=== PATIENT | female | born 1970 | race Caucasian/White ===

== ENCOUNTER 2018-09-11 18:01 | Outpatient (REF) | payer OTHER, SELFPAY ==
[2018-09-11 22:32] LABS: COMMENT (LAB VIEW ONLY) 45.35 mg/dL
[2018-09-11 22:35] LABS: Anion Gap 8.1 mmol/L (3-11); BUN 13 mg/dL (7-18); CO2 32.9 mmol/L (21.0-32.0); CREATININE 0.99 mg/dL (0.55-1.02); Chloride 100 mmol/L (98-107); Cholesterol 181 mg/dL (50-200); Estimated GFR 59.62 (mL/min/1.73m2); Glucose 190 mg/dL (70-100); HDL Cholesterol 45 mg/dL (40-60); LDL CHOLESTEROL 114 mg/dL (<100); Potassium 3.6 mmol/L (3.5-5.1); Sodium 141 mmol/L (136-145); Triglyceride 166 mg/dL (30-150)
== END 2018-09-11 18:21 ==
LOC: NCHCN 18:01
PROVIDERS: PCP Family Medicine; Visit Provider Family Medicine
DX: E11.65 Type 2 diabetes mellitus with hyperglycemia (principal); Z79.4 Long term (current) use of insulin
CPT/HCPCS: 80048; 80061; 83721; 82043; 82570

== ENCOUNTER 2019-11-04 18:12 | Outpatient (REF) | payer OTHER, SELFPAY ==
[2019-11-04 22:58] LABS: BUN 16 mg/dL (7-18); CREATININE 1.06 mg/dL (0.55-1.02); Calcium 8.6 mg/dL (8.5-10.1); Calculated LDL 60 mg/dL; Chloride 104 mmol/L (98-107); Cholesterol 166 mg/dL (<200); Estimated GFR 54.87 (mL/min/1.73m2); Glucose 218 mg/dL (74-106); HDL Cholesterol 42 mg/dL (40-60); Potassium 3.8 mmol/L (3.5-5.1); Sodium 143 mmol/L (136-145); Triglyceride 321 mg/dL (<150)
== END 2019-11-04 18:32 ==
LOC: NCHCN 18:12
PROVIDERS: PCP Family Medicine; Visit Provider Family Medicine
DX: I10 Essential (primary) hypertension (principal); E66.01 Morbid (severe) obesity due to excess calories
CPT/HCPCS: 80048; 80061

== ENCOUNTER 2020-07-08 21:58 | Outpatient (REF) | payer OTHER, SELFPAY ==
[2020-07-08 21:12] LABS: Hemoglobin A1C 8.5 % (<5.7)
== END 2020-07-08 22:18 ==
LOC: NCHCN 21:58
PROVIDERS: PCP Family Medicine; Visit Provider Nurse Practitioner Family
DX: E11.65 Type 2 diabetes mellitus with hyperglycemia (principal)
CPT/HCPCS: 83036

== ENCOUNTER 2021-09-26 09:54 | Outpatient (REF) | payer OTHER, SELFPAY ==
--- NOTE | 2021-09-26 08:30 | PAPFT_PTH ---
PATIENT: Elizabeth Corrigan LOC: [facility]#:[id number] AGE/SX: 51/F ROOM: RE09/26/[address]: Rosalia Starr : 1970 BED: DIS: 09/26/2021 SPEC #: [id number] RECD: 09/26/21 17:51 STATUS: BRITTNI REDanny #: [id number] DUC: 09/26/21 08:[address]: Rosalia Starr DEPT: [facility] Cytology RECD BY: June Foy Tissues: 1 - CX/ENDOCX FOR PAP SMEARS Procedures: PAP THIN PREP/UVM Screening HPV DNA PROBE Comments: [id number]
== END 2021-09-26 09:55 | disposition home or self-care (01) ==
LOC: NCHCN 09:54
PROVIDERS: PCP Family Medicine; Visit Provider Family Medicine
DX: Z12.4 Encounter for screening for malignant neoplasm of cervix (principal); Z11.51 Encounter for screening for human papillomavirus (HPV)
CPT/HCPCS: 88142; 87624

== ENCOUNTER 2022-06-28 18:41 | Outpatient (REF) | payer OTHER, SELFPAY ==
[2022-06-29 18:02] LABS: Albumin, Ur < 0.6 mg/dL (See Note)
== END 2022-06-28 18:42 | disposition home or self-care (01) ==
LOC: NCHCN 18:41
PROVIDERS: PCP Family Medicine; Visit Provider Family Medicine
DX: I10 Essential (primary) hypertension (principal); E11.65 Type 2 diabetes mellitus with hyperglycemia; Z79.4 Long term (current) use of insulin
CPT/HCPCS: 82043; 82570

== ENCOUNTER 2022-09-25 15:59 | Outpatient (REF) | payer OTHER, SELFPAY ==
--- OUTSIDE RECORDS SUMMARY | 2022-09-25 16:10 | XMS_ITS | CCD ---
:1970 Author Care Team Providers Name Role Phone ANTHONY PEGUERO Attending Physician Unavailable ANTHONY PEGUERO Rounding (Secondary) Physician Unavailab le Vital Signs Unknown or Not Available. Allergies Allergy Code Allergy Type Reaction Status PENICILLINS (CLASS) 90230 Drug allergy Hives Active AMPICILLIN 843098 Drug allergy Hives Active SEASONAL {Clinical monitoring 0 Allergy to substance SIN US Active unavailable} Procedures Unknown or Not Available. History of Immunizations Unknown or Not Available. Problems Problem Code Start Date Resolved Date Status Acid reflux 384573034 Active Diabetes 2 85104182 Active HTN 75698900 Active Results Unknown or Not Available. Active Medications Unknown or Not Available. Medications Administered During Visit Unknown or Not Available. Encounters Encounter Diagnosis Diagnosis Code Start Date Other chest pain R0789 04/07/2022 Social History Smoking Status Code Start Date End Date Never smoker 688851957 Patient Decision Aids Unknown or Not Available. Discharge Instructions You were admitted to [facility] on 04/07/2022 08:32 with a principal diagnosis of Other chest pain You were discharged from [facility] on 04/07/2022 00:00 Should you have any questions prior to d ischarge, please contact a member of your healthcare team. If you have left the ho spital and have any questions, please contact your primary care physician. Chief Complaint and Reason For Visit Unknown or Not Available. Function Status Unknown or Not Available. Plan of Care Unknown or Not Available. Referral/Transition of Care Unknown or Not Available.
--- OUTSIDE RECORDS SUMMARY | 2022-09-25 16:10 | XMS_ITS | CCD ---
:1970 Author Care Team Providers Name Role Phone JORDANA BATRES Attending Physician Unavailable Vital Signs Unknown or Not Available. Allergies Allergy Code Allergy Type Reaction Status PENICILLINS (CLASS) 68147 Drug allergy Hives Active AMPICILLIN 665349 Drug allergy Hives Active SEASONAL {Clinical monitoring 0 Allergy to substance SIN US Active unavailable} Procedures Unknown or Not Available. History of Immunizations Unknown or Not Available. Problems Problem Code Start Date Resolved Date Status Acid reflux 232152535 Active Diabetes 2 18519699 Active HTN 45865378 Active Results COMPREHENSIVE METABOLIC PANEL (CMP) - Co llect Date/Time: 10/05/2021 08:22 Test Name Code Test Result Test Units Test Ref Range GLUCOSE 2345-7 213 mg/dL L=70 H=116 BUN 3094-0 19 mg/dL L=6 H=25 CREATININE 2160-0 1.10 mg/dL L=0.51 H=0.95 SODIUM SERUM 2951-2 140 mmol/L L=136 H=145 POTASSIUM SERUM 2823-3 4.2 mmol/L L=3.4 H=5.2 CHLORIDE SERUM 2075-0 100 mmol/L L=96 H=110 CARBON DIOXIDE (CO2) 2028-9 35 mmol/L L=22 H= 34 ANION GAP 57714-3 5.3 mmol/L CALCIUM SERUM 92120-4 8.9 mg/dL L=8.2 H=10.2 BILIRUBIN TOTAL 1975-2 0.4 mg/dL L=0.0 H=1.3 ALK. PHOS. 6768-6 118 U/L L=46 H=116 SGOT (AST) 1920-8 12 U/L L=15 H=37 SGPT (ALT) 1742-6 19 U/L L=12 H=78 TOTAL PROTEIN 2885-2 7.6 gm/dL L=6.0 H=8.0 ALBUMIN 1751-7 3.7 gm/dL L=3.4 H=5.0 AGE 51 years eGFR (non-Afr.Amer.) 49768-7 52 mL/min eGFR (Afr-Dominican) 60762-9 63 mL/min LIPID PANEL* - Collect Date/Time: 2020 08:22 Test Name Code Test Result Test Units Test Ref Range CHOLESTEROL 2093-3 136 mg/dL L=0 H=200 TRIGLYCERIDES 2571-8 87 mg/dL L=53 H=223 HDL 2085-9 56 mg/dL L=37 H=91 non-HDL-C 00358-5 80 mg/dL L=0 H=160 LDL (CALC) 53066-7 63 mg/dL L=0 H=130 % HDL 41.2 % Chol/HDL Ratio 9830-1 2.4 L=0.0 H=4.4 CHD Relative Risk 0.5 x Avg L=0.0 H=1. 0 LDL/HDL Ratio 21642-8 1.1 L=0.0 H=3.2 CHD Relative Risk. 0.3 x Avg L=0.0 H=1 .0 FASTING STATUS: FASTING N/A MICROALBUMIN URINE - Collect Date/Time: 10/05/2021 08:22 Test Name Code Test Result Test Units Test Ref Range Creatinine Urine 2161-8 110.6 mg/dl Microalb mg/dl 63884-2 0.4 mg/dl Microalbumin ug/mg C 9318-7 3.6 ug/mg Cr CHLAMYDIA/GC AMPLIFIED PROBE* - Collect Date/Time: 10/07/2021 13:41 Test Name Code Test Result Test Units Test Ref Range Chlamydia Result Negative N/A Negative GC Result Negative N/A Negative Active Medications Unknown or Not Available. Medications Administered During Visit Unknown or Not Available. Encounters Encounter Diagnosis Diagnosis Code Start Date Type 2 diabetes mellitus without complication 234119522 10/05/2021 Social History Smoking Status Code Start Date End Date Never smoker 602703671 Patient Decision Aids Unknown or Not Available. Discharge Instructions You were admitted to [facility] on 10/05/2021 08:06 with a principal diagnosis of Type 2 diabetes mellitus without comp lications You had the following tests done: CHLAM YDIA/GC AMPLIFIED PROBE* COMPREHENSIVE METABOLIC PANEL (CMP) LIPID PANEL* MICRO ALBUMIN URINE You were discharged from [facility] on 10/05/2021 08:06 Should you have any questions prior to [...]
--- OUTSIDE RECORDS SUMMARY | 2022-09-25 16:10 | XMS_ITS | CCD ---
:1970 Author Care Team Providers Name Role Phone DEVIN MEDRANO Attending Physician Unavailable DEVIN MEDRANO Er Physician 1 Unavailable THALIA Ball Registered Nurse Unavailable Vital Signs Vital Sign Value Unit Date/Time Recent/Initial? BMI (Body Mass Index) 33.47 kg/m^2 03/07/2022 23:04 In itial VS Weight Measured 183 lbs 03/07/2022 23:04 Initial VS Height 62 in 03/07/2022 23:04 Initial VS BSA (Body Surface Area) 1.91 m^2 03/07/2022 23:04 Initial VS BP Systolic 145 mmHg 03/07/2022 23:04 Initial VS BP Diastolic 65 mmHg 03/07/2022 23:04 Initial VS Respiratory Rate 18 bpm 03/07/2022 23:04 Initial VS Heart Rate 80 bpm 03/07/2022 23:04 Initial VS O2 % BldC Oximetry 99 % 03/07/2022 23:04 Initi al VS Body Temperature 37.2 degrees 03/07/2022 23:04 Initial VS BP Systolic 114 mmHg 03/08/2022 01:25 Most Recent VS BP Diastolic 66 mmHg 03/08/2022 01:25 Most Recent VS Respiratory Rate 16 bpm 03/08/2022 01:25 Most Re cent VS Heart Rate 84 bpm 03/08/2022 01:25 Most Recent VS O2 % BldC Oximetry 96 % 03/08/2022 01:25 Most Recent VS Allergies Allergy Code Allergy Type Reaction Status PENICILLINS (CLASS) 70334 Drug allergy Hives Active AMPICILLIN 514263 Drug allergy Hives Active SEASONAL {Clinical monitoring 0 Allergy to substance SIN US Active unavailable} Procedures Unknown or Not Available. History of Immunizations Unknown or Not Available. Problems Problem Code Start Date Resolved Date Status Acid reflux 448045389 Active Diabetes 2 06813472 Active HTN 84460841 Active Results COMPREHENSIVE METABOLIC PANEL (CMP) - Co llect Date/Time: 03/07/2022 22:55 Test Name Code Test Result Test Units Test Ref Range GLUCOSE 2345-7 138 mg/dL L=70 H=116 BUN 3094-0 19 mg/dL L=6 H=25 CREATININE 2160-0 1.15 mg/dL L=0.51 H=0.95 SODIUM SERUM 2951-2 139 mmol/L L=136 H=145 POTASSIUM SERUM 2823-3 3.7 mmol/L L=3.4 H=5.2 CHLORIDE SERUM 2075-0 101 mmol/L L=96 H=110 CARBON DIOXIDE (CO2) 2028-9 33 mmol/L L=22 H= 34 ANION GAP 30948-9 5.1 mmol/L CALCIUM SERUM 32272-2 8.5 mg/dL L=8.2 H=10.2 BILIRUBIN TOTAL 1975-2 0.4 mg/dL L=0.0 H=1.3 ALK. PHOS. 6768-6 131 U/L L=46 H=116 SGOT (AST) 1920-8 14 U/L L=15 H=37 SGPT (ALT) 1742-6 18 U/L L=12 H=78 TOTAL PROTEIN 2885-2 7.2 gm/dL L=6.0 H=8.0 ALBUMIN 1751-7 3.6 gm/dL L=3.4 H=5.0 AGE 51 years eGFR (non-Afr.Amer.) 79767-1 50 mL/min eGFR (Afr-Uruguayan) 54397-0 60 mL/min MAGNESIUM SERUM* - Collect Date/Time: 22:55 Test Name Code Test Result Test Units Test Ref Range MAGNESIUM 94232-7 2.1 mg/dL L=1.8 H=2.4 TROPONIN HIGH SENSITIVITY* - Collect Meek e/Time: 03/08/2022 01:02 Test Name Code Test Result Test Units Test Ref Range TROPONIN HS 5.7 pg/mL L=0.0 H=60.4 Specimen seq. 2 hour N/A TROPONIN HIGH SENSITIVITY* - Collect Meek e/Time: 03/07/2022 22:55 Test Name Code Test Result Test Units Test Ref Range TROPONIN HS 5.2 pg/mL L=0.0 H=60.4 Specimen seq. Random N/A CBC W/ DIFFERENTIAL* - Collect Date/Time : 03/07/2022 22:55 Test Name Code Test Result Test Units Test Ref Range WBC 6690-2 7.87 th/cmm L=5.00 H=10.00 NEUT % 52.9 % L=40.0 H=80.0 LYMPH % 34.4 % L=10.0 H=50.0 MONO % 67599-2 8.0 % L=2.0 H=12.0 EOS % 3.6 % L=0.0 H=8.0 BASO % 0.6 % L=0.0 H=3.0 IG % 2514-8 0.5 % L=0.0 H=1.1 NRBC % 70942-5 0.0 % L=0.0 H=0.0 NEUT abs count 751-8 4.2 th/cmm L=1.6 H=8.4 LYMPH abs count 731-0 2.7 th/cmm L=1.5 H=4.0 MONO abs count 742-7 0.6 th/cmm L=0.2 H=1.0 EOS abs count 711-2 0.3 th/cmm L=0.0 H=0.5 BASO abs count 704-7 0.1 th/cmm L=0.0 H=0.2 IG abs count 80579-3 0.0 th/cmm L=0.0 H=0.1 NRBC abs count 00986-0 0.0 mil/cmm L=0.0 H=0.0 RBC 789-8 5.41 mil/cmm L=3.90 H=5.40 HEMOGLOBIN 718-7 12.8 gm/dL L=12.0 H=16.0 HEMATOCRIT 4544-3 42 % L=37 H=47 MCV 787-2 78 fL L=82 H=92 MCH 785-6 23.7 pg L=27.0 H=31.0 MCHC 786-4 30.2 % L=32.0 H=36.0 RDW-SD 788-0 44.0 fL L=39.0 H=49.0 PLATELET COUNT 777-3 268 th/cmm L=150 H=450 Active Medications Medication Code Dose Units Frequency Route Modification Start Date/Time NITROGLYCERIN 402541 0.4 MG X1 SL 03/07/2022 TABLET SL (25CT): 22:59 0.4MG Medications Administered During Visit Medication Dose Units Frequency Route Date/Time of L ast Dose ASPIRIN TABLET CHEWABLE: 81MG 324 MG X1 CHEW 03/07/2022 23:00 NITROGLYCERIN TABLET SL 0.4 MG X1 SL 0 03/07/2022 23:00 (25CT): 0.4MG Encounters Encounter Diagnosis Diagnosis Code Start Date Other chest pain R0789 03/07/2022 Social History Smoking Status Code Start Date End Date Never smoker 431708938 Patient Decision Aids Unknown or Not Available. Discharge Instructions You were admitted to [facility] on 03/07/2022 22:43 with a principal diagnosis of Other chest pain You had the following tests done: TROPO RANJITH HIGH SENSITIVITY* CBC W/ DIFFERENTIAL* COMPREHENSIVE METABOLIC PANEL (CMP) MAGN ESIUM SERUM* TROPONIN HIGH SENSITIVITY* You were discharged from [facility] on 03/08/2022 02:09 Should you have any questions prior to d ischarge, please contact a member of your healthcare team. If you have left the spital and have any questions, please contact your primary care physician. Chief Complaint and Reason For Visit Chief Complaint Date of Onset CHEST DISCOMFORT Function Status Unknown or Not Available. Plan of Care Unknown or Not Available. Referral/Transition of Care Unknown or Not Available.
--- OUTSIDE RECORDS SUMMARY | 2022-09-25 16:10 | XMS_ITS | CCD ---
:1970 Author Care Team Providers Name Role Phone ALDA SOLIS Attending Physician Unavailable Vital Signs Unknown or Not Available. Allergies Allergy Code Allergy Type Reaction Status PENICILLINS (CLASS) 94497 Drug allergy Hives Active AMPICILLIN 836146 Drug allergy Hives Active SEASONAL {Clinical monitoring 0 Allergy to substance SIN US Active unavailable} Procedures Unknown or Not Available. History of Immunizations Unknown or Not Available. Problems Problem Code Start Date Resolved Date Status Acid reflux 697273471 Active Diabetes 2 87925333 Active HTN 47641658 Active Results Unknown or Not Available. Active Medications Unknown or Not Available. Medications Administered During Visit Unknown or Not Available. Encounters Encounter Diagnosis Diagnosis Code Start Date Screening mammography 40245865 11/11/2021 Social History Smoking Status Code Start Date End Date Never smoker 298679318 Patient Decision Aids Unknown or Not Available. Discharge Instructions You were admitted to [facility] on 11/11/2021 15:13 with a principal diagnosis of Encounter for screening mammogram for malignant neoplasm of breast You were discharged from [facility] on 11/11/2021 15:13 Should you have any questions prior to d ischarge, please contact a member of your healthcare team. If you have left the ho spital and have any questions, please contact your primary care physician. Chief Complaint and Reason For Visit Chief Complaint Date of Onset SCR Function Status Unknown or Not Available. Plan of Care Unknown or Not Available. Referral/Transition of Care Unknown or Not Available.
--- OUTSIDE RECORDS SUMMARY | 2022-09-25 16:11 | XMS_ITS | Encounter Summary ---
:1970 Author Organization [facility] Address [address] [place] [address] Care Team Providers Name Role Phone Rosalia Starr MD Primary Care Provider Encounter Details Date Type Department Care Team Description 10/24/2017 Historical Results [facility] - Bobo Rios, Only [facility] - Main [facility] Silvia Sheldon MD [address] [facility] [address] [place] [address] [facility] [place] [address] Social History Tobacco Use Types Packs/Day Years Used Date Smoking Tobacco: Never Assessed Sex Assigned at Date Recorded Not on file documented as of this encounter Plan of Treatment Upcoming Encounters Date Type Specialty Care Team Description 11/10/2022 Office Visit Endocrinology Claudia Garcia, CLAMP JIG ASSEMBLER [address] [facility] [address] [place] [address] (Wo rk) documented as of this encounter Procedures Procedure Name Priority Date/Time Associated Diagnosis Comme nts MICROALBUMIN, URINE Routine 10/24/2017 15:51 Resu lts for this EST procedure are i n the results section. URINE Routine 10/24/2017 15:51 Results for this [id number] EST procedur e are in NE RATIO (ACR) the results section. documented in this encounter Results MICROALBUMIN, URINE (10/24/2017 15:51 EST) P athologist Signature Albumin, Urine 0.80 <1.7 mg/dL 10/24/2017 CENTRAL 19:45 EST [facility] Lab Urine 5.0 ug/mg 10/24/2017 CENTRAL Albumin to 19:45 EST [facility] Creatinine CENTER LAB Ratio Comment: Normal: <30 ug/mg Creat Microalbuminuria: 30-300 ug/mg Creat Clinical albuminuria: >300 ug/mg Creat Creatinine, Urine 157.50 mg/dL 10/24/2017 19:45 EST C [facility] Specimen Anatomical Collection Method Collection Time Receive d Time (Source) Location / / Volume Laterality 10/24/2017 15:51 10/24/2017 EST 16:54 EST Silvia Rios MD HEMATOLOGY & PF4 ORDERABLES Performing Organization Address City/[facility]/ZIP Code Phon e Number [facility] [address] [place] [address] [facility] ALBUMIN, URINE (10/24/2017 15:51 EST) P athologist Signature Albumin, Urine 0.80 <1.7 mg/dL 10/24/2017 CENTRAL 19:45 EST [facility] Lab Urine 5.0 ug/mg 10/24/2017 CENTRAL Albumin to 19:45 EST [facility] Creatinine CENTER LAB Ratio Comment: Normal: <30 ug/mg Creat Microalbuminuria: 30-300 ug/mg Creat Clinical albuminuria: >300 ug/mg Creat Creatinine, Urine 157.50 mg/dL 10/24/2017 19:45 EST C [facility] Specimen Anatomical Collection Method Collection Time Receive d Time (Source) Location / / Volume Laterality 10/24/2017 15:51 10/24/2017 EST 16:54 EST Silvia Rios MD CHEMISTRY & BLOOD GAS ORDERA BLES Performing Organization Address City/[facility]/ZIP Code Phon e Number [facility] [address] [place] [address] [facility] documented in this encounter Visit Diagnoses Not on filedocumented in this encounter Care Teams Senior Licensing Manager Relationship Specialty Start Date End Date Rosalia Starr MD PCP - General 11/06/[address] [place] [address] documented as of this encounter
--- OUTSIDE RECORDS SUMMARY | 2022-09-25 16:11 | XMS_ITS | Encounter Summary ---
:1970 Author Organization [facility] Address [address] [place] [address] Care Team Providers Name Role Phone Rosalia Starr MD Primary Care Provider Silvia Ghosh MD Unavailable [phone] Encounter Details Date Type Department Care Team Description 09/27/2021 Lab Requisition [facility] Rosalia Starr Enco unter for general adult medical examination without abnormal findings; Pathology & MD Encounter for screening for malignant ne oplasm of cervix Laboratory Medicine - [address] [place] [place] [address] [facility] [id number] [place] [id number] Social History Tobacco Use Types Packs/Day Years Used Date Smoking Tobacco: Never Smokeless Tobacco: Never Sex Assigned at Date Recorded Not on file documented as of this encounter Plan of Treatment Upcoming Encounters Date Type Specialty Care Team Description 11/10/2022 Office Visit Endocrinology Claudia Garcia, DRAG DOWN [address] [address] (Wo rk) Scheduled Orders Name Type Priority Associated Diagnoses Order S chedule PAP TEST Pathology Today Encounter for general adult medical Ordered: 09/27/2021 examination with out abnormal findings Encounter for screening for malignant neoplasm of cervix documented as of this encounter Visit Diagnoses Diagnosis Encounter for general adult medical exam ination without abnormal findings Unspecified general medical examination Encounter for screening for malignant ne oplasm of cervix Screening for malignant neoplasm of the cervix documented in this encounter Care Teams Legal Coordinator Relationship Specialty Start Date End Date Rosalia Starr MD PCP - General 11/06/[address] [place] [address] Silvia Ghosh, Endocrinology, Diabetes and MD Metabolism [address] [place] [phone] documented as of this encounter
--- OUTSIDE RECORDS SUMMARY | 2022-09-25 16:11 | XMS_ITS | Encounter Summary ---
:1970 Author Organization [facility] Address [address] [place] [address] Care Team Providers Name Role Phone Unknown, Provider Primary Care Provider Encounter Details Date Type Department Care Team Description 10/05/2006 Results Only [facility] - neptali Gilman NP [address] [place] [address] Social History Tobacco Use Types Packs/Day Years Used Date Smoking Tobacco: Never Assessed Sex Assigned at Date Recorded Not on file documented as of this encounter Plan of Treatment Upcoming Encounters Date Type Specialty Care Team Description 11/10/2022 Office Visit Endocrinology Claudia Garcia, MOTOR TEACHER [address] [facility] [address] [place] [address] (Wo rk) documented as of this encounter Procedures Procedure Name Priority Date/Time Associated Diagnosis Comme nts CYTOPATHOLOGY Routine 10/05/2006 0:00 EST Results for this procedure are i n the results section . documented in this encounter Results CYTOPATHOLOGY (10/05/2006 0:00 EST) Component Value Ref Test Analysis Performed At [facility] Method Time Signature Pathology CYTOPATHOLOGY REPORT [facility] Report: [facility] Reports generated via electronic interface contain original data; however they are lacking the format of the original report. Caution should be taken when reading/interpreting unformatte d reports. Name: ? ORETGA FRANKLIN ? Accession #: ? [id number] : ? 1970 (Age: 36) ??F ?Collect Date: ? 10/05/2006 Location: ? [facility] ? Receive Date: ? 10/08/2006 Provider: ?LAURENCE ANGELIA MOTOR TEACHER Copy to: ? Specimen/Source: ?ThinPrep Pap Test, E ndocervix, processed on [employer] Transit ThinPrep Imaging System, with manual evaluation Last Menstrual Period: ? 09/13/06 Other: ? HPVA - HPV testing requested if ASC-US on the current ThinPr ep Pap test. ? SPECIMEN ADEQUACY ? Satisfactory for Evaluation - transformation zone component present GENERAL CATEGORIZATION ? Epithelial Cell Abnormality INTERPRETATION ? Squamous Cell Abnormality - Atypical squamous cells, undetermined significance (ASC-US). Shift in yumiko present suggestive of bacterial vaginosis. EDUCATIONAL NOTES/RECOMMENDATIONS ? [facility] recommends mine wing the 2001 Consensus Guidelines for the Management of Women with Cervical Cytological Abnormalities (RAI,2002 ;287:2120-9). Management algorithms have b een distributed by [facility] and are available online at www.ASCCP.org. ? Document reviewed and electronically signed by: ? LUCILA HILLIARD MD [facility] ? Report Date: ??10/16/2006 10:23 End of Report Specimen (Source) Anatomical Location Collection Method / Collectio n Time Received Time / Laterality Volume 10/05/2006 10/08/2006 Laurence UreñaJose MOTOR TEACHER PATHOLOGY ORDERABLES Performing Organization Address City/State/ZIP Code Phon e Number [facility] [address] [place] [address] [facility] [address] [place] [address] documented in this encounter Visit Diagnoses Not on filedocumented in this encounter Care Teams Process Development Engineer Relationship Specialty Start Date End Date Unknown, Provider, PCP - General 03/08/09 11/05/16 documented as of this encounter
--- OUTSIDE RECORDS SUMMARY | 2022-09-25 16:11 | XMS_ITS | CCD ---
:1970 Author Care Team Providers Name Role Phone MARCIAL VERDIN Attending Physician Unavailable MARCIAL VERDIN Rounding (Secondary) Physician Unavailab le Vital Signs Unknown or Not Available. Allergies Allergy Code Allergy Type Reaction Status PENICILLINS (CLASS) 63005 Drug allergy Hives Active AMPICILLIN 533316 Drug allergy Hives Active SEASONAL {Clinical monitoring 0 Allergy to substance SIN US Active unavailable} Procedures Unknown or Not Available. History of Immunizations Unknown or Not Available. Problems Problem Code Start Date Resolved Date Status Acid reflux 844469370 Active Diabetes 2 76597102 Active HTN 19339359 Active Results Unknown or Not Available. Active Medications Unknown or Not Available. Medications Administered During Visit Unknown or Not Available. Encounters Encounter Diagnosis Diagnosis Code Start Date Other chest pain R0789 06/08/2022 Social History Smoking Status Code Start Date End Date Never smoker 068449760 Patient Decision Aids Unknown or Not Available. Discharge Instructions You were admitted to [facility] on 06/08/2022 11:37 with a principal diagnosis of Other chest pain You were discharged from [facility] on 06/08/2022 00:00 Should you have any questions prior [...]
--- OUTSIDE RECORDS SUMMARY | 2022-09-25 16:11 | XMS_ITS | Encounter Summary ---
:1970 Author Organization [facility] Address [address] [place] [address] Care Team Providers Name Role Phone Rosalia Starr MD Primary Care Provider Encounter Details Date Type Department Care Team Description 11/07/2016 Results Only Imaging [facility]- Unknown, SHADE Joyce MD [phone] Social History Tobacco Use Types Packs/Day Years Used Date Smoking Tobacco: Never Assessed Sex Assigned at Date Recorded Not on file documented as of this encounter Plan of Treatment Upcoming Encounters Date Type Specialty Care Team Description 11/10/2022 Office Visit Endocrinology Claudia Garcia M, FOREST PATHOLOGIST [address] [facility] [address] [place] [address] (Wo rk) Pending Results Name Type Priority Associated Diagnoses Date/Ti me OUTSIDE IMAGES - CT BODY Imaging 07/2017 7:46 EST documented as of this encounter Visit Diagnoses Not on filedocumented in this encounter Care Teams Head Transfer Clerk Relationship Specialty Start Date End Date Rosalia Starr MD PCP - General 11/06/16 [address] [place] [address] documented as of this encounter
--- OUTSIDE RECORDS SUMMARY | 2022-09-25 16:11 | XMS_ITS | Continuity of Care Document ---
:1970 Author Organization [facility] Address [address] [place] [address] Phone Care Team Providers Name Role Phone Out of Town, Provider Primary Care Provider Unavailable Donaldo Pratt Attending Provider Allergies, Adverse Reactions, Alerts Allergen Type Severity Reaction Last Updated Verified Status ampicillin Allergy HIVES August 30, 2020 Yes Active 10:11am Penicillins Allergy hives August 30, 2020 Yes Active 10:11am Medications Medication Status Dose Units Route Directions Qty Days Start End Ins tructions Date Date Atorvastatin Active 20 MG PO DAILY August 30, 2020 10:15am Dapagliflozin Active 5 MG PO DAILY August (Farxiga) 5 mg 2019 tablet 10:16am Liraglutide Active 0.6 MG SC DAILY August (Victoza 2019 2-Luca) 0.6 10:16am mg/0.1 mL (18 mg/3 mL) pen injector Venlafaxine Active 75 MG PO DAILY August (Effexor Xr) 2019 75 mg 10:16am capsule,extend ed release 24hr Insulin Lispro Active 300 UNITS SC DAILY August 30, 2020 10:17am Albuterol Active 1 INH INH ONCE November Sulfate 2019 (Proair Hfa) 10:18am 90 mcg/actuation HFA aerosol inhaler Lisinopril Active 40 MG PO DAILY August 30, 2020 10:18am Gabapentin Active 300 MG PO THREE TIMES November A DAY 2019 10:19am Aspirin (Adult Active 81 MG PO DAILY August Aspirin 2019 Regimen) 81 mg 10:19am tablet,delayed release (DR/EC) Diclofenac Active 50 MG PO TWICE A DAY August Start taking Potassium 2019 afterD osepak 10:57am is finished Methylpredniso Active 4 MG PO per package 18 September lone (Medrol directions 2019 (Luca)) 4 mg 10:58am tablets,dose pack Cyclobenzaprin Active 10 MG PO THREE TIMES August e A DAY 2019 10:59am Problems Active Problems Medical Problem Onset Date Status Lumbar radiculopathy Active Procedures Procedure Date Performed Status Lumbar Spine 4 vw Min August 30, 2020 10:12am completed Advance Directives Advance Directive Response Recorded Date/Time Does patient have an Advanced Directive? No August 30, 2020 10:00am Do we have a copy on file here at [facility]? No N ovember 2019 10:00am Pt has a Living Will? No August 30, 2020 10:00am Do we have a copy on file here at [facility]? No N ovember 2019 10:00am Pt has a Power of Regulatory Affairs Analyst? No August 10:00am Do we have a copy on file here at [facility]? No N ovember 2019 10:00am Chief Complaint and Reason for Visit Chief Complaint SCIATICA X-RAY Reason for Visit Lumbar radiculopathy Encounters Encounter Location(s) Arrival/Admit Date Discharge/Depart Date Provider(s) Departed [facility] August 30, 2020 August 30, 2020 Mark Mckeon Physician/[facility] Medical 10:00am 11:22am MD [facility] Visit inspector government property&Rehab Departed [facility] August 30, 2020 August 30, 2020 Mark Mc[facility] 10:04am 10:05am Marj Pratt [facility] Orthopedics Recent Diagnosis Onset Date Lumbar radiculopathy Assessments Diagnosis Onset Date Resolution Status Lumbar radiculopathy acute Functional Status No Functional Status information available Goals Goals may be documented in an alternate section. Mental Status No Mental Status Information Available Medical Equipment No Medical Equipment Information available Insurance Providers Guarantor ORTEGA FRANKLIN Address [address] [place], [place] [id number] Contact Info. Home Phone: Payer Policy Id Coverage Id Subscriber's Subscriber Effective Expi ration Name Id Date Date COMM [id number] CAR FRANKLIN [id number] UNLISTED INSURANCE SELF PAY Self N/A Social History Assigned Sex Female Vital Signs Vital Reading Result Reference Range Collection Date/ Time Height 62 [in_i] August 30 10:09am Weight 88.90 kg August 30 10:09am Heart Rate 75 /min 60-100 August 30 10:09am Oxygen saturation by Pulse 97 % 95-100 Novem 2019 10:09am oximetry BP Systolic 118 mm[Hg] 100-140 August 30 10:09am BP Diastolic 68 mm[Hg] 50-85 August 30 10:09am BMI (Body Mass Index) 35.8 kg/m2 August 302019 10:09am
--- OUTSIDE RECORDS SUMMARY | 2022-09-25 16:11 | XMS_ITS | Encounter Summary ---
:1970 Author Organization [facility] Address [address] [place] [address] Care Team Providers Name Role Phone Unknown, Provider Primary Care Provider Encounter Details Date Type Department Care Team Description 03/21/2008 Results Only [facility] - Karishma Galan, neptali Dang NP [address] [place] [address] Social History Tobacco Use Types Packs/Day Years Used Date Smoking Tobacco: Never Assessed Sex Assigned at Date Recorded Not on file documented as of this encounter Plan of Treatment Upcoming Encounters Date Type Specialty Care Team Description 11/10/2022 Office Visit Endocrinology Claudia Garcia, BILLER [address] [facility] [address] [place] [address] (Wo rk) documented as of this encounter Procedures Procedure Name Priority Date/Time Associated Comments Diagnosis HPV DETECTION, HIGH Routine 03/21/2008 17:13 Resu lts for this RISK TYPES EDT procedure are i n the results section. CYTOPATHOLOGY Routine 03/21/2008 0:00 Results for this EDT procedure are i n the results section. documented in this encounter Results HUMAN PAPILLOMA VIRUS DNA TEST (03/21/2008 17:13 EDT) [facility] Method Time Signature Specimen Cervix, VERDIN Description ThinPrep vial [facility] Result Positive for one or more of HPV types 16,18,31,33,35,39,45,51,52,56,58,59, or 68. These VERDIN high/intermediate risk HPV t ypes are associated with dysplasia and some cervical cancers. [facility] Report Status Final [facility] [id number] [facility] Specimen Anatomical Collection Method Collection Time Receive d Time (Source) Location / / Volume Laterality 03/21/2008 17:13 03/27/2008 EDT 15:28 EDT Valentine Galan NP MICROBIOLOGY - GENERAL ORDER FRED Performing Organization Address City/State/ZIP Code Phon e Number [facility] [address] [place] [address] SERVICES [facility] [address] [place] [address] CYTOPATHOLOGY (03/21/2008 0:00 EDT) Component Value Ref Test Analysis Performed At [facility] Range Method Time Signature Pathology CYTOPATHOLOGY REPORT [facility] Report: [facility] Reports generated via electronic interface contain original data; however they are lacking the format of the original report. Caution should be taken when reading/interpreting unformatte d reports. Name: ? ORTEGA CORRIGAN ? Accession #: ? [id number] : ? 1970 (Age: 38) ??F ?Collect Date: ? 03/21/2008 Location: ? [facility] ? Receive Date: ? 03/24/2008 Provider: ?VALENTINE GALAN BILLER Copy to: ? Specimen/Source: ?ThinPrep Pap Test, E ndocervix, processed on Owned it ThinPrep Imaging System, with manual evaluation Last Menstrual Period: ? 03/16/08 Previous Gynecologic Pathology: ? HPV: (+) LSIL: x2 Treatment History: ? Colposcopy: x2 Other: ? HPVA - HPV testing requested if ASC-US on the current ThinPr ep Pap test. ? SPECIMEN ADEQUACY ? Satisfactory for Evaluation - transformation zone component present GENERAL CATEGORIZATION ? Epithelial Cell Abnormality INTERPRETATION ? Squamous Cell Abnormality - Atypical squamous cells, undetermined significance (ASC-US). Shift in yumiko present suggestive of bacterial vaginosis. EDUCATIONAL NOTES/RECOMMENDATIONS ? FA recommends mine gagnon the 2006 Consensus Guidelines for the Management of Women with Abnormal Cervical Cancer Screening Tests (NATY TD, 2007;11(4):201-222). ??Consensus guidelines are available on line at www.ASCCP.org. ? Document reviewed and electronically signed by: ? SAHARA HOPE MD ? Report Date: ??03/27/2008 08:58 End of Report Specimen (Source) Anatomical Location Collection Method / Collectio n Time Received Time / Laterality Volume 03/21/2008 03/24/2008 Valentine Ureña-Tyler BILLER PATHOLOGY ORDERABLES Performing Organization Address City/State/ZIP Code Phon e Number [facility] [address] [place] [address] SERVICES [facility] [address] [place] [address] documented in this encounter Visit Diagnoses Not on filedocumented in this encounter Care Teams Manager Enrollment Relationship Specialty Start Date End Date Unknown, Provider, PCP - General 03/08/09 11/05/16 documented as of this encounter
--- OUTSIDE RECORDS SUMMARY | 2022-09-25 16:11 | XMS_ITS | Continuity of Care Document ---
:1970 Author Organization [facility] Address [address] [place] [address] Allergies, Adverse Reactions, Alerts Allergy history unobtainable. Medications No medication information available. Problem List No problem information available. Procedures No known history of procedures. Relevant Diagnostic Tests and/or Laboratory Data No known relevant diagnostic tests, laboratory data, and/or discharge summary. Hospital Discharge Instructions No known hospital discharge instructions. Functional Status No known functional status. Immunizations No known immunizations. Plan of Care No Known Plan of Care Information Social History No known social history. Vital Signs No known vital signs results.
--- OUTSIDE RECORDS SUMMARY | 2022-09-25 16:11 | XMS_ITS | Encounter Summary ---
:1970 Author Organization [facility] Address [address] [place] [address] Care Team Providers Name Role Phone Unknown, Provider Primary Care Provider Encounter Details Date Type Department Care Team Description 07/27/2007 Results Only [facility] - neptali Gilman NP [address] [place] [address] Social History Tobacco Use Types Packs/Day Years Used Date Smoking Tobacco: Never Assessed Sex Assigned at Date Recorded Not on file documented as of this encounter Plan of Treatment Upcoming Encounters Date Type Specialty Care Team Description 11/10/2022 Office Visit Endocrinology Claudia Garcia, GRAIN TRADER [address] [facility] [address] [place] [address] (Wo rk) documented as of this encounter Procedures Procedure Name Priority Date/Time Associated Diagnosis Comme nts CYTOPATHOLOGY Routine 07/27/2007 0:00 EDT Results for this procedure are i n the results section . documented in this encounter Results CYTOPATHOLOGY (07/27/2007 0:00 EDT) Component Value Ref Test Analysis Performed At [facility] Method Time Signature Pathology CYTOPATHOLOGY REPORT [facility] Report: [facility] Reports generated via electronic interface contain original data; however they are lacking the format of the original report. Caution should be taken when reading/interpreting unformatte d reports. Name: ? ORTEGA FRANKLIN ? Accession #: ? [id number] : ? 1970 (Age: 37) ??F ?Collect Date: ? 07/27/2007 Location: ? [facility] ? Receive Date: ? 07/31/2007 Provider: ?LAURENCE GALAN GRAIN TRADER Copy to: ? Specimen/Source: ?ThinPrep Pap Test, E ndocervix, processed on SingleHop ThinPrep Imaging System, with manual evaluation Last Menstrual Period: ? 07/02/07 Previous Gynecologic Pathology: ? ASC-US: 10/03 LSIL: 04/04 HPV: + Treatment History: ? Colposcopy: 04/04 LGSIL Other: ? HPVA - HPV testing requested if ASC-US on the current ThinPr ep Pap test. ? SPECIMEN ADEQUACY ? Satisfactory for Evaluation - transformation zone component present GENERAL CATEGORIZATION ? Epithelial Cell Abnormality INTERPRETATION ? Squamous Cell Abnormality - Low grade squamous intraepithelial lesion (LSIL). EDUCATIONAL NOTES/RECOMMENDATIONS ? [facility] recommends mine wing the 2001 Consensus Guidelines for the Management of Women with Cervical Cytological Abnormalities (RAI,2002 ;287:2120-9). Management algorithms have b een distributed by [facility] and are available online at www.ASCCP.org. ? Document reviewed and electronically signed by: ? JOHANA JOSEPH MD ? Report Date: ??08/08/2007 10:36 End of Report Specimen (Source) Anatomical Location Collection Method / Collectio n Time Received Time / Laterality Volume 07/27/2007 07/31/2007 Laurence Galan GRAIN TRADER PATHOLOGY ORDERABLES Performing Organization Address City/State/ZIP Code Phon e Number [facility] [address] [place] [phone] SERVICES [facility] [address] [place] [address] documented in this encounter Visit Diagnoses Not on filedocumented in this encounter Care Teams Pneumatic Riveter Relationship Specialty Start Date End Date Unknown, Provider, PCP - General 03/08/09 11/05/16 documented as of this encounter
--- OUTSIDE RECORDS SUMMARY | 2022-09-25 16:11 | XMS_ITS | Encounter Summary ---
:1970 Author Organization [facility] Address [address] [place] [address] Care Team Providers Name Role Phone Rosalia Starr MD Primary Care Provider Silvia Ghosh MD Unavailable [phone] Reason for Visit Reason Onset Date Comments Medications Refill 04/10/2022 Encounter Details Date Type Department Care Team Description 04/10/2022 Refill [facility] Latisha Romano RN Medications Refill Endocrinology [address] [place] [address] Social History Tobacco Use Types Packs/Day Years Used Date Smoking Tobacco: Never Smokeless Tobacco: Never Alcohol Use Standard Drinks/Week Comments Never 0 (1 standard drink = 0.6 oz pure alcoho l) Sex Assigned at Date Recorded Not on file documented as of this encounter Ordered Prescriptions Prescription Sig Dispensed Refills Start Date End Date liraglutide (VICTOZA 3-PJ) Inject 1.8 mg into 27 mL 3 04/11/2022 0.6 mg/0.1 mL (18 mg/3 mL) the skin daily. injectable pen documented in this encounter Plan of Treatment Upcoming Encounters Date Type Specialty Care Team Description 11/10/2022 Office Visit Endocrinology Claudia Garcia M, VULNERABILITY RESEARCHER [address] [facility] [address] [place] [address] (Wo rk) documented as of this encounter Visit Diagnoses Not on filedocumented in this encounter Discontinued Medications Medication Sig Discontinue Reason Start Date End Date VICTOZA 3-PJ 0.6 mg/0.1 Inject 1.8 mg into Reorder 03/21/2021 04/10/2022 mL (18 mg/3 mL) the skin daily. injectable pen documented as of this encounter Care Teams Track Leader Relationship Specialty Start Date End Date Rosalia Starr MD PCP - General 11/06/16 [address] [place], [place] [address] Silvia Ghosh, Endocrinology, Diabetes and Metabolism [address] [place] [address] documented as of this encounter
--- OUTSIDE RECORDS SUMMARY | 2022-09-25 16:11 | XMS_ITS | Continuity of Care Document ---
:1970 Author Organization [facility] Address [address] [place] [address] Phone Care Team Providers Name Role Phone Out of Town, Provider Primary Care Provider Unavailable Donaldo Pratt Attending Provider Unavailable Allergies, Adverse Reactions, Alerts Allergen Type Severity Reaction Last Updated Verified Status ampicillin Allergy HIVES January 26, 2021 8:39am Yes Active Penicillins Allergy hives January 26, 2021 8:39am Yes Active Medications Medication Status Dose Units Route Directions Qty Days Start End Ins tructions Date Date Atorvastatin Active 20 MG PO DAILY Novembe r 2019 11:15am Dapagliflozin Active 5 MG PO DAILY Novembe (Farxiga) 5 r 2nd, mg tablet 2019 11:16am Liraglutide Active 0.6 MG SC DAILY Novembe (Victoza r , 2-Luca) 0.6 2020 mg/0.1 mL (18 11:16am mg/3 mL) pen injector Venlafaxine Active 75 MG PO DAILY Novembe (Effexor Xr) r 2nd, 75 mg 2019 capsule,exten 11:16am ded release 24hr Insulin Active 300 UNITS SC DAILY Novembe Lispro r 2019 11:17am Albuterol Active 1 INH INH ONCE Novembe Sulfate r 2nd, (Proair Hfa) 2019 11:18am mcg/actuation HFA aerosol inhaler Lisinopril Active 40 MG PO DAILY Novem2019 11:18am Gabapentin Active 300 MG PO THREE TIMES Novembe A DAY 2019 11:19am Aspirin Active 81 MG PO DAILY Novem (Adult r Aspirin 2019 Regimen) 81 11:19am mg tablet,delaye d release (DR/EC) Diclofenac Active 50 MG PO TWICE A DAY 60 Novembe Start taking Potassium r , afterDose luca 2019 is finished 11:57am Methylprednis Discontin 4 MG PO per package December olone (Medrol ued directions r , (Luca)) 4 mg 2019 2020 tablets,dose 11:58am 8:40am pack Cyclobenzapri Active 10 MG PO THREE TIMES 84 Novembe ne A DAY 2019 11:59am Problems Active Problems Medical Problem Onset Date Status Lumbar radiculopathy Active Procedures Procedure Date Performed Status Lumbar Spine 4 vw Min August 30, 2020 11:12am completed Advance Directives Advance Directive Response Recorded Date/Time Does patient have an Advanced Directive? No August 30, 2020 11:00am Do we have a copy on file here at [facility]? No N ovember 2019 11:00am Pt has a Living Will? No August 30, 2020 11:00am Do we have a copy on file here at [facility]? No N ovember 2019 11:00am Pt has a Power of Inventory Transcriber? No August 11:00am Do we have a copy on file here at [facility]? No N ovember 2019 11:00am Chief Complaint and Reason for Visit Chief Complaint SCIATICA X-RAY fu sciatica Reason for Visit Lumbar radiculopathy Lumbar radiculopathy Encounters Encounter Location(s) Arrival/Admit Date Discharge/Depart Date Provider(s) Departed [facility] August 30, 2020 August 30, 2020 Mark Mckeon Physician/Prov Medical 11:00am 12:22pm MD jenae [facility] Visit n Orthopedic&Rehab Departed [facility] August 30, 2020 August 30, 2020 Mark Mckeon [facility] 11:04am 11:05am MD [place] [facility]oped[facility] Departed [facility] January 26, 2021 January 26, 2021 Patricia healy Physician/Prov Medical 8:34am 9:36am [facility] Visit n Orthopedic&Rehab Recent Diagnosis Onset Date Lumbar radiculopathy Lumbar radiculopathy Assessments Diagnosis Onset Date Resolution Status Lumbar radiculopathy acute Lumbar radiculopathy acute Functional Status No Functional Status information available Goals Goals may be documented in an alternate section. Mental Status No Mental Status Information Available Medical Equipment No Medical Equipment Information available Insurance Providers Guarantor ORTEGA FRANKLIN Address [address] [facility] [address] [address] Contact Info. Home Phone: Payer Policy Id Coverage Id Subscriber's Subscriber Effective Expi ration Name Id Date Date COMM [id number] CAR FRANKLIN [id number] UNLISTED INSURANCE SELF PAY Self N/A Plan of Treatment Patient presents today with a approximately 6-month history of low back pain and right lower extremity radiculopathy. She has tried medication management without improvement of her symptoms. I have provided her today with a referral for an MRI of the lumbar spine without contrast as well as a referral to begin physical therapy. Once we have obtained these updated imaging studies we will move forward with formulating appropriate treatment plan Future Tests Future scheduled test information is unavailable Pending Tests Pending diagnostic test information is unavailable Future Visits Future appointment information is unavailable Referrals to Other Providers Reason for Referral Start Provider Provider Contact Provider Address Referral Date Information M54.16 - January 26, Rehabilitation [address] [place] [address] Radiculopathy, 2020 [facility] [address] lumbar region Future Procedures Future procedure information is unavailable Future Medications Future medication information is unavailable Patient Instructions Patient instructions are unavailable Social History Smoking Status Status Date of Observation Never smoked tobacco (finding) January 26, 2021 8:42am Observation Status Observation Response Date of Response alcohol intake frequency holidays/special occasions only Mar 2020 8:42am substance use type does not use January 26, 2021 8:4 2am Smoking Status Never smoker January 26, 2021 8:4 2am Assigned Sex Female Vital Signs Vital Reading [...] Mass Index) 35.8 kg/m2 August 302019 10:09am Height 62 [in_i] January 26, 2021 8:42am Weight 87.14 kg January 26, 2021 8:42am Heart Rate 76 /min 60-100 January 26, 2021 8:42am Respiratory rate 16 /min 12-24 January 26 8:42am Oxygen saturation by Pulse 96 % 95-100 January 26, 2021 8:42am oximetry BP Systolic 121 mm[Hg] 100-140 January 26, 2021 8:42am BP Diastolic 74 mm[Hg] 50-85 January 26, 2021 8:42am BMI (Body Mass Index) 35.1 kg/m2 December 8:42am
--- OUTSIDE RECORDS SUMMARY | 2022-09-25 16:11 | XMS_ITS | Encounter Summary ---
:1970 Author Organization [facility] Address [address] [place] [address] Care Team Providers Name Role Phone Rosalia Starr MD Primary Care Provider Reason for Visit Reason Comments Diabetes Uncontrolled blood sugars Encounter Details Date Type Department Care Team Description 07/01/2020 Nurse Only [facility] Type 1 diabetes [facility] Endocrinology FAIZA Chandler mellitus with [address] [place] [address] [place] [address] without coma ([facility]) [phone] (Primary Dx) (Work) Social History Tobacco Use Types Packs/Day Years Used Date Smoking Tobacco: Never Assessed Sex Assigned at Date Recorded Not on file documented as of this encounter Last Filed Vital Signs Vital Sign Reading Time Taken Comments Blood Pressure - - Pulse - - Temperature - - Respiratory Rate - - Oxygen Saturation - - Inhaled Oxygen Concentration - - Weight 90 kg (198 lb 6.4 oz) 07/15/2020 1055 EDT Height - - Body Mass Index - - documented in this encounter Progress Notes Geraldine Strange, FAIZA - 07/01/2020 1300 EDT Diabetes Education Note Visit type: Office DM type I Diagnosed with DM : 1994 Latest A1c: unknown Insulin pump type: 630 G with sensor ROS: Checks Blood sugars: 2-5 times daily SBGM results: See insulin pump download in patient docs Hypoglycemia: Aware once is in the 60s. Patient reports blood sugars dropped very quickly Diet Hx: Brunch: 1130: 2 toast with peanut butter and jam, banana and sometimes juice Supper: 6-8 PM: Education today: Physiology Meds and how they work. Carb Counting, Label reading, meal planning Review of food and insulin pump and sensor download Insulin adjustment Education Needed: Review of food and insulin pump data Insulin adjustment Assessment: e11.65 Hx of current problem: By assessment patient over treats her lows, does manual bolusing without a blood sugar, suspends when blood sugar hits 99 and dropping. Active insulin on board is set at 2.0 (Discussed). Stage of change: action/preparation. Motivation 10. Comprehension 10. Plan: Active insulin on board increased to 3.0 Basal rate changes : midnight and 3 AM decreased and 4- 9 PM increased and 9 PM to midnight decreased. See patient docs for pump settings Next Visit: With endocrinology documented in this encounter Plan of Treatment Upcoming Encounters Date Type Specialty Care Team Description 11/10/2022 Office Visit Endocrinology Claudia Garcia, DAIRY NUTRITION CONSULTANT [address] [address] (Wo rk) documented as of this encounter Visit Diagnoses Diagnosis Type 1 diabetes mellitus with hypoglycem ia and without coma (HCC-CMS) (HCC) - Primary Type I (juvenile type) diabetes mellitus with other specified manifestations, not stated as uncontrolled documented in this encounter Care Teams Tester Electronic Scale Relationship Specialty Start Date End Date Rosalia Starr MD PCP - General 11/06/16 [address] [place] [address] documented as of this encounter
--- OUTSIDE RECORDS SUMMARY | 2022-09-25 16:11 | XMS_ITS | Encounter Summary ---
:1970 Author Organization [facility] Address [address] [place] [address] Care Team Providers Name Role Phone Rosalia Starr MD Primary Care Provider Reason for Visit Reason Comments Follow-up Encounter Details Date Type Department Care Team Description 02/16/2021 Office Visit [facility] - Aleshia Ghosh type 2 diabetes mellitus with hyperglycemia (HCC-CMS) (Primary Dx); [facility] Silvia Sheldon MD care home current use of insulin ([facility]); [address] [facility] [place] [address] [facility] [place] [phone] Social History Tobacco Use Types Packs/Day Years Used Date Smoking Tobacco: Never Smokeless Tobacco: Never Sex Assigned at Date Recorded Not on file documented as of this encounter Last Filed Vital Signs Vital Sign Reading Time Taken Comments Blood Pressure 122/60 02/16/2021 1609 EDT Pulse 78 02/16/2021 1609 EDT Temperature - - Respiratory Rate - - Oxygen Saturation - - Inhaled Oxygen Concentration - - Weight 83.9 kg (185 lb) 02/16/2021 1609 EDT Height - - Body Mass Index - - documented in this encounter Ordered Prescriptions Prescription Sig Dispensed Refills Start Date End Date ondansetron (ZOFRAN-ODT) 4 Take 1 Tab by mouth 20 Tab 1 02/16/2021 mg disintegrating tablet every 8 hours as needed for Nausea. documented in this encounter Progress Notes Geraldine Strange RN - 02/16/2021 1600 EDT Needs: foot exam, eyes, lipid, cmp; letter sent Silvia Ghosh MD - 02/16/2021 1600 EDT 02/16/2021 FOLLOW-UP PATIENT: Elizabeth Corrigan CHIEF COMPLAINT Follow-up HISTORY OF PRESENT ILLNESS Elizabeth Corrigan is a very pleasant 50 y.o. female who presents for follow up for type 2 DM. Last seen in Jul. Reports has been doing diet and Has lost like 20 lbs. She reports she is getting lows. She uses VenueSpotan connect Sensor. Got first shot of covid vaccine and got sick with nausea and vomiting. ? Meds: She continues on Victoza at 1.8 mg SC every day, in addition to Insulin pump (2014), she was started also on farxiga since April of 2018. ? Pump download: average 180 SD 86, 46% above target 46%, 0% below target, 8% very high. Sensor average 188 mg/dl SD 61. Average carbs 46, TDD 107.6, basal 77.6 72%, bolus 30 or 28%. Complicatios: Retinopathy. Denies chest pain, nausea, vomiting. Walking twice a day. Elizabeth was diagnosed with T2Dm roughly in 1993, has been on Lantus since 1999, on Novolog since 2005,insulin pump since 2014. She has been on oral medication initially. She has stopped metformin b/c the pill is to big. ? PAST HISTORY No past medical history on file. No past surgical history on file. No family history on file. Social History Tobacco Use ??? Smoking status: Never Smoker ??? Smokeless tobacco: Never Used Substance Use Topics ??? Alcohol use: Not on file ??? Drug use: Not on file MEDICATIONS Current Outpatient Medications Medication Sig Dispense Refill ??? albuterol (PROVENTIL HFA) 90 mcg/actuation inhaler 2 puffs inhaled every 4 hours prn ??? aspirin 81 mg EC tablet 1 tab(s) orally once a day ??? atorvastatin (LIPITOR) 20 mg tablet 1 tab(s) orally once a day ??? blood glucose (CONTOUR NEXT TEST STRIPS) test strips as directed peripheral monitoring 4 times aday ??? citalopram (CELEXA) 20 mg tablet 1 tab(s) orally once a day ??? dapagliflozin (FARXIGA) 10 mg tablet Take 1 Tab by mouth daily. 90 Tab 2 ??? docusate sodium (COLACE) 100 mg capsule 1 cap(s) orally 2 times a day ??? gabapentin (NEURONTIN) 300 mg capsule 3 tabs orally 3 times a day ??? glucagon,human recombinant (GLUCAGON EMERGENCY KIT, HUMAN, INJECTION) as directed ??? hydroCHLOROthiazide (HYDRODIURIL) 25 mg tablet 1 tab(s) orally once a day ??? Infusion Set for Insulin Pump (MONICA INFUSION SET) infusion set . Subcutanous insertion every 3 days ??? insulin aspart U-100 (NOVOLOG FLEXPEN U-100 INSULIN) 100 unit/mL (3 mL) injectable pen 20-30 units subcutaneously 3 times a day with meals ??? insulin aspart U-100 (NOVOLOG U-100 INSULIN ASPART) 100 unit/mL injection up to 300 units a day subcutaneously continuously via pump ??? insulin glargine (LANTUS SOLOSTAR U-100 INSULIN) 100 unit/mL (3 mL) injection pen ??? insulin pen needles 32G x 5/32 (PEN NEEDLE) ??? insulin pump controller [facility] [employer] ??? lisinopril (PRINIVIL) 40 mg tablet ??? magnesium oxide (MAG-OX) 400 mg (241.3 mg magnesium) tablet Take 400 mg by mouth daily. ??? pantoprazole (PROTONIX) 40 mg tablet Take 40 mg by mouth daily. ??? venlafaxine (EFFEXOR-XR) 37.5 mg XR capsule Take by mouth daily. ??? venlafaxine (EFFEXOR-XR) 75 mg XR capsule Take with 37.5 mg tab ??? VICTOZA 3-PJ 0.6 mg/0.1 mL (18 mg/3 mL) injectable pen 1.8 mg daily. No current facility-administered medications for this visit. ALLERGIES Allergies Allergen Reactions ??? Penicillin Other reaction(s): Unknown REVIEW OF SYSTEMS Cardiovascular: Negative for chest pain and palpitations. Gastrointestinal: Negative for nausea. VITALS Vitals: 02/16/21 1609 BP: 122/60 Pulse: 78 Weight: 83.9 kg (185 lb) PHYSICAL EXAM Vitals reviewed.Vitals signs reviewed. Constitutional: Appearance: Normal appearance. Cardiovascular: Rate and Rhythm: Normal rate and regular rhythm. Pulmonary: Effort: Pulmonary effort is normal. Breath sounds: Normal breath sounds. Neurological: General: No focal deficit present. Mental Status: She is alert and oriented to person, place, and time. ASSESSMENT ICD-10-CM ICD-9-CM 1. Uncontrolled type 2 diabetes mellitus with hyperglycemia (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) Z79.4 V58.67 3. Essential hypertension I10 401.9 Dm stable, but still not controlled, still has hyperglycemia after dinner. I believe she is going down sometimes around 2-3 pm because of her walking. Advise to do temporary basal rate when she goes for a walk. Change basal rate at midnight to be 3.o units, 3 am to be 4.25 units and 9 pm 2.65 u. Use bolus 15 min before dinner. Will see her back in 6 weeks by zoom to see how she did with these changes. I spent a total of 60 minutes on the date of this encounter meeting with the patient and reviewing documentation/coordinating care as described in the above note. This was separate from any procedures performed at the time of the visit. Silvia Rios MD 02/16/2021 17:10 Geraldine Strange RN - 02/16/2021 1600 EDT Spoke with pt to make the pump changes per order Dr Broussard. Discussed setup/linking to [employer] for sharing. Email with link sent Results for orders placed or performed in visit on 02/16/21 POCT GLUCOSE, MANUAL ENTRY Result Value Ref Range Glucose, POC 260 (A) 70 - 100 mg/dL [facility] LAB POC COMMENT MANUAL (GLUCOSE) Tech ID POCT HEMOGLOBIN A1C Result Value Ref Range Hemoglobin A1c, POC 7.9 (A) 5.7 % documented in this encounter Miscellaneous Notes Addendum Note - Geraldine Strange RN - 02/16/2021 1600 EDT Addended by: GERALDINE STRANGE on: 02/17/2021 08:50 Modules accepted: Orders documented in this encounter Plan of Treatment Upcoming Encounters Date Type Specialty Care Team Description 11/10/2022 Office Visit Endocrinology Claudia Garcia, BREAKDOWN PERSON [address] [phone] (Wo rk) documented as of this encounter Procedures Procedure Name Priority Date/Time Associated Diagnosis Comme nts POCT GLUCOSE, MANUAL Routine 02/16/2021 Uncontrolled type 2 Results for this ENTRY diabetes mellitus with proce dure are in the hyperglycemia ([facility]) resu lts section. POCT HEMOGLOBIN A1C Routine 02/16/2021 Uncontrolled type 2 R esults for this diabetes mellitus with proce dure are in the hyperglycemia ([facility]) resu lts section. documented in this encounter Results (ABNORMAL) POCT HEMOGLOBIN A1C (02/16/2021) athologist Signature Hemoglobin A1c, 7.9 (A) 5.7 % [facility] POINT POC OF CARE Specimen (Source) Anatomical Location Collection Method / Collectio n Time Received Time / Laterality Volume Blood CAPILLARY BLOOD / 02/16/2021 Unknown Silvia Rios MD POINT OF CARE TEST ORDERABLE S Performing Organization Address City/State/ZIP Code Phon e Number [facility] POINT OF CARE (ABNORMAL) POCT GLUCOSE, MANUAL ENTRY (02/16/2021) athologist Signature Glucose, POC 260 (A) 70 - 100 [facility] POINT OF mg/dL CARE HN LAB POC [facility] POINT OF COMMENT MANUAL CARE (GLUCOSE) Tech ID [facility] POINT OF CARE Specimen (Source) Anatomical Location Collection Method / Collectio n Time Received Time / Laterality Volume Blood CAPILLARY BLOOD / 02/16/2021 Unknown Silvia Rios MD POINT OF CARE TEST ORDERABLE S Performing Organization Address City/State/ZIP Code Phon e Number [facility] POINT OF CARE documented in this encounter Visit Diagnoses Diagnosis Uncontrolled type 2 diabetes mellitus wi th hyperglycemia (HCC) - Primary care home current use of insulin (HCC-CM S) (HCC) Encounter for long-term (current) use of insulin Essential hypertension Unspecified essential hypertension documented in this encounter Discontinued Medications Medication Sig Discontinue Reason Start Date End Date docusate sodium (COLACE) 1 cap(s) orally 2 Therapy completed 02/16/2021 100 mg capsule times a day documented as of this encounter Care Teams Accounting/Finance Tutor Relationship Specialty Start Date End Date Rosalia Starr MD PCP - General 11/06/[address] [place] [address] documented as of this encounter
--- OUTSIDE RECORDS SUMMARY | 2022-09-25 16:11 | XMS_ITS | CCD ---
:1970 Author Care Team Providers Name Role Phone JORDANA BATRES Attending Physician Unavailable Vital Signs Unknown or Not Available. Allergies Allergy Code Allergy Type Reaction Status PENICILLINS (CLASS) 81322 Drug allergy Hives Active AMPICILLIN 205525 Drug allergy Hives Active SEASONAL {Clinical monitoring 0 Allergy to substance SIN US Active unavailable} Procedures Unknown or Not Available. History of Immunizations Unknown or Not Available. Problems Problem Code Start Date Resolved Date Status Acid reflux 525774689 Active Diabetes 2 04009241 Active HTN 06100120 Active Results COMPREHENSIVE METABOLIC PANEL (CMP) - Co llect Date/Time: 08/14/2022 08:51 Test Name Code Test Result Test Units Test Ref Range GLUCOSE 2345-7 205 mg/dL L=70 H=116 BUN 3094-0 18 mg/dL L=6 H=25 CREATININE 2160-0 1.12 mg/dL L=0.51 H=0.95 SODIUM SERUM 2951-2 139 mmol/L L=136 H=145 POTASSIUM SERUM 2823-3 3.8 mmol/L L=3.4 H=5.2 CHLORIDE SERUM 2075-0 101 mmol/L L=96 H=110 CARBON DIOXIDE (CO2) 2028-9 33 mmol/L L=22 H= 34 ANION GAP 00613-9 4.7 mmol/L CALCIUM SERUM 68910-2 8.8 mg/dL L=8.2 H=10.2 BILIRUBIN TOTAL 1975-2 0.4 mg/dL L=0.0 H=1.3 ALK. PHOS. 6768-6 128 U/L L=46 H=116 SGOT (AST) 1920-8 15 U/L L=15 H=37 SGPT (ALT) 1742-6 24 U/L L=12 H=78 TOTAL PROTEIN 2885-2 7.3 gm/dL L=6.0 H=8.0 ALBUMIN 1751-7 3.5 gm/dL L=3.4 H=5.0 AGE 52 years eGFR (non-Afr.Amer.) 75141-4 51 mL/min eGFR (Afr-Malagasy) 80975-4 62 mL/min HEMOGLOBIN A1C* - Collect Date/Time: 08:51 Test Name Code Test Result Test Units Test Ref Range Hgb A1c 4548-4 9.0 % L=3.8 H=5.7 MEAN BLOOD GLUCOSE 17845-1 214 mg/dL LIPID PANEL* - Collect Date/Time: 2021 08:51 Test Name Code Test Result Test Units Test Ref Range CHOLESTEROL 2093-3 126 mg/dL L=0 H=200 TRIGLYCERIDES 2571-8 70 mg/dL L=53 H=223 HDL 2085-9 51 mg/dL L=37 H=91 non-HDL-C 34324-8 75 mg/dL L=0 H=160 LDL (CALC) 69623-4 61 mg/dL L=0 H=130 % HDL 40.5 % Chol/HDL Ratio 9830-1 2.5 L=0.0 H=4.4 CHD Relative Risk 0.6 x Avg L=0.0 H=1. 0 LDL/HDL Ratio 22739-2 1.2 L=0.0 H=3.2 CHD Relative Risk. 0.4 x Avg L=0.0 H=1 .0 FASTING STATUS: FASTING N/A MICROALBUMIN URINE - Collect Date/Time: 08/14/2022 08:51 Test Name Code Test Result Test Units Test Ref Range Creatinine Urine 2161-8 140.1 mg/dl Microalb mg/dl 80198-4 0.6 mg/dl Microalbumin ug/mg C 9318-7 4.3 ug/mg Cr Active Medications Unknown or Not Available. Medications Administered During Visit Unknown or Not Available. Encounters Unknown or Not Available. Social History Smoking Status Code Start Date End Date Never smoker [id number] Patient Decision Aids Unknown or Not Available. Discharge Instructions You were admitted to [facility] on 08/14/2022 08:44 You had the following tests done: COMPR EHENSIVE METABOLIC PANEL (CMP) HEMOGLOBIN A1C* LIPID PANEL* MICROALBUMIN URINE You were discharged from [facility] on 08/14/2022 08:44 Should you have any questions prior to [...]
--- OUTSIDE RECORDS SUMMARY | 2022-09-25 16:11 | XMS_ITS | Encounter Summary ---
:1970 Author Organization [facility] Address [address] [place] [address] Care Team Providers Name Role Phone Rosalia Starr MD Primary Care Provider Silvia Ghosh MD Unavailable [phone] Encounter Details Date Type Department Care Team Description 09/28/2021 Lab Requisition [facility] Rosalia Starr Enco unter for screening for malignant neoplasm of cervix; Pathology & MD Encounter for general adult medical exam ination without abnormal findings Laboratory Medicine - [address] [place], [place] [address] [facility] [address] [place], [place] [address] Social History Tobacco Use Types Packs/Day Years Used Date Smoking Tobacco: Never Smokeless Tobacco: Never Sex Assigned at Date Recorded Not on file documented as of this encounter Plan of Treatment Upcoming Encounters Date Type Specialty Care Team Description 11/10/2022 Office Visit Endocrinology Claudia Garcia, CLIENT EXPERIENCE CONSULTANT [address] [facility] [address] [place] [phone] (Wo rk) documented as of this encounter Procedures Procedure Name Priority Date/Time Associated Comments Diagnosis PAP TEST Today 09/26/2021 8:30 Encounter for Results for this EST screening for procedure are in malignant neoplasm the resul ts of cervix section. Encounter for general adult medical examination without abnormal findings CHLAMYDIA/N. Today 09/26/2021 8:30 Encounter for Results for this GONORRHOEAE AMPLIFIED EST screening for proce dure are in RNA, THINPREP malignant neoplasm the resu lts of cervix section. Encounter for general adult medical examination without abnormal findings HUMAN PAPILLOMAVIRUS Today 09/26/2021 8:30 Encounter for Res ults for this (HPV) DETECTION-HIGH EST screening for proced ure are in RISK TYPES malignant neoplasm the resul ts of cervix section. Encounter for general adult medical examination without abnormal findings documented in this encounter Results HUMAN PAPILLOMAVIRUS (HPV) DETECTION-HIGH RISK TYPES (09/26/2021 8:30 EST) [employer] Method Time Signature Human Negative Negative 10/05/2021 [facility] Papillomavirus 14:29 [facility] (HPV) LABORATORY Detection-High SERVICES Types Comment: No E6 or E7 mRNA is detected fr om HPV types 16,18,31,33,35,39,45,51,52,56,58,59,66, and 68 by supervisor doping mediated amplification. Specimen Anatomical Collection Method Collection Time Receive d Time (Source) Location / / Volume Laterality Pap Test (Cervix 09/26/2021 8:30 10/04/20 21 8:58 and/or EST EST Endocervix) Rosalia Starr MD MICROBIOLOGY - GENERAL ORDER FRED Performing Organization Address City/State/ZIP Code Phon e Number [facility] [address] [place] [address] SERVICES PAP TEST (09/26/2021 8:30 EST) Component Value Ref Test Analysis Performed At [employer] Range Method Time Signature Specimens A. Cervix and/or 10/05/2021 [facility] Endocervix , 14:29 [facility] ThinPrep Imaging LABORATORY System with SERVICES Manual Evaluation Specimen Satisfactory for 10/05/2021 [facility] Adequacy Evaluation - 14:29 [facility] transformation LABORATORY zone component SERVICES present General Negative for 10/05/2021 [facility] Categorization intraepithelial 14:29 [facility] lesion or LABORATORY malignancy SERVICES Descriptive Shift in yumiko 10/05/2021 [facility] Diagnosis present 14:29 [facility] suggestive of LABORATORY bacterial SERVICES vaginosis. Attestation . 10/05/2021 [facility] Elect ronically 14:29 [facility] signed by LABORATORY RAMA Farrell CT(ASCP) o n 10/05/2021 at 1429 Clinical History See below 10/05/2021 [facility] 14:29 [facility] LABORATORY SERVICES HPV The result for the Human Pap illomavirus (HPV) Detection-High Risk Types is Negative. No E6 or E7 mRNA is detected from HPV types 16,18,31,33,35,39,45,51,52,56,58,59,66, and 68 by supervisor doping mediated 10/05/2021 [facility] amplification.Testing was pe rformed on specimen [id number] and was resulted on 10/05/2021 1428 EST by CARISSA, LAB INSTRUMENT RESULTS IN 14:29 [facility] SERVICES Performing Lab [facility] 10/05/2021 [facility] 14:29 [facility] SERVICES Scanned Images 10/05/2021 [facility] 14:29 [facility] SERVICES Specimen Anatomical Collection Method Collection Time Receive d Time (Source) Location / / Volume Laterality Pap Test (Cervix 09/26/2021 8:30 09/28/20 21 and/or EST 15:24 EST Endocervix) Rosalia Starr MD PATHOLOGY ORDERABLES Performing Organization Address City/[facility]/ZIP [facility] Phon e Number [facility] [address] [place] [address] SERVICES CHLAMYDIA/N. GONORRHOEAE AMPLIFIED RNA, THINPREP (09/26/2021 8:30 EST) [facility] gist Method Time Signature Gonococcus Negative Negative 09/29/2021 [facility] Result 10:30 [facility] SERVICES Chlamydia Negative Negative 09/29/2021 [facility] Result 10:30 [facility] SERVICES Specimen Anatomical Collection Method Collection Time Receive d Time (Source) Location / / Volume Laterality Pap Test (Cervix 09/26/2021 8:30 09/28/20 21 and/or EST 12:24 EST Endocervix) Rosalia Starr MD MICROBIOLOGY - GENERAL ORDER FRED Performing Organization Address City/State/ZIP [facility] Phon e Number [facility] [address] [place] [address] SERVICES documented in this encounter Visit Diagnoses Diagnosis Encounter for screening for malignant ne oplasm of cervix Screening for malignant neoplasm of the cervix Encounter for general adult medical exam ination without abnormal findings Unspecified general medical examination documented in this encounter Care Teams Pallet Assembler Relationship Specialty Start Date End Date Rosalia Starr MD PCP - General 11/06/16 [address] [place] [address] Silvia Ghosh, Endocrinology, Diabetes and MD Metabolism [address] [phone] documented as of this encounter
--- OUTSIDE RECORDS SUMMARY | 2022-09-25 16:11 | XMS_ITS | Encounter Summary ---
:1970 Author Organization [facility] Address [address] [place] [id number] Care Team Providers Name Role Phone Unknown, Provider Primary Care Provider Encounter Details Date Type Department Care Team Description 08/20/2010 Results Only [facility] UreñaTyler, Laboratory Services - Trinidad Dang NP [address] [address] Social History Tobacco Use Types Packs/Day Years Used Date Smoking Tobacco: Never Assessed Sex Assigned at Date Recorded Not on file documented as of this encounter Plan of Treatment Upcoming Encounters Date Type Specialty Care Team Description 11/10/2022 Office Visit Endocrinology Claudia Garcia, DOCTOR OF NATUROPATHIC MEDICINE 130 [facility] [address] [place] [phone] (Wo rk) documented as of this encounter Procedures Procedure Name Priority Date/Time Associated Diagnosis Comme nts CYTOPATHOLOGY Routine 08/20/2010 0:00 EDT Results for this procedure are i n the results section . documented in this encounter Results CYTOPATHOLOGY (08/20/2010 0:00 EDT) Component Value Ref Test Analysis Performed At [facility] Pathology CYTOPATHOLOGY REPORT ? VERDIN Report: ? [facility] Reports generated via electr onic interface contain original data; ? however they are lacking the format of the original report. ? Caution should be taken when reading/interpreting unformatted reports. ? Name: ? ORTEGA CORRIGAN ? Accession #: ? [id number] ? : ? 1970 (Age: 40) ??F ?Collect Date: ? 08/20/2010 ? Location: ? [facility] ? Receive Date: ? 08/22/2010 ? Provider: ?LAURENCE POLLOCK [facility]ONE-[facility] DOCTOR OF NATUROPATHIC MEDICINE ? Copy to: ? Specimen/Source: ? Pap Test, Endocervix, ThinPrep Imaging System with ? manual evaluation ? Last Menstrual Period: ? 10/02/10 ? Previous Gynecologic Patholo gy: ? HPV: + ? LSIL: 05/09 ? Treatment History: ? LEEP: LSIL 0509 ? SPECIMEN ADEQUACY ? Satisfactory for Eval uation ? - transformation zone compon ent present ? GENERAL CATEGORIZATION ? Negative for Intraepi thelial Lesion or Malignancy ? INTERPRETATION ? Reactive cellular marco nges associated with inflammation present (includes ?? repair). ? Shift in yumiko present sugge stive of bacterial vaginosis. ? Document reviewed and electr onically signed by: ? JESSICA ALOK AIDAN MD ? Report Date: ??10/28/ 2010 15:26 ? End of Report ? Specimen (Source) Anatomical Location Collection Method / Collectio n Time Received Time / Laterality Volume 08/20/2010 08/22/2010 Laurence Ureña-Rising DOCTOR OF NATUROPATHIC MEDICINE PATHOLOGY ORDERABLES Performing Organization Address City/State/ZIP Code Phon e Number [facility] [address] [place] [address] SERVICES [facility] [address] [place] [address] documented in this encounter Visit Diagnoses Not on filedocumented in this encounter Care Teams Label Pinker Relationship Specialty Start Date End Date Unknown, Provider, PCP - General 03/08/09 documented as of this encounter
--- OUTSIDE RECORDS SUMMARY | 2022-09-25 16:11 | XMS_ITS | Continuity of Care Document ---
:1970 Author Organization [facility] Address [address] [place] [address] Allergies, Adverse Reactions, Alerts Allergy history unobtainable. [...]
--- OUTSIDE RECORDS SUMMARY | 2022-09-25 16:11 | XMS_ITS | Continuity of Care Document ---
:1970 Author Organization [facility] Address [address] [place] [address] Phone Care Team Providers Name Role Phone [...] have a copy on file here at [facility]? No N ovember 2019 10:00am Pt has a Living Will? No August 30, 2020 10:00am Do we have a copy on file here at [facility]? No N ovember 2019 10:00am Pt has a Power of Commutator Operator? No August 10:00am Do we have a copy on file here at [facility]? No N ovember 2019 10:00am Chief Complaint and Reason for Visit Chief Complaint SCIATICA X-RAY Reason for Visit Lumbar radiculopathy Encounters Encounter Location(s) Arrival/Admit Date Discharge/Depart Provi elsy(s) Date Departed [facility] August 30, 2020 August 30, 2020 Mark Mckeon Physician/[facility] 10:00am 11:22am MD [facility] Visit promotions intern&Rehab Registered [facility] August 30, 2020 [facility] 10:04am Marj Pratt [facility] Orthopedics Recent Diagnosis Onset Date Lumbar radiculopathy Assessments Diagnosis Onset Date Resolution Status Lumbar radiculopathy acute Functional Status No Functional Status information available Goals Goals may be documented in an alternate section. Mental Status No Mental Status Information Available Medical Equipment No Medical Equipment Information available Insurance Providers Guarantor ORTEGA FRANKLIN Address [address] [place] [id number] Contact Info. Home Phone: Payer Policy Id Coverage Id Subscriber's Subscriber Effective Expi ration Name Id Date Date COMM [id number] CAR FRANKLIN [id number] UNLISTED INSURANCE SELF PAY Self N/A Social [...]
--- OUTSIDE RECORDS SUMMARY | 2022-09-25 16:11 | XMS_ITS | Encounter Summary ---
:1970 Author Organization [facility] Address [address] [place] [address] Care Team Providers Name Role Phone Rosalia Starr MD Primary Care Provider Silvia Ghosh MD Unavailable [phone] Reason for Visit Reason Onset Date Comments Provider Referred 07/06/2022 Encounter Details Date Type Department Care Team Description 07/06/2022 Telephone [facility] Silvia Ghosh Provider Referred Endocrinology MD Monalisa [address] [facility] [address] [place] [address] [place] [phone] (Wo rk) Social History Tobacco Use Types Packs/Day Years Used Date Smoking Tobacco: Never Smokeless Tobacco: Never Alcohol Use Standard Drinks/Week Comments Never 0 (1 standard drink = 0.6 oz pure alcoho l) Sex Assigned at Date Recorded Not on file documented as of this encounter Miscellaneous Notes Telephone Encounter - Silvia Ghosh MD - 07/06/2022 1508 EDT Can u fax this note to her PCP please . Telephone Encounter - Silvia Ghosh MD - 07/06/2022 1504 EDT PCP sent me a note about her diabetes not being controlled. Letter sent to PCP that Elizabeth has cancelled multiple apts with us. documented in this encounter Plan of Treatment Upcoming Encounters Date Type Specialty Care Team Description 11/10/2022 Office Visit Endocrinology Claudia Garcia, DISTRICT LEADER [address] [phone] (Wo rk) documented as of this encounter Visit Diagnoses Not on filedocumented in this encounter Care Teams Harness Worker Relationship Specialty Start Date End Date Rosalia Starr MD PCP - General 11/06/16 [address] [place], [place] [id number] Silvia Ghosh, Endocrinology, Diabetes and MD [place] [address] [phone] documented as of this encounter
--- OUTSIDE RECORDS SUMMARY | 2022-09-25 16:11 | XMS_ITS | Encounter Summary ---
:1970 Author Organization [facility] Address [address] [place] [address] Care Team Providers Name Role Phone Unknown, Provider Primary Care Provider Encounter Details Date Type Department Care Team Description 11/13/2011 Results Only [place] Rosalia Solis MD Laboratory Services - [address] [address] [address] [place] [address] [phone] Social History Tobacco Use Types Packs/Day Years Used Date Smoking Tobacco: Never Assessed Sex Assigned at Date Recorded Not on file documented as of this encounter Plan of Treatment Upcoming Encounters Date Type Specialty Care Team Description 11/10/2022 Office Visit Endocrinology Claudia Garcia, TECHNICAL SUPPORT COORDINATOR 130 [facility] [address] [place], [place] [phone] (Wo rk) documented as of this encounter Procedures Procedure Name Priority Date/Time Associated Diagnosis Comme nts PAP TEST- RESULT Routine 11/13/2011 0:00 EST Resu lts for this ONLY procedure are i n the results section. documented in this encounter Results PAP TEST- RESULT ONLY (11/13/2011 0:00 EST) Component Value Ref Test Analysis Performed At [facility] Method Time Signature Pathology CYTOPATHOLOGY REPORT [facility] Report: [facility] Reports generated via electronic interface contain original data; however they are lacking the format of the original report. Caution should be taken when reading/interpreting unformatte d reports. Name: ? ORTEGA FRANKLIN ? Accession #: ? [id number] ? : ? 1970 (Age: 41) ??F ?Collect Da te: ? 11/13/2011 ? Location: ? [facility] ? Receive Date: ? 11/15/2011 ? Provider: ROSALIA SOLIS MD Copy to: ? Final Report SPECIMEN ADEQUACY ? Satisfactory for Evaluation - transformation zone component present GENERAL CATEGORIZATION ? Negative for Intraepithelial Lesion or Malignancy INTERPRETATION ? Reactive cellular marco nges associated with inflammation present (includes repair). Shift in yumiko present suggestive of bacterial vaginosis. 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 SAHARA HOPE MD ? Report ??Date: 11/20/2011 14:18 HPV with Pap Test ? Date Ordered: ? 11/20/2011 ? Status: ?? Reba d Out ?Date Complete: ? 11/22/2011 ? By: ??System Interface ? Date Reported: ? 11/22/2011 ? Interpretation RESULT: Negative for HPV types 16, 18, 31, 33, 35, 39, 45, 5 1, 52, 56, 58, 59, and 68. Comments Document reviewed and electronically signed by: ? System Interface ? Report date: 11/22/2011 By the signature above, the attending physician certifies th at he/she has personally conducted a gross and/or microscopic examin ation of the described specimens and rendered or confirmed the above diagnosis. End of Report Specimen (Source) Anatomical Location Collection Method / Collectio n Time Received Time / Laterality Volume 11/13/2011 11/15/2011 Rosalia Solis MD PATHOLOGY ORDERABLES Performing Organization Address City/State/ZIP Code Phon e Number [facility] [address] [place] [address] SERVICES [facility] [address] [place] [address] documented in this encounter Visit Diagnoses Not on filedocumented in this encounter Care Teams Medical Voucher Clerk Relationship Specialty Start Date End Date Unknown, Provider, PCP - General 03/08/09 11/05/16 documented as of this encounter
--- OUTSIDE RECORDS SUMMARY | 2022-09-25 16:11 | XMS_ITS | Encounter Summary ---
:1970 Author Organization [facility] Address [address] [place] [address] Care Team Providers Name Role Phone Unknown, Provider Primary Care Provider Encounter Details Date Type Department Care Team Description 05/26/2016 Results Only [facility] Rosalia Izquierdo MD [phone] [address] [place], [place] [address] (Wo rk) Social History Tobacco Use Types Packs/Day Years Used Date Smoking Tobacco: Never Assessed Sex Assigned at Date Recorded Not on file documented as of this encounter Plan of Treatment Upcoming Encounters Date Type Specialty Care Team Description 11/10/2022 Office Visit Endocrinology Claudia Garcia, FOOD CHECKERS AND CASHIERS SUPERVISOR 130 [facility] [address] [place] [address] (Wo rk) documented as of this encounter Procedures Procedure Name Priority Date/Time Associated Diagnosis Comme nts PAP TEST- RESULT Routine 05/26/2016 0:00 EDT Resu lts for this ONLY procedure are i n the results section. documented in this encounter Results PAP TEST- RESULT ONLY (05/26/2016 0:00 EDT) Component Value Ref Test Analysis Performed At [facility] Method Time Signature Pathology CYTOPATHOLOGY REPORT [facility] Report: CENTER Reports generated via electronic interface contain origina l data; LABORATORY however they are lacking the format of the original report. SERVICES Caution should be taken when reading/interpreting unformatte d reports. Name: ? ORTEGA FRANKLIN ? Accession #: ? [id number] ? : ? 1970 (Age: [age]) ??F ?Collect Date: ? 05/26/2016 ? Location: ? [facility] ? Receive Date: ? 05/30/2016 ? Provider: ROSALIA SOLIS MD Copy to: ? Final Report SPECIMEN ADEQUACY ? Satisfactory for Evaluation - transformation zone component present GENERAL CATEGORIZATION ? Negative for Intraepithelial Lesion or Malignancy INTERPRETATION ? Shift in yumiko present suggestive of bacterial vagino sis. Hormonal/Contraceptive status: None Specimen/Source: ??Pap Test, Cervix/Endocervix, ThinPr ep Imaging System with manual evaluation Document reviewed and electronically signed by: ? Evelyne Bergeron, [place](ASCP) ? Report ??Date: 06/06/2016 15:08 HPV with Pap Test ? Date Ordered: ? 06/06/2016 ? Status: ?? Signed Out ?Date Complete: ? 06/08/2016 ? By: ??System I nterface ? Date Reported: ? 06/08/2016 ? Interpretation RESULT: Negative for HPV. No E6 or E7 mRNA is detected from HPV types 16,18,31,33,35, 39,45,51,52,56,58,59,66, and 68 by footwear stitcher mediated amplification. Comments Document reviewed and electronically signed by: ? System Interface ? Report date: 06/08/2016 By the signature above, the attending physician certifies th at he/she has personally conducted a gross and/or microscopic examin ation of the described specimens and rendered or confirmed the above diagnosis. End of Report Specimen (Source) Anatomical Location Collection Method / Collectio n Time Received Time / Laterality Volume 05/26/2016 05/30/2016 Rosalia Solis MD PATHOLOGY ORDERABLES Performing Organization Address City/State/ZIP Code Phon e Number [facility] [address] [place] [phone] SERVICES documented in this encounter Visit Diagnoses Not on filedocumented in this encounter Care Teams Green Chain Offbearer Relationship Specialty Start Date End Date Unknown, Provider, PCP - General 03/08/09 11/05/16 documented as of this encounter
--- OUTSIDE RECORDS SUMMARY | 2022-09-25 16:11 | XMS_ITS | Encounter Summary ---
:1970 Author Organization [facility] Address [address] [place] [address] Care Team Providers Name Role Phone Rosalia Starr MD Primary Care Provider Silvia Ghosh MD Unavailable [phone] Encounter Details Date Type Department Care Team Description 10/07/2021 Lab Requisition [facility] Outr Resulting Lab, Pathology & Laboratory Provider [facility] [address] [place], [place] [address] Social History Tobacco Use Types Packs/Day Years Used Date Smoking Tobacco: Never Smokeless Tobacco: Never Sex Assigned at Date Recorded Not on file documented as of this encounter Plan of Treatment Upcoming Encounters Date Type Specialty Care Team Description 11/10/2022 Office Visit Endocrinology Claudia Garcia, CIVIL LITIGATION ATTORNEY [address] [phone] (Wo rk) documented as of this encounter Procedures Procedure Name Priority Date/Time Associated Comments Diagnosis CHLAMYDIA/N. Routine 10/07/2021 13:41 Results for this GONORRHOEAE AMPLIFIED EST proced ure are in RNA the results section. documented in this encounter Results CHLAMYDIA/N. GONORRHOEAE AMPLIFIED RNA (10/07/2021 13:41 EST) [facility] Method Time Signature Gonococcus Negative Negative 10/10/2021 [facility] Result 15:22 [facility] Chlamydia Negative Negative 10/10/2021 [facility] Result 15:22 [facility] Specimen Anatomical Collection Method Collection Time Receive d Time (Source) Location / / Volume Laterality Urine (Urine, 10/07/2021 13:41 10/07/2021 Initial Void) EST 21:14 EST Narrative [facility] - 10/10/2021 15:22 EST A first catch urine specimen is acceptab le for detection of Gonorrhea and Chlamydia, but might detect up to 10% fewer infecti ons when compared with vaginal and endocervical swab samples. Provider Outr Resulting Lab MICROBIOLOGY - GENERAL ORD ERABLES Performing Organization Address City/State/ZIP Code Phon e Number [facility] [address] [place] [address] SERVICES documented in this encounter Visit Diagnoses Not on filedocumented in this encounter Care Teams Chlorine Operator Relationship Specialty Start Date End Date Rosalia Starr MD PCP - General 11/06/16 [address] [place], [place] [phone] Silvia Ghosh, Endocrinology, Diabetes and [address] [place] [phone] documented as of this encounter
--- OUTSIDE RECORDS SUMMARY | 2022-09-25 16:11 | XMS_ITS | Encounter Summary ---
:1970 Author Organization [facility] Address [address] [place] [address] Care Team Providers Name Role Phone Rosalia Starr MD Primary Care Provider Reason for Visit Reason Comments Diabetes review labs Hyperlipidemia Encounter Details Date Type Department Care Team Description 10/10/2021 Office Visit [facility] - Bobo Rios, Type 2 diabetes mellitus with hyperglycemia, with long-term current use of insulin ([facility]) ([facility]) (Primary Dx); [facility] Endocrinology Silvia Sheldon MD Encounter for laboratory test; [address] Mixed hyperlipidemia; [place] [address] [address] Hypoglycemia [phone] [place] [phone] Social History Tobacco Use Types Packs/Day Years Used Date Smoking Tobacco: Never Smokeless Tobacco: Never Alcohol Use Standard Drinks/Week Comments Never 0 (1 standard drink = 0.6 oz pure alcoho l) Sex Assigned at Date Recorded Not on file documented as of this encounter Last Filed Vital Signs Vital Sign Reading Time Taken Comments Blood Pressure 118/68 10/10/2021 1033 EST Pulse 70 10/10/2021 1033 EST Temperature - - Respiratory Rate - - Oxygen Saturation - - Inhaled Oxygen Concentration - - Weight 83.9 kg (185 lb) 10/10/2021 1033 EST Height 154.9 cm (5' 1) 10/10/2021 1033 EST Body Mass Index 34.96 10/10/2021 1033 EST documented in this encounter Progress Notes Shira Saldaña RN - 10/10/2021 1030 EST DMII Ordered CMP, micro, lipid, A1c Needs foot and eye exam. Letter mailed Silvia Ghosh MD - 10/10/2021 1030 EST 10/10/2021 FOLLOW-UP PATIENT: Elizabeth Corrigan CHIEF COMPLAINT Diabetes (review labs) and Hyperlipidemia HISTORY OF PRESENT ILLNESS Elizabeth Corrigan is a very pleasant 51 y.o. female who presents for follow up for type 2 DM. Last seen in January of 2021. Called in February due to lows, was advised to changed ICR and ICS by Cornelia. Repeated labs on 10/05/21: GFR 53, LDL 60, TG 83, negative microalbuminuria. Got Covid about 7 weeks ago and feels her numbers have become challenging. Medtronic 630 G, average 184 mg/dl, DD 103.1 units, 5.5 units bolus, 78 units basal. Set change every 7 days. A1c done at her PCP's office 2 weeks ago was 8.6%. GMI from the last 2 weeks is about 7.7%. Reports has been doing diet and Has lost like 20 lbs. She reports she is getting lows. She uses [employer] connect Sensor. Got first shot of covid [...] metformin b/c the pill is to big. MEDICAL HISTORY Patient has no past medical history on file. SURGICAL HISTORY Patient has no past surgical history on file. MEDICATIONS Patient has a current medication list which includes the following prescription(s): albuterol, aspirin, atorvastatin, blood glucose, citalopram, dapagliflozin, gabapentin, glucagon, hydrochlorothiazide, infusion set for insulin pump, insulin aspart u-100, insulin aspart u-100, insulin glargine, insulin pen needles 32g x 5/32, insulin pump controller, lisinopril, magnesium oxide, ondansetron, pantoprazole, venlafaxine, venlafaxine, and victoza 3-rosina. ALLERGIES Patient is allergic to penicillin. FAMILY HISTORY Patient's family history is not on file. SOCIAL HISTORY Patient reports that she has never smoked. She has never used smokeless tobacco. She reports that she does not drink alcohol and does not use drugs. REVIEW OF SYSTEMS Review of Systems DIAGNOSTIC DATA Labs Prior note Pump download as well as CGM. CGM INTERPRETATION Elizabeth Corrigan Type of CGM: guardian connect Patient owns sensor Type of DM: 2 Insulin: novolog Indication for monitoring: -Hypoglycemia -Hyperglycemia -Unexplained glucose excursions Date: 09/27 to 10/10/2021 Download on 10/10/21 Report Interpretation: Based on these 14 days, GMIR 7.7%, average glucose 184 mg/dL, standard deviation 54, TIR 54%, TAR 46%, TBR <1%. She is suspending pump as well as suspend before low. Nocturnal glucose control: varies Post-prandial glucose excursions: varies Hypoglycemia incidence: <1% Other (exercise/activity): n/a VITALS height is 154.9 cm (61) and weight is 83.9 kg (185 lb). Her blood pressure is 118/68 and her pulseis 70. PHYSICAL EXAM Physical Exam AAO x 3 Skin intact S1-S2 normal. ASSESSMENT ICD-10-CM ICD-9-CM 1. Type 2 diabetes mellitus with hyperglycemia, with long-term current use of insulin ([facility]) ([facility]) E11.65 250.00 Z79.4 790.29 V58.67 2. Encounter for laboratory test Z01.89 V72.60 3. Mixed hyperlipidemia E78.2 272.2 4. Hypoglycemia E16.2 251.2 Dm not well controlled. A1c not at goal. Has hypoglycemic episodes around 6 am. Change basal rate at 3 am to be 3.3 units/h, then add 7 am to 10 am: 4.2 ISF: 18 at midnight. Labs are good. Continue statin. BP at goal. Continue wearing CGM. Labs in a year. I spent a total of 40 minutes on the date of this encounter meeting with the patient and reviewing documentation/coordinating care as described in the above note. This was separate from any CGM interpretation performed at the time of the visit. Electronicaly signed by: Silvia Rios MD documented in this encounter Plan of Treatment Upcoming Encounters Date Type Specialty Care Team Description 11/10/2022 Office Visit Endocrinology Claudia Garcia, POTATO CHIP SORTER [address] [phone] (Wo rk) documented as of this encounter Visit Diagnoses Diagnosis Type 2 diabetes mellitus with hyperglyce corrie, with long-term current use of insulin ([facility]) ([facility]) - Primary Encounter for laboratory test Laboratory examination, unspecified Mixed hyperlipidemia Hypoglycemia Hypoglycemia, unspecified documented in this encounter Care Teams Master Motorcycle Technician Relationship Specialty Start Date End Date Rosalia Starr MD PCP - General 11/06/[address] [place] [address] documented as of this encounter
--- OUTSIDE RECORDS SUMMARY | 2022-09-25 16:11 | XMS_ITS | Encounter Summary ---
:1970 Author Organization [facility] Address [address] [place] [address] Care Team Providers Name Role Phone Rosalia Starr MD Primary Care Provider Reason for Referral Prior Authorization (See Order Priority) - Authorization Not Required Specialty Diagnoses / Procedures Referred By Contact Refer red To Contact Infusion Therapy Diagnoses Aliza Ortega, [facility] Adult Infusion MD Center [facility] 4 111 [facility] e [address] [place] [address] Pavilion, Level 5 [place], [place] Fax: [phone] Referral ID Status Reason Start Expiration Visits Visits Date Date Requested Authorized [id number] Authorization Specialty 08/18/20 1 1 Not Required Services 21 Required Question Answer Is this appt for transfusion, medication, test or Infu samanta injection? How many infusions need to be ordered for appt? 1 Infusion Name Other Please specify: Casirivimab/imdevimab Infusion Dose 1200mg What is the infusion frequency? Once Is this the first dose of infusion(s)? Yes Are labs to be obtained during the appt? No Does this have a lab dependency? This patient is not l ab dependent Are preliminary tests complete (like MRI)? N/A Have orders been place for this appt? (i.e.: Blood Yes Transfusion Order Set, Therapy Plan, Lab Orders, Supportive Plan, Etc) Reason for Visit Prior Authorization (See Order Priority) - Authorization Not Required Specialty Diagnoses / Procedures Referred By Contact Refer mariano To Contact Infusion Therapy Diagnoses Aliza Ortega, [facility] Adult Infusion [place] Center [facility] 4 [address] [facility] e [address] [place] [address] [facility], [address] [place], [place] Fax: [phone] Referral ID Status Reason Start Expiration Visits Visits Date Date Requested Authorized [id number] Authorization Specialty 08/18/20 1 1 Not Required Services 21 Required Encounter Details Date Type Department Care Team Description 08/19/2021 Hospital Encounter [facility] Infusion, [facility] onal [facility] Urgent Care Infusion Antibody Center - [address] [address] Social History Tobacco Use Types Packs/Day Years Used Date Smoking Tobacco: Never Smokeless Tobacco: Never Sex Assigned at Date Recorded Not on file documented as of this encounter Last Filed Vital Signs Vital Sign Reading Time Taken Comments Blood Pressure 120/66 08/19/2021 1700 EDT Pulse 72 08/19/2021 1700 EDT Temperature 36.5 ??C (97.7 ??F) 08/19/2021 1700 EDT Respiratory Rate 18 08/19/2021 1700 EDT Oxygen Saturation 97% 08/19/2021 1700 EDT Inhaled Oxygen Concentration - - Weight - - Height - - Body Mass Index - - documented in this encounter Discharge Instructions Discharge InstructionsTomeka Garvin RN - 08/19/2021 7:25 EDT Images from the original note were not included. Today you received an infusion of a monoclonal antibody called REGEN-COV (casirivimab and imdevimab)for treatment of COVID-19 symptoms. After you are sent home you must continue with isolation precautions. Self isolate until all three criteria are met: - at least 24 hours have passed since last fever-reducing medications AND - symptoms have improved AND - at least 10 days after symptoms first appeared If you experience symptoms of delayed infusion reaction including Itching Nausea Dizziness Headache Rash Consult your medical doctor If you experience: Difficulty breathing or chest pain call 911 documented in this encounter Medications at Time of Discharge Medication Sig Dispensed Refills Start Date End Date albuterol (PROVENTIL HFA) 2 puffs inhaled 0 90 mcg/actuation inhaler every 4 hours prn aspirin 81 mg EC tablet 1 tab(s) orally once 0 a day atorvastatin (LIPITOR) 20 1 tab(s) orally once 0 mg tablet a day blood glucose (CONTOUR as directed 0 NEXT TEST STRIPS) test peripheral strips monitoring 4 times a day citalopram (CELEXA) 20 mg 1 tab(s) orally once 0 tablet a day dapagliflozin (FARXIGA) 10 Take 1 Tablet by 30 Tablet 11 10/2020 mg tablet mouth daily. gabapentin (NEURONTIN) 300 3 tabs orally 3 0 mg capsule times a day glucagon,human recombinant as directed 0 (GLUCAGON EMERGENCY KIT, HUMAN, INJECTION) hydroCHLOROthiazide 1 tab(s) orally once 0 (HYDRODIURIL) 25 mg tablet a day Infusion Set for Insulin . Subcutanous 0 Pump (MONICA INFUSION SET) insertion every 3 infusion set days insulin aspart U-100 20-30 units 0 (NOVOLOG FLEXPEN U-100 subcutaneously 3 INSULIN) 100 unit/mL (3 times a day with mL) injectable pen meals insulin aspart U-100 daily subcutaneously 10 Vial 3 03/21 (NOVOLOG U-100 INSULIN continuously via ASPART) 100 unit/mL pump injection insulin glargine (LANTUS 0 SOLOSTAR U-100 INSULIN) 100 unit/mL (3 mL) injection penIndications: pump failure insulin pen needles 32G x 0 (PEN NEEDLE) insulin pump controller [employer] 0 misc lisinopril (PRINIVIL) 40 0 08/13/2019 mg tablet magnesium oxide (MAG-OX) Take 400 mg by mouth 0 400 mg (241.3 mg daily. magnesium) tablet ondansetron (ZOFRAN-ODT) 4 Take 1 Tab by mouth 20 Tab 1 02/16/2021 mg disintegrating tablet every 8 hours as needed for Nausea. pantoprazole (PROTONIX) 40 Take 40 mg by mouth 0 07/30/2020 mg tablet daily. venlafaxine (EFFEXOR-XR) Take by mouth daily. 0 0 06/15/2020 37.5 mg XR capsule venlafaxine (EFFEXOR-XR) Take with 37.5 mg 0 11/0 12/2018 75 mg XR capsule tab VICTOZA 3-PJ 0.6 mg/0.1 Inject 1.8 mg into 9 Pen 3 04/10/2022 mL (18 mg/3 mL) injectable the skin daily. pen documented as of this encounter Discharge Disposition Disposition Code Departure Means Destination Home or Self [facility] documented in this encounter Progress Notes Jesika Licea RN - 08/19/2021 1600 EDT Elizabeth Corrigan arrives to [facility] infusion room for [facility] treatment of COVID 19 related to ICD U07.1 VSS, Peripheral IV inserted. Consent and education for infusion performed by provider prior to arrival. Casirivimab-imdevimab initiated at 1608 Infusion completed at 1639 Pt remains for 1 hour post observation. Pt tolerated infusion without signs or symptoms of infusion reaction. Educated about importance of maintaining isolation protocol and signs and symptoms of delayed infusion reaction and when to call doctor. documented in this encounter Plan of Treatment Upcoming Encounters Date Type Specialty Care Team Description 11/10/2022 Office Visit Endocrinology Claudia Garcia, PUPPET DEVELOPER [address] [place] [phone] (Wo rk) Scheduled Referrals Name Type Priority Associated Order Schedule Diagnoses AMB CONS/FOLLOW Outpatient Routine/Next COVID 1 Occurrence s UP SHEP 4 Referral Available starting INFUSIONS 08/19/2021 unti l 08/19/2021 documented as of this encounter Visit Diagnoses Diagnosis COVID documented in this encounter Administered Medications Inactive Administered Medications - up to 3 most recent administrations Medication Order MAR Action Action Date Dose Rate Site casirivimab-imdevimab 1,200 Given 08/19/2021 16:08 EDT 1,200 mg 310 mL/hr mg in sodium chloride (NS) 0.9 % 150 mL IVPB 1,200 mg, intravenous, Administer over 31 Minutes, NOW X1, 1 dose, On Sun08/19/21 at 1600, Indication: Therapeutic Use/Patient is COVID positive, Select appropriate high risk criteria as outlined by the EUA: Obesity or overweight (ie. BMI > 25 kg/m2; or if age 12-17, have BMI > 85% for age/gender), Provider has discussed the information consistent with the Fact Sheet for Patients, Parents, and Caregivers. Yes, Patient has been informed that casirivimab-imdevimab is an unapproved drug that is authorized under a EUA; and understands the risks and benefits? Yes, Routine sodium chloride 0.9 % (NS) New Bag 08/19/2021 16:09 EDT 100 mL/hr 100 mL/hr infusion 100 mL/hr, intravenous, CONTINUOUS, Starting on Sun08/19/21 at 1045, Until 08/20/21 at 1608, Routine, Outpatient Infusion documented in this encounter Orders Medications Ordered That Might Not Have Count Last Ord ered Date First Ordered Date Been Administered acetaminophen (TYLENOL) tablet 650 mg 1 08/19/2021 diphenhydrAMINE (BENADRYL) injection 50 mg 1 08/19 EPINEPHrine (ADRENALIN) injection 0.3 mg 1 021 lidocaine (PF) 10 mg/mL (1 %) injection 2 1 2020 mg methylPREDNISolone sod suc(PF) 1 08/19/2021 (SOLU-MEDROL) injection 100 mg ondansetron (PF) (ZOFRAN) injection 4 mg 1 021 sodium chloride 0.9 % (flush) flush 10 mL 1 2020 sodium chloride 0.9 % (flush) flush 20 mL 1 2020 documented in this encounter Care Teams Paperboard Boxes Estimator Relationship Specialty Start Date End Date Rosalia Starr MD PCP - General 11/06/[address] [place] [place] [address] documented as of this encounter
--- OUTSIDE RECORDS SUMMARY | 2022-09-25 16:11 | XMS_ITS | Encounter Summary ---
:1970 Author Organization [facility] Address [address] [place] [address] Care Team Providers Name Role Phone Rosalia Starr MD Primary Care Provider Reason for Referral Prior Authorization (See Order Priority) - Authorization Not Required Specialty Diagnoses / Procedures Referred By Contact Refer red To Contact Infusion Therapy Diagnoses Aliza Ortega, [facility] Adult Infusion MD Center [facility] 4 111 [facility] e [address] [place] [address] Pavilion, Level [address] [place], [place] Fax: [phone] Referral ID Status Reason Start Expiration Visits Visits Date Date Requested Authorized [id number] Authorization Specialty 08/18/20 1 1 Not Required [...] Therapy Plan, Lab Orders, Supportive Plan, Etc) Encounter Details Date Type Department Care Team Description 08/18/2021 Orders Only [facility] [place], Betha ny, RN COVID (Primary Dx) Ambulatory Infusion [address] [place] [address] [address] [place] [address] Social History Tobacco Use Types Packs/Day Years Used Date Smoking Tobacco: Never Smokeless Tobacco: Never Sex Assigned at Date Recorded Not on file documented as of this encounter Plan of Treatment Upcoming Encounters Date Type Specialty Care Team Description 11/10/2022 Office Visit Endocrinology Claudia Garcia, RESIDENTIAL CONCIERGE [address] [facility] [address] [place] [phone] (Wo rk) Scheduled Referrals Name Type Priority Associated Order Schedule Diagnoses AMB CONS/FOLLOW Outpatient Routine/Next Covid Expected: UP SHEP 4 Referral Available 08/19/2021 INFUSIONS (Approximate), Expires: 08/18/2022 documented as of this encounter Visit Diagnoses Diagnosis COVID - Primary documented in this encounter Care Teams Welding Engineer Relationship Specialty Start Date End Date Rosalia Starr MD PCP - General 11/06/16 [address] [place] [address] documented as of this encounter
--- OUTSIDE RECORDS SUMMARY | 2022-09-25 16:11 | XMS_ITS | Encounter Summary ---
:1970 Author Organization [facility] Address [address] [place] [address] Care Team Providers Name Role Phone Rosalia Starr MD Primary Care Provider Silvia Ghosh MD Unavailable [phone] Encounter Details Date Type Department Care Team Description 09/28/[address] [facility] Rosalia Starr Enco unter for general adult medical examination without abnormal findings; Pathology & MD Encounter for screening for malignant ne oplasm of cervix Laboratory Medicine - 4 [place], [place] 111 [facility] [id number] [place] [phone] Social History Tobacco Use Types Packs/Day Years Used Date Smoking Tobacco: Never Smokeless Tobacco: Never Sex Assigned at Date Recorded Not on file documented as of this encounter Plan of Treatment Upcoming Encounters Date Type Specialty Care Team Description 11/10/2022 Office Visit Endocrinology Claudia Garcia, MUSEUM INFORMATICS SPECIALIST 130 [facility] [address] [place] [phone] (Wo rk) Scheduled Orders Name Type Priority Associated Diagnoses Order S chedule HPV DNA DETECTION WITH Microbiology Today Encounter for gene ral Ordered: 09/28/2021 GENOTYPING, PCR, adult medical THINPREP examination without abnormal finding s Encounter for screening for malignant neoplasm of cervix CHLAMYDIA/N. Microbiology Encounter for general Ordere d: 09/28/2021 GONORRHOEAE AMPLIFIED adult medical RNA examination without abnormal finding s Encounter for screening for malignant neoplasm of cervix documented as of this encounter Visit Diagnoses Diagnosis Encounter for general adult medical exam ination without abnormal findings Unspecified general medical examination Encounter for screening for malignant ne oplasm of cervix Screening for malignant neoplasm of the cervix documented in this encounter Care Teams Power Plant Manager Relationship Specialty Start Date End Date Rosalia Starr MD PCP - General 11/06/16 [address] [place] [address] Silvia Ghosh, Endocrinology, Diabetes and [address] [phone] documented as of this encounter
--- OUTSIDE RECORDS SUMMARY | 2022-09-25 16:11 | XMS_ITS | Encounter Summary ---
:1970 Author Organization [facility] Address [address] [place] [address] Care Team Providers Name Role Phone Unknown, Provider Primary Care Provider Encounter Details Date Type Department Care Team Description 01/25/2008 Results Only [facility] - Karishma banerjee, Provider, conversion 111 [facility] [place] [address] Social History Tobacco Use Types Packs/Day Years Used Date Smoking Tobacco: Never Assessed Sex Assigned at Date Recorded Not on file documented as of this encounter Plan of Treatment Upcoming Encounters Date Type Specialty Care Team Description 11/10/2022 Office Visit Endocrinology Claudia Garcia M, MILL LABOR SUPERVISOR [address] [facility] [address] [place] [phone] (Wo rk) documented as of this encounter Procedures Procedure Name Priority Date/Time Associated Comments Diagnosis HELICOBACTER PYLORI Routine 01/25/2008 10:20 Resu lts for this IGG ANTIBODY EDT procedure are i n the results section. documented in this encounter Results HELICOBACTER PYLORI IGG ANTIBODY (01/25/2008 10:20 EDT) P athologist Signature H Pylori IgG <0.4 U/mL [facility] Comment: Interpretation: ??Negative Negative is <0.9 U/mL Assayed utilizing the DPC Immulite 2500. Values may vary with other methods. Specimen Anatomical Collection Method Collection Time Receive d Time (Source) Location / / Volume Laterality 01/25/2008 10:20 01/26/2008 EDT 15:22 EDT Provider Unknown CHEMISTRY & BLOOD GAS ORDERA BLES Performing Organization Address City/State/ZIP Code Phon e Number [facility] [address] [place] [address] SERVICES [facility] [address] [place] [address] documented in this encounter Visit Diagnoses Not on filedocumented in this encounter Care Teams Beam Racker Relationship Specialty Start Date End Date Unknown, Provider, PCP - General 03/08/09 11/05/16 documented as of this encounter
--- OUTSIDE RECORDS SUMMARY | 2022-09-25 16:11 | XMS_ITS | Encounter Summary ---
:1970 Author Organization [facility] Address [address] [place] [address] Care Team Providers Name Role Phone Rosalia Starr MD Primary Care Provider Encounter Details Date Type Department Care Team Description 08/18/2021 Prep for Procedure [facility] Aliza Robles Infectious Disease - [place] [address] [address] [facility] [place] [phone] (Wo rk) Social History Tobacco Use Types Packs/Day Years Used Date Smoking Tobacco: Never Smokeless Tobacco: Never Sex Assigned at Date Recorded Not on file documented as of this encounter H&P Notes Aliza Robles MD - 08/18/2021 1810 EDT I have been asked to order sars-cov-2 monoclonal antibodies on behalf of the patient's PCP as the PCP does not have infusion privileges at [facility]. I am trusting that the patient has a positive test or high risk exposure as defined in the EUA. I am trusting that the PCP has reviewed the EUA factsheet with the patient. Aliza Robles MD 08/18/2021 18:11 documented in this encounter Plan of Treatment Upcoming Encounters Date Type Specialty Care Team Description 11/10/2022 Office Visit Endocrinology Claudia Garcia, CONTINUOUS IMPROVEMENT DIRECTOR 130 [facility] [address] [place] [phone] (Wo rk) documented as of this encounter Visit Diagnoses Not on filedocumented in this encounter Care Teams Environmental Technology Professor Relationship Specialty Start Date End Date Rosalia Starr MD PCP - General 11/06/[address] [place] [address] documented as of this encounter
--- OUTSIDE RECORDS SUMMARY | 2022-09-25 16:11 | XMS_ITS | Encounter Summary ---
:1970 Author Organization [facility] Address [address] [place] [address] Care Team Providers Name Role Phone Rosalia Starr MD Primary Care Provider Reason for Visit Reason Onset Date Comments Appointment Related 08/18/2021 Encounter Details Date Type Department Care Team Description 08/18/2021 Telephone [facility] Aliza Robles, Appointment Related Ambulatory [place]fusion [place] [facility] [address] [address] [facility] [place] [phone] (Wo rk) Social History Tobacco Use Types Packs/Day Years Used Date Smoking Tobacco: Never Smokeless Tobacco: Never Sex Assigned at Date Recorded Not on file documented as of this encounter Miscellaneous Notes Telephone Encounter - Rosalia Winston - 08/18/2021 1714 EDT Left VM documented in this encounter Plan of Treatment Upcoming Encounters Date Type Specialty Care Team Description 11/10/2022 Office Visit Endocrinology Claudia Garcia, ROLL OVER LOADER 130 [facility] [address] [place] [phone] (Wo rk) documented as of this encounter Visit Diagnoses Not on filedocumented in this encounter Care Teams Food Expeditor Relationship Specialty Start Date End Date Rosalia Starr MD PCP - General 11/06/16 [address] [place], [place] [phone] documented as of this encounter
--- OUTSIDE RECORDS SUMMARY | 2022-09-25 16:11 | XMS_ITS | Encounter Summary ---
:1970 Author Organization [facility] Address [address] [place] [address] Care Team Providers Name Role Phone Rosalia Starr MD Primary Care Provider Encounter Details Date Type Department Care Team Description 08/09/2020 Travel Social History Tobacco Use Types Packs/Day Years Used Date Smoking Tobacco: Never Smokeless Tobacco: Never Sex Assigned at Date Recorded Not on file COVID-19 Exposure Response Date Recorded In the last month, have you been in contact with No / Unsure 08/09/2020 15:06 EDT someone who was confirmed or suspected to have Coronavirus / COVID-19? documented as of this encounter Plan of Treatment Upcoming Encounters Date Type Specialty Care Team Description 11/10/2022 Office Visit Endocrinology Claudia Garcia, CUSTOM HOME INSTALLER 130 [facility] [address] [place] [phone] (Wo rk) documented as of this encounter Visit Diagnoses Not on filedocumented in this encounter Care Teams Gas Derrick Operator Relationship Specialty Start Date End Date Rosalia Starr MD PCP - General 11/06/[address] [place] [address] documented as of this encounter
--- OUTSIDE RECORDS SUMMARY | 2022-09-25 16:11 | XMS_ITS | Encounter Summary ---
:1970 Author Organization [facility] Address [address] [place] [address] Care Team Providers Name Role Phone Unknown, Provider Primary Care Provider Encounter Details Date Type Department Care Team Description 04/20/2007 Results Only [facility] - neptali Gilman NP [address] [place] [address] Social History Tobacco Use Types Packs/Day Years Used Date Smoking Tobacco: Never Assessed Sex Assigned at Date Recorded Not on file documented as of this encounter Plan of Treatment Upcoming Encounters Date Type Specialty Care Team Description 11/10/2022 Office Visit Endocrinology Claudia Garcia, SALESPERSON PARTS 130 [facility] [address] [place] [phone] (Wo rk) documented as of this encounter Procedures Procedure Name Priority Date/Time Associated Diagnosis Comme nts CYTOPATHOLOGY Routine 04/20/2007 0:00 EDT Results for this procedure are i n the results section . documented in this encounter Results CYTOPATHOLOGY (04/20/2007 0:00 EDT) Component Value Ref Test Analysis Performed At [facility] Method Time Signature Pathology CYTOPATHOLOGY REPORT [facility] Report: [facility] Reports generated via electronic interface contain original data; however they are lacking the format of the original report. Caution should be taken when reading/interpreting unformatte d reports. Name: ? ORTEGA FRANKLIN ? Accession #: ? [id number] : ? 1970 (Age: 37) ??F ?Collect Date: ? 04/20/2007 Location: ? [facility] ? Receive Date: ? 04/22/2007 Provider: ?LAURENCE WATTS-DOROTHY SALESPERSON PARTS Copy to: ? Specimen/Source: ?ThinPrep Pap Test, E ndocervix, processed on uStudio ThinPrep Imaging System, with manual evaluation Last Menstrual Period: ? 04/11/07 Previous Gynecologic Pathology: ? Yes: Abnormal 10/03 ASC-US: ??w/HPV 10/03 ? SPECIMEN ADEQUACY ? Satisfactory for Evaluation - transformation zone component present GENERAL CATEGORIZATION ? Epithelial Cell Abnormality INTERPRETATION ? Squamous Cell Abnormality - Low grade squamous intraepithelial lesion (LSIL). Shift in yumiko present suggestive of bacterial vaginosis. EDUCATIONAL NOTES/RECOMMENDATIONS ? [facility] recommends mine wing the 2001 Consensus Guidelines for the Management of Women with Cervical Cytological Abnormalities (RAI,2002 ;287:2120-9). Management algorithms have b een distributed by [facility] and are available online at www.ASCCP.org. ? Document reviewed and electronically signed by: ? Thomas Ching MD ? Report Date: ??04/29/2007 11:22 End of Report Specimen (Source) Anatomical Location Collection Method / Collectio n Time Received Time / Laterality Volume 04/20/2007 04/22/2007 Laurence Fallon SALESPERSON PARTS PATHOLOGY ORDERABLES Performing Organization Address City/State/ZIP Code Phon e Number [facility] [address] [place] [address] SERVICES [facility] [address] [place] [address] documented in this encounter Visit Diagnoses Not on filedocumented in this encounter Care Teams Rn Wound Relationship Specialty Start Date End Date Unknown, Provider, PCP - General 03/08/09 11/05/16 documented as of this encounter
--- OUTSIDE RECORDS SUMMARY | 2022-09-25 16:11 | XMS_ITS | Encounter Summary ---
:1970 Author Organization [facility] Address [address] [place] [address] Care Team Providers Name Role Phone Rosalia Starr MD Primary Care Provider Reason for Visit Reason Onset Date Comments Diabetes 06/03/2020 Encounter Details Date Type Department Care Team Description 06/03/2020 Telephone [facility] - [facility] Geraldine Wills, manager provider relations Endocrinology [address] [facility] [address] [place] [address] [place] [address] [phone] Social History Tobacco Use Types Packs/Day Years Used Date Smoking Tobacco: Never Assessed Sex Assigned at Date Recorded Not on file documented as of this encounter Miscellaneous Notes Telephone Encounter - Geraldine Strange RN - 06/03/2020 1500 EDT Reports low bs starting at 0100 is 99 and still has aiob. FBS 200's. Drops after meals and corrections . Starts extra correcting at 1 hr post prandial and then keeps dropping. Setting changes made for smaller boli. Basal changes made to decrease 9pm-0300 rates and increased from 3am-10am to lower fbs. She will need endocrine appointment. She is scheduled to see me early Jun. documented in this encounter Plan of Treatment Upcoming Encounters Date Type Specialty Care Team Description 11/10/2022 Office Visit Endocrinology Claudia Garcia, ORTHOTIC/PROSTHETIC CLINICIAN [address] [facility] [address] [place] [address] (Wo rk) documented as of this encounter Visit Diagnoses Not on filedocumented in this encounter Care Teams Director Of Therapy Services Relationship Specialty Start Date End Date Rosalia Starr MD PCP - General 11/06/16 [address] [place] [address] documented as of this encounter
--- OUTSIDE RECORDS SUMMARY | 2022-09-25 16:11 | XMS_ITS | Encounter Summary ---
:1970 Author Organization [facility] Address [address] [place] [address] Care Team Providers Name Role Phone Rosalia Starr MD Primary Care Provider Reason for Visit Reason Onset Date Comments Medications Refill 03/21/2021 Encounter Details Date Type Department Care Team Description 03/21/2021 Refill [facility] - [facility] Neetu Strange, Medications Refill Endocrinology RN 130 [facility] [address] [place] [address] [place] [address] [phone] (Wo rk) Social History Tobacco Use Types Packs/Day Years Used Date Smoking Tobacco: Never Smokeless Tobacco: Never Sex Assigned at Date Recorded Not on file documented as of this encounter Ordered Prescriptions Prescription Sig Dispensed Refills Start Date End Date insulin aspart U-100 daily subcutaneously 10 Vial 3 03/21 (NOVOLOG U-100 INSULIN continuously via pump ASPART) 100 unit/mL injection VICTOZA 3-PJ 0.6 Inject 1.8 mg into the 9 Pen 3 202004/10/2022 mg/0.1 mL (18 mg/3 mL) skin daily. injectable pen documented in this encounter Miscellaneous Notes Telephone Encounter - Geraldine Strange RN - 03/21/2021 1412 EDT Prescriptions faxed to pharmacy per order Dr Broussard documented in this encounter Plan of Treatment Upcoming Encounters Date Type Specialty Care Team Description 11/10/2022 Office Visit Endocrinology Claudia Garcia, ARIANNA 130 [facility] [address] [place] [address] (Wo rk) documented as of this encounter Visit Diagnoses Not on filedocumented in this encounter Discontinued Medications Medication Sig Discontinue Reason Start Date End Date VICTOZA 3-PJ 0.6 1.8 mg daily. Reorder 09/01/2019 1 mg/0.1 mL (18 mg/3 mL) injectable pen insulin aspart U-100 up to 300 units a day Reorder 03/21/2021 (NOVOLOG U-100 subcutaneously INSULIN ASPART) 100 continuously via pump unit/mL injection documented as of this encounter Care Teams Milk Route Deliverer Relationship Specialty Start Date End Date Rosalia Starr MD PCP - General 11/06/16 [address] [place] [address] documented as of this encounter
--- OUTSIDE RECORDS SUMMARY | 2022-09-25 16:11 | XMS_ITS | Encounter Summary ---
:1970 Author Organization [facility] Address [address] [place] [address] Care Team Providers Name Role Phone Rosalia Starr MD Primary Care Provider Reason for Visit Reason Comments Diabetes Encounter Details Date Type Department Care Team Description 08/09/2020 Office Visit [facility] - Bobo Rios, Type 2 diabetes [facility] Endocrinology Silvia Sheldon MD mellitus with [address] [facility] hyperglycemia, [place] [address] [address] long-term current use [phone] [place], [place] of insulin ([facility]) [phone] (Primary Dx) Social History Tobacco Use Types Packs/Day Years Used Date Smoking Tobacco: Never Smokeless Tobacco: Never Sex Assigned at Date Recorded Not on file COVID-19 Exposure Response Date Recorded In the last month, have you been in contact with No / Unsure 08/09/2020 15:06 EDT someone who was confirmed or suspected to have Coronavirus / COVID-19? documented as of this encounter Last Filed Vital Signs Vital Sign Reading Time Taken Comments Blood Pressure 136/64 08/09/2020 1513 EDT Pulse 80 08/09/2020 1513 EDT Temperature - - Respiratory Rate 16 08/09/2020 1513 EDT Oxygen Saturation - - Inhaled Oxygen Concentration - - Weight 89.4 kg (197 lb) 08/09/2020 1513 EDT Height - - Body Mass Index - - documented in this encounter Ordered Prescriptions Prescription Sig Dispensed Refills Start Date End Date dapagliflozin (FARXIGA) 10 Take 1 Tab by 90 Tab 2 201907/29/2021 mg tablet mouth daily. documented in this encounter Progress Notes Latisha Romano RN - 08/09/2020 1500 EDT Last A1c 07/30/2020-8.5 Needs foot, eye (has appt scheduled), micro and back up plan Lab Results Component Value Date UABCR 5.0 10/24/2017 UABCR 5.0 10/24/2017 Silvia Ghosh MD - 08/09/2020 1500 EDT 08/09/2020 FOLLOW-UP PATIENT: Elizabeth Corrigan CHIEF COMPLAINT Diabetes HISTORY OF PRESENT ILLNESS Elizabeth Corrigan is a very pleasant 50 y.o. female who presents for follow up for type 2 DM. Last seen in Jul. Got a steroid shot in the finger on 07/29/20, sugars have been climbing. Has not used the CGM because ran out of supplies. Has started walking with a friend. HPI Elizabeth was diagnosed with T2Dm roughly in 1993, has been on Lantus since 1999, on Novolog since 2005,insulin pump since 2014. She has been on oral medication initially. She has stopped metformin b/c the pill is to big. ? Meds: She continues on Victoza at 1.8 mg SC every day, in addition to Insulin pump (2014), she was started also on farxiga since April of 2018. ? Pump download: average 219 SD 86, 60% above target, 0% below target. Sensor average 211 mg/dl SD 61. Average carbs 69, TDD 128, basal 78.5 61%, bolus 50 or 39%. Complicatios: Retinopathy. Denies chest pain, nausea, vomiting. PAST HISTORY No past medical history on file. No past surgical history on file. No family history on file. Social History Tobacco Use ??? Smoking status: Not on file Substance Use Topics ??? Alcohol use: Not [...] 1 tab(s) orally once a day ??? docusate sodium (COLACE) 100 mg capsule 1 cap(s) orally 2 times a day ??? FARXIGA 5 mg tablet ??? gabapentin (NEURONTIN) 300 mg capsule 3 [...] INSULIN) 100 unit/mL (3 mL) injection pen 60 units subcutaneously 2 times a day ??? insulin pen needles 32G x 5/32 (PEN NEEDLE) ??? insulin pump controller [facility] [email or web address] ??? lisinopril (PRINIVIL) 40 mg tablet ??? metFORMIN (GLUCOPHAGE) 500 mg tablet 1 tab(s) orally 2 times a day ??? omeprazole (PRILOSEC) 40 mg capsule ??? venlafaxine (EFFEXOR-XR) 37.5 mg XR capsule Take by mouth daily. ??? venlafaxine (EFFEXOR-XR) 75 mg XR capsule ??? VICTOZA 3-PJ 0.6 mg/0.1 mL (18 mg/3 mL) injectable pen No current facility-administered medications for this visit. ALLERGIES Not on File REVIEW OF SYSTEMS Cardiovascular: Negative for chest pain and palpitations. Gastrointestinal: Negative for nausea. VITALS There were no vitals filed for this visit. PHYSICAL EXAM Vitals reviewed.Vitals signs reviewed. Constitutional: Appearance: Normal appearance. Cardiovascular: Rate and Rhythm: Normal rate and regular rhythm. Pulmonary: Effort: Pulmonary effort is normal. Breath sounds: Normal breath sounds. Neurological: General: No focal deficit present. Mental Status: She is alert and oriented to person, place, and time. ASSESSMENT ICD-10-CM ICD-9-CM 1. Type 2 diabetes mellitus with hyperglycemia, with long-term current use of insulin ([facility]) E11.65 250.00 Z79.4 790.29 V58.67 Dm stable, fairly controlled, has glucose variability.. Main problem with patient is that she does not test all the time and she gives her self blind boluses. She is advise to use the CGM as soon she gets the new sensors.. She is advise to increase farxiga to 10 mg a day. I change ICR and ISF with breakfast so she gets a little more insulin. I offer to use pramlintide ifwe do not want to increase more the insulin to help reduce weight. I asked her to come back in a few weeks with Cornelia to see how these changes are working. Will see her back in 3 months. Face to face time: 40 min, >50% counseling and coordinating care for DM. Silvia Rios MD 08/09/2020 16:40 Geraldine Strange RN - 08/09/2020 1500 EDT Prescription for Lantus faxed to pharmacy per order Dr Broussard Geraldine Strange RN - 08/09/2020 1500 EDT Unable to lmtrc as voicemail is not set up. Geraldine Strange RN - 08/09/2020 1500 EDT Unable to reach, voicemail not set up yet. Geraldine Strange RN - 08/09/2020 1500 EDT Letter sent for normal microalbumin documented in this encounter Plan of Treatment Upcoming Encounters Date Type Specialty Care Team Description 11/10/2022 Office Visit Endocrinology Claudia Garcia, SAMPLE MAKER ORIGINAL [address] [address] (Wo rk) Scheduled Orders Name Type Priority Associated Diagnoses Order S chedule POCT HEMOGLOBIN A1C Point of Care Routine Type 2 diabetes Orde red: Testing mellitus with 08/05/2020 hyperglycemia, with long-term current use of insulin ([facility]) documented as of this encounter Procedures Procedure Name Priority Date/Time Associated Diagnosis Comme nts MICROALBUMIN, URINE Routine 08/09/2020 16:10 Type 2 diabetes R esults for this EDT mellitus with procedure are in hyperglycemia, with the resu lts long-term current section. use of insulin ([facility]) documented in this encounter Results MICROALBUMIN, URINE (08/09/2020 16:10 EDT) P athologist Signature Albumin, Urine <0.06 <1.7 mg/dL 08/09/2020 [place] 18:55 EDT [facility] Comment: Unable to calculate ug/mg Crea result. Lab Urine Albumin to TNP ug/mg 08/09/2020 18:51 ED T [facility] Creatinine Ratio CENTER LAB Creatinine, Urine 60.70 mg/dL 08/09/2020 18:55 EDT [facility] Specimen Anatomical Collection Method Collection Time Receive d Time (Source) Location / / Volume Laterality 08/09/2020 16:10 08/09/2020 EDT 17:50 EDT Silvia Rios MD HEMATOLOGY & PF4 ORDERABLES Performing Organization Address City/State/ZIP Code Phon e Number [facility] [address] [place] [address] documented in this encounter Visit Diagnoses Diagnosis Type 2 diabetes mellitus with hyperglyce corrie, with long-term current use of insulin ([facility]) ([facility]) - Primary documented in this encounter Discontinued Medications Medication Sig Discontinue Reason Start Date End Date omeprazole (PRILOSEC) 40 Abstraction 08/26/201909/2020 mg capsule metFORMIN (GLUCOPHAGE) 1 tab(s) orally 2 Therapy completed 08/09/2020 500 mg tablet times a day FARXIGA 5 mg tablet Order modification 08/31/2019 documented as of this encounter Historical Medications This list may reflect changes made after this encounter. Medication Sig Dispensed Refills Start Date End Date magnesium oxide (MAG-OX) Take 400 mg by mouth 0 400 mg (241.3 mg magnesium) daily. tablet pantoprazole (PROTONIX) 40 Take 40 mg by mouth 0 07/30/2020 mg tablet daily. venlafaxine (EFFEXOR-XR) Take by mouth daily. 0 0 06/15/2020 37.5 mg XR capsule added in this encounter Care Teams Electrical Tester Battery Relationship Specialty Start Date End Date Rosalia Starr MD PCP - General 11/06/16 [address] [place] [address] documented as of this encounter
--- OUTSIDE RECORDS SUMMARY | 2022-09-25 16:11 | XMS_ITS | Encounter Summary ---
:1970 Author Organization [facility] Address [address] [place] [address] Care Team Providers Name Role Phone Rosalia Starr MD Primary Care Provider Reason for Visit Reason Onset Date Comments Diabetes 02/28/2021 low bs after correct ions Encounter Details Date Type Department Care Team Description 02/28/[address] [facility] - Marsha Strange (low bs after [facility] Endocrinology FAIZA Chandlertopline beading machine tender) 130 [facility] [address] [place] [address] [place] [address] [phone] Social History Tobacco Use Types Packs/Day Years Used Date Smoking Tobacco: Never Smokeless Tobacco: Never Sex Assigned at Date Recorded Not on file documented as of this encounter Miscellaneous Notes Telephone Encounter - Geraldine Strange RN - 02/28/2021 1041 EDT Example: this am @ 0640 fbs 295. Pump had her take 15.4 units. At 0936 am bs rapidly dropped to 40, recheck was 39. Based on tdd 117. Manually calc sf 14.5, ratio 4.3 Sensitivity is 12. I increased all three sensitivities to 15. We discussed any bs over 250, use her dual 70/30 split over 1 hr. She will call back if low bs are not resolved. documented in this encounter Plan of Treatment Upcoming Encounters Date Type Specialty Care Team Description 11/10/2022 Office Visit Endocrinology Claudia Garcia, RISK MANAGEMENT INTERN [address] [facility] [address] [place] [address] (Wo rk) documented as of this encounter Visit Diagnoses Not on filedocumented in this encounter Care Teams Community Service Patrol Officer Relationship Specialty Start Date End Date Rosalia Starr MD PCP - General 11/06/[address] [place] [address] documented as of this encounter
--- OUTSIDE RECORDS SUMMARY | 2022-09-25 16:11 | XMS_ITS | Encounter Summary ---
:[address] [facility] Address [address] [place] [address] Care Team Providers Name Role Phone Rosalia Starr MD Primary Care Provider Silvia Ghosh MD Unavailable [phone] Encounter Details Date Type Department Care Team Description 06/29/2022 Lab Requisition [facility] Center Outr Resulting Lab, Pathology & Laboratory Provider [facility] [address] [place] [address] Social History Tobacco Use Types Packs/Day Years Used Date Smoking Tobacco: Never Smokeless Tobacco: Never Alcohol Use Standard Drinks/Week Comments Never 0 (1 standard drink = 0.6 oz pure alcoho l) Sex Assigned at Date Recorded Not on file documented as of this encounter Plan of Treatment Upcoming Encounters Date Type Specialty Care Team Description 11/10/2022 Office Visit Endocrinology Claudia Garcia M, HEALTH INSURANCE AGENT [address] [address] (Wo rk) documented as of this encounter Procedures Procedure Name Priority Date/Time Associated Diagnosis Comme nts URINE Routine 06/28/2022 16:30 Results for this [id number] EDT procedur e are in NE RATIO (ACR) the results section. documented in this encounter Results URINE [id number] RATIO (ACR) (06/28/2022 16:30 EDT) P athologist Signature Albumin, Urine <0.6 See Note 06/29/2022 [facility] mg/dL 17:58 EDT [facility] Comment: NOTE: Reference range not established Creatinine, Urine 96.0 See Note mg/dL 06/29/2022 17:58 EDT [facility] Comment: NOTE: Reference range not established Lab Urine Albumin to 06/29/2022 17:58 ED T [facility] Creatinine Ratio LABORATORY SE [facility] Comment: Unable to calculate due to albumin resul t <0.6. Urine Albumin/Creatinine Ratio: Normal: <30 ug/mg Creatinine Moderately increased albuminuria: 30-300 ug/mg Creatinine [place]ley increased albuminuria: >300 ug/ mg Creatinine Specimen Anatomical Collection Method Collection Time Receive d Time (Source) Location / / Volume Laterality Urine URINE SPECIMEN 06/28/2022 16:30 2 COLLECTION, CLEAN EDT 17:22 EDT CATCH / Unknown Provider Outr Resulting Lab CHEMISTRY & BLOOD GAS KAELA [facility] Organization Address City/State/ZIP Code Phon e Number [facility] [address] [place] [address] SERVICES documented in this encounter Visit Diagnoses Not on filedocumented in this encounter Care Teams Sap Bw Bi Developer Relationship Specialty Start Date End Date Rosalia Starr MD PCP - General 11/06/16 [address] [place] [address] Silvia Ghosh, Endocrinology, Diabetes and Metabolism [address] [place] [phone] documented as of this encounter
--- OUTSIDE RECORDS SUMMARY | 2022-09-25 16:11 | XMS_ITS | Continuity of Care Document ---
:1970 Author Organization [facility] Address [address] [place] [address] Allergies, Adverse Reactions, Alerts Allergy history unobtainable. [...]
--- OUTSIDE RECORDS SUMMARY | 2022-09-25 16:11 | XMS_ITS | Encounter Summary ---
:1970 Author Organization [facility] Address [address] [place] [address] Care Team Providers Name Role Phone Unavailable Primary Care Provider Unavailable Encounter Details Date Type Department Care Team Description 02/26/2009 Orders Only [facility] NiranjanTyler, Laboratory Services - Trinidad Dang NP [address] [address] Social History Tobacco Use Types Packs/Day Years Used Date Smoking Tobacco: Never Assessed Sex Assigned at Date Recorded Not on file documented as of this encounter Plan of Treatment Upcoming Encounters Date Type Specialty Care Team Description 11/10/2022 Office Visit Endocrinology Claudia Garcia, SHELTER MONITOR [facility] [address] [place] [address] (Wo rk) documented as of this encounter Procedures Procedure Name Priority Date/Time Associated Diagnosis Comme nts CYTOPATHOLOGY Routine 02/26/2009 0:00 EDT Result s for this procedure are i n the results section . documented in this encounter Results CYTOPATHOLOGY (02/26/2009 0:00 EDT) Component Value Ref Test Analysis Performed At [facility] Method Time Signature Pathology CYTOPATHOLOGY REPORT ? [facility] Report: ? [facility] Reports generated via electr onic interface contain original data; ? however they are lacking the format of the original report. ? Caution should be taken when reading/interpreting unformatted reports. ? Name: ? ORTEGA FRANKLIN ? Accession #: ? [id number] ? : ? 1970 (Age: 38) ??F ?Collect Date: ? 02/26/2009 ? Location: ? [facility] ? Receive Date: ? 03/01/2009 ? Provider: ?LAURENCE MA LONE-RISING SHELTER MONITOR ? Copy to: ? Specimen/Source: ? Pap Test, Endocervix, ThinPrep Imaging System with ? manual evaluation ? Last Menstrual Period: ? Other: ? HPVA - HPV testing requested if ASC-US on the current ThinPrep Pap test. ? SPECIMEN ADEQUACY ? Satisfactory for Eval uation ? - transformation zone compon ent present ? GENERAL CATEGORIZATION ? Epithelial Cell Abnor mality ? INTERPRETATION ? Squamous Cell Abnorma lity - Low grade squamous intraepithelial lesion ? (LSIL). ? EDUCATIONAL NOTES/RECOMMENDA TIONS ? [facility] recommends mine wing the 2006 Consensus Guidelines for the Management of Women with Abnormal Cervi kermit Cancer Screening Tests (JLGTD, ? 2007;11(4):201-222). ??Conse nsus guidelines are available online at ? www.ASCCP.org. ? Document reviewed and electr onically signed by: ? LUCILA HILLIARD MD [facility] ? Report Date: ??05/06/ 2009 18:01 ? End of Report ? Specimen (Source) Anatomical Location Collection Method / Collectio n Time Received Time / Laterality Volume 02/26/2009 03/01/2009 Laurence Ureña-Tyler SHELTER MONITOR PATHOLOGY ORDERABLES Performing Organization Address City/State/ZIP Code Phon e Number [facility] [address] [place] [address] SERVICES [facility] [address] [place] [address] documented in this encounter Visit Diagnoses Not on filedocumented in this encounter
--- OUTSIDE RECORDS SUMMARY | 2022-09-25 16:11 | XMS_ITS | Encounter Summary ---
:1970 Author Organization [facility] Address [address] [place] [address] Care Team Providers Name Role Phone Rosalia Starr MD Primary Care Provider Reason for Visit Reason Onset Date Comments Prior Auth, Other (i.e. radiology, etc.) 05/12/2021 insulin pump Encounter Details Date Type Department Care Team Description 05/12/2021 Telephone [facility] - Shira Saldaña RN Pr ior Auth, Other (i.e. [facility] Endocrinology radiology, etc.) 130 [facility] (insulin pump) [place] [address] Social History Tobacco Use Types Packs/Day Years Used Date Smoking Tobacco: Never Smokeless Tobacco: Never Sex Assigned at Date Recorded Not on file documented as of this encounter Miscellaneous Notes Telephone Encounter - Shira Saldaña RN - 05/12/2021 0808 EDT Received notification from [facility] that prior auth is not required for a replacement insulin pump. Notification scanned into chart. documented in this encounter Plan of Treatment Upcoming Encounters Date Type Specialty Care Team Description 11/10/2022 Office Visit Endocrinology Claudia Garcia, BLOOD OR BLOOD BANK TECHNICIAN 130 [facility] [address] [place] [address] (Wo rk) documented as of this encounter Visit Diagnoses Not on filedocumented in this encounter Care Teams Document Reviewer Relationship Specialty Start Date End Date Rosalia Starr MD PCP - General 11/06/[address] [place] [address] documented as of this encounter
--- OUTSIDE RECORDS SUMMARY | 2022-09-25 16:11 | XMS_ITS | Clinical Summary ---
:1970 Author Organization [facility] Address [address] [place] [address] Care Team Providers Name Role Phone Rosalia Starr MD Primary Care Provider Silvia Ghosh MD Unavailable [phone] Allergies Active Allergy Reactions Severity Noted Date Comments Penicillin 06/18/2019 Other reaction( s): Unknown Medications Medication Sig Dispensed Refills Start End Date Status Date venlafaxine (EFFEXOR-XR) Take with 37.5 mg 0 01 Active 75 mg XR capsule tab 9 lisinopril (PRINIVIL) 40 0 Active mg tablet 9 insulin glargine (LANTUS 0 Active SOLOSTAR U-100 INSULIN) 100 unit/mL (3 mL) injection penIndications: pump failure insulin aspart U-100 20-30 units 0 Active (NOVOLOG FLEXPEN U-100 subcutaneously 3 INSULIN) 100 unit/mL (3 times a day with mL) injectable pen meals hydroCHLOROthiazide 1 tab(s) orally 0 Active (HYDRODIURIL) 25 mg once a day tablet gabapentin (NEURONTIN) 3 tabs orally 3 0 Active 300 mg capsule times a day citalopram (CELEXA) 20 1 tab(s) orally 0 Active mg tablet once a day atorvastatin (LIPITOR) 1 tab(s) orally 0 Active 20 mg tablet once a day aspirin 81 mg EC tablet 1 tab(s) orally 0 Active once a day insulin pen needles 32G 0 Active x (PEN NEEDLE) Infusion Set for Insulin . Subcutanous 0 Active Pump (MONICA INFUSION SET) insertion every 3 infusion set days insulin pump controller [employer]tron[employer] 0 Active misc glucagon,human as directed 0 Act patricia recombinant (GLUCAGON EMERGENCY KIT, HUMAN, INJECTION) blood glucose (CONTOUR as directed 0 Active NEXT TEST STRIPS) test peripheral strips monitoring 4 times a day albuterol (PROVENTIL 2 puffs inhaled 0 Active HFA) 90 mcg/actuation every 4 hours prn inhaler venlafaxine (EFFEXOR-XR) Take by mouth 0 Active 37.5 mg XR capsule daily. 0 pantoprazole (PROTONIX) Take 40 mg by mouth 0 Active 40 mg tablet daily. 0 magnesium oxide (MAG-OX) Take 400 mg by 0 Active 400 mg (241.3 mg mouth daily. magnesium) tablet ondansetron (ZOFRAN-ODT) Take 1 Tab by mouth 20 Tab 1 02/16 Active 4 mg disintegrating every 8 hours as 1 tablet needed for Nausea. Additional Information Patient not taking. Reported on 10/10/2021 insulin aspart U-100 daily subcutaneously 10 Vial 3 03/21/20 21 Active (NOVOLOG U-100 INSULIN continuously via pump ASPART) 100 unit/mL injection dapagliflozin (FARXIGA) 10 Take 1 Tablet by mouth 30 Tablet 11 07/29/2021 Active mg tablet daily. liraglutide (VICTOZA Inject 1.8 mg into the 27 mL 3 2021 Active 3-PJ) 0.6 mg/0.1 mL (18 skin daily. 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 ([facility]) 08/09/2020 Essential hypertension 08/09/2020 Diabetic polyneuropathy ([facility]) 08/09/2020 Encounters Date Type Specialty Care Team Description 07/06/2022 Telephone Endocrinology Silvia Ghosh MD 06/29/2022 Lab Requisition Clinical Laboratory Outr Resulting Lab , Provider from Last 3 Months Social History Tobacco Use Types Packs/Day Years Used Date Smoking Tobacco: Never Smokeless Tobacco: Never Alcohol Use Standard Drinks/Week Comments Never 0 (1 standard drink = 0.6 oz pure alcoho l) Sex Assigned at Date Recorded Not on file Obstetrics History Last Filed Vital Signs Vital Sign Reading Time Taken Comments Blood Pressure 118/68 10/10/2021 1033 EST Pulse 70 10/10/2021 1033 EST Temperature 36.5 ??C (97.7 ??F) 08/19/2021 1700 EDT Respiratory Rate 18 08/19/2021 1700 EDT Oxygen Saturation 97% 08/19/2021 1700 EDT Inhaled Oxygen Concentration - - Weight 83.9 kg (185 lb) 10/10/2021 1033 EST Height 154.9 cm (5' 1) 10/10/2021 1033 EST Body Mass Index 34.96 10/10/2021 1033 EST Plan of Treatment Upcoming Encounters Date Type Specialty Care Team Description 11/10/2022 Office Visit Endocrinology Claudia Garcia, TECHNICAL EDITOR [facility] [address] [place] [address] (Wo rk) Health Maintenance Due Date Last Done Comments Eye Exam 1970 Foot Exam 1970 Hepatitis B Vaccine (1 of 3 - 1970 3-dose series) Hepatitis C Screen 1970 COVID-19 Vaccine (#1) 1970 Lipid Profile Screening 1972 (Cholesterol) Hemoglobin A1C (Ha1C) 08/18/2021 02/16/2021 Microalbumin/Creatinine Ratio 06/28/2023 06/28/2022, 2019, 10/24/2017, Additional history exists Procedures Procedure Name Priority Date/Time Associated Diagnosis Comme nts URINE Routine 06/28/2022 16:30 Results for this QAGJWLE-YA-NDXFFHON EDT procedur e are in NE RATIO (ACR) the results section. from Last 3 Months Results URINE LXHIBIS-SL-DDKLNNGNEA RATIO (ACR) (06/28/2022 16:30 EDT) athologist Signature Albumin, Urine <0.6 See Note 06/29/2022 [facility] mg/dL 17:58 EDT [facility] Comment: NOTE: Reference range not established Creatinine, Urine 96.0 See Note mg/dL 06/29/2022 17:58 EDT [facility] Comment: NOTE: Reference range not established Lab Urine Albumin to 06/29/2022 17:58 ED T [facility] Creatinine Ratio LABORATORY SE RV[facility] Comment: Unable [...] Lab CHEMISTRY & BLOOD GAS KAELA VORA Performing Organization Address City/State/ZIP Code Phon e Number [facility] [address] [place] [address] SERVICES from Last 3 Months Insurance Payer Benefit Plan / Subscriber ID Effective Dates Phone Addre ss Type Group [facility] [id number] [facility] [phone] [id number] Cigna TPA t 4 [place] [address] ShekharElizabeth Personal/Family Self [id number] (Home) [place] [address] ShekharElizabeth Personal/Family Self [address] (Home) [place] [address] ShekharElizabeth Personal/Family Self [address] (Home) [place] [address] ShekharElizabeth Personal/Family Self [address] (Home) [place] [address] Elizabeth Corrigan Personal/Family Self [address] (Home) [place] [address] Elizabeth Corrigan Personal/Family Self [address] (Home) [place] [address] Elizabeth Corrigan Personal/Family Self 1970 [phone] (Home) [place] [address] Care Teams Metallic Yarn Slitting Machine Operator Relationship Specialty Start Date End Date Rosalia Starr MD PCP - General 11/06/[address] [place] [address] Silvia Ghosh, Endocrinology, Diabetes and [address] [address]
--- OUTSIDE RECORDS SUMMARY | 2022-09-25 16:12 | XMS_ITS | Encounter Summary ---
:1970 Author Organization [facility] Address [address] [place] [address] Care Team Providers Name Role Phone Unknown, Provider Primary Care Provider Encounter Details Date Type Department Care Team Description 07/02/2001 Results Only [facility] - Nathan Guevara MD conversion [address] [place] [address] Social History Tobacco Use Types Packs/Day Years Used Date Smoking Tobacco: Never Assessed Sex Assigned at Date Recorded Not on file documented as of this encounter Plan of Treatment Upcoming Encounters Date Type Specialty Care Team Description 11/10/2022 Office Visit Endocrinology Claudia Garcia, RAILROAD MECHANIC [address] [facility] [address] [place] [address] (Wo rk) documented as of this encounter Procedures Procedure Name Priority Date/Time Associated Diagnosis Comme [facility] CYTOPATHOLOGY Routine 07/02/2001 0:00 EDT Results for this procedure are i n the results section . documented in this encounter Results CYTOPATHOLOGY (07/02/2001 0:00 EDT) Component Value Ref Test Analysis Performed At [facility] Time Signature Pathology CYTOPATHOLOGY REPORT [facility] Report: [facility] Reports generated via electronic interface contain original data; however they are lacking the format of the original report. Caution should be taken when reading/interpreting unformatte d reports. Name: ? ORTEGA FRANKLIN ? Accession #: ? [id number] : ? 1970 (Age: 31) ??F ?Collect Date: ? 07/02/2001 Location: ? [facility] ? Receive Date: ? 07/04/2001 Provider: ?NATHAN KHAN MD Copy to: ? Specimen/Source: ?ThinPrep Pap Test, Cervix/Endoce rvix Last Menstrual Period: ? 06/14/01 ? SPECIMEN ADEQUACY ? Satisfactory for eval uation but limited by an absence of a transformation zone component. GENERAL CATEGORIZATION ? Benign Cellular Changes DESCRIPTIVE DIAGNOSIS ? 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 ? Document reviewed and electronically signed by: ? Lindsey Bach, ??SCT(ASCP) ? Report Date: ??07/05/2001 15:13 End of Report Specimen (Source) Anatomical Location Collection Method / Collectio n Time Received Time / Laterality Volume 07/02/2001 07/04/2001 Nathan Khan MD PATHOLOGY ORDERABLES Performing Organization Address City/State/ZIP Code Phon e Number [facility] [address] [place] [address] SERVICES [facility] [address] [place] [address] documented in this encounter Visit Diagnoses Not on filedocumented in this encounter Care Teams Customs Opener Verifier Packer Relationship Specialty Start Date End Date Unknown, Provider, PCP - General 03/08/09 11/05/16 documented as of this encounter
--- OUTSIDE RECORDS SUMMARY | 2022-09-25 16:12 | XMS_ITS | Encounter Summary ---
:1970 Author Organization [facility] Address [address] [place] [address] Care Team Providers Name Role Phone Unknown, Provider Primary Care Provider Encounter Details Date Type Department Care Team Description 08/01/2005 Results Only [facility] - Darci Abernathy, conversion CNM [address] [address] [place] [address] [phone] (Wo rk) Social History Tobacco Use Types Packs/Day Years Used Date Smoking Tobacco: Never Assessed Sex Assigned at Date Recorded Not on file documented as of this encounter Plan of Treatment Upcoming Encounters Date Type Specialty Care Team Description 11/10/2022 Office Visit Endocrinology Claudia Garcia, ADMINISTRATIVE SECRETARY [address] [address] (Wo rk) documented as of this encounter Procedures Procedure Name Priority Date/Time Associated Diagnosis Comme [facility] CYTOPATHOLOGY Routine 08/01/2005 0:00 EDT Results for this procedure are i n the results section . documented in this encounter Results CYTOPATHOLOGY (08/01/2005 0:00 EDT) Component Value Ref Test Analysis Performed At [facility] Signature Pathology CYTOPATHOLOGY REPORT [facility] Report: [facility] Reports generated via electronic interface contain original data; however they are lacking the format of the original report. Caution should be taken when reading/interpreting unformatte d reports. Name: ? ORTEGA FRANKLIN ? Accession #: ? [id number] : ? 1970 (Age: 35) ??F ?Collect Date: ? 08/01/2005 Location: ? [facility] ? Receive Date: ? 08/03/2005 Provider: ?DARCI NEFFM Copy to: ?ELENA AYALA MD ? Specimen/Source: ? ThinPrep Pap Test, Cervix/Endocervix, processed on [employer] ThinPrep Imaging System, with manual evaluation Last Menstrual Period: ? 07/02/05 Other: ? HPVA - HPV testing requested if ASC-US on the current ThinPr ep Pap test. ? SPECIMEN ADEQUACY ? Satisfactory for Evaluation - transformation zone component present GENERAL CATEGORIZATION ? Negative for Intraepithelial Lesion or Malignancy INTERPRETATION ? Shift in yumiko present suggestive of bacterial vagino sis. ? Document reviewed and electronically signed by: ? DANNI Hargrove(ASCP) ? Report Date: ??08/08/2005 07:04 End of Report Specimen (Source) Anatomical Location Collection Method / Collectio n Time Received Time / Laterality Volume 08/01/2005 08/03/2005 Darci Eckert [facility] PATHOLOGY ORDERABLES Performing Organization Address City/State/ZIP Code Phon e Number [facility] [address] [place] [address] SERVICES [facility] [address] [place] [address] documented in this encounter Visit Diagnoses Not on filedocumented in this encounter Care Teams Manufacturing Process Technician Relationship Specialty Start Date End Date Unknown, Provider, PCP - General 03/08/09 11/05/16 documented as of this encounter
--- OUTSIDE RECORDS SUMMARY | 2022-09-25 16:12 | XMS_ITS | Encounter Summary ---
:1970 Author Organization [facility] Address [address] [place] [address] Care Team Providers Name Role Phone Unknown, Provider Primary Care Provider Rosalia Starr MD Primary Care Provider Silvia Ghosh MD Unavailable [phone] Encounter Details Date Type Department Care Team Description 10/05/2006 Hospital Encounter [facility] - Abdulaziz Fallon NP [address] [place], [place] [address] Social History Tobacco Use Types Packs/Day Years [...] Description 11/10/2022 Office Visit Endocrinology Claudia Garcia, LIBRARY ASSISTANT [address] [facility] [address] [place] [address] (Wo rk) documented as of this encounter Procedures Procedure Name Priority Date/Time Associated Comments Diagnosis N. GONORRHOEAE Routine 10/05/2006 18:52 Results f or this AMPLIFIED PROBE EST procedure ar e in the results section. HPV DETECTION, HIGH Routine 10/05/2006 18:52 Resu lts for this RISK TYPES EST procedure are i n the results section. ZZCHLAMYDIA Routine 10/05/2006 18:52 Results for this TRACHOMATIS AMPLIFIED EST proced ure are in PROBE the results section. T4 FREE Routine 10/05/2006 18:52 Results for this EST procedure are i n the results section. documented in this encounter Results HUMAN PAPILLOMA VIRUS DNA TEST (10/05/2006 18:52 EST) [facility] Method Time Signature Specimen Cervix, [facility] Description ThinPrep vial [facility] Result Positive for one or more of HPV types 16,18,31,33,35,39,45,51,52,56,58,59, or 68. These [facility] high/intermediate risk HPV t ypes are associated with dysplasia and some cervical cancers. [facility] Report Status Final [facility] [id number] [facility] Specimen Anatomical Collection Method Collection Time Receive d Time (Source) Location / / Volume Laterality 10/05/2006 18:52 10/15/2006 EST 22:27 EST Laurence Fallon NP MICROBIOLOGY - GENERAL ORDER FRED Performing Organization Address City/State/ZIP Code Phon e Number [facility] [address] [place] [address] SERVICES [facility] [address] [place] [address] N. GONORRHOEAE AMPLIFIED PROBE (10/05/2006 18:52 EST) Component Value Ref Test Analysis Performed At [facility] Method Time Signature Result No Neisseria [facility] gonorrhoeae DNA [facility] detected by make up man mediated amplification. Report Status Final [facility] [id number] [facility] Specimen Cervix [facility] Description [facility] Specimen Anatomical Collection Method Collection Time Receive d Time (Source) Location / / Volume Laterality 10/05/2006 18:52 10/07/2006 EST 15:14 EST Provider Sherly OCONNOR MICROBIOLOGY - GENERAL ORDER FRED Performing Organization Address City/State/ZIP Code Phon e Number [facility] [address] [place] [address] SERVICES [place] [address] [place] [address] CHLAMYDIA TRACHOMATIS AMPLIFIED PROBE (10/05/2006 18:52 EST) Component Value Ref Test Analysis Performed At [facility] Range Method Time Signature Specimen Cervix [facility] Description [facility] Result No Chlamydia [facility] trachomatis DNA [facility] detected by make up man mediated amplification. Report Status Final [place] [id number] [facility] Specimen Anatomical Collection Method Collection Time Receive d Time (Source) Location / / Volume Laterality 10/05/2006 18:52 10/07/2006 EST 15:13 EST Provider Unknown MICROBIOLOGY - GENERAL ORDER FRED Performing Organization Address City/State/ZIP Code Phon e Number [facility] [address] [place] [address] SERVICES [facility] [address] [place] [address] T4 FREE (10/05/2006 18:52 EST) P athologist Signature Free T4 1.2 0.8 - 1.8 [facility] NICE ng/dL LAB Specimen Anatomical Collection Method Collection Time Receive d Time (Source) Location / / Volume Laterality 10/05/2006 18:52 10/07/2006 EST 15:05 EST Provider Unknown CHEMISTRY & BLOOD GAS ORDERA BLES Performing Organization Address City/[facility] Code Phon e Number [facility] [address] [place] [address] SERVICES [facility] [address] [place] [address] documented in this encounter Visit Diagnoses Not on filedocumented in this encounter Care Teams Radiology Interventional Physician Relationship Specialty Start Date End Date Unknown, Provider, PCP - General 03/08/09 11/05/16 Rosalia Starr MD PCP - General 11/06/[address] [place] [address] Silvia Ghosh, Endocrinology, Diabetes and [address] [phone] documented as of this encounter
== END 2022-09-25 16:00 | disposition home or self-care (01) ==
LOC: NCHCN 15:59
PROVIDERS: PCP Family Medicine; Visit Provider Nurse Practitioner Family
DX: R30.0 Dysuria (principal)
CPT/HCPCS: 87077; 87086; 87186

== ENCOUNTER 2022-11-08 17:40 | Outpatient (REF) | payer OTHER, SELFPAY | END 2022-11-08 17:41 | disposition home or self-care (01) | LOC: NCHCN 17:40 | PROVIDERS: PCP Family Medicine; Visit Provider Family Medicine | DX: R35.0 Frequency of micturition (principal) | CPT/HCPCS: 87077; 87086; 87186 ==

== ENCOUNTER 2023-01-25 15:55 | Outpatient (REF) | payer OTHER, SELFPAY ==
[2023-01-25 22:08] LABS: Iron 33 ug/dL (50-170); Total Iron Binding Capacity 422 ug/dL (250-450); Transferrin Sat 8 % (15-50)
[2023-01-25 22:20] LABS: Ferritin 10 ng/mL (8-252)
== END 2023-01-25 15:56 | disposition home or self-care (01) ==
LOC: NCHCN 15:55
PROVIDERS: PCP Family Medicine; Visit Provider Family Medicine
DX: D64.9 Anemia, unspecified (principal)
CPT/HCPCS: 82728; 83540; 83550

== ENCOUNTER 2023-06-27 18:05 | Outpatient (REF) | payer OTHER, SELFPAY ==
[2023-06-27 21:10] LABS: COMMENT (LAB VIEW ONLY) 81.52 mg/dL
== END 2023-06-27 18:06 | disposition home or self-care (01) ==
LOC: NCHCN 18:05
PROVIDERS: PCP Family Medicine; Visit Provider Family Medicine
DX: E11.65 Type 2 diabetes mellitus with hyperglycemia (principal)
CPT/HCPCS: 82043; 82570

== ENCOUNTER 2024-06-20 15:47 | Outpatient (REF) | payer BC, SELFPAY ==
--- OUTSIDE RECORDS SUMMARY | 2024-06-20 15:52 | XMS_ITS ---
Author Organization Unknown Address [address] [place] [phone] Phone Care Team Providers Care Supervisor Paper Testing Name Role Phone MARY Betancourt Primary Unavailable Results CHLAMYDIA/GC AMPLIFIED PROBE * - Collect Date/Time: 10/07/2021 13:41 ID: [id number] [address] [place] [address], [id number] LOINC: 33682-6 Test Value Unit Reference Range Code Code System Flag Chlamydia Result Negative Negative GC Result Negative Negative COMPREHENSIVE METABOLIC PANE L (CMP) - Collect Date/Time: 10/05/2021 08:22 ID: [id number] [address] [place] [address], [address] LOINC: 21256-8 Test Value Unit Reference Range Code Code System Flag GLUCOSE 213 mg/dL L=70 H=116 2345-7 LOINC H BUN 19 mg/dL L=6 H=25 3094-0 LOINC CREATININE 1.10 mg/dL L=0.51 H=0.95 2160-0 LOINC H SODIUM SERUM 140 mmol/L L=136 H=145 2951-2 LOINC POTASSIUM SERUM 4.2 mmol/L L=3.4 H=5.2 2823-3 LOINC CHLORIDE SERUM 100 mmol/L L=96 H=110 2075-0 LOINC CARBON DIOXIDE (CO2) 35 mmol/L L=22 H=34 2028-9 LOINC H ANION GAP 5.3 mmol/L 31640-7 LOINC CALCIUM SERUM 8.9 mg/dL L=8.2 H=10.2 14086-9 LOINC BILIRUBIN TOTAL 0.4 mg/dL L=0.0 H=1.3 1975-2 LOINC ALK. PHOS. 118 U/L L=46 H=116 6768-6 LOINC H SGOT (AST) 12 U/L L=15 H=37 1920-8 LOINC L SGPT (ALT) 19 U/L L=12 H=78 1742-6 LOINC TOTAL PROTEIN 7.6 gm/dL L=6.0 H=8.0 2885-2 LOINC ALBUMIN 3.7 gm/dL L=3.4 H=5.0 1751-7 LOINC AGE 51 years eGFR (non-Afr.Amer.) 52 mL/min 10852-9 LOINC eGFR (Afr-Central African) 63 mL/min 15123-4 [facility] LIPID PANEL* - Collect Date/ Time: 10/05/2021 08:22 ID: [id number] [address] [place], [place], [id number] LOINC: Test Value Unit Reference Range Code Code System Flag FASTING STATUS: FASTING CHOLESTEROL 136 mg/dL L=0 H=200 2093-3 LOINC TRIGLYCERIDES 87 mg/dL L=53 H=223 2571-8 LOINC HDL 56 mg/dL L=37 H=91 2085-9 LOINC non-HDL-C 80 mg/dL L=0 H=160 53492-0 LOINC LDL (CALC) 63 mg/dL L=0 H=130 80414-5 [facility] % HDL 41.2 % Chol/HDL Ratio 2.4 L=0.0 H=4.4 9830-1 LOINC CHD Relative Risk 0.5 x Avg L=0.0 H=1.0 LDL/HDL Ratio 1.1 L=0.0 H=3.2 57632-3 LOINC CHD Relative Risk. 0.3 x Avg L=0.0 H=1.0 MICROALBUMIN URINE - Collect Date/Time: 10/05/2021 08:22 ID: [id number] [address] [place], [place], [id number] LOINC: 85630-4 Test Value Unit Reference Range Code Code System Flag Creatinine Urine 110.6 mg/dl 2161-8 LOINC Microalb mg/dl 0.4 mg/dl 13957-3 LOINC Microalbumin ug/mg C 3.6 ug/mg Cr 9318-7 LOINC Social History Type Status Start Date End Date Code Code Syst em Smoking History Never smoker (Never Smoked) 248639435 SNOMED CT Sex Female Assessment You had the following problems:ACID REFLUXDIABETES 2HTN Hospital Discharge Instructions Should you have any questions prior to discharge, please contact a member of your healthcare team. If you have left the hospital and have any questions, please contact your primary care physician. Reason For Referral No Data Found Problems Problem Start Date Resolved Date Status Code Code System ACID REFLUX active 360288305 SNOMED-C T DIABETES 2 active 63705018 SNOMED-CT HTN active 48253257 SNOMED-CT Allergies and Adverse Reactions Allergy Substance Reaction Severity Start Date Concern Status Code Code System PENICILLINS (CLASS) Hives (SNOMED-CT: 078887488) Moderate Active 55497 RxNorm AMPICILLIN Hives (SNOMED-CT: 506590244) Moderate Active 612018 RxNorm SEASONAL Moderate Active Plan of Treatment Exposure 08/20/2020 LAB DRAW 15MIN 11/19/2023 LAB DRAW 15MIN 04/26/2023 NM MPI STR/RST 06/08/2022 MM SCREEN BILAT 11/11/2021 LAB DRAW 15MIN 10/05/2021 SYMPTOMS 08/13/2021 Encounters Encounter Diagnosis Start Date Code Code Sys tem Type 2 diabetes mellitus without complication 10/05/20 21 552546479 SNOMED-CT Personal Care Team Section Performer Name Performer Role Active Date Inactive Da te
--- OUTSIDE RECORDS SUMMARY | 2024-06-20 15:52 | XMS_ITS | Continuity of Care Document ---
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 90 DAYS active Not Available Not Available No t Available Paxlovid 300 mg (150 mg x 2)-100 mg tablets in a dose pack Take 3 tablet by mouth twice a day as directed in package instruct ions 12/21 completed Not Available Not Available Not Available Mounjaro 7.5 mg/0.5 mL subcutane ous pen injector INJECT 7.5MG UNDER THE SKIN ONCE A WEEK active Not Available Not Available No t Available Mounjaro 5 mg/0.5 mL subcutane ous pen injector Inject 5 mg every week by subcutan eous route. 06/20 completed now on 7.5 mg/0.5 ml Not Available Not Available Not Available Mounjaro 2.5 mg/0.5 mL subcutane ous pen injector INJECT 0.5ML (1 PEN) INTO THE SKIN ONCE A WEEK 03/13 completed dose increae by endo Not Available Not Available Not Available Slow Fe 137 mg (45 mg iron) tablet,ex tended release 1 tab each evening 2022 active Not Available Not Available Not Avai lable Vitals Date Recorded Body height Body mass index (BMI) Body weight Body temperature Oxygen saturation Oxygen saturation in Arterial blood by Pulse oximetry Heart rate Systolic blood pressure Diastolic blood pressure Provider Name and Address Organization Details Last Updated DateTime 4 156.21 cm 35.2 kg/m2 12512.6 8 g 97.2 [degF] 98 % 98 % 77 /min 106 mm[Hg] 58 mm[Hg] MARLENE JIMENEZ MA [facility] 4 15:15:13 Social History Question Answer Notes LastModified by Organizat ion Details LastModified Time Tobacco Smoking Status Never Smoker MARYLOU OSORIO, [facility] 06/20/2024 09:23:42 What Was The Date Of Your Most Recent Tobacco Screening? 06/20/2024 Information not available 06/20/2024 Has Tobacco Cessation Counseling Been Provided? No Information not available 06/20/2024 Do You Or Have You Ever Used Any Other Forms Of Tobacco Or Nicotine? No Information not available 06/20/2024 Sex: Female Functional Status None recorded. Mental Status None recorded. Family History Relationship Description Onset Age of this Age Resolved Age Notes Mother Family history of ac karen medical disorder Notes:*Problem: Significant for diabetes. Father with hypertension, mother with DJD. Two sisters in good health. Grandfather with heart disease in his 60s. Medical History No medical history recorded. Gynecological HistoryNo gynecological history recorded. Obstetrics History GPAL:G 0 P 0 0 0 0 Immunizations Vaccine Type Date Status Provider Name and Address Organization Details Recorded Time Influenza, split virus, quadrivalent, PF 12/21/2023 completed ALDA SOLIS MD [address], [place], [address], [facility] 12/21/2023 11:57:30 Tdap 09/19/2022 completed Not Available [facility] 05:02:32 Tdap 10/08/2012 completed Not Available [facility] 05:02:33 Td(adult) unspecified formulation 10/29/2005 completed Not Available [facility] 09/07/2023 05:02:33 Influenza, split virus, trivalent, preservative 08/30/2016 completed Not Available [facility] 09/07/2023 05:02:34 Influenza, split virus, trivalent, preservative 09/02/2015 completed Not Available [facility] 09/07/2023 05:02:34 Influenza, split virus, quadrivalent, PF 11/04/2019 completed Not Available [facility] 09/07/2023 05:02:34 Influenza, split virus, quadrivalent, PF 07/08/2020 completed Not Available [facility] 09/07/2023 05:02:34 Influenza, split virus, quadrivalent, PF 09/19/2022 completed Not Available [facility] 09/07/2023 05:02:34 Influenza, split virus, quadrivalent, PF 09/26/2021 completed Not Available [facility] 09/07/2023 05:02:35 Influenza, split virus, quadrivalent, preservative 11/16/2017 completed Not Available [facility] 09/07/2023 05:02:35 Influenza, split virus, quadrivalent, preservative 09/11/2018 completed Not Available [facility] 09/07/2023 05:02:35 zoster recombinant 07/08/2020 completed Not Available [facility] 09/07/2023 05:02:35 zoster recombinant 09/26/2021 completed Not Available [facility] 09/07/2023 05:02:35 SARS-COV-2 (COVID-19) vaccine, UNSPECIFIED 01/23/2021 completed Not Available [facility] 09/07/2023 05:02:35 SARS-COV-2 (COVID-19) vaccine, UNSPECIFIED 02/20/2021 completed Not Available [facility] 09/07/2023 05:02:36 pneumococcal polysaccharide PPV23 2012 completed Not Available [facility] 2022 05:02:36 Hep B, adult 06/09/2016 completed Not Available [facility] 09/07/2023 05:02:36 Hep B, adult 08/30/2016 completed Not Available [facility] 09/07/2023 05:02:36 influenza, unspecified formulation 07/07/2014 completed Not Available [facility] 09/07/2023 05:02:36 influenza, unspecified formulation 09/15/2013 completed Not Available [facility] 09/07/2023 05:02:37 influenza, unspecified formulation 10/08/2012 completed Not Available [facility] 09/07/2023 05:02:37 SARS-COV-2 (COVID-19) vaccine, UNSPECIFIED 03/29/2022 completed MARLENE JIMENEZ MA [facility], [place] - [facility]. 01/22/2024 07:31:29 Past Encounters Encounter ID Performer Location Encounter Start Date Encounter Closed Date Diagnosis/Indication Diagnosis SNOMED-CT Code [id number] ALDA SOLIS MD [address] [address] 04/18/2024 15:07:51 04/18/2024 15:37:50 Gastroesophageal reflux disease without esophagitis [id number] Health Concerns Section Related Observation LastModified by Organization Detai ls LastModified Time None Recorded Concern Status LastModified by Organization Details LastModified Time None Recorded Payers Encounter Date Sequence Insurance Name Policy Number Policy Braxton Covered Member ID Braxton Member ID Guarantor Name 04/18/2024 1 [employer]: [facility] [id number] Ortega Corrigan [id number] Ortega Corrigan Notes Date Note Type Note Provider Name and Address Organization Details Recorded Time 04/18/2024 text/html HPI Notes: Del brasher presents with heartburn and acid reflux symptoms for the past three and a half to four weeks. The patient is a 54-year-old female who has been experiencing heartburn and acid reflux symptoms for the past three and a half to four weeks. The symptoms occur on and off, sometimes waking her up in the middle of the night with acid up her throat. The symptoms also present as typical heartburn and a burning sensation in the chest area. The patient has not noticed any changes in her diet or medications, except for a recent weight loss. She has been taking Pantoprazole (Protonix) 40 mg daily on an empty stomach. SH - Patient is slowly losing weight on low dose Mounjaro. - Does not consume spicy foods or alcohol frequently - Diet includes occasional hot dogs and processed foods, but has reduced consumption of boxed and high-sodium items. No NSAIDs. PMH: neg for hx of PUD. ALDA SOLIS MD [address], [place], [address], [facility] - [facility]. 04/18/2024 16:16:26 OBGyn Episode No OBEpisode recorded.
--- OUTSIDE RECORDS SUMMARY | 2024-06-20 15:52 | XMS_ITS | Data Portability ---
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 Notes Mother Family history of ac la posta medical disorder Notes:*Problem: Significant for diabetes. Father [...] completed ALDA SOLIS MD [address], [place], [address], [facility] 12/21/2023 11:57:30 Tdap 09/19/2022 completed Not Available [facility] 05:02:32 Tdap 10/08/2012 completed Not Available [facility] 05:02:33 Td(adult) unspecified formulation 10/29/2005 completed Not Available [facility] 09/07/2023 05:02:33 Influenza, split virus, trivalent, preservative 08/30/2016 completed Not Available [facility] 09/07/2023 05:02:34 Influenza, split virus, trivalent, preservative 09/02/2015 completed Not Available [facility] 09/07/2023 05:02:34 Influenza, split virus, quadrivalent, PF 11/04/2019 completed Not Available [facility] 09/07/2023 05:02:34 Influenza, split virus, quadrivalent, PF 07/08/2020 completed Not Available [facility] 09/07/2023 05:02:34 Influenza, split virus, quadrivalent, PF 09/19/2022 completed Not Available [facility] 09/07/2023 05:02:34 Influenza, split virus, quadrivalent, PF 09/26/2021 completed Not Available [facility] 09/07/2023 05:02:35 Influenza, split virus, quadrivalent, preservative 11/16/2017 completed Not Available [facility] 09/07/2023 05:02:35 Influenza, split virus, quadrivalent, preservative 09/11/2018 completed Not Available [facility] 09/07/2023 05:02:35 zoster recombinant 07/08/2020 completed Not Available [facility] 09/07/2023 05:02:35 zoster recombinant 09/26/2021 completed Not Available [facility] 09/07/2023 05:02:35 SARS-COV-2 (COVID-19) vaccine, UNSPECIFIED 01/23/2021 completed Not Available [facility] 09/07/2023 05:02:35 SARS-COV-2 (COVID-19) vaccine, UNSPECIFIED 02/20/2021 completed Not Available [facility] 09/07/2023 05:02:36 pneumococcal polysaccharide PPV23 2012 completed Not Available [facility] 2022 05:02:36 Hep B, adult 06/09/2016 completed Not Available [facility] 09/07/2023 05:02:36 Hep B, adult 08/30/2016 completed Not Available [facility] 09/07/2023 05:02:36 influenza, unspecified formulation 07/07/2014 completed Not Available [facility] 09/07/2023 05:02:36 influenza, unspecified formulation 09/15/2013 completed Not Available [facility] 09/07/2023 05:02:37 influenza, unspecified formulation 10/08/2012 completed Not Available [facility] 09/07/2023 05:02:37 SARS-COV-2 (COVID-19) vaccine, UNSPECIFIED 03/29/2022 completed [facility] [place] [facility] 01/22/2024 07:31:29 Past Encounters Encounter ID Performer Location Encounter Start Date Encounter Closed Date Diagnosis/Indication Diagnosis SNOMED-CT Code [id number] LADA SOLIS MD [address] [address] 12/21/2023 10:39:01 12/21/2023 11:15:49 Screening for malignant neoplasm of breast 369123832 Essential hypertension 12348928 Anxiety 03027076 Lateral ep icondylitis of right humerus 259140231506165 Active or passive immunization 948803668 History of anemia 696781 275 [id number] ALDA SOLIS MD [address] [address] 01/25/2024 08:15:25 01/25/2024 08:49:06 Melanocytic nevus 138007388 Lateral ep icondylitis of right humerus 257283188622161 [id number] ALDA SOLIS MD [facility] [address] [place] [address] 04/18/2024 15:07:51 04/18/2024 15:37:50 Gastroesophageal reflux disease without esophagitis 998729562 [id number] Arminda Alexander [facility] [address] [place] [address] 06/20/2024 09:01:23 06/20/2024 10:05:01 Gastroesophageal reflux disease without esophagitis 752957074 Hyperglyce corrie due to type 2 diabetes mellitus 190103223989310 Surgical follow-up 81264 4000 Ineffectiv e therapeutic regimen management 359613083 Health Concerns Section Related Observation LastModified by Organization Detai ls LastModified Time None Recorded Concern Status LastModified by Organization Details LastModified Time None Recorded Advance Directives Directive None Recorded Payers Encounter Date Sequence Insurance Name Policy Number Policy Braxton Covered Member ID Braxton Member ID Guarantor Name 12/21/2023 1 [place] [facility] [id number] Ortega Corrigan [id number] Ortega Corrigan 01/25/2024 1 [place] [facility] [id number] Ortega Corrigan [id number] Ortega Corrigan 04/18/2024 1 [place] [facility] [id number] Ortega Corrigan [id number] Ortega Corrigan Notes Date Note Type Note Provider Name and Address Organization Details Recorded Time 12/21/2023 text/html HPI Notes: Here for follow-up of hypertension and DJD of right knee, also new concern regarding possible tennis elbow. She has had pain in right lateral elbow recently that interferes with sleep. Denies any change in usual activity. She is right-handed. She has tried a tennis elbow strap without improvement. She is taking a lot of ibuprofen. She recently switched from Ozempic to Mounjaro which she is tolerating well at lowest dose, better than she did Ozempic. She is put on a bit of weight. Her right knee continues to bother her, she is hoping to start lubricant injections but they are not currently available. A cortisone injection I did in May was not helpful. X-ray showed mild to moderate tri-compartment DJD. MD [address], [place], [address], [facility]. 12/21/2023 12:01:30 01/25/2024 text/html HPI Notes: Ortega presents for evaluation with concerns regarding her freckles and a family history of pre-cancerous skin lesions. She has noted that her sister recently underwent the removal of pre-cancerous skin lesions, and her [id number] was treated for skin cancer four years prior. Consequently, Ortega is seeking a referral to a special needs bus driver for a comprehensive skin assessment. In addition to her dermatological concerns, Ortega reports experiencing persistent tennis elbow pain in her right arm, which has been ongoing for approximately 7-8 weeks. The pain and lack of strength in her right arm have led her to rely predominantly on her left arm for daily tasks. Ortega has attempted various treatments to alleviate the pain, including the application of ice, the use of a supportive strap, and the topical application of anti-inflammatory medications such as Voltaren gel and BioFreeze. She has also been taking oral pain relievers like ibuprofen or Aleve. Despite these measures, the pain continues to disrupt her sleep and impede her daily activities. Ortega expresses an interest in considering physical therapy as a potential avenue for treatment. MD [address], [place], [address], [facility], [facility]. 01/25/2024 09:10:39 04/18/2024 text/html HPI Notes: Del brasher presents [...] PUD. ALDA SOLIS MD [address], [place], [address], [place] [facility]. 04/18/2024 16:16:26 OBGyn Episode No OBEpisode recorded.
--- OUTSIDE RECORDS SUMMARY | 2024-06-20 15:53 | XMS_ITS ---
Author Organization Unknown Address [address] [place] [phone] Phone Care Team Providers Care Help Desk Representative Name Role Phone IRMA Betancourt Attending Unavailable Results MM SCR MAMMO BI INCL CAD - C ompleted: 11/12/2021 06:18 LOINC: Digital mammograms were inte rpreted according to the usual protocol including computer analysis with CADx system including tomosynthesis. The breasts are of moderate density with fairly symmetrical distribution of fibroglandular tissue. No dominant mass or clumped microcalcification is identified in either breast. The current examination is compared with previous examination of February 2019 and there has been no gross interval change in appearance in comparison with the prior study. CONCLUSION:No specific evidence of malignancy at this time. Routine screening examinations are suggested at yearly intervals in this age group according to the ACS/ACR guidelines. BI-RADS Assessment: Category 1 - Negative BREAST DENSITY: b. There are scattered areas of fibroglandular density. Dictated by: REANNA OSUNA RADIOLOGIST Transcribed by: RAOUL 11/11/21/16:08 D Thursday, November 11, 2021 3:39:50 PM [id number] Electronically Reviewed and Signed By: EVELIA OSUNA RADIOLOGIST 11/15/21 07:46 TECHNOLOGIST: RT Elenita (Liang) (M) (CT) Copy for: 185 HEALTH INFORMATION MGMT Social History Type Status Start Date End Date Code Code Syst em Smoking History Never smoker (Never Smoked) 309981534 SNOMED CT Sex Female Assessment You had [...] Status Code Code System ACID REFLUX active 825019297 SNOMED-C T DIABETES 2 active 87781740 SNOMED-CT HTN active 72142931 SNOMED-CT Allergies and Adverse Reactions Allergy Substance Reaction Severity Start Date Concern Status Code Code System PENICILLINS (CLASS) Hives (SNOMED-CT: 515241337) Moderate Active 55525 RxNorm AMPICILLIN Hives (SNOMED-CT: 060785535) Moderate Active 677511 RxNorm SEASONAL Moderate Active Plan of Treatment Exposure 08/20/2020 LAB DRAW 15MIN 11/19/2023 LAB DRAW 15MIN 04/26/2023 NM MPI STR/RST 06/08/2022 MM SCREEN BILAT 11/11/2021 LAB DRAW 15MIN 10/05/2021 SYMPTOMS 08/13/2021 Encounters Encounter Diagnosis Start Date Code Code Sys tem Screening mammography 11/11/2021 27278421 SNOMED -CT Personal Care Team Section Performer Name Performer Role Active Date Inactive Da te
--- OUTSIDE RECORDS SUMMARY | 2024-06-20 15:53 | XMS_ITS ---
Author Organization Unknown Address [address] [place] [phone] Phone Care Team Providers Care Telephone Order Clerk Room Service Name Role Phone THALIA KOVACS Registered Nurse Unavailable MARCELA Tavera Attending Unavailable IRMA Betancourt Primary Unavailable UNLISTED PROVIDER - REQUESTED Xhandoff Un available Results TROPONIN HIGH SENSITIVITY* - Collect Date/Time: 03/08/2022 01:02 [facility] ID: [id number] [address] [place] [address], [address] LOINC: 05206-1 Test Value Unit Reference Range Code Code System Flag TROPONIN HS 5.7 pg/mL L=0.0 H=60.4 Specimen seq. 2 hour TROPONIN HIGH SENSITIVITY* - Collect Date/Time: 03/07/2022 22:55 [facility] ID: [id number] [address] [place] [address], [address] LOINC: 52008-8 Test Value Unit Reference Range Code Code System Flag TROPONIN HS 5.2 pg/mL L=0.0 H=60.4 Specimen seq. Random MAGNESIUM SERUM* - Collect D ate/Time: 03/07/2022 22:55 [facility] ID: [id number] [address] [place] [address], [address] LOINC: 39930-5 Test Value Unit Reference Range Code Code System Flag MAGNESIUM 2.1 mg/dL L=1.8 H=2.4 28780-8 LOINC COMPREHENSIVE METABOLIC PANE L (CMP) - Collect Date/Time: 03/07/2022 22:55 [facility] ID: [id number] [address] [place], [place], [address] LOINC: [address]16-2 Test Value Unit Reference Range Code Code System Flag GLUCOSE 138 mg/dL L=70 H=116 2345-7 LOINC H BUN 19 mg/dL L=6 H=25 3094-0 LOINC CREATININE 1.15 mg/dL L=0.51 H=0.95 2160-0 LOINC H SODIUM SERUM 139 mmol/L L=136 H=145 2951-2 LOINC POTASSIUM SERUM 3.7 mmol/L L=3.4 H=5.2 2823-3 LOINC CHLORIDE SERUM 101 mmol/L L=96 H=110 2075-0 LOINC CARBON DIOXIDE (CO2) 33 mmol/L L=22 H=34 2028-9 LOINC ANION GAP 5.1 mmol/L 75964-4 LOINC CALCIUM SERUM 8.5 mg/dL L=8.2 H=10.2 04301-4 LOINC BILIRUBIN TOTAL 0.4 mg/dL L=0.0 H=1.3 1975-2 LOINC ALK. PHOS. 131 U/L L=46 H=116 6768-6 LOINC H SGOT (AST) 14 U/L L=15 H=37 1920-8 LOINC L SGPT (ALT) 18 U/L L=12 H=78 1742-6 LOINC TOTAL PROTEIN 7.2 gm/dL L=6.0 H=8.0 2885-2 LOINC ALBUMIN 3.6 gm/dL L=3.4 H=5.0 1751-7 LOINC AGE 51 years eGFR (non-Afr.Amer.) 50 mL/min 54233-3 LOINC eGFR (Afr-Hungarian) 60 mL/min 77908-6 LOINC CBC W/ DIFFERENTIAL* - Colle ct Date/Time: 03/07/2022 22:55 [facility] ID: [id number] [address] [place], [place], [address] LOINC: 08952-6 Test Value Unit Reference Range Code Code System Flag WBC 7.87 th/cmm L=5.00 H=10.00 6690-2 LOINC NEUT % 52.9 % L=40.0 H=80.0 LYMPH % 34.4 % L=10.0 H=50.0 MONO % 8.0 % L=2.0 H=12.0 35993-5 LOINC EOS % 3.6 % L=0.0 H=8.0 BASO % 0.6 % L=0.0 H=3.0 IG % 0.5 % L=0.0 H=1.1 2514-8 LOINC NRBC % 0.0 % L=0.0 H=0.0 61445-6 LOINC NEUT abs count 4.2 th/cmm L=1.6 H=8.4 751-8 LOINC LYMPH abs count 2.7 th/cmm L=1.5 H=4.0 731-0 LOINC MONO abs count 0.6 th/cmm L=0.2 H=1.0 742-7 LOINC EOS abs count 0.3 th/cmm L=0.0 H=0.5 711-2 LOINC BASO abs count 0.1 th/cmm L=0.0 H=0.2 704-7 LOINC IG abs count 0.0 th/cmm L=0.0 H=0.1 94575-2 LOINC NRBC abs count 0.0 mil/cmm L=0.0 H=0.0 38494-5 LOINC RBC 5.41 mil/cmm L=3.90 H=5.40 789-8 LOINC H HEMOGLOBIN 12.8 gm/dL L=12.0 H=16.0 718-7 LOINC HEMATOCRIT 42 % L=37 H=47 4544-3 LOINC MCV 78 fL L=82 H=92 787-2 LOINC L MCH 23.7 pg L=27.0 H=31.0 785-6 LOINC L MCHC 30.2 % L=32.0 H=36.0 786-4 LOINC L RDW-SD 44.0 fL L=39.0 H=49.0 788-0 LOINC PLATELET COUNT 268 th/cmm L=150 H=450 777-3 LOINC XR CHEST 2V PA AND LATERAL - Completed: 03/08/2022 05:39 LOINC: CHEST - 2 VIEWS Compared to 01/06/10. Heart size is normal. The mediastinum is not widened. Lungs are clear with no infiltrates nor pleural effusions. No pneumothorax. No significant osseous findings. IMPRESSION: No acute pulmonary findings. Dictated by: SADI DELGADO MD Transcribed by: [facility] 03/08/22/09:58 D Tuesday, March 08, 2022 7:33:35 AM [id number] Electronically Reviewed and Signed By: MARYBEL DELGADO MD 03/08/22 18:19 Copy for: 185 HEALTH INFORMATION MGMT DISCHARGED Social History Type Status Start Date End Date Code Code Syst em Smoking History Never smoker (Never Smoked) 018463867 SNOMED CT Sex Female Vital Signs Vital Sign Value Unit [place] Value [place] Unit Date/Time Recent/Initial? Code Code System Body Mass Index 33.47 kg/m2 03/07/2022 23:04 Initial 50950 -5 LOINC Systolic Blood Pressure 114 mm[Hg] 03/08/2022 01:25 Most Recent 8480- 6 LOINC Diastolic Blood Pressure 66 mm[Hg] 03/08/2022 01:25 Most Recent 8462- 4 LOINC Systolic Blood Pressure 145 mm[Hg] 03/07/2022 23:04 Initial 8480- 6 LOINC Diastolic Blood Pressure 65 mm[Hg] 03/07/2022 23:04 Initial 8462- 4 LOINC Body Surface Area 1.91 m2 03/07/2022 23:04 Initial 3140- 1 LOINC Height 157.480 0 cm 62.00 in 03/07/2022 23:04 Initial 8302- 2 LOINC O2 Saturation 96 % 2021 01:25 Most Recent 59646 -5 LOINC O2 Saturation 99 % 2021 23:04 Initial 38421 -5 LOINC Pulse 84.0 /min 03/08/2022 01:25 Most Recent 8867- 4 LOINC Pulse 80.0 /min 03/07/2022 23:04 Initial 8867- 4 LOINC Respiration 16 /min 03/08/20 01:25 Most Recent 9279- 1 LOINC Respiration 18 /min 03/07/20 23:04 Initial 9279- 1 LOINC Temperature 37.2 Letty 99.0 F 03/07/20 23:04 Initial 8310- 5 LOINC Weight 83.01 kg 183.00 lbs 03/07/2022 23:04 Initial 38221 -7 LOINC Assessment You had the following problems:ACID REFLUXDIABETES 2HTN Hospital Discharge Instructions Should you have any questions prior to discharge, please contact a member of your healthcare team. If you have left the hospital and have any questions, please contact your primary care physician. Reason For Referral No Data Found Problems Problem Start Date Resolved Date Status Code Code System ACID REFLUX active 204874625 SNOMED-C T DIABETES 2 active 78671899 SNOMED-CT HTN active 33344342 SNOMED-CT Allergies and Adverse Reactions Allergy Substance Reaction Severity Start Date Concern Status Code Code System PENICILLINS (CLASS) Hives (SNOMED-CT: 700916866) Moderate Active 11833 RxNorm AMPICILLIN Hives (SNOMED-CT: 652366690) Moderate Active 527932 RxNorm SEASONAL Moderate Active Plan of Treatment Exposure 08/20/2020 LAB DRAW 15MIN 11/19/2023 LAB DRAW 15MIN 04/26/2023 NM MPI STR/RST 06/08/2022 MM SCREEN BILAT 11/11/2021 LAB DRAW 15MIN 10/05/2021 SYMPTOMS 08/13/2021 Encounters Encounter Diagnosis Start Date Code Code Sys tem Other chest pain 03/07/2022 SNOMED-CT Personal Care Team Section Performer Name Performer Role Active Date Inactive Da te
--- OUTSIDE RECORDS SUMMARY | 2024-06-20 15:54 | XMS_ITS ---
Author Organization Unknown Address [address] [place] [phone] Phone Care Team Providers Care Rubber Goods Tester Water Name Role Phone SUDHIR CRUZ Dania Attending Unavailable IRMA Betancourt Primary Unavailable Social History Type Status Start Date End Date Code Code Syst em Smoking History Never smoker (Never Smoked) 993088447 SNOMED CT Sex Female Assessment You had [...] Status Code Code System ACID REFLUX active 804483271 SNOMED-C T DIABETES 2 active 44520420 SNOMED-CT HTN active 25066036 SNOMED-CT Allergies and Adverse Reactions Allergy Substance Reaction Severity Start Date Concern Status Code Code System PENICILLINS (CLASS) Hives (SNOMED-CT: 675114658) Moderate Active 17858 RxNorm AMPICILLIN Hives (SNOMED-CT: 081330189) Moderate Active 661351 RxNorm SEASONAL Moderate Active Plan of Treatment Exposure 08/20/2020 LAB DRAW 15MIN 11/19/2023 LAB DRAW 15MIN 04/26/2023 NM MPI STR/RST 06/08/2022 MM SCREEN BILAT 11/11/2021 LAB DRAW 15MIN 10/05/2021 SYMPTOMS 08/13/2021 Encounters Encounter Diagnosis Start Date Code Code Sys tem Other chest pain 04/07/2022 SNOMED-CT Personal Care Team Section Performer Name Performer Role Active Date Inactive Da te
--- OUTSIDE RECORDS SUMMARY | 2024-06-20 15:54 | XMS_ITS ---
Author Organization Unknown Address [address] [place] [phone] Phone Care Team Providers Care Clinical Rehab Liaison Name Role Phone MARY Betancourt Primary Unavailable Results LIPID PANEL* - Collect Date/ Time: 08/14/2022 08:51 [facility] ID: [id number] [address] [place] [address], [phone] LOINC: Test Value Unit Reference Range Code Code System Flag FASTING STATUS: FASTING CHOLESTEROL 126 mg/dL L=0 H=200 2093-3 LOINC TRIGLYCERIDES 70 mg/dL L=53 H=223 2571-8 LOINC HDL 51 mg/dL L=37 H=91 2085-9 LOINC non-HDL-C 75 mg/dL L=0 H=160 59991-1 LOINC LDL (CALC) 61 mg/dL L=0 H=130 52127-0 LOINC % HDL 40.5 % Chol/HDL Ratio 2.5 L=0.0 H=4.4 9830-1 LOINC CHD Relative Risk 0.6 x Avg L=0.0 H=1.0 LDL/HDL Ratio 1.2 L=0.0 H=3.2 13419-8 LOINC CHD Relative Risk. 0.4 x Avg L=0.0 H=1.0 MICROALBUMIN URINE - Collect Date/Time: 08/14/2022 08:51 [facility] ID: [id number] [address] [place] [address], [phone] LOINC: 03566-3 Test Value Unit Reference Range Code Code System Flag Creatinine Urine 140.1 mg/dl 2161-8 LOINC Microalb mg/dl 0.6 mg/dl 46110-9 LOINC Microalbumin ug/mg C 4.3 ug/mg Cr 9318-7 LOINC COMPREHENSIVE METABOLIC PANE L (CMP) - Collect Date/Time: 08/14/2022 08:51 [facility] ID: [id number] [address] [place], [place], [address] LOINC: 42913-5 Test Value Unit Reference Range Code Code System Flag GLUCOSE 205 mg/dL L=70 H=116 2345-7 LOINC H BUN 18 mg/dL L=6 H=25 3094-0 LOINC CREATININE 1.12 mg/dL L=0.51 H=0.95 2160-0 LOINC H SODIUM SERUM 139 mmol/L L=136 H=145 2951-2 LOINC POTASSIUM SERUM 3.8 mmol/L L=3.4 H=5.2 2823-3 LOINC CHLORIDE SERUM 101 mmol/L L=96 H=110 2075-0 LOINC CARBON DIOXIDE (CO2) 33 mmol/L L=22 H=34 2028-9 LOINC ANION GAP 4.7 mmol/L 90558-8 LOINC CALCIUM SERUM 8.8 mg/dL L=8.2 H=10.2 26067-0 LOINC BILIRUBIN TOTAL 0.4 mg/dL L=0.0 H=1.3 1975-2 LOINC ALK. PHOS. 128 U/L L=46 H=116 6768-6 LOINC H SGOT (AST) 15 U/L L=15 H=37 1920-8 LOINC SGPT (ALT) 24 U/L L=12 H=78 1742-6 LOINC TOTAL PROTEIN 7.3 gm/dL L=6.0 H=8.0 2885-2 LOINC ALBUMIN 3.5 gm/dL L=3.4 H=5.0 1751-7 LOINC AGE 52 years eGFR (non-Afr.Amer.) 51 mL/min 65332-8 LOINC eGFR (Afr-Israeli) 62 mL/min 66524-1 LOINC HEMOGLOBIN A1C* - Collect Da te/Time: 08/14/2022 08:51 [facility] ID: [id number] [address] [place], [place], [address] LOINC: 4548-4 Test Value Unit Reference Range Code Code System Flag Hgb A1c 9.0 % L=3.8 H=5.7 4548-4 LOINC H MEAN BLOOD GLUCOSE 214 mg/dL 46336-7 LOINC Social History Type Status Start Date End Date Code Code Syst em Smoking History Never smoker (Never Smoked) 200067830 SNOMED CT Sex Female Assessment You had [...] Status Code Code System ACID REFLUX active 917097429 SNOMED-C T DIABETES 2 active 28533474 SNOMED-CT HTN active 20193734 SNOMED-CT Allergies and Adverse Reactions Allergy Substance Reaction Severity Start Date Concern Status Code Code System PENICILLINS (CLASS) Hives (SNOMED-CT: 701394057) Moderate Active 42308 RxNorm AMPICILLIN Hives (SNOMED-CT: 172665665) Moderate Active 843873 RxNorm SEASONAL Moderate Active Plan of Treatment Exposure 08/20/2020 LAB DRAW 15MIN 11/19/2023 LAB DRAW 15MIN 04/26/2023 NM MPI STR/RST 06/08/2022 MM SCREEN BILAT 11/11/2021 LAB DRAW 15MIN 10/05/2021 SYMPTOMS 08/13/2021 Encounters Encounter Diagnosis Start Date Code Code Sys tem Hyperglycemia due to type 2 diabetes mellitus 08/14/20 067694610657031 SNOMED-CT Personal Care Team Section Performer Name Performer Role Active Date Inactive Da te
--- OUTSIDE RECORDS SUMMARY | 2024-06-20 15:54 | XMS_ITS ---
Author Organization Unknown Address [address] [place] [address] [phone] Phone Care Team Providers Care Pot Reliner Name Role Phone VELVET CEJA Attending Unavailable IRMA Betancourt Primary Unavailable Results NM MPI COMPLETE - Completed: 06/08/2022 11:51 LOINC: STRESS AND REST SPECT MPI LA OTOCOL Clinical Diagnosis: Chest pain, increased BP/cholesterol, family h/o CAD Patient Dose ? Rest Patient Dose - Stress Exercise: X LEXISCAN: Dose: 0.4 mgm Above doses of 71a-Lf-Fjprqxeve were injected intravenously according to the usual protocol. Images of the heart were obtained with SPECT reconstruction. ViewNormal PerfusionTransient DefectMixed DefectFixed DefectShort Willow XVertical Long AxisXHorizontal Long AxisX Ejection Fraction: 80% SPECT Wall Motion: Normal EDV: 48 ml ESV: 10 ml TRANSIENT ISCHEMIC DILATION (TID): 0.95 40/42 Conclusion: Normal SPECT MPI scan. No evidence of ischemia. Dictated by: REANNA OSUNA MD Transcribed by: RAOUL 06/09/22/10:20 [id number] Electronically Reviewed and Signed By: EVELIA OSUNA MD 06/13/22 11:03 Copy for: VELVET CEJA via fax Copy for: IRMA Betancourt via fax Copy for: [facility] [employer] MG[facility] Cosigned By: ANTHONY PEGUERO MD Cosigned: 06/16/22 16:59 Copy for: File copy printer # [phone] Copy for: VELVET CEJA via fax Copy for: IRMA Betancourt via fax Copy for: [facility] [employer] MG[facility] Social History Type Status Start Date End Date Code Code Syst em Smoking History Never smoker (Never Smoked) 999556631 SNOMED CT Sex Female Assessment You had [...] Status Code Code System ACID REFLUX active 106947351 SNOMED-C T DIABETES 2 active 48319407 SNOMED-CT HTN active 78525880 SNOMED-CT Allergies and Adverse Reactions Allergy Substance Reaction Severity Start Date Concern Status Code Code System PENICILLINS (CLASS) Hives (SNOMED-CT: 810585765) Moderate Active 89968 RxNorm AMPICILLIN Hives (SNOMED-CT: 692768583) Moderate Active 472244 RxNorm SEASONAL Moderate Active Plan of Treatment Exposure 08/20/2020 LAB DRAW 15MIN 11/19/2023 LAB DRAW 15MIN 04/26/2023 NM MPI STR/RST 06/08/2022 MM SCREEN BILAT 11/11/2021 LAB DRAW 15MIN 10/05/2021 SYMPTOMS 08/13/2021 Encounters Encounter Diagnosis Start Date Code Code Sys tem Other chest pain 06/08/2022 SNOMED-CT Personal Care Team Section Performer Name Performer Role Active Date Inactive Da te
--- OUTSIDE RECORDS SUMMARY | 2024-06-20 15:54 | XMS_ITS ---
Author Organization Unknown Address [address] [place] [address] [phone] Phone Care Team Providers Care Health Therapist Name Role Phone ARLEN DOW Registered Nurse Unavailable DESIREE Haque Attending Unavailable LINA [facility] Unavailable IRMA Betancourt Primary Unavailable UNLISTED PROVIDER - REQUESTED Xhandoff Un available Results COMPREHENSIVE METABOLIC PANE L (CMP) - Collect Date/Time: 11/17/2022 15:45 [facility] ID: [id number] [address] [place] [address], [address] LOINC: 42654-7 Test Value Unit Reference Range Code Code System Flag GLUCOSE 149 mg/dL L=70 H=116 2345-7 LOINC H BUN 22 mg/dL L=6 H=25 3094-0 LOINC CREATININE 1.39 mg/dL L=0.51 H=0.95 2160-0 LOINC H SODIUM SERUM 139 mmol/L L=136 H=145 2951-2 LOINC POTASSIUM SERUM 4.4 mmol/L L=3.4 H=5.2 2823-3 LOINC CHLORIDE SERUM 103 mmol/L L=96 H=110 2075-0 LOINC CARBON DIOXIDE (CO2) 30 mmol/L L=22 H=34 2028-9 LOINC ANION GAP 6.1 mmol/L 21718-8 LOINC CALCIUM SERUM 8.8 mg/dL L=8.2 H=10.2 74964-5 LOINC BILIRUBIN TOTAL 0.2 mg/dL L=0.0 H=1.3 1975-2 LOINC ALK. PHOS. 115 U/L L=46 H=116 6768-6 LOINC SGOT (AST) 14 U/L L=15 H=37 1920-8 LOINC L SGPT (ALT) 19 U/L L=12 H=78 1742-6 LOINC TOTAL PROTEIN 7.0 gm/dL L=6.0 H=8.0 2885-2 LOINC ALBUMIN 3.5 gm/dL L=3.4 H=5.0 1751-7 LOINC AGE 52 years eGFR (non-Afr.Amer.) 40 mL/min 50589-7 LOINC eGFR (Afr-Mongolian) 48 mL/min 17173-5 LOINC CBC W/ DIFFERENTIAL* - Colle ct Date/Time: 11/17/2022 15:45 [facility] ID: [id number] [address] [place] [address], [facility] LOINC: 55529-9 Test Value Unit Reference Range Code Code System Flag WBC 6.48 th/cmm L=5.00 H=10.00 6690-2 LOINC NEUT % 64.5 % L=40.0 H=80.0 LYMPH % 23.0 % L=10.0 H=50.0 MONO % 6.9 % L=2.0 H=12.0 93766-8 LOINC EOS % 4.5 % L=0.0 H=8.0 BASO % 0.5 % L=0.0 H=3.0 IG % 0.6 % L=0.0 H=1.1 2514-8 LOINC NRBC % 0.0 % L=0.0 H=0.0 16815-5 LOINC NEUT abs count 4.2 th/cmm L=1.6 H=8.4 751-8 LOINC LYMPH abs count 1.5 th/cmm L=1.5 H=4.0 731-0 LOINC MONO abs count 0.5 th/cmm L=0.2 H=1.0 742-7 LOINC EOS abs count 0.3 th/cmm L=0.0 H=0.5 711-2 LOINC BASO abs count 0.0 th/cmm L=0.0 H=0.2 704-7 LOINC IG abs count 0.0 th/cmm L=0.0 H=0.1 08101-5 LOINC NRBC abs count 0.0 mil/cmm L=0.0 H=0.0 91053-4 LOINC RBC 4.65 mil/cmm L=3.90 H=5.40 789-8 LOINC HEMOGLOBIN 11.4 gm/dL L=12.0 H=16.0 718-7 LOINC L HEMATOCRIT 38 % L=37 H=47 4544-3 LOINC MCV 81 fL L=82 H=92 787-2 LOINC L MCH 24.5 pg L=27.0 H=31.0 785-6 LOINC L MCHC 30.2 % L=32.0 H=36.0 786-4 LOINC L RDW-SD 45.5 fL L=39.0 H=49.0 788-0 LOINC PLATELET COUNT 256 th/cmm L=150 H=450 777-3 LOINC Social History Type Status Start Date End Date Code Code Syst em Smoking History Never smoker (Never Smoked) 989890545 SNOMED CT Sex Female Vital Signs Vital Sign Value Unit Cowden Value Cowden Unit Date/Time Recent/Initial? Code Code System Body Mass Index 34.93 kg/m2 11/17/2022 15:12 Initial 37331 -5 [facility] Systolic Blood Pressure 115 mm[Hg] 11/17/2022 18:12 Most Recent 8480- 6 INC Diastolic Blood Pressure 83 mm[Hg] 11/17/2022 18:12 Most Recent 8462- 4 [facility] Systolic Blood Pressure 128 mm[Hg] 11/17/2022 15:12 Initial 8480- 6 INC Diastolic Blood Pressure 62 mm[Hg] 11/17/2022 15:12 Initial 8462- 4 LOINC Body Surface Area 1.95 m2 11/17/2022 15:12 Initial 3140- 1 LOINC Height 157.480 0 cm 62.00 in 11/17/2022 15:12 Initial 8302- 2 INC O2 Saturation 100 % 2022 18:12 Most Recent 90610 -5 LOINC O2 Saturation 100 % 2022 15:12 Initial 60961 -5 LOINC Pulse 89.0 /min 11/17/2022 18:12 Most Recent 8867- 4 LOINC Pulse 79.0 /min 11/17/2022 15:12 Initial 8867- 4 LOINC Respiration 16 /min 11/17/19 18:12 Most Recent 9279- 1 LOINC Respiration 16 /min 11/17/19 15:12 Initial 9279- 1 LOINC Temperature 36.6 Letty 97.9 F 11/17/19 18:12 Most Recent 8310- 5 LOINC Temperature 35.9 Letty 96.6 F 11/17/19 15:12 Initial 8310- 5 LOINC Weight 86.64 kg 191.00 lbs 11/17/2022 15:12 Initial 52555 -7 LOINC Assessment You had the following [...] Status Code Code System ACID REFLUX active 979736031 SNOMED-C T DIABETES 2 active 80456238 SNOMED-CT HTN active 40012271 SNOMED-CT Allergies and Adverse Reactions Allergy Substance Reaction Severity Start Date Concern Status Code Code System PENICILLINS (CLASS) Hives (SNOMED-CT: 400853729) Moderate Active 28055 RxNorm AMPICILLIN Hives (SNOMED-CT: 235207510) Moderate Active 116709 RxNorm SEASONAL Moderate Active Plan of Treatment Exposure 08/20/2020 LAB DRAW 15MIN 11/19/2023 LAB DRAW 15MIN 04/26/2023 NM MPI STR/RST 06/08/2022 MM SCREEN BILAT 11/11/2021 LAB DRAW 15MIN 10/05/2021 SYMPTOMS 08/13/2021 Encounters Encounter Diagnosis Start Date Code Code Sys tem Syncope and collapse 11/17/2022 SNOMED- CT Personal Care Team Section Performer Name Performer Role Active Date Inactive Da te
--- OUTSIDE RECORDS SUMMARY | 2024-06-20 15:55 | XMS_ITS ---
Author Organization Unknown Address [address] [place] [address] [phone] Phone Care Team Providers Care Cardiac Catheterization Technologist Name Role Phone LABOW ORTEGA Maurer Attending Unavailable IRMA Betancourt Primary Unavailable Social History Type Status Start Date End Date Code Code Syst em Smoking History Never smoker (Never Smoked) 694290587 SNOMED CT Sex Female Assessment You had [...] Status Code Code System ACID REFLUX active 637324086 SNOMED-C T DIABETES 2 active 84197390 SNOMED-CT HTN active 94446941 SNOMED-CT Allergies and Adverse Reactions Allergy Substance Reaction Severity Start Date Concern Status Code Code System PENICILLINS (CLASS) Hives (SNOMED-CT: 193697322) Moderate Active 25219 RxNorm AMPICILLIN Hives (SNOMED-CT: 985150242) Moderate Active 982556 RxNorm SEASONAL Moderate Active Plan of Treatment Exposure 08/20/2020 LAB DRAW 15MIN 11/19/2023 LAB DRAW 15MIN 04/26/2023 NM MPI STR/RST 06/08/2022 MM SCREEN BILAT 11/11/2021 LAB DRAW 15MIN 10/05/2021 SYMPTOMS 08/13/2021 Encounters Encounter Diagnosis Start Date Code Code Sys tem Iron deficiency anemia, unspecified 03/09/2023 SNOMED-CT Personal Care Team Section Performer Name Performer Role Active Date Inactive Da te
--- OUTSIDE RECORDS SUMMARY | 2024-06-20 15:55 | XMS_ITS ---
Author Organization Unknown Address [address] [place] [address] [phone] Phone Care Team Providers Care Fiberline Supervisor Name Role Phone CESAR MADISON Serafin Attending Unavailable IRMA ALDA Serafin Primary Unavailable Social History Type Status Start Date End Date Code Code Syst em Smoking History Never smoker (Never Smoked) 251123313 SNOMED CT Sex Female Assessment You had [...] Status Code Code System ACID REFLUX active 422795298 SNOMED-C T DIABETES 2 active 05515247 SNOMED-CT HTN active 98449268 SNOMED-CT Allergies and Adverse Reactions Allergy Substance Reaction Severity Start Date Concern Status Code Code System PENICILLINS (CLASS) Hives (SNOMED-CT: 194479858) Moderate Active 09230 RxNorm AMPICILLIN Hives (SNOMED-CT: 740138327) Moderate Active 767626 RxNorm SEASONAL Moderate Active Plan of Treatment Exposure 08/20/2020 LAB DRAW 15MIN 11/19/2023 LAB DRAW 15MIN 04/26/2023 NM MPI STR/RST 06/08/2022 MM SCREEN BILAT 11/11/2021 LAB DRAW 15MIN 10/05/2021 SYMPTOMS 08/13/2021 Encounters Encounter Diagnosis Start Date Code Code Sys tem Type 2 diabetes mellitus without complications 023 SNOMED-CT Personal Care Team Section Performer Name Performer Role Active Date Inactive Da te
--- OUTSIDE RECORDS SUMMARY | 2024-06-20 15:55 | XMS_ITS ---
Author Organization Unknown Address [address] [place] [address] [phone] Phone Care Team Providers Care Power Plant Technician Name Role Phone IRMA Betancourt Attending Unavailable Results HEMOGRAM + PLATELET WO DIFF - Collect Date/Time: 02/22/2023 14:16 [facility] ID: [id number] [address] [place] [address], [phone] LOINC: 42784-1 Test Value Unit Reference Range Code Code System Flag WBC 6.79 th/cmm L=5.00 H=10.00 6690-2 LOINC NRBC % 0.0 % L=0.0 H=0.0 57985-4 LOINC NRBC abs count 0.0 mil/cmm L=0.0 H=0.0 90921-3 LOINC RBC 5.33 mil/cmm L=3.90 H=5.40 789-8 LOINC HEMOGLOBIN 12.6 gm/dL L=12.0 H=16.0 718-7 LOINC HEMATOCRIT 42 % L=37 H=47 4544-3 LOINC MCV 79 fL L=82 H=92 787-2 LOINC L MCH 23.6 pg L=27.0 H=31.0 785-6 LOINC L MCHC 30.1 % L=32.0 H=36.0 786-4 LOINC L RDW-SD 55.8 fL L=39.0 H=49.0 788-0 LOINC H PLATELET COUNT 214 th/cmm L=150 H=450 777-3 LOINC FERRITIN - Collect Date/Time : 02/22/2023 14:16 [facility] ID: [id number] [address] [place], [place], [address] LOINC: 2276-4 Test Value Unit Reference Range Code Code System Flag FERRITIN 21 ng/mL L=8 H=388 2276-4 LOINC Social History Type Status Start Date End Date Code Code Syst em Smoking History Never smoker (Never Smoked) 890232437 SNOMED CT Sex Female Assessment You had [...] Status Code Code System ACID REFLUX active 030489736 SNOMED-C T DIABETES 2 active 14009402 SNOMED-CT HTN active 93144105 SNOMED-CT Allergies and Adverse Reactions Allergy Substance Reaction Severity Start Date Concern Status Code Code System PENICILLINS (CLASS) Hives (SNOMED-CT: 993461807) Moderate Active 53935 RxNorm AMPICILLIN Hives (SNOMED-CT: 135105934) Moderate Active 451927 RxNorm SEASONAL Moderate Active Plan of Treatment Exposure 08/20/2020 LAB DRAW 15MIN 11/19/2023 LAB DRAW 15MIN 04/26/2023 NM MPI STR/RST 06/08/2022 MM SCREEN BILAT 11/11/2021 LAB DRAW 15MIN 10/05/2021 SYMPTOMS 08/13/2021 Encounters Encounter Diagnosis Start Date Code Code Sys tem Iron deficiency anemia 02/22/2023 81562319 [facility] D-CT Personal Care Team Section Performer Name Performer Role Active Date Inactive Da te
--- OUTSIDE RECORDS SUMMARY | 2024-06-20 15:55 | XMS_ITS ---
Author Organization Unknown Address [address] [place] [address] [phone] Phone Care Team Providers Care Retirement Plan Counselor Name Role Phone IRMA Betancourt Attending Unavailable Results XR KNEE 4V RT* - Completed: 03/02/2023 16:35 LOINC: [facility] [place], [place] [address] PACS CARBURETOR EXPERT REPORT Patient Name: ORTEGA FRANKLIN MRN: Sex: : Age: [id number] F [id number] 52 Account: Accession: Admit: StayType: [id number] 03/02/2023 O/P Ordered: Order ID: Submitted: Ordering Provider: 03/02/2023 16:20 [id number] KT ALDA SOLIS Completed: Technologist: Resulted: 03/02/2023 16:35 MJP 03/03/2023 12:01 Study Description: XR KNEE 4V RT Study Reason: RT KNEE PAIN TECHNIQUE: 2D digital imaging was performed. COMPARISON: No exams were available for comparison FINDINGS: NUMBER OF VIEWS: 4 No evidence of fracture nor joint effusion. There are mild-moderate tricompartmental degenerative changes. Bone density normal. No osseous lesions. Vascular calcification in the femoral and popliteal artery is noted IMPRESSION: No acute osseous findings. Degenerative changes. No joint effusion Report Digitally Signed by Samy Gonzales on 03/03/2023 12:01 PM EDT Social History Type Status Start Date End Date Code Code Syst em Smoking History Never smoker (Never Smoked) 212854919 SNOMED CT Sex Female Assessment You had [...] Status Code Code System ACID REFLUX active 580680453 SNOMED-C T DIABETES 2 active 83825033 SNOMED-CT HTN active 88043430 SNOMED-CT Allergies and Adverse Reactions Allergy Substance Reaction Severity Start Date Concern Status Code Code System PENICILLINS (CLASS) Hives (SNOMED-CT: 803746099) Moderate Active 70499 RxNorm AMPICILLIN Hives (SNOMED-CT: 471941441) Moderate Active 791231 RxNorm SEASONAL Moderate Active Plan of Treatment Exposure 08/20/2020 LAB DRAW 15MIN 11/19/2023 LAB DRAW 15MIN 04/26/2023 NM MPI STR/RST 06/08/2022 MM SCREEN BILAT 11/11/2021 LAB DRAW 15MIN 10/05/2021 SYMPTOMS 08/13/2021 Encounters Encounter Diagnosis Start Date Code Code Sys tem 03/02/2023 [id number] SNOMED-CT Personal Care Team Section Performer Name Performer Role Active Date Inactive Da te
--- OUTSIDE RECORDS SUMMARY | 2024-06-20 15:56 | XMS_ITS ---
Author Organization Unknown Address [address] [place] [address] [phone] Phone Care Team Providers Care B2B Sales Representative Name Role Phone CESARHERNANDEZ WALLACE Serafin Attending Unavailable Social History Type Status Start Date End Date Code Code Syst em Smoking History Never smoker (Never Smoked) 459149846 SNOMED CT Sex Female Assessment You had [...] Status Code Code System ACID REFLUX active 683409443 SNOMED-C T DIABETES 2 active 49694931 SNOMED-CT HTN active 12636629 SNOMED-CT Allergies and Adverse Reactions Allergy Substance Reaction Severity Start Date Concern Status Code Code System PENICILLINS (CLASS) Hives (SNOMED-CT: 614606128) Moderate Active 01260 RxNorm AMPICILLIN Hives (SNOMED-CT: 473571249) Moderate Active 422621 RxNorm SEASONAL Moderate Active Plan of Treatment Exposure 08/20/2020 LAB DRAW 15MIN 11/19/2023 LAB DRAW 15MIN 04/26/2023 NM MPI STR/RST 06/08/2022 MM SCREEN BILAT 11/11/2021 LAB DRAW 15MIN 10/05/2021 SYMPTOMS 08/13/2021 Encounters Encounter Diagnosis Start Date Code Code Sys tem Screening for malignant neoplasm of colon 04/13/2023 627925204 SNOMED-CT Personal Care Team Section Performer Name Performer Role Active Date Inactive Da te
--- OUTSIDE RECORDS SUMMARY | 2024-06-20 15:57 | XMS_ITS ---
Author Organization Unknown Address [address] [place] [address] [phone] Phone Care Team Providers Care Dietary Worker Name Role Phone IRMA Betancourt Attending Unavailable Results CBC W/ DIFFERENTIAL* - Colle ct Date/Time: 04/26/2023 09:02 [facility] ID: [id number] [address] [place] [address], [address] LOINC: 03268-7 Test Value Unit Reference Range Code Code System Flag WBC 6.15 th/cmm L=5.00 H=10.00 6690-2 LOINC NEUT % 61.6 % L=40.0 H=80.0 LYMPH % 28.9 % L=10.0 H=50.0 MONO % 5.9 % L=2.0 H=12.0 96942-5 LOINC EOS % 2.3 % L=0.0 H=8.0 BASO % 0.5 % L=0.0 H=3.0 IG % 0.8 % L=0.0 H=1.1 2514-8 LOINC NRBC % 0.0 % L=0.0 H=0.0 13690-0 LOINC NEUT abs count 3.8 th/cmm L=1.6 H=8.4 751-8 LOINC LYMPH abs count 1.8 th/cmm L=1.5 H=4.0 731-0 LOINC MONO abs count 0.4 th/cmm L=0.2 H=1.0 742-7 LOINC EOS abs count 0.1 th/cmm L=0.0 H=0.5 711-2 LOINC BASO abs count 0.0 th/cmm L=0.0 H=0.2 704-7 LOINC IG abs count 0.1 th/cmm L=0.0 H=0.1 12636-4 LOINC NRBC abs count 0.0 mil/cmm L=0.0 H=0.0 79155-4 LOINC RBC 5.78 mil/cmm L=3.90 H=5.40 789-8 LOINC H HEMOGLOBIN 15.8 gm/dL L=12.0 H=16.0 718-7 LOINC HEMATOCRIT 50 % L=37 H=47 4544-3 LOINC H MCV 87 fL L=82 H=92 787-2 LOINC MCH 27.3 pg L=27.0 H=31.0 785-6 LOINC MCHC 31.5 % L=32.0 H=36.0 786-4 LOINC L RDW-SD 59.5 fL L=39.0 H=49.0 788-0 LOINC H PLATELET COUNT 181 th/cmm L=150 H=450 777-3 LOINC FERRITIN - Collect Date/Time : 04/26/2023 09:02 [facility] ID: [id number] [address] [place] [address], [address] LOINC: 2276-4 Test Value Unit Reference Range Code Code System Flag FERRITIN 431 ng/mL L=8 H=388 2276-4 LOINC H Social History Type Status Start Date End Date Code Code Syst em Smoking History Never smoker (Never Smoked) 135784524 SNOMED CT Sex Female Assessment You had [...] Status Code Code System ACID REFLUX active 494535317 SNOMED-C T DIABETES 2 active 93269081 SNOMED-CT HTN active 06640079 SNOMED-CT Allergies and Adverse Reactions Allergy Substance Reaction Severity Start Date Concern Status Code Code System PENICILLINS (CLASS) Hives (SNOMED-CT: 469742420) Moderate Active 01776 RxNorm AMPICILLIN Hives (SNOMED-CT: 327105721) Moderate Active 704561 RxNorm SEASONAL Moderate Active Plan of Treatment Exposure 08/20/2020 LAB DRAW 15MIN 11/19/2023 LAB DRAW 15MIN 04/26/2023 NM MPI STR/RST 06/08/2022 MM SCREEN BILAT 11/11/2021 LAB DRAW 15MIN 10/05/2021 SYMPTOMS 08/13/2021 Encounters Encounter Diagnosis Start Date Code Code Sys tem Iron deficiency anemia 04/26/2023 27936968 [facility] D-CT Personal Care Team Section Performer Name Performer Role Active Date Inactive Da te
--- OUTSIDE RECORDS SUMMARY | 2024-06-20 15:57 | XMS_ITS ---
Author Organization Unknown Address [address] [place] [address] [phone] Phone Care Team Providers Care Lead Software Tester Name Role Phone MG LI Attending Unavailable IRMA Betancourt Primary Unavailable Results HEMOGLOBIN A1C* - Collect Da te/Time: 04/26/2023 09:02 [facility] ID: [id number] [address] [place] [address], [address] LOINC: 4548-4 Test Value Unit Reference Range Code Code System Flag Hgb A1c 7.8 % L=3.8 H=5.7 4548-4 LOINC H MEAN BLOOD GLUCOSE 174 mg/dL 31598-6 LOINC THYROID TESTING CASCADE* - C ollect Date/Time: 04/26/2023 09:02 [facility] ID: [id number] [address] [place] [address], [address] LOINC: 3016-3 Test Value Unit Reference Range Code Code System Flag TSH. 1.496 uIU/mL L=0.360 H=3.740 3014-8 LOINC LIPID PANEL* - Collect Date/ Time: 04/26/2023 09:02 [facility] ID: [id number] [address] [place] [address], [id number] LOINC: Test Value Unit Reference Range Code Code System Flag FASTING STATUS: NOT KNOWN CHOLESTEROL 119 mg/dL L=0 H=200 3-3 LOINC TRIGLYCERIDES 71 mg/dL L=53 H=223 1-8 LOINC HDL 56 mg/dL L=37 H=91 2085-9 LOINC non-HDL-C 63 mg/dL L=0 H=160 17680-3 LOINC LDL (CALC) 49 mg/dL L=0 H=130 44162-3 LOINC % HDL 47.1 % Chol/HDL Ratio 2.1 L=0.0 H=4.4 9830-1 LOINC CHD Relative Risk 0.5 x Avg L=0.0 H=1.0 LDL/HDL Ratio 0.9 L=0.0 H=3.2 63693-7 LOINC CHD Relative Risk. 0.3 x Avg L=0.0 H=1.0 COMPREHENSIVE METABOLIC PANE L (CMP) - Collect Date/Time: 04/26/2023 09:02 [facility] ID: [id number] [address] [place], [place], [address] LOINC: 55920-4 Test Value Unit Reference Range Code Code System Flag GLUCOSE 147 mg/dL L=70 H=116 2345-7 LOINC H BUN 18 mg/dL L=6 H=25 3094-0 LOINC CREATININE 0.85 mg/dL L=0.51 H=0.95 2160-0 LOINC SODIUM SERUM 145 mmol/L L=136 H=145 2951-2 LOINC POTASSIUM SERUM 4.3 mmol/L L=3.4 H=5.2 2823-3 LOINC CHLORIDE SERUM 105 mmol/L L=96 H=110 2075-0 LOINC CARBON DIOXIDE (CO2) 33 mmol/L L=22 H=34 2028-9 LOINC ANION GAP 6.6 mmol/L 89941-5 LOINC CALCIUM SERUM 8.5 mg/dL L=8.2 H=10.2 84632-3 LOINC BILIRUBIN TOTAL 0.5 mg/dL L=0.0 H=1.3 1975-2 LOINC ALK. PHOS. 134 U/L L=46 H=116 6768-6 LOINC H SGOT (AST) 17 U/L L=15 H=37 1920-8 LOINC SGPT (ALT) 35 U/L L=12 H=78 1742-6 LOINC TOTAL PROTEIN 7.2 gm/dL L=6.0 H=8.0 2885-2 LOINC ALBUMIN 3.6 gm/dL L=3.4 H=5.0 1751-7 LOINC AGE 53 years eGFR (non-Afr.Amer.) 70 mL/min 30776-2 LOINC eGFR (Afr-Macanese) 84 mL/min 78235-4 LOINC Social History Type Status Start Date End Date Code Code Syst em Smoking History Never smoker (Never Smoked) 762320089 SNOMED CT Sex Female Assessment You had [...] Status Code Code System ACID REFLUX active 491760918 SNOMED-C T DIABETES 2 active 28549676 SNOMED-CT HTN active 38691522 SNOMED-CT Allergies and Adverse Reactions Allergy Substance Reaction Severity Start Date Concern Status Code Code System PENICILLINS (CLASS) Hives (SNOMED-CT: 022727402) Moderate Active 41294 RxNorm AMPICILLIN Hives (SNOMED-CT: 509119267) Moderate Active 130606 RxNorm SEASONAL Moderate Active Plan of Treatment Exposure 08/20/2020 LAB DRAW 15MIN 11/19/2023 LAB DRAW 15MIN 04/26/2023 NM MPI STR/RST 06/08/2022 MM SCREEN BILAT 11/11/2021 LAB DRAW 15MIN 10/05/2021 SYMPTOMS 08/13/2021 Encounters Encounter Diagnosis Start Date Code Code Sys tem Hyperglycemia due to type 2 diabetes mellitus 04/26/20 23 267975561588589 SNOMED-CT Personal Care Team Section Performer Name Performer Role Active Date Inactive Da te
--- OUTSIDE RECORDS SUMMARY | 2024-06-20 15:57 | XMS_ITS ---
Author Organization Unknown Address [address] [place] [address] [phone] Phone Care Team Providers Care Balance Truing Inspector Name Role Phone IRMA Betancourt Attending Unavailable Results HEMOGLOBIN - Collect Date/Ti me: 11/19/2023 07:45 [facility] ID: [id number] [address] [place] [address], [address] LOINC: 718-7 Test Value Unit Reference Range Code Code System Flag HEMOGLOBIN 15.6 gm/dL L=12.0 H=16.0 718-7 LOINC IRON - Collect Date/Time: 07:45 [facility] ID: [id number] [address] [place] [address], [id number] LOINC: 2498-4 Test Value Unit Reference Range Code Code System Flag IRON 85 ug/dL L=35 H=150 2498-4 LOINC Social History Type Status Start Date End Date Code Code Syst em Smoking History Never smoker (Never Smoked) 248814712 SNOMED CT Sex Female Assessment You had [...] Status Code Code System ACID REFLUX active 050089404 SNOMED-C T DIABETES 2 active 61634044 SNOMED-CT HTN active 13571891 SNOMED-CT Allergies and Adverse Reactions Allergy Substance Reaction Severity Start Date Concern Status Code Code System PENICILLINS (CLASS) Hives (SNOMED-CT: 088072087) Moderate Active 64077 RxNorm AMPICILLIN Hives (SNOMED-CT: 298248829) Moderate Active 315201 RxNorm SEASONAL Moderate Active Plan of Treatment Exposure 08/20/2020 LAB DRAW 15MIN 11/19/2023 LAB DRAW 15MIN 04/26/2023 NM MPI STR/RST 06/08/2022 MM SCREEN BILAT 11/11/2021 LAB DRAW 15MIN 10/05/2021 SYMPTOMS 08/13/2021 Encounters Encounter Diagnosis Start Date Code Code Sys tem Iron deficiency anemia, unspecified 11/19/2023 SNOMED-CT Personal Care Team Section Performer Name Performer Role Active Date Inactive Da te
--- OUTSIDE RECORDS SUMMARY | 2024-06-20 15:57 | XMS_ITS ---
Author Organization Unknown Address [address] [place] [address] [phone] Phone Care Team Providers Care Paving Stone Installer Name Role Phone MG LI Attending Unavailable IRMA Betancourt Primary Unavailable Results HEMOGLOBIN A1C* - Collect Da te/Time: 11/19/2023 07:45 [facility] ID: [id number] [address] [place] [address], [address] LOINC: 4548-4 Test Value Unit Reference Range Code Code System Flag Hgb A1c 7.1 % L=3.8 H=5.7 4548-4 LOINC H MEAN BLOOD GLUCOSE 150 mg/dL 84019-3 LOINC Social History Type Status Start Date End Date Code Code Syst em Smoking History Never smoker (Never Smoked) 520972491 SNOMED CT Sex Female Assessment You had [...] Status Code Code System ACID REFLUX active 011362579 SNOMED-C T DIABETES 2 active 17702965 SNOMED-CT HTN active 01645498 SNOMED-CT Allergies and Adverse Reactions Allergy Substance Reaction Severity Start Date Concern Status Code Code System PENICILLINS (CLASS) Hives (SNOMED-CT: 309241400) Moderate Active 85593 RxNorm AMPICILLIN Hives (SNOMED-CT: 047484680) Moderate Active 405439 RxNorm SEASONAL Moderate Active Plan of Treatment Exposure 08/20/2020 LAB DRAW 15MIN 11/19/2023 LAB DRAW 15MIN 04/26/2023 NM MPI STR/RST 06/08/2022 MM SCREEN BILAT 11/11/2021 LAB DRAW 15MIN 10/05/2021 SYMPTOMS 08/13/2021 Encounters Encounter Diagnosis Start Date Code Code Sys tem Type 2 diabetes mellitus with hyperglycemia 11/19/2023 SNOMED-CT Personal Care Team Section Performer Name Performer Role Active Date Inactive Da te
--- OUTSIDE RECORDS SUMMARY | 2024-06-20 15:58 | XMS_ITS ---
Author Organization Unknown Address [address] [place] [address] [phone] Phone Care Team Providers Care Care Connector Name Role Phone IRMA Betancourt Attending Unavailable Social History Type Status Start Date End Date Code Code Syst em Smoking History Never smoker (Never Smoked) 645635678 SNOMED CT Sex Female Assessment You had [...] Status Code Code System ACID REFLUX active 911544427 SNOMED-C T DIABETES 2 active 74350241 SNOMED-CT HTN active 89688863 SNOMED-CT Allergies and Adverse Reactions Allergy Substance Reaction Severity Start Date Concern Status Code Code System PENICILLINS (CLASS) Hives (SNOMED-CT: 218480484) Moderate Active 58587 RxNorm AMPICILLIN Hives (SNOMED-CT: 238934411) Moderate Active 124036 RxNorm SEASONAL Moderate Active Plan of Treatment Exposure 08/20/2020 LAB DRAW 15MIN 11/19/2023 LAB DRAW 15MIN 04/26/2023 NM MPI STR/RST 06/08/2022 MM SCREEN BILAT 11/11/2021 LAB DRAW 15MIN 10/05/2021 SYMPTOMS 08/13/2021 Encounters Encounter Diagnosis Start Date Code Code Sys tem Lateral epicondylitis, right elbow 02/20/2024 SNOMED-CT Personal Care Team Section Performer Name Performer Role Active Date Inactive Da te
--- OUTSIDE RECORDS SUMMARY | 2024-06-20 15:58 | XMS_ITS ---
Author Organization Unknown Address [address] [place] [address] [phone] Phone Care Team Providers Care Woodenware Assembler Name Role Phone JAMILA SILVA Attending Unavailable IRMA Betancourt Primary Unavailable Social History Type Status Start Date End Date Code Code Syst em Smoking History Never smoker (Never Smoked) 792302887 SNOMED CT Sex Female Assessment You had [...] Status Code Code System ACID REFLUX active 117067273 SNOMED-C T DIABETES 2 active 06216859 SNOMED-CT HTN active 18104249 SNOMED-CT Allergies and Adverse Reactions Allergy Substance Reaction Severity Start Date Concern Status Code Code System PENICILLINS (CLASS) Hives (SNOMED-CT: 997960616) Moderate Active 44161 RxNorm AMPICILLIN Hives (SNOMED-CT: 907455933) Moderate Active 099169 RxNorm SEASONAL Moderate Active Plan of Treatment Exposure 08/20/2020 LAB DRAW 15MIN 11/19/2023 LAB DRAW 15MIN 04/26/2023 NM MPI STR/RST 06/08/2022 MM SCREEN BILAT 11/11/2021 LAB DRAW 15MIN 10/05/2021 SYMPTOMS 08/13/2021 Encounters Encounter Diagnosis Start Date Code Code Sys tem Idiopathic osteoarthritis 02/26/2024 788053401 SN OMED-CT Personal Care Team Section Performer Name Performer Role Active Date Inactive Da te
--- OUTSIDE RECORDS SUMMARY | 2024-06-20 15:58 | XMS_ITS ---
Author Organization Unknown Address [address] [place] [address] [phone] Phone Care Team Providers Care Commercial Sales Specialist Name Role Phone CAL Flood Attending Unavailable IRMA Betancourt Primary Unavailable Social History Type Status Start Date End Date Code Code Syst em Smoking History Never smoker (Never Smoked) 856901685 SNOMED CT Sex Female Assessment You had [...] Status Code Code System ACID REFLUX active 921921458 SNOMED-C T DIABETES 2 active 43728236 SNOMED-CT HTN active 10890676 SNOMED-CT Allergies and Adverse Reactions Allergy Substance Reaction Severity Start Date Concern Status Code Code System PENICILLINS (CLASS) Hives (SNOMED-CT: 645118482) Moderate Active 25527 RxNorm AMPICILLIN Hives (SNOMED-CT: 228581445) Moderate Active 261962 RxNorm SEASONAL Moderate Active Plan of Treatment Exposure 08/20/2020 LAB DRAW 15MIN 11/19/2023 LAB DRAW 15MIN 04/26/2023 NM MPI STR/RST 06/08/2022 MM SCREEN BILAT 11/11/2021 LAB DRAW 15MIN 10/05/2021 SYMPTOMS 08/13/2021 Encounters Encounter Diagnosis Start Date Code Code Sys tem Idiopathic osteoarthritis 03/18/2024 292078255 SN OMED-CT Personal Care Team Section Performer Name Performer Role Active Date Inactive Da te
--- OUTSIDE RECORDS SUMMARY | 2024-06-20 15:58 | XMS_ITS ---
Author Organization Unknown Address [address] [place] [address] [phone] Phone Care Team Providers Care Refinery Operator Light Ends Recovery Name Role Phone JAMILA SILVA Attending Unavailable IRMA Betancourt Primary Unavailable Social History Type Status Start Date End Date Code Code Syst em Smoking History Never smoker (Never Smoked) 766262358 SNOMED CT Sex Female Assessment You had [...] Status Code Code System ACID REFLUX active 543440807 SNOMED-C T DIABETES 2 active 36267716 SNOMED-CT HTN active 72273188 SNOMED-CT Allergies and Adverse Reactions Allergy Substance Reaction Severity Start Date Concern Status Code Code System PENICILLINS (CLASS) Hives (SNOMED-CT: 397530232) Moderate Active 16984 RxNorm AMPICILLIN Hives (SNOMED-CT: 386125931) Moderate Active 699277 RxNorm SEASONAL Moderate Active Plan of Treatment Exposure 08/20/2020 LAB DRAW 15MIN 11/19/2023 LAB DRAW 15MIN 04/26/2023 NM MPI STR/RST 06/08/2022 MM SCREEN BILAT 11/11/2021 LAB DRAW 15MIN 10/05/2021 SYMPTOMS 08/13/2021 Encounters Encounter Diagnosis Start Date Code Code Sys tem Idiopathic osteoarthritis 03/04/2024 469534193 SN OMED-CT Personal Care Team Section Performer Name Performer Role Active Date Inactive Da te
--- OUTSIDE RECORDS SUMMARY | 2024-06-20 15:59 | XMS_ITS ---
Author Organization Unknown Address [address] [place] [address] [phone] Phone Care Team Providers Care Thread Machine Operator Name Role Phone MG IL Attending Unavailable IRMA Betancourt Primary Unavailable Results LIPID PANEL* - Collect Date/ Time: 04/22/2024 07:42 [facility] ID: [id number] [address] [place] [address], [id number] LOINC: Test Value Unit Reference Range Code Code System Flag FASTING STATUS: FASTING CHOLESTEROL 143 mg/dL L=0 H=200 2093-3 LOINC TRIGLYCERIDES 72 mg/dL L=53 H=223 2571-8 LOINC HDL 52 mg/dL L=37 H=91 2085-9 LOINC non-HDL-C 91 mg/dL L=0 H=160 90334-3 LOINC LDL (CALC) 77 mg/dL L=0 H=130 35405-6 LOINC % HDL 36.4 % Chol/HDL Ratio 2.8 L=0.0 H=4.4 9830-1 LOINC CHD Relative Risk 0.6 x Avg L=0.0 H=1.0 LDL/HDL Ratio 1.5 L=0.0 H=3.2 94777-6 LOINC CHD Relative Risk. 0.5 x Avg L=0.0 H=1.0 COMPREHENSIVE METABOLIC PANE L (CMP) - Collect Date/Time: 04/22/2024 07:42 [facility] ID: [id number] [address] [place] [address], [address] LOINC: 31735-5 Test Value Unit Reference Range Code Code System Flag GLUCOSE 139 mg/dL L=70 H=116 2345-7 LOINC H BUN 16 mg/dL L=6 H=25 3094-0 LOINC CREATININE 1.02 mg/dL L=0.51 H=0.95 2160-0 LOINC H SODIUM SERUM 140 mmol/L L=136 H=145 2951-2 LOINC POTASSIUM SERUM 3.5 mmol/L L=3.4 H=5.2 2823-3 LOINC CHLORIDE SERUM 101 mmol/L L=96 H=110 2075-0 LOINC CARBON DIOXIDE (CO2) 34 mmol/L L=22 H=34 2028-9 LOINC ANION GAP 4.8 mmol/L 76653-7 LOINC CALCIUM SERUM 8.6 mg/dL L=8.2 H=10.2 75483-6 LOINC BILIRUBIN TOTAL 0.5 mg/dL L=0.0 H=1.3 1975-2 LOINC ALK. PHOS. 109 U/L L=46 H=116 6768-6 LOINC SGOT (AST) 16 U/L L=15 H=37 1920-8 LOINC SGPT (ALT) 31 U/L L=12 H=78 1742-6 LOINC TOTAL PROTEIN 6.8 gm/dL L=6.0 H=8.0 2885-2 LOINC ALBUMIN 3.7 gm/dL L=3.4 H=5.0 1751-7 LOINC AGE 54 years eGFR (non-Afr.Amer.) 56 mL/min 72216-3 LOINC eGFR (Afr-Tuvaluan) 68 mL/min 88336-3 LOINC THYROID TESTING CASCADE* - C ollect Date/Time: 04/22/2024 07:42 [facility] ID: [id number] [address] [place], [place], [address] LOINC: 3016-3 Test Value Unit Reference Range Code Code System Flag TSH. 1.303 uIU/mL L=0.360 H=3.740 3014-8 LOINC Social History Type Status Start Date End Date Code Code Syst em Smoking History Never smoker (Never Smoked) 665991377 SNOMED CT Sex Female Assessment You had [...] Status Code Code System ACID REFLUX active 345680561 SNOMED-C T DIABETES 2 active 77890363 SNOMED-CT HTN active 58610508 SNOMED-CT Allergies and Adverse Reactions Allergy Substance Reaction Severity Start Date Concern Status Code Code System PENICILLINS (CLASS) Hives (SNOMED-CT: 382203417) Moderate Active 35677 RxNorm AMPICILLIN Hives (SNOMED-CT: 041007157) Moderate Active 367435 RxNorm SEASONAL Moderate Active Plan of Treatment Exposure 08/20/2020 LAB DRAW 15MIN 11/19/2023 LAB DRAW 15MIN 04/26/2023 NM MPI STR/RST 06/08/2022 MM SCREEN BILAT 11/11/2021 LAB DRAW 15MIN 10/05/2021 SYMPTOMS 08/13/2021 Encounters Encounter Diagnosis Start Date Code Code Sys tem Hyperglycemia due to type 2 diabetes mellitus 04/22/20 24 002061047868994 SNOMED-CT Personal Care Team Section Performer Name Performer Role Active Date Inactive Da te
--- OUTSIDE RECORDS SUMMARY | 2024-06-20 15:59 | XMS_ITS ---
Author Organization Unknown Address [address] [place] [address] [phone] Phone Care Team Providers Care Trapeze Performer Name Role Phone LAMELL MIC Maurer Attending Unavailable IRMA Betancourt Primary Unavailable Results XR ELBOW RT 3V MIN* - Comple lesia: 04/25/2024 12:54 LOINC: [facility] RADI[facility] [place], [place] [address] [facility] TRANSCRIBING MACHINE OPERATOR REPORT Patient Name: ORTEGA FRANKLIN MRN: Sex: : Age: [id number] F 1970 54 Account: Accession: Admit: StayType: [id number] 04/25/2024 O Ordered: Order ID: Submitted: Ordering Provider: 04/25/2024 12:48 [id number] MIC OSEGUERA Completed: Technologist: Resulted: 04/25/2024 12:50 JOSEP 04/25/2024 14:16 FINAL REPORT EXAM: XR ELBOW RT 3V MIN* CLINICAL HISTORY: Reason for Extrem: Pain. TECHNIQUE: 2D digital imaging was performed. Three views. COMPARISON: No exams were available for comparison FINDINGS: BONES: No acute fracture is present. No bony destructive lesion is seen. Spurring at the coronoid process. JOINTS: The elbow is normally aligned. No joint effusion is seen. The joint spaces are maintained. SOFT TISSUE: Normal. IMPRESSION: Unremarkable radiographs of the right elbow. DATA REPOSITORY: RADIATION DOSE DELIVERED: Electronically signed by: Andie Shankar Dictated: 04/25/2024 14:16 Social History Type Status Start Date End Date Code Code Syst em Smoking History Never smoker (Never Smoked) 376101521 SNOMED CT Sex Female Assessment You had [...] Status Code Code System ACID REFLUX active 060659411 SNOMED-C T DIABETES 2 active 92823903 SNOMED-CT HTN active 14232315 SNOMED-CT Allergies and Adverse Reactions Allergy Substance Reaction Severity Start Date Concern Status Code Code System PENICILLINS (CLASS) Hives (SNOMED-CT: 754367891) Moderate Active 66981 RxNorm AMPICILLIN Hives (SNOMED-CT: 294611220) Moderate Active 973928 RxNorm SEASONAL Moderate Active Plan of Treatment Exposure 08/20/2020 LAB DRAW 15MIN 11/19/2023 LAB DRAW 15MIN 04/26/2023 NM MPI STR/RST 06/08/2022 MM SCREEN BILAT 11/11/2021 LAB DRAW 15MIN 10/05/2021 SYMPTOMS 08/13/2021 Encounters Encounter Diagnosis Start Date Code Code Sys tem Lateral epicondylitis of right humerus 04/25/2024 31 6184545277377 SNOMED-CT Personal Care Team Section Performer Name Performer Role Active Date Inactive Da te Imaging Narrative Notes [facility] RAD[facility] [place], [place] [address] [employer] TRANSCRIBING MACHINE OPERATOR REPORT Patient Name: ORTEGA FRANKLIN MRN: Sex: : Age: [id number] F 1970 54 Account: Accession: Admit: StayType: [id number] 04/25/2024 O Ordered: Order ID: Submitted: Ordering Provider: 04/25/2024 12:48 [id number] MJP MIC SMITH Completed: Technologist: Resulted: 04/25/2024 12:50 MJP 04/25/2024 14:16 FINAL REPORT EXAM: XR ELBOW RT 3V MIN* CLINICAL HISTORY: Reason for Extrem: Pain. TECHNIQUE: 2D digital imaging was performed. Three views. COMPARISON: No exams were available for comparison FINDINGS: BONES: No acute fracture is present. No bony destructive lesion is seen. Spurring at the coronoid process. JOINTS: The elbow is normally aligned. No joint effusion is seen. The joint spaces are maintained. SOFT TISSUE: Normal.
--- OUTSIDE RECORDS SUMMARY | 2024-06-20 16:00 | XMS_ITS | Encounter Summary ---
Author Organization [facility] Address [address] [place] [address] Care Team Providers Care Route Inspector Name Role Phone Rosalia Starr MD Primary Care Provider [phone] Silvia Broussard MD Unavailable [phone] Reason for Visit * Reason Comments Diabetes Encounter Details Date Type Department Care Team (Late st Contact Info) Description 06/27/2023 11:30 EDT Telemedicine [facility] Endocrinology [address] [place] [address] Yahaira Garcia, OPHTHALMIC MEDICAL TECHNICIAN [address] [facility] [address] [place] [phone] Type 2 diabetes mellitus with hyperglycemia, with long-term current use of insulin ([facility]) (Primary Dx); Obesity (BMI 30-39.9); assisted current use of insulin ([facility]); Insulin pump in place; Essential hypertension; Uses self-applied continuous glucose monitoring device Social History Tobacco Use Types Packs/Day Years Used Date Smoking Tobacco: Never Smokeless Tobacco: Never Alcohol Use Standard Drinks/Week Comments Never 0 (1 standard drink = 0.6 oz pur e alcohol) Interpersonal Safety Answer Date Record ed Physically Hurt Never 05/30/2020 Verbally Threaten Not on file 05/30/2020 Sex and Gender Information Value Date Recorded Sex Assigned at Female 12/04/2022 14:24 EST Gender Identity Female 08/30/2019 14:41 EDT Sexual Orientation Straight 12/04/2022 14 :24 EST documented as of this encounter Last Filed Vital Signs Vital Sign Reading Time Taken Comments Blood Pressure - - Pulse - - Temperature - - Respiratory Rate - - Oxygen Saturation - - Inhaled Oxygen Concentration - - Weight - - Height 157.5 cm (5' 2) 06/27/2023 1117 EDT Body Mass Index - - documented in this encounter Progress Notes * Latisha Romano RN - 06/27/2023 1130 EDT Lab Results Component Value Date UABCR 06/28/2022 Comment: Unable to calculate due to albumin result <0.6. Urine Albumin/Creatinine Ratio: Normal: <30 ug/mg Creatinine Moderately increased albuminuria: 30-300 ug/mg Creatinine Severley increased albuminuria: >300 ug/mg Creatinine HGBA1C 8.1 (A) 05/03/2023 * Yahaira Garcia NP - 06/27/2023 1130 EDT Reason for Visit: DM f/up PCP: Dr. Rosalia Starr OTHER PROVIDERS: [facility] Telephone Visit Verbal consent: The concept of ???Telemedicine?? has been described to the patient. Patient has been informed of the anticipated benefits and possible risks. Patient understands the information provided regarding telemedicine, has had the opportunity to ask questions about this information, and all questions havebeen answered to patient???s satisfaction. Patient consents for the use of telemedicine in his/her medical care and authorizes the transmission of any relevant medical information to providers and their staff involved in patient???s medical or mental health care. Verbal consent obtained by myself or auxiliary staff: yes. Provider in clinic Patient at home. Elizabeth Corrigan is a 53 y.o. female who presented via zoom for a follow-up in [facility], with a history ofDM since 1994. 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 Lives with . Adult kids, 3. All live nearby. Has switched to tandem pump w/ dexcom. Likes this much better. Using t:connect on phone. Has increased the ozempic and tolerating this okay. Will have stomach cramps once weekly, tolerable. Does not notice this increase will certain foods. Will dissipate after BM. 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 Had breakfast about 2 hrs ago. Feels if BG's are coasting around normal 90-100 will get nervous of low and intake food. Does bolusfor this. Will use exercise mode when needed, at times will forget to turn this off. Mentions getting her scripts out of [facility] for a better anne. Did not look into [facility] [[email or web address] HAP program. Does not remember why came off metformin, believes d/t being on pump. Does note it being a large pill and has a very hard time with this. [facility] DM: heavy on moms side Recent A1C: 8.1 (04/2023) 8 (01/2023) 8.4 (11/2022) 9 (07/2022) Diabetic Medications: tandem pump w/ dexcom lantus 85 units in case of pump failure ozempic 2 mg weekly farxiga 10 mg daily novolog TDD 110-120 units Intolerant metformin d/t pill size Current monitoring regimen: Frequency of monitoring? : dexcom Fasting range: Preprandial range: Postprandial range: Any episodes of hypoglycemia? Minimal Cause of hypoglycemia? Nutrition Daily Recall: Breakfast: yogurt, fruit, honey Lunch: leftovers, turkey/ham sandwich Dinner: burger/fish/pork, small portion rice/potato, vegetables Snacks: fruit, yogurt Beverages: water 36-45 oz/day , coffee in AM, 1 small can diet soda/day, diet peach iced tea Exercise: some, minimal in winter and more in summer. Diabetes Related Problems Eye exam current (within one year): [facility], [facility] vision center Provider: Last dental exam: [facility], has full false teeth for about 1 year now. CVD,PVD,CAD: HTN, HLD Statin: atorvastatin 20 mg, LDL at goal (03/2023) Aspirin: no ACEI/ARB: lisinopril 40 mg Prior visit with airframe and powerplant mechanic/DM education: FAIZA Strange Foot care: self Comorbidities: Retinopathy: yes, small dot/blot hemes Stable: Nephropathy/Kidney function: GFR 70 (03/2023) No results found for: CALCGFR MCR up to date? 4.3 (07/2022) Lab Results Component Value Date Lab Urine Albumin to Creatinine Ratio 06/28/2022 Comment: Unable to calculate due to albumin result <0.6. Urine Albumin/Creatinine Ratio: Normal: <30 ug/mg Creatinine Moderately increased albuminuria: 30-300 ug/mg Creatinine Abisai increased albuminuria: >300 ug/mg Creatinine Neuropathy: yes, always numb, take gabapentin-does see lower symptoms with this. Location: BL feet Stable: yes/no Review of Systems Constitutional: Negative. Eyes: Negative. Gastrointestinal: Negative. Endocrine: Negative. Genitourinary: Negative. Neurological: Positive for numbness. Physical Exam Vitals and nursing note reviewed. Constitutional: Appearance: Normal appearance. HENT: Head: Normocephalic and atraumatic. Neurological: Mental Status: She is alert and oriented to person, place, and time. Psychiatric: Mood and Affect: Mood normal. Behavior: Behavior normal. CGM INTERPRETATION Type of CGM: citiservi 06/14-06/27/2023 Type of DM: II Diabetic Medications: ozempic farxiga novolog in pump Indication for monitoring: hyper/hypoglycemia, insulin dosing Report Interpretation: Average glucose 176 mg/dL, standard deviation 61.1 TIR 89%, TAR 11%, TBR 0% Nocturnal glucose control: no Post-prandial glucose excursions: yes all meals Hypoglycemia incidence: no Other (exercise/activity): Hemoglobin A1c, POC Date Value Ref Range Status 05/03/2023 8.1 (A) 5.7 % Final Lab Results Component Value Date UABCR 06/28/2022 Comment: Unable to calculate due to albumin result <0.6. Urine Albumin/Creatinine Ratio: Normal: <30 ug/mg Creatinine Moderately increased albuminuria: 30-300 ug/mg Creatinine Abisai increased albuminuria: >300 ug/mg Creatinine No results found for: NA, K, CL, CO2, BUN, CSFGLU, CREATINE, GLU, CA, GFR Elizabeth Corrigan is a 53 y.o. female who presented via zoom for a follow-up in [facility], with a history ofDM since 1994. Problem List Items Addressed This Visit Endocrine/Metabolic Type 2 diabetes mellitus with hyperglycemia (HCC-CMS) (HCC) (HCC-CMS) - Primary Uncontrolled A1C 8.1 BG's much better on new pump! Adjusted carb ratio all day to give more insulin with food. Deleted unnecessary timed settings. Continue to bolus before eating and carb counting as best able. Use exercise mode when needed for higher activity, remember to turn this off when done. Continue with dexcom Keep up with daily hydration, balanced meals and activity daily as able. Follow-up in 2-3 months or sooner with concerns. A1C can be done prior to our next visit. Obesity (BMI 30-39.9) assisted current use of insulin ([facility]) ([facility]) Insulin pump in place Cardiac/Vasculature Essential hypertension LDL at goal. BP stable. Other Uses self-applied continuous glucose monitoring device Patient Goals: A1C <7% Exercise: 150-300 minutes of CV exercise/week. I spent a total of 30 minutes on the date of this encounter meeting with the patient and reviewing documentation/coordinating care as described in the above note. No procedures were performed at the time of the visit. This does not include time reviewing CGM data. documented in this encounter Miscellaneous Notes * Assessment & Plan Note - Yahaira Garcia NP - 06/27/2023 1206 EDT Associated Problem(s): Essential hypertension LDL at goal. BP stable. * Assessment & Plan Note - Yahaira Garcia NP - 06/27/2023 1137 EDT Associated Problem(s): Type 2 diabetes mellitus with hyperglycemia ([facility]) Uncontrolled A1C 8.1 BG's much better on new pump! Adjusted carb ratio all day to give more insulin with food. Deleted unnecessary timed settings. Continue to bolus before eating and carb counting as best able. Use exercise mode when needed for higher activity, remember to turn this off when done. Continue with dexcom Keep up with daily hydration, balanced meals and activity daily as able. Follow-up in 2-3 months or sooner with concerns. A1C can be done prior to our next visit. documented in this encounter Plan of Treatment Upcoming Encounters Date Type Department Care Team (Late st Contact Info) Description 09/04/2024 13:30 EST Office Visit [facility] Endocrinology [address] [place], [place] [address] José Miguel Padgett MD [address] [phone] documented as of this encounter Visit Diagnoses Diagnosis Type 2 diabetes mellitus with hyperglycemia, with long-term current use of insulin ([facility])- Primary Obesity (BMI 30-39.9) Obesity, unspecified assisted current use of insulin ([facility]) Encounter for long-term (current) use of insulin Insulin pump in place Insulin pump status Essential hypertension Unspecified essential hypertension Uses self-applied continuous glucose monitoring device documented in this encounter Care Teams Route Inspector Relationship Specialty Start Date End Date Rosalia Starr MD [address] [place] [address] PCP - General 11/06/16 Silvia Broussard MD [address] [phone] Endocrinology, Diabetes and Metabolism 11/23/21 documented as of this encounter
--- OUTSIDE RECORDS SUMMARY | 2024-06-20 16:00 | XMS_ITS | Encounter Summary ---
Author Organization [facility] Address [address] [place] [address] Care Team Providers Care Physicist Astrophysics Name Role Phone Rosalia Starr MD Primary Care Provider [phone] Silvia Broussard MD Unavailable [phone] Reason for Visit * Reason Comments Medications Refill Encounter Details Date Type Department Care Team (Late st Contact Info) Description 01/25/2024 Refill [facility] Endocrinology [address] [place] [address] Yahaira Garcia, SENIOR DESIGNER/ART DIRECTOR [address] [facility] [address] [place] [phone] Medications Refill Social History Tobacco Use Types Packs/Day Years [...] :24 EST documented as of this encounter Ordered Prescriptions Prescription Sig Dispensed Refills Start Date End Da te Blood-Glucose Sensor (DEXCOM G6 SENSOR) device Inject 1 Units into the skin every 10 hours. 9 Each 3 01/25/2024 Blood-Glucose Transmitter (DEXCOM G6 TRANSMITTER) device 1 application by misc (non-drug; combo route) route every 90 days. 1 Each 3 01/25/2024 05/09/2024 documented in this encounter Miscellaneous Notes * Telephone Encounter - Je Kae - 01/25/2024 1259 EDT PT called regarding dexcom scripts. She called this morning and it looked like these had been sent.She went to pick them up and they said they never received anything. I confirmed it is the [facility] in [place]. Any chance you could contact to see if they did indeed receive this and contact pt? * Telephone Encounter - Latisha Romano RN - 01/25/2024 0937 EDT Both sent * Telephone Encounter - Marie Vo - 01/25/2024 0907 EDT Patient called as well needs dexcom sensor sent in today as hers ran out last night and she doesn'twant to go through the weekend without it Also needs a new transmitter prescription sent in documented in this encounter Plan of Treatment Upcoming Encounters Date Type Department Care Team (Late st Contact Info) Description 09/04/2024 13:30 EST Office Visit [facility] Endocrinology [address], [place] [phone] José Miguel Padegtt MD [address] [facility] [address] [place] [phone] documented as of this encounter Visit Diagnoses Not on filedocumented in this encounter Discontinued Medications Medication Sig Discontinue Reason Start Date End Da te Blood-Glucose Sensor (DEXCOM G6 SENSOR) device 1 application by misc (non-drug; combo route) route continuous. 05/03/2023 01/25/2024 Blood-Glucose Transmitter (DEXCOM G6 TRANSMITTER) device 1 application by misc (non-drug; combo route) route continuous. Reorder 05/03/2023 01/25/2024 documented as of this encounter Care Teams Physicist Astrophysics Relationship Specialty Start Date End Date Rosalia Starr MD [address] [place] [phone] PCP - General 11/06/16 Silvia Broussard MD [address] [place] [phone] Endocrinology, Diabetes and Metabolism 11/23/21 documented as of this encounter
--- OUTSIDE RECORDS SUMMARY | 2024-06-20 16:00 | XMS_ITS | Encounter Summary ---
Author Organization [facility] Address [address] [place] [address] Care Team Providers Care Frothing Machine Operator Name Role Phone Rosalia Starr MD Primary Care Provider [phone] Silvia Broussard MD Unavailable [phone] Reason for Visit * Reason Onset Date Comments Prior Auth, Medication 12/12/2023 Encounter Details Date Type Department Care Team (Late st Contact Info) Description 12/12/2023 Telephone [facility] Endocrinology [address] [place] [address] Latisha Romano RN Prior Auth, Medication Social History Tobacco Use Types Packs/Day Years [...] :24 EST documented as of this encounter Miscellaneous Notes * Telephone Encounter - Latisha Romano RN - 12/12/2023 1119 EST Approved-faxed to pharmacy * Telephone Encounter - Latisha Romano RN - 12/12/2023 0927 EST Dexcom thru [facility] to [employer] documented in this encounter Plan of Treatment Upcoming Encounters Date Type Department Care Team (Late st Contact Info) Description 09/04/2024 13:30 EST Office Visit [facility] Endocrinology [address] [place] [address] José Miguel Padgett MD [address] [place] [phone] documented as of this encounter Visit Diagnoses Not on filedocumented in this encounter Care Teams Frothing Machine Operator Relationship Specialty Start Date End Date Rosalia Starr MD [address] [place] [phone] PCP - General 11/06/16 Silvia Broussard MD [address] [place] [phone] Endocrinology, Diabetes and Metabolism 11/23/21 documented as of this encounter
--- OUTSIDE RECORDS SUMMARY | 2024-06-20 16:00 | XMS_ITS | Encounter Summary ---
Author Organization [facility] Address [address] [place] [address] Care Team Providers Care Pawn Shop Keeper Name Role Phone Rosalia Starr MD Primary Care Provider [phone] Silvia Broussard MD Unavailable [phone] Reason for Visit * Reason Comments Diabetes Encounter Details Date Type Department Care Team (Latest Contact Info) Description 11/30/2023 11:00 EST Office Visit [facility] Endocrinology [address] [place] [address] Yahaira Garcia, ARIANNA [address] [facility] [place] [phone] Type 2 diabetes mellitus with hyperglycemia, with long-term current use of insulin ([facility]) (Primary Dx); skilled nursing current use of insulin (HCC-CMS); Insulin pump in place; Obesity (BMI 30-39.9); Essential hypertension; Diabetic polyneuropathy associated with type 2 diabetes mellitus (HCC-CMS); Uses self-applied continuous glucose monitoring device Social [...] Sign Reading Time Taken Comments Blood Pressure 120/60 11/30/2023 1056 EST Pulse 60 11/30/2023 1056 EST Temperature - - Respiratory Rate 18 11/30/2023 1056 EST Oxygen Saturation - - Inhaled Oxygen Concentration - - Weight 88.9 kg (196 lb) 11/30/2023 1056 EST Height 157.5 cm (5' 2) 11/30/2023 1056 EST Body Mass Index 35.85 11/30/2023 1056 EST documented in this encounter Patient Instructions * Patient Instructions* Yahaira Garcia NP - 11/30/2023 11:00 EST A1C 7.1 Congratulated on successful changes! Start mounjaro 2.5 mg weekly injection when able. Inject into fatty tissue of thighs or buttocks. Adjusted carb ratio with lunch/dinner/evening to give more insulin with food bolus. Adjusted correction in AM to give more insulin, and before bed to give less. Keep up with great bolus habits, about 5-15 minutes BEFORE meals as best able. Keep up great habits on NOT shutting off pump. Continue with dexcom CGM. Upgrade pump to allow for G7, then let us know and will send in new G7 sensors. Keep up with daily hydration, balanced meals and activity daily as able. Follow-up in 2-3 months or sooner with cncerns. Requested to reach out after 1 month on mounjaro and pending tolerability/glucose will increase dose. documented in this encounter Ordered Prescriptions Prescription Sig Dispensed Refills Start Date End Da te tirzepatide (MOUNJARO) 2.5 mg/0.5 mL pen injectorIndications:Type 2 diabetes mellitus with hyperglycemia, with long-term current use of insulin ([facility]) Inject 0.5 mL into the skin once a week. E11.9 6 mL 3 11/30/2023 02/22/2024 documented in this encounter Progress Notes * Latisha Romano, FAIZA - 11/30/2023 1100 EST Needs eye-dr. Kayla gonzalez port and back up plan Scanned labs Lab Results Component Value Date UABCR 09/28/2023 Comment: Unable to calculate due to albumin result <0.6. Urine Albumin/Creatinine Ratio: Normal: <30 ug/mg Creatinine Moderately increased albuminuria: 30-300 ug/mg Creatinine Severely increased albuminuria: >300 ug/mg Creatinine HGBA1C 8.1 (A) 05/03/2023 A1c 7.1 (11/19/2023) * Yahaira Garcia NP - 11/30/2023 1100 EST Reason for Visit: DM f/up PCP: Dr. Rosalia Starr OTHER PROVIDERS: Elizabeth Corrigan is a 53 y.o. female who presented in clinic for a follow-up in [facility], with a history of DM since 1994. Hx of HTN, HLD, neuropathy, iron infusions/PHILIP. Works as the[employer]. Lives with . Adult kids, 3. All live nearby. Phone is not compatible w/ t:connect Was not able to switch to [place] as not able to ge this. Stopped ozempic about 3 weeks now. Does have sensitive stomach and gets diarrhea easily from various food intake. No longer w/ cramping. Random BG in clinic 173. had atkins shake about 1 hr ago, did bolus for this. Feels entering in all carbs as best able. Still seeing BG's up/down. No longer shutting pump off, if seeing BG's in 70's will intake juice, then will have toast w/ PB and inputs the carbs for the toast. Still seeing BG's elevate with this. Not using exercise mode as much lately, not walking as much recently. Mentions getting her scripts out of [facility] for a better anne. Did not look into [facility] HAP program. [facility] DM: heavy on moms side Recent A1C: 7.1(10/2023) miguel 8.1 (04/2023) 8 (01/2023) 8.4 (11/2022) Diabetic Medications: tandem pump w/ dexcom lantus 90 units in case of pump failure farxiga 10 mg daily novolog TDD 110-120 units Intolerant metformin d/t pill size, ozempic Current monitoring regimen: Frequency of monitoring? : [...] Problems Eye exam current (within one year): [facility], [facility] center Provider: Last dental exam: [facility], has full false teeth for about 1 year now. CVD,PVD,CAD: HTN, HLD Statin: atorvastatin 20 mg, LDL at goal (03/2023) Aspirin: no ACEI/ARB: lisinopril 40 mg Prior visit with cytotechnologist/DM education: FAIZA Strange Foot care: self Comorbidities: Retinopathy: yes, small dot/blot hemes Stable: Nephropathy/Kidney function: GFR 70 (03/2023) No results found for: CALCGFR MCR up to date? 4.3 (07/2022) Lab Results Component Value Date Lab Urine Albumin to Creatinine Ratio 09/28/2023 Comment: Unable to calculate due to albumin result <0.6. Urine Albumin/Creatinine Ratio: Normal: <30 ug/mg Creatinine Moderately increased albuminuria: 30-300 ug/mg Creatinine Severely increased albuminuria: >300 ug/mg Creatinine Neuropathy: yes, [...] Behavior normal. CGM INTERPRETATION Type of CGM: dexcom personal 11/17-11/30/2023 Type of DM: II Diabetic Medications: farxiga novolog in pump Indication for monitoring: hyper/hypoglycemia, insulin dosing Report Interpretation: Average glucose 199 mg/dL, standard deviation 69 TIR 43%, TAR 56%, TBR 1% Nocturnal glucose control: no/yes Post-prandial glucose excursions: w/ lunch/dinner Hypoglycemia incidence: yes overnight w/ too much microbolus Other (exercise/activity): Hemoglobin A1c, POC Date Value Ref Range Status 05/03/2023 8.1 (A) 5.7 % Final Lab Results Component Value Date UABCR 09/28/2023 Comment: Unable to calculate due to albumin result <0.6. Urine Albumin/Creatinine Ratio: Normal: <30 ug/mg Creatinine Moderately increased albuminuria: 30-300 ug/mg Creatinine Severely increased albuminuria: >300 ug/mg Creatinine No results found for: NA, K, CL, CO2, BUN, CSFGLU, CREATINE, GLU, CA, GFR Elizabeth Corrigan is a 53 y.o. female who presented in clinic for a follow-up in [facility], with a history of DM since 1994. Problem List Items Addressed This Visit Endocrine/Metabolic Type 2 diabetes mellitus with hyperglycemia ([facility]) - Primary Nearly controlled A1C 7.1 Congratulated on successful changes! Start mounjaro 2.5 mg weekly injection when able. Inject into fatty tissue of thighs or buttocks. Adjusted carb ratio with lunch/dinner/evening to give more insulin with food bolus. Adjusted correction in AM to give more insulin, and before bed to give less. Keep up with great bolus habits, about 5-15 minutes BEFORE meals as best able. Keep up great habits on NOT shutting off pump. Continue with dexcom CGM. Upgrade pump to allow for G7, then let us know and will send in new G7 sensors. Keep up with daily hydration, balanced meals and activity daily as able. Follow-up in 2-3 months or sooner with cncerns. Requested to reach out after 1 month on mounjaro and pending tolerability/glucose will increase dose. Potential to switch fiasp or humalog U200 to help widen ratios. Relevant Medications tirzepatide (MOUNJARO) 2.5 mg/0.5 mL pen injector Obesity (BMI 30-39.9) skilled nursing current use of insulin ([facility]) Insulin pump in place Cardiac/Vasculature Essential hypertension BP at goal LDL at goal Neurological Diabetic polyneuropathy ([facility]) Relevant Medications tirzepatide (MOUNJARO) 2.5 mg/0.5 mL pen injector Other Uses self-applied continuous glucose monitoring device [...] Plan Note - Yahaira Garcia NP - 11/30/2023 1127 EST Associated Problem(s): Type 2 diabetes mellitus with hyperglycemia ([facility]) Nearly controlled A1C 7.1 Congratulated on successful changes! Start mounjaro 2.5 mg weekly injection when able. Inject into fatty tissue of thighs or buttocks. Adjusted carb ratio with lunch/dinner/evening to give more insulin with food bolus. Adjusted correction in AM to give more insulin, and before bed to give less. Keep up with great bolus habits, about 5-15 minutes BEFORE meals as best able. Keep up great habits on NOT shutting off pump. Continue with dexcom CGM. Upgrade pump to allow for G7, then let us know and will send in new G7 sensors. Keep up with daily hydration, balanced meals and activity daily as able. Follow-up in 2-3 months or sooner with cncerns. Requested to reach out after 1 month on mounjaro and pending tolerability/glucose will increase dose. Potential to switch fiasp or humalog U200 to help widen ratios. * Assessment & Plan Note - Yahaira Garcia NP - 11/30/2023 1104 EST Associated Problem(s): Essential hypertension BP at goal LDL at goal documented in this encounter Plan of Treatment Upcoming Encounters Date Type Department Care Team (Late st Contact Info) Description 09/04/2024 13:30 EST Office Visit [facility] Endocrinology [address] [place] [address] José Miguel Padgett MD [address] [place] [phone] documented as of this encounter Visit Diagnoses Diagnosis Type 2 diabetes mellitus with hyperglycemia, with long-term current use of insulin ([facility])- Primary exterminator helper termite current use of insulin ([facility]) Encounter for long-term (current) use of insulin Insulin pump in place Insulin pump status Obesity (BMI 30-39.9) Obesity, unspecified Essential hypertension Unspecified essential hypertension Diabetic polyneuropathy associated with type 2 diabetes mellitus ([facility]) Uses self-applied continuous glucose monitoring device documented in this encounter Discontinued Medications Medication Sig Discontinue Reason Start Date End Da te tirzepatide (MOUNJARO) 2.5 mg/0.5 mL pen injectorIndications:Type 2 diabetes mellitus with hyperglycemia, with long-term current use of insulin ([facility]) Inject 0.5 mL into the skin once a week. E11.9 Reorder 11/14/2023 11/30/2023 documented as of this encounter Care Teams Pawn Shop Keeper Relationship Specialty Start Date End Date Rosalia Starr MD [address] [place] [phone] PCP - General 11/06/16 Silvia Broussard MD [address] [place] [phone] Endocrinology, Diabetes and Metabolism 11/23/21 documented as of this encounter
--- OUTSIDE RECORDS SUMMARY | 2024-06-20 16:00 | XMS_ITS | Encounter Summary ---
Author Organization [facility] Address [address] [place] [address] Care Team Providers Care Senior Game Designer Name Role Phone Rosalia Starr MD Primary Care Provider [phone] Silvia Broussard MD Unavailable [phone] Reason for Visit * Reason Comments Diabetes Encounter Details Date Type Department Care Team (Latest Contact Info) Description 09/28/2023 9:15 EST Office Visit [facility] [place] [address] [place] [address] Yahaira Garcia, ARIANNA [address] [facility] [address] [place] [address] Type 2 diabetes mellitus with hyperglycemia, with long-term current use of insulin ([facility]) (Primary Dx); Obesity (BMI 30-39.9); jail current use of insulin ([facility]); Insulin pump in place; Uses self-applied continuous glucose monitoring device; Essential hypertension; Diabetic polyneuropathy associated with type 2 diabetes mellitus ([facility]) Social History Tobacco Use Types Packs/Day Years [...] Sign Reading Time Taken Comments Blood Pressure 124/66 09/28/2023 0912 EST Pulse 60 09/28/2023 09 EST Temperature - - Respiratory Rate 18 09/28/2023 09 EST Oxygen Saturation - - Inhaled Oxygen Concentration - - Weight 85.3 kg (188 lb) 09/28/2023 09 EST Height 157.5 cm (5' 2) 09/28/2023 09 EST Body Mass Index 34.39 09/28/2023911 EST documented in this encounter Patient Instructions * Patient Instructions* Yahaira Garica NP - 09/28/2023 9:15 EST A1C 8.1 CGM much better! Start mounjaro 2.5 mg weekly injection. Start when due for next ozempic injection. Inject into fatty tissue of thighs or buttocks. Reach out after 1 month on this and pending will adjust insulin or increase mounjaro. STOP ozempic with this. Adjusted correction factor late evening to give more insulin, 12am-7am to give less insulin. Adjusted carb ratio with dinner to give more insulin. Work on entering in carbs with ALL MEALS/SNACKS! Do this 5-15 minutes before eating, if not sure give 1/2 carbs prior to eating and rest at last bite. If >200 going into meal, bolus 20 minutes before. Work on NOT SHUTTING OFF PUMP, if having symptoms of lows intake 5 g carbs and then protein!! If not having symptoms, intake protein only!! If going for activity, turn on exercise mode 20 minutes before going, intake protein prior to activity to help stabilize glucose. Call tandem to trouble shoot leigh on phone. Continue with dexcom CGM. Keep up with daily hydration, balanced meals and activity daily as able Follow-up in 2 months or sooner with concerns. documented in this encounter Ordered Prescriptions Prescription Sig Dispensed Refills Start Date End Da te tirzepatide (MOUNJARO) 2.5 mg/0.5 mL pen injectorIndications:Type 2 diabetes mellitus with hyperglycemia, with long-term current use of insulin ([facility]) Inject 0.5 mL into the skin once a week. 2 mL 3 09/28/2023 10/04/2023 documented in this encounter Progress Notes * Latisha Romano RN - 09/28/2023 0915 EST Needs eye- has appt scheuduled and micro and back up plan Scanned labs Lab Results Component Value Date UABCR 06/28/2022 Comment: Unable to calculate due to albumin result <0.6. Urine Albumin/Creatinine Ratio: Normal: <30 ug/mg Creatinine Moderately increased albuminuria: 30-300 ug/mg Creatinine Abisai increased albuminuria: >300 ug/mg Creatinine HGBA1C 8.1 (A) 05/03/2023 * Yahaira Garcia NP - 09/28/2023 0915 EST Reason for Visit: DM f/up PCP: Dr. Rosalia Starr OTHER PROVIDERS: Elizabeth Corrigan is a 53 y.o. female who presented in clinic for a follow-up in [facility], with a history of DM since 1994. Hx of HTN, HLD, neuropathy, iron infusions/PHILIP. Works as [employer]. Lives with . Adult kids, 3. All live nearby. Using t:connect on phone. This has not been working as of late, unsure why. Did not reach out to tandem yet. Random BG on 139. has not eaten yet today. Does bolus prior to eating, if BG's higher >200 will do so 10-15 minutes, otherwise will bolus into meal with normal readings. Reports not feeling satisfied on the current ozempic, will go up/down with weight. Does have cramps/diarrhea once weekly still. Has been on ozempic for about 1 year now. Mentions will have lows in low 70's overnight, at times will have symptoms, intake juice/protein and shuts off pump. Does use exercise mode, will still have lows at the end of activity, puts this on right before going. Mentions getting her scripts out of [facility] for a better anne. Did not look into [facility] program. [facility] DM: heavy on moms side Recent A1C: [...] Problems Eye exam current (within one year): [facility] center Provider: Last dental exam: [facility], has full false teeth for about 1 year now. CVD,PVD,CAD: HTN, HLD Statin: atorvastatin 20 mg, LDL at goal (03/2023) Aspirin: no ACEI/ARB: lisinopril 40 mg Prior visit with outside plant technician/DM education: FAIZA Strange Foot care: self Comorbidities: Retinopathy: yes, small dot/blot hemes Stable: Nephropathy/Kidney function: GFR 70 (03/2023) No results found for: CALCGFR MCR up to date? 4.3 (07/2022) Lab Results Component Value Date Lab Urine Albumin to Creatinine Ratio 06/28/2022 Comment: Unable to calculate due to albumin result <0.6. Urine Albumin/Creatinine Ratio: Normal: <30 ug/mg Creatinine Moderately increased albuminuria: 30-300 ug/mg Creatinine Josesitoley increased albuminuria: >300 ug/mg Creatinine Neuropathy: yes, [...] Behavior normal. CGM INTERPRETATION Type of CGM: dexMovie Mouth personal 09/15-09/28/2023 Type of DM: II Diabetic Medications: ozempic farxiga novolog in pump Indication for monitoring: hyper/hypoglycemia, insulin dosing Report Interpretation: Average glucose 171 mg/dL, standard deviation 50 TIR 59%, TAR 41%, TBR 0% Nocturnal glucose control: no/yes Post-prandial glucose excursions: w/ missed bolus, most evenings. Hypoglycemia incidence: yes overnight w/ activity Other (exercise/activity): Hemoglobin A1c, POC Date Value Ref Range Status 05/03/2023 8.1 (A) 5.7 % Final Lab Results Component Value Date UABCR 06/28/2022 Comment: Unable to calculate due to albumin result <0.6. Urine Albumin/Creatinine Ratio: Normal: <30 ug/mg Creatinine Moderately increased albuminuria: 30-300 ug/mg Creatinine Severley increased albuminuria: >300 ug/mg Creatinine No results found for: NA, K, CL, CO2, BUN, CSFGLU, CREATINE, GLU, CA, GFR Elizabeth Corrigan is a 53 y.o. female who presented in clinic for a follow-up in [facility], with a history of DM since 1994. Problem List Items Addressed This Visit Endocrine/Metabolic Type 2 diabetes mellitus with hyperglycemia ([facility]) - Primary Uncontrolled A1C 8.1 CGM much better! Start mounjaro 2.5 mg weekly injection. Start when due for next ozempic injection. Inject into fatty tissue of thighs or buttocks. Reach out after 1 month on this and pending will adjust insulin or increase mounjaro. STOP ozempic with this. Adjusted correction factor late evening to give more insulin, 12am-7am to give less insulin. Adjusted carb ratio with dinner to give more insulin. Work on entering in carbs with ALL MEALS/SNACKS! Do this 5-15 minutes before eating, if not sure give 1/2 carbs prior to eating and rest at last bite. If >200 going into meal, bolus 20 minutes before. Work on NOT SHUTTING OFF PUMP, if having symptoms of lows intake 5 g carbs and then protein!! If not having symptoms, intake protein only!! If going for activity, turn on exercise mode 20 minutes before going, intake protein prior to activity to help stabilize glucose. Call tandem to trouble shoot leigh on phone. Continue with dexcom CGM. Keep up with daily hydration, balanced meals and activity daily as able Follow-up in 2 months or sooner with concerns. A1C lab send to [facility] today. Relevant Medications tirzepatide (MOUNJARO) 2.5 mg/0.5 mL pen injector Other Relevant Orders HEMOGLOBIN A1C URINE HAWAFQH-UP-HTDHIQDFTP RATIO (ACR) Obesity (BMI 30-39.9) jail current use of insulin ([facility]) Insulin pump in place Cardiac/Vasculature Essential hypertension BP at goal LDL at goal. Neurological Diabetic polyneuropathy ([facility]) Relevant Medications tirzepatide (MOUNJARO) 2.5 [...] Plan Note - Yahaira Garcia NP - 09/28/2023 0923 EST Associated Problem(s): Type 2 diabetes mellitus with hyperglycemia ([facility]) Uncontrolled A1C 8.1 CGM much better! Start mounjaro 2.5 mg weekly injection. Start when due for next ozempic injection. Inject into fatty tissue of thighs or buttocks. Reach out after 1 month on this and pending will adjust insulin or increase mounjaro. STOP ozempic with this. Adjusted correction factor late evening to give more insulin, 12am-7am to give less insulin. Adjusted carb ratio with dinner to give more insulin. Work on entering in carbs with ALL MEALS/SNACKS! Do this 5-15 minutes before eating, if not sure give 1/2 carbs prior to eating and rest at last bite. If >200 going into meal, bolus 20 minutes before. Work on NOT SHUTTING OFF PUMP, if having symptoms of lows intake 5 g carbs and then protein!! If not having symptoms, intake protein only!! If going for activity, turn on exercise mode 20 minutes before going, intake protein prior to activity to help stabilize glucose. Call tandem to trouble shoot leigh on phone. Continue with dexcom CGM. Keep up with daily hydration, balanced meals and activity daily as able Follow-up in 2 months or sooner with concerns. A1C lab send to [facility] today. * Assessment & Plan Note - Yahaira Garcia NP - 09/28/2023 0922 EST Associated Problem(s): Essential hypertension BP at goal LDL at goal. documented in this encounter Plan of Treatment Upcoming Encounters Date Type Department Care Team (Late st Contact Info) Description 09/04/2024 13:30 EST Office Visit [facility] Endocrinology [address] [place] [address] José Miguel Padgett MD 130 [facility] [address] [place] [phone] Scheduled Orders Name Type Priority Associated Diagnoses Orde r Schedule HEMOGLOBIN A1C Lab Routine Type 2 diabetes mellitus with hyperglycemia, with long-term current use of insulin ([facility]) Expected: 09/29/2023 (Approximate), Expires: 09/28/2024 documented as of this encounter Procedures Procedure Name Priority Date/Time Associated Diagnosis Comments URINE QYRATCH-CD-BCZYNUCO NE RATIO (ACR) Routine 09/28/2023 10:37 EST Type 2 diabetes mellitus with hyperglycemia, with long-term current use of insulin ([facility]) documented in this encounter Results * URINE RGQQUHT-AZ-LLPFSFKISI RATIO (ACR) (09/28/2023 10:37 EST) Albumin, Urine <0.6 See Note mg/dL 09/28/2023 20:26 EST [facility] Comment: NOTE: Reference range not established Creatinine, Urine 58.6 See Note mg/dL 09/28/2023 20:26 [facility] Comment: NOTE: Reference range not established Lab Urine Albumin to Creatinine Ratio 09/28/2023 20:26 [facility] Comment: Unable to calculate due to albumin result <0.6. Urine Albumin/Creatinine Ratio: Normal: <30 ug/mg Creatinine Moderately increased albuminuria: 30-300 ug/mg Creatinine Severely increased albuminuria: >300 ug/mg Creatinine Urine URINE / Unknown Urine Collect / Unknown 09/28/2023 10:37 EST 09/28/2023 10:37 EST Yahaira Garcia NP CHEMISTRY & BLOOD GAS ORDERABLES [facility] [address] [place] [address] documented in this encounter Visit Diagnoses Diagnosis Type 2 diabetes mellitus with hyperglycemia, with long-term current use of insulin ([facility])- Primary Obesity (BMI 30-39.9) Obesity, unspecified jail current use of insulin ([facility]) Encounter for long-term (current) use of insulin Insulin pump in place Insulin pump status Uses self-applied continuous glucose monitoring device Essential hypertension Unspecified essential hypertension Diabetic polyneuropathy associated with type 2 diabetes mellitus ([facility]) documented in this encounter Discontinued Medications Medication Sig Discontinue Reason Start Date End Da te semaglutide (OZEMPIC) 2 mg/dose (8 mg/3 mL) pen injector Inject 2 mg into the skin every 7 days. 05/03/2023 09/28/2023 documented as of this encounter Care Teams Senior Game Designer Relationship Specialty Start Date End Date Rosalia Starr MD [address] [place] [address] PCP - General 11/06/16 Silvia Broussard MD [address] [place] [phone] Endocrinology, Diabetes and Metabolism 11/23/21 documented as of this encounter
--- OUTSIDE RECORDS SUMMARY | 2024-06-20 16:00 | XMS_ITS | Encounter Summary ---
Author Organization [facility] Address [address] [place] [address] Care Team Providers Care Straight Line Edger Name Role Phone Rosalia Starr MD Primary Care Provider [phone] Silvia Broussard MD Unavailable [phone] Reason for Visit * Reason Onset Date Comments Erroneous Encounter 12/06/2023 Encounter Details Date Type Department Care Team (Late st Contact Info) Description 12/06/[address] [facility] Endocrinology [address] [place] [address] Latisha Romano RN Erroneous Encounter Social History Tobacco Use Types Packs/Day Years [...] Telephone Encounter - Latisha Romano RN - 12/06/2023 1319 EST err documented in this encounter Plan of Treatment Upcoming Encounters Date Type Department Care Team (Late st Contact Info) Description 09/04/2024 13:[address] [facility] Endocrinology [address] [place] [address] José Miguel Padgett MD [address] [phone] documented as of this encounter Visit Diagnoses Not on filedocumented in this encounter Care Teams Straight Line Edger Relationship Specialty Start Date End Date Rosalia Starr MD [address] [place] [address] PCP - General 11/06/16 Silvia Broussard MD [address] [phone] Endocrinology, Diabetes and Metabolism 11/23/21 documented as of this encounter
--- OUTSIDE RECORDS SUMMARY | 2024-06-20 16:00 | XMS_ITS | Encounter Summary ---
Author Organization [facility] Address [address] [place] [address] Care Team Providers Care Civil Engineer Land Development Name Role Phone Rosalia Starr MD Primary Care Provider [phone] Silvia Broussard MD Unavailable [phone] Reason for Visit * Reason Comments Medications Refill Encounter Details Date Type Department Care Team (Late st Contact Info) Description 05/09/[address] [facility] [place] [address] [place] [address] Yahaira Garcia, SWITCH CREW SUPERVISOR 130 [facility] [address] [place] [phone] Medications Refill Social History Tobacco Use Types [...] Dispensed Refills Start Date End Da te DEXCOM G6 TRANSMITTER device APPLY 1 TO THE SKIN EVERY 90 DAYS 1 Each 3 05/09/2024 documented in this encounter Miscellaneous Notes * Telephone Encounter - Latisha Romano RN - 05/09/2024 1029 EDT Utd on visits, refilled x 1 yr documented in this encounter Plan of Treatment Upcoming Encounters Date Type Department Care Team (Late st Contact Info) Description 09/04/2024 13:30 EST Office Visit [facility] Endocrinology [address] [place], [place] [address] José Miguel Padgett MD [address] [place] [phone] documented as of this encounter Visit Diagnoses Not on filedocumented in this encounter Discontinued Medications Medication Sig Discontinue Reason Start Date End Da te Blood-Glucose Transmitter (DEXCOM G6 TRANSMITTER) device 1 application by misc (non-drug; combo route) route every 90 days. 01/25/2024 05/09/2024 documented as of this encounter Care Teams Civil Engineer Land Development Relationship Specialty Start Date End Date Rosalia Starr MD [address] [place] [phone] PCP - General 11/06/16 Silvia Broussard MD [address] [place] [phone] Endocrinology, Diabetes and Metabolism 11/23/21 documented as of this encounter
--- OUTSIDE RECORDS SUMMARY | 2024-06-20 16:00 | XMS_ITS | Encounter Summary ---
Author Organization [facility] Address [address] [place] [address] Care Team Providers Care Clerical Administrator Name Role Phone Rosalia Starr MD Primary Care Provider [phone] Silvia Broussard MD Unavailable [phone] Reason for Visit * Reason Onset Date Comments Medication Management 05/02/2024 Encounter Details Date Type Department Care Team (Late st Contact Info) Description 05/02/2024 Telephone [facility] [place] [address] [place] [address] Yessi De La Torre RN Medication Management Social History Tobacco Use Types Packs/Day Years [...] Start Date End Da te tirzepatide (MOUNJARO) 7.5 mg/0.5 mL pen injectorIndications:Type 2 diabetes mellitus with hyperglycemia, with long-term current use of insulin ([facility]) Inject 7.5 mg into the skin once a week. 2 mL 3 05/05/2024 05/05/2024 documented in this encounter Miscellaneous Notes * Telephone Encounter - Yessi De La Torre RN - 05/05/2024 1346 EDT See My Chart message. * Telephone Encounter - Yahaira Garcia NP - 05/05/2024 1059 EDT Okay to increase mounjaro 7.5 mg weekly if able to find supply. If not, okay to continue with mounjaro 5 mg weekly as well. Will adjust pump if needed at visit this week. Thanks. * Telephone Encounter - Yessi De La Torre RN - 05/02/2024 1333 EDT LMOM asking if a new rx for the next (increased) dose of Mounjaro could be sent to the pharmacy now. Her last dose of the 5 mg is due next , and she also has an appt here that day. Reasoning is that she knows it may be difficult to find the med in the pharmacy so wants to get a head start. documented in this encounter Plan of Treatment Upcoming Encounters Date Type Department Care Team (Late st Contact Info) Description 09/04/2024 13:30 EST Office Visit [facility] Endocrinology [address] [place] [address] José Miguel Padgett MD 130 [facility] [address] [place] [phone] documented as of this encounter Visit Diagnoses Diagnosis Type 2 diabetes mellitus with hyperglycemia, with long-term current use of insulin ([facility])- Primary documented in this encounter Care Teams Clerical Administrator Relationship Specialty Start Date End Date Rosalia Starr MD [address] [place] [address] PCP - General 11/06/16 Silvia Broussard MD [address] [place] [phone] Endocrinology, Diabetes and Metabolism 11/23/21 documented as of this encounter
--- OUTSIDE RECORDS SUMMARY | 2024-06-20 16:00 | XMS_ITS ---
Author Organization Unknown Address [address] [place] [phone] Phone Care Team Providers Care Coat Examiner Name Role Phone MG LI Attending Unavailable IRMA Betancourt Primary Unavailable Results HEMOGLOBIN A1C* - Collect Da te/Time: 05/23/2024 12:58 [facility] ID: [id number] - [id number] [address] [place] [address], [address] LOINC: 4548-4 Test Value Unit Reference Range Code Code System Flag Hgb A1c 6.3 % L=3.8 H=5.7 4548-4 LOINC H MEAN BLOOD GLUCOSE 124 mg/dL 27937-9 LOINC Social History Type Status Start Date End Date Code Code Syst em Smoking History Never smoker (Never Smoked) 257191191 SNOMED CT Sex Female Assessment You had [...] Status Code Code System ACID REFLUX active 169263235 SNOMED-C T DIABETES 2 active 17977221 SNOMED-CT HTN active 56990706 SNOMED-CT Allergies and Adverse Reactions Allergy Substance Reaction Severity Start Date Concern Status Code Code System PENICILLINS (CLASS) Hives (SNOMED-CT: 941588548) Moderate Active 70859 RxNorm AMPICILLIN Hives (SNOMED-CT: 459808203) Moderate Active 597670 RxNorm SEASONAL Moderate Active Plan of Treatment Exposure 08/20/2020 LAB DRAW 15MIN 11/19/2023 LAB DRAW 15MIN 04/26/2023 NM MPI STR/RST 06/08/2022 MM SCREEN BILAT 11/11/2021 LAB DRAW 15MIN 10/05/2021 SYMPTOMS 08/13/2021 Encounters Encounter Diagnosis Start Date Code Code Sys tem Hyperglycemia due to type 2 diabetes mellitus 05/23/20 24 153086340850775 SNOMED-CT Personal Care Team Section Performer Name Performer Role Active Date Inactive Da te
--- OUTSIDE RECORDS SUMMARY | 2024-06-20 16:00 | XMS_ITS | Encounter Summary ---
Author Organization [facility] Address [address] [place] [address] Care Team Providers Care Transportation Engineering Technician Name Role Phone Rosalia Starr MD Primary Care Provider [phone] Silvia Broussard MD Unavailable [phone] Reason for Visit * Reason Onset Date Comments Diabetes 05/17/2023 Changed cartridg e yesterday, has to change her site today questions Encounter Details Date Type Department Care Team (Late st Contact Info) Description 05/17/[address] [facility] Endocrinology [address] [place] [address] Geraldine Strnage, RN [address] [place] [address] Diabetes (Changed cartridge yesterday, has to change her site today questions) Social History Tobacco Use Types Packs/Day Years [...] encounter Miscellaneous Notes * Telephone Encounter - Geraldine Strange, RN - 05/17/2023 1356 EDT Her insulin needs are high enough that she required cartridge fill yesterday, tubing and site today. Process reviewed. documented in this encounter Plan of Treatment Upcoming Encounters Date Type Department Care Team (Late st Contact Info) Description 09/04/2024 13:30 EST Office Visit [facility] Endocrinology [address] [place] [address] José Miguel Padgett MD [address] [place] [phone] documented as of this encounter Visit Diagnoses Not on filedocumented in this encounter Care Teams Transportation Engineering Technician Relationship Specialty Start Date End Date Rosalia Starr MD [address] [place] [phone] PCP - General 11/06/16 Silvia Broussard MD [address] [place] [phone] Endocrinology, Diabetes and Metabolism 11/23/21 documented as of this encounter
--- OUTSIDE RECORDS SUMMARY | 2024-06-20 16:00 | XMS_ITS | Encounter Summary ---
Author Organization [facility] Address [address] [place] [address] Care Team Providers Care Sales And Marketing Administrator Name Role Phone Rosalia Starr MD Primary Care Provider [phone] Silvia Broussard MD Unavailable [phone] Encounter Details Date Type Department Care Team (Late st Contact Info) Description 04/22/2024 Lab Requisition [facility] Pathology & Laboratory Medicine - [address] [address] Outr Resulting Lab, Provider Social History Tobacco Use Types Packs/Day Years [...] :24 EST documented as of this encounter Plan of Treatment Upcoming Encounters Date Type Department Care Team (Late st Contact Info) Description 09/04/2024 13:30 EST Office Visit [facility] Endocrinology [address], [place] [address] José Miguel Padgett MD [address] [facility] [address] [place] [phone] documented as of this encounter Procedures Procedure Name Priority Date/Time Associated Diagnosis Comments VITAMIN B12 Routine 04/22/2024 7:42 EDT documented in this encounter Results * VITAMIN B12 (04/22/2024 7:42 EDT) Vitamin B12 345 211 - 911 pg/mL 04/22/2024 19:24 EDT [facility] Blood VENOUS BLOOD / Unknown 04/22/2024 7:42 EDT 04/22/2024 18:01 EDT Provider Outr Resulting Lab CHEMISTRY & BLOOD GAS ORDERABLES [facility] [address] [place], [place] [phone] documented in this encounter Visit Diagnoses Not on filedocumented in this encounter Care Teams Sales And Marketing Administrator Relationship Specialty Start Date End Date Rosalia Starr MD [address] [place] [phone] PCP - General 11/06/16 Silvia Broussard MD [address] [place] [address] [address] [place] [phone] Endocrinology, Diabetes and Metabolism 11/23/21 documented as of this encounter
--- OUTSIDE RECORDS SUMMARY | 2024-06-20 16:00 | XMS_ITS | Encounter Summary ---
Author Organization [facility] Address [address] [place] [address] Care Team Providers Care Supervisor Receiving And Processing Name Role Phone Rosalia Starr MD Primary Care Provider Silvia Broussard MD Unavailable [phone] Reason for Visit * Reason Onset Date Comments Medications Refill 10/04/2023 Encounter Details Date Type Department Care Team (Late st Contact Info) Description 10/04/2023 Refill [facility] [place] [address] [place] [phone] Latisha Romano RN Medications Refill Social History Tobacco Use Types [...] hyperglycemia, with long-term current use of insulin ([facility]) Inject 0.5 mL into the skin once a week. E11.9 6 mL 3 10/04/2023 11/14/2023 documented in this encounter Miscellaneous Notes * Telephone Encounter - Latisha Romano RN - 10/04/2023 1537 EST Call from [facility] requesting mounjaro be sent there- rx sent documented in this encounter Plan of Treatment Upcoming Encounters Date Type Department Care Team (Late st Contact Info) Description 09/04/2024 13:30 EST Office Visit [facility] Endocrinology [address] [place] [address] José Miguel Padgett MD [address] [phone] documented as of this encounter Visit Diagnoses Diagnosis Type 2 diabetes mellitus with hyperglycemia, with long-term current use of insulin ([facility])- Primary documented in this encounter Discontinued Medications Medication Sig Discontinue Reason Start Date End Da te tirzepatide (MOUNJARO) 2.5 mg/0.5 mL pen injectorIndications:Type 2 diabetes mellitus with hyperglycemia, with long-term current use of insulin ([facility]) Inject 0.5 mL into the skin once a week. Reorder 09/28/2023 10/04/2023 documented as of this encounter Care Teams Supervisor Receiving And Processing Relationship Specialty Start Date End Date Rosalia Starr MD [address] [place] [phone] PCP - General 11/06/16 Silvia Broussard MD [address] [place] [phone] Endocrinology, Diabetes and Metabolism 11/23/21 documented as of this encounter
--- OUTSIDE RECORDS SUMMARY | 2024-06-20 16:00 | XMS_ITS | Clinical Summary ---
Author Organization [facility] Address [address] [place] [address] Care Team Providers Care Deicer Inspector Pneumatic Name Role Phone Rosalia Starr MD Primary Care Provider [phone] Silvia Broussard MD Unavailable [phone] Allergies Active Allergy Reactions Criticality Noted Date Comments Semaglutide Diarrhea,GI upset Low 09/28/2023 Penicillin 06/18/2019 Other reaction(s): Unknown Liraglutide 09/28/2023 Unspecified Medications Medication Sig Dispensed Refills Start Date End Date Status venlafaxine (EFFEXOR-XR) 75 mg XR capsule Take with 37.5 mg tab 08/31/2019 Active lisinopril (PRINIVIL) 40 mg tablet daily. 08/13/2019 Active insulin aspart U-100 (NOVOLOG FLEXPEN) 100 unit/mL (3 mL) injectable pen Active hydroCHLOROthiazid e (HYDRODIURIL) 25 mg tablet 1 tab(s) orally once a day Active gabapentin (NEURONTIN) 300 mg capsule 3 tabs orally 3 times a day Active citalopram (CELEXA) 20 mg tablet 1 tab(s) orally once a day Active atorvastatin (LIPITOR) 20 mg tablet 1 tab(s) orally once a day Active aspirin 81 mg EC tablet 1 tab(s) orally once a day Active insulin pen needles 32G x 5/32 Active Infusion Set for Insulin Pump infusion set . Subcutanous insertion every 3 days Active insulin pump controller misc [employer] Active glucagon,human recombinant (GLUCAGON EMERGENCY KIT, HUMAN, INJECTION) Active blood glucose test strips Active albuterol 90 mcg/actuation inhaler Active venlafaxine (EFFEXOR-XR) 37.5 mg XR capsule Take by mouth daily. 06/15/2020 A ctive pantoprazole (PROTONIX) 40 mg tablet Take 1 Tablet by mouth daily. 07/30/2020 Active magnesium oxide (MAG-OX) 400 mg (241.3 mg magnesium) tablet Take 1 Tablet by mouth daily. Active insulin aspart U-100 (NOVOLOG U-100 INSULIN ASPART) 100 unit/mL injection daily subcutaneously continuously via pump 10 Vial 3 03/21/2021 Active dapagliflozin (FARXIGA) 10 mg tablet Take 1 Tablet by mouth daily. 30 Tablet 11 07/29/2021 Active insulin glargine,hum.rec.a nlog (BASAGLAR KWIKPEN) 100 unit/mL (3 mL) subcutaneous pen Inject 85 Units into the skin at bedtime. 15 mL 5 10/06/2022 Active Additional Information Patient taking differently:85 Units subcutaneous AT BEDTIME,For pump failure, Reported on 09/28/2023 fluticasone propionate (FLONASE) 50 mcg/actuation nasal spray Per patient - uses PRN 05/23/2022 Active UNABLE TO FIND Iron. Low dose 1 low dose tab daily Active Blood-Glucose Sensor (DEXCOM G6 SENSOR) device Inject 1 Units into the skin every 10 hours. 9 Each 3 01/25/2024 Active tirzepatide (MOUNJARO) 7.5 mg/0.5 mL pen injectorIndication s:Type 2 diabetes mellitus with hyperglycemia, with long-term current use of insulin ([facility]) Inject 7.5 mg into the skin once a week. 2 mL 3 05/05/2024 Active DEXCOM G6 TRANSMITTER device APPLY 1 TO THE SKIN EVERY 90 DAYS 1 Each 3 05/09/2024 Active LORazepam (ATIVAN) 0.5 mg tablet TAKE ONE TABLET BY MOUTH 30 TO 60 MINUTES BEFORE PROCEDURE. MAY REPEAT ONCE IF NEEDED 05/21/2024 Active Active Problems Problem Noted Date Diagnosed Date Vitamin D deficiency 05/28/2024 Last Assessment & Plan: Start vitamin d 3000 units daily. B12 on lower normal side Start b12 1000 mcg daily Uses self-applied continuous glucose monitoring device 05/03/[address] 10/05/2022 Type 2 diabetes mellitus with hyperglycemia ([facility]) 08/09/2020 Last Assessment & Plan: Controlled A1C 6.3 CGM data looks great, congratulated on successful changes! No pump changes today, encouraged to accurately bolus carbs prior to eating as best able, discussed can give bolus after first few bites if nervous going to go low. Continue with mounjaro 7.5 mg weekly and farxiga 10 mg daily. Encouraged to update pump portal.[employer] to be able to use G7 sensors as well. Continue with dexcom Cgm. Reach out with lows <70's more than twice weekly. Keep up with daily hydration in water, balanced meals and activity daily as able. Follow-up in 2-3 months or sooner with concerns. Pending ongoing tolerability and weight loss with mounjaro, can increase and adjust pump settings as needed. 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 Diabetic polyneuropathy ([facility]) 08/09/2020 Last Assessment & Plan: stable Resolved Problems Problem Noted Date Diagnosed Date Resolved Date Diabetes mellitus ([facility]) 08/09/2020 10/05/2022 Encounters Date Type Department Care Team Description 06/04/2024 Lab Requisition [facility] Pathology & Laboratory Medicine - [address] [address] Silvia Zurita Melanocytic nevi of trunk 05/28/2024 15:30 EDT Telemedicine [facility] Endocrinology [address] [place], [place] [phone] Yahaira Garcia, ARIANNA Type 2 diabetes mellitus with hyperglycemia, with long-term current use of insulin ([facility]) (Primary Dx); Obesity (BMI 30-39.9); 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[facility]); Insulin pump in place; Essential hypertension; Uses self-applied continuous glucose monitoring device; Vitamin D deficiency; Diabetic polyneuropathy associated with type 2 diabetes mellitus ([facility]) 05/09/2024 Refill [facility] Endocrinology [address] [place] [address] Yahaira Garcia NP Medications Refill 05/02/2024 Telephone [facility] Endocrinology [address] [place] [address] Yessi De La Torre RN Medication Management 04/22/2024 Lab Requisition [facility] Pathology & Laboratory [address] [address] Outr Resulting Lab, Provider 04/22/2024 Lab Requisition [facility] Pathology Laboratory [address] [address] Outr Resulting Lab, Provider from Last 3 Months Social History [...] Sexual Orientation Straight 12/04/2022 14 :24 EST Obstetrics History Last Filed Vital Signs Vital Sign Reading Time Taken Comments Blood Pressure 124/60 02/22/2024 1058 EDT Pulse 72 02/22/2024 1058 EDT Temperature 36.5 ??C (97.7 ??F) 08/19/2021 1700 EDT Respiratory Rate 18 02/22/2024 1058 EDT Oxygen Saturation 97% 08/19/2021 1700 EDT Inhaled Oxygen Concentration - - Weight 83.5 kg (184 lb) 05/28/2024 1523 EDT Height 157.5 cm (5' 2) 05/28/2024 1523 EDT Body Mass Index 33.65 05/28/2024 1523 EDT Plan of Treatment Upcoming Encounters Date Type Department Care Team (Late st Contact Info) Description 09/04/2024 13:30 EST Office Visit [facility] Endocrinology [address] [place] [address] José Miguel Padgett MD 130 [facility] [address] [place] [phone] Health Maintenance Due Date Last Done Comments Hepatitis C Screen 1969 Lipid Profile Screening (Cholesterol) 1972 Hepatitis B Vaccine (1 of 3 - 19+ 3-dose series) 1988 COVID-19 Vaccine (2022-2 4 season) 2023 Foot Exam 05/03/2024 05/03/2023, 05/03/2023 Hemoglobin A1C (Ha1C) 08/23/2024 02/22/2024 , 05/03/2023, 02/22/2023, Additional history exists Microalbumin/Creatinine Ratio 09/28/2024, 06/28/2022, 08/09/2020, Additional history exists Eye Exam 11/02/2024 11/02/2023 Procedures Procedure Name Priority Date/Time Associated Diagnosis Comments SURGICAL PATHOLOGY Today 06/03/2024 16 :06 EDT Melanocytic nevi of trunk VITAMIN D (25,OH) Routine 04/22/2024 7:4 2 EDT VITAMIN B12 Routine 04/22/2024 7:42 EDT POCT HEMOGLOBIN A1C Routine 02/22/2024 Type 2 diabetes mellitus with hyperglycemia, with long-term current use of insulin ([facility]) URINE [id number] E RATIO (ACR) Routine 09/28/2023 10:37 EST Type 2 diabetes mellitus with hyperglycemia, with long-term current use of insulin ([facility]) from Last 3 Months or Most Recently Relevant to Health Maintenance Results * SURGICAL PATHOLOGY (06/03/2024 16:06 EDT) Note to Patient The following pathology results have been interpreted by your pathologist and may be available to you before your health provider has had the opportunity to review them. Please allow time for your provider to receive these results and explore management options, if applicable. 06/06/2024 10:34 [facility] Final Diagnosis A. SKIN OF MID BACK, RIGHT SUPERIOR MEDIAL, EXCISION: - Dermal scar, consistent with prior biopsy site. - No residual atypical nevus identified. 06/06/2024 10:34 [facility] Attestation By the signature below, the attending physician certifies that they have 1) personally conducted a gross and/or microscopic examination of the described specimen(s), and/or personally interpreted the results of laboratory testing of the described specimen(s), and 2) personally rendered or confirmed the above diagnosis. 06/06/2024 10:34 [facility] at 1034 Clinical History Appropriately healing biopsy site with evidence of reoccurrence; DDx: Severely atypical nevus; Notes: Please check margins; clinical diagnosis code: D48.5 06/06/2024 10:34 [facility] Gross Description A. Received in formalin labelled with proper patient identification (initials W, L) and right superior medial midback is an unoriented elliptical excision of white skin (5.3 x 1.6 cm, excised to a depth of 1.0 cm). There is a white, scaly, centrally depressed scar with peripheral bullock pigmentation (1.1 x 0.9 x 0.1 cm). The margins are inked blue. The specimen is serially sectioned and entirely submitted as A1 tips, reverse en face and A2-A9 central sections. LYNDON SCHWARTZ(ASCP) 06/04/2024 14:38 06/06/2024 10:34 [facility] Performing Lab [facility] 06/06/2024 10:34 [facility] Scanned Images 06/06/2024 10:34 [facility] Tissue SPECIMEN FROM SKIN / Unknown 06/03/2024 16:06 EDT 06/04/2024 14:02 EDT Silvia Zurita PATHOLOGY ORDERABLES Performing Organization Address City/[facility]/ZIP Co de Phone Number [facility] [address] [place] [address] * (ABNORMAL) VITAMIN D (25,OH) (04/22/2024 7:42 EDT) 25OH Vitamin D Tot 21(L) 30 - 100 ng/mL 04/23/2024 13:03 EDT [facility] Comment: Vitamin D 25,OH Interpretive Ranges: Deficiency: ??<10.0 ng/mL Insufficiency: ??10.0 - 30.0 ng/mL Sufficiency: ??30.0 - 100.0 ng/mL Toxicity: ??>100.0 ng/mL Blood VENOUS BLOOD / Unknown 04/22/2024 7:42 EDT 04/22/2024 18:01 EDT Provider Outr Resulting Lab CHEMISTRY & BLOOD GAS ORDERABLES Performing Organization Address City/[facility]/ZIP Co de Phone Number [facility] [address] [place] [address] * VITAMIN B12 (04/22/2024 7:42 EDT) Vitamin B12 345 211 - 911 pg/mL 04/22/2024 19:24 EDT [facility] Blood VENOUS BLOOD / Unknown 04/22/2024 7:42 EDT 04/22/2024 18:01 EDT Provider Outr Resulting Lab CHEMISTRY & BLOOD GAS ORDERABLES Performing Organization Address City/[facility]/ZIP Co de Phone Number [facility] [address] [place] [address] * (ABNORMAL) POCT HEMOGLOBIN A1C (02/22/2024) Hemoglobin A1c, POC 7.3(A) 5.7 % [facility] POINT OF CARE Blood CAPILLARY BLOOD / Unknown 02/22/2024 Yahaira Garcia NP POINT OF CARE MARLEN T ORDERABLES [facility] POINT OF CARE * URINE [id number] RATIO (ACR) (09/28/2023 10:37 EST) Albumin, Urine <0.6 See Note mg/dL 09/28/2023 20:26 [facility] Comment: NOTE: Reference range not established Creatinine, Urine 58.6 See Note mg/dL 09/28/2023 20:26 [facility] Comment: NOTE: Reference range not established Lab Urine Albumin to Creatinine Ratio 09/28/2023 20:26 [facility] Comment: Unable to calculate due to albumin result <0.6. Urine Albumin/Creatinine Ratio: Normal: <30 ug/mg Creatinine Moderately increased albuminuria: 30-300 ug/mg Creatinine Severely increased albuminuria: >300 ug/mg Creatinine Urine URINE / Unknown Urine Collect / Unknown 09/28/2023 10:37 EST 09/28/2023 10:37 EST Yahaira Garcia NP CHEMISTRY & BLOOD GAS ORDERABLES Performing Organization Address City/[facility]/ZIP Co de Phone Number [facility] [address] [place] [address] from Last 3 Months or Most Recently Relevant to Health Maintenance Care Teams Deicer Inspector Pneumatic Relationship Specialty Start Date End Date Rosalia Starr MD [address] [facility] [phone] PCP - General 11/06/16 Silvia Broussard MD [address] [place] [phone] Endocrinology, Diabetes and Metabolism 11/23/21
--- OUTSIDE RECORDS SUMMARY | 2024-06-20 16:00 | XMS_ITS | Encounter Summary ---
Author Organization [facility] Address [address] [place] [address] Care Team Providers Care Scorer Single Name Role Phone Rosalia Starr MD Primary Care Provider [phone] Silvia Broussard MD Unavailable [phone] Reason for Visit * Reason Comments Diabetes Encounter Details Date Type Department Care Team (Latest Contact Info) Description 02/22/2024 11:15 EDT Office Visit [facility] Endocrinology [address] [place] [address] Yahaira Garcia, ARIANNA [address] [facility] [address] [place] [phone] Type 2 diabetes mellitus with hyperglycemia, with long-term current use of insulin ([facility]) (Primary Dx); [facility] current use of insulin (HCC-CMS); Insulin pump in place; Obesity (BMI 30-39.9); Essential hypertension; Uses self-applied continuous glucose monitoring device; Diabetic polyneuropathy associated with type 2 diabetes mellitus (HCC-CMS); Vitamin D deficiency Social History Tobacco Use Types Packs/Day Years [...] EDT Pulse 72 02/22/2024 1058 EDT Temperature - - Respiratory Rate 18 02/22/2024 1058 EDT Oxygen Saturation - - Inhaled Oxygen Concentration - - Weight 86.6 kg (191 lb) 02/22/2024 1058 EDT Height 157.5 cm (5' 2) 02/22/2024 1058 EDT Body Mass Index 34.93 02/22/2024 1058 EDT documented in this encounter Patient Instructions * Patient Instructions* Yahaira Garcia NP - 02/22/2024 11:15 EDT A1C 7.3 Cgm data looks great! Adjusted carb ratio with dinner to give more insulin. Adjusted correction during the day/evening to give more insulin. Keep up with great bolus habits and accurately accounting for carbs as best able! Discussed giving half carbs prior to eating if uncertain going to eat entirety of meal, giving restat end if finished whole meal, etc. Continue with farxiga 10 mg daily and Mounjaro 5 mg weekly injection. Continue to use dexcom CGM Discussed updated pump on portal.Frogdice to be able to use G7 sensors as well. Keep up with daily hydration in water, balanced meals and activity daily as able. Follow-up in 2-3 months or sooner with concerns. Fasting labs prior to next visit. Make eye exam! documented in this encounter Progress Notes * Latisha Romano RN - 02/22/2024 1115 EDT Needs eye - [facility] and back up plan Lab Results Component Value Date UABCR 09/28/2023 Comment: Unable to calculate due to albumin result <0.6. Urine Albumin/Creatinine Ratio: Normal: <30 ug/mg Creatinine Moderately increased albuminuria: 30-300 ug/mg Creatinine Severely increased albuminuria: >300 ug/mg Creatinine HGBA1C 8.1 (A) 05/03/2023 POCT A!C performed by Latisha Romano RN , consent given by pt, pt. Tolerated well, ordering providerYahaira Garcia NP, site accessed l 2nd finger * Yahaira Garcia NP - 02/22/2024 1115 EDT Reason for Visit: DM f/up PCP: Dr. Rosalia Starr OTHER PROVIDERS: Elizabeth Corrigan is a 53 y.o. female who presented in clinic for a follow-up in [place], [place], with a history of DM since 1994. Hx of HTN, HLD, neuropathy, iron infusions/PHILIP. Works as [employer]. Lives with . Adult kids, 3. All live nearby. Mentions will be getting EUFLEXXA injections upcoming in knee, questions if going to affect BG's. Is going through OT as well for shoulder. Potential to get steroid injection there as well. Has switched over to the mounjaro, increase dose 2 weeks ago, tolerating this well. Has lower appetite with this as well. Has lost 5# with this. Was having a lot of lows when initially starting, made adjustments with FAIZA Strange 1 mo ago. Minimal lows with these changes. Random BG in clinic 125 had protein shake about 2 hrs ago, did bolus for this. Continues to not shut off pump. Bolusing before eating! Does get nervous about bolusing for entirety of meal as not sure going to eat whole meal and going low. Does use exercise mode, starts at start of activity, does still get lows with walking nearly at endor after. Infusion set changes 1.5 days. Did not look into [facility] program. [facility] DM: heavy on moms side Recent A1C: 7.3 (01/2024) 7.1(10/2023) miguel 8.1 (04/2023) 8 (01/2023) 8.4 (11/2022) Diabetic Medications: tandem pump w/ dexcom Mounjaro 5 mg weekly lantus 82 units in case of pump failure farxiga [...] Problems Eye exam current (within one year): [facility] Provider: Last dental exam: JESSICA, has full false teeth for about 1 year now. CVD,PVD,CAD: HTN, HLD Statin: atorvastatin 20 mg, LDL at goal (03/2023) Aspirin: no ACEI/ARB: lisinopril 40 mg Prior visit with tare weigher/DM education: FAIZA Strange Foot care: self Comorbidities: Retinopathy: yes, small dot/blot hemes Stable: Nephropathy/Kidney function: GFR 70 (03/2023) No results found for: CALCGFR MCR up to date? Lab Results Component Value Date Lab Urine [...] CGM INTERPRETATION Type of CGM: dexcom personal 02/08-02/22/2024 Type of DM: II Diabetic Medications: Farxiga Mounjaro novolog in pump Indication for monitoring: hyper/hypoglycemia, insulin dosing Report Interpretation: Average glucose 173 mg/dL, standard deviation 48 TIR 62%, TAR 37%, TBR 0% Nocturnal glucose control: yes Post-prandial glucose excursions: w/ dinner more often, intermittent w/ lunch Hypoglycemia incidence: minimal Other (exercise/activity): Hemoglobin A1c, POC Date Value Ref Range Status 02/22/2024 7.3 (A) 5.7 % Final Lab Results Component [...] presented in clinic for a follow-up in [place], with a history of DM since 1994. Problem List Items Addressed This Visit Endocrine/Metabolic Type 2 diabetes mellitus with hyperglycemia ([facility]) - Primary Nearly controlled A1C 7.3 Cgm data looks great! Adjusted carb ratio with dinner to give more insulin. Adjusted correction during the day/evening to give more insulin. Keep up with great bolus habits and accurately accounting for carbs as best able! Discussed giving half carbs prior to eating if uncertain going to eat entirety of meal, giving restat end if finished whole meal, etc. Continue with farxiga 10 mg daily and Mounjaro 5 mg weekly injection. Continue to use dexcom CGM Discussed updated pump on portal.Frogdice to be able to use G7 sensors as well. Keep up with daily hydration in water, balanced meals and activity daily as able. Follow-up in 2-3 months or sooner with concerns. Discussed going low and slow with mounjaro to tolerate better. Fasting labs prior to next visit. Make eye exam! Back up plan today. Relevant Orders POCT HEMOGLOBIN A1C (Completed) LIPID PROFILE (INCLUDES CHOLESTEROL, TRIGLYCERIDES, HDL, LDL) COMPREHENSIVE METABOLIC PANEL (CMP) THYROID CASCADE VITAMIN D (25,OH) VITAMIN B12 Obesity (BMI 30-39.9) [facility] current use of insulin (HCC-CMS) Insulin pump in place Cardiac/Vasculature Essential hypertension BP at goal. Fasting labs prior to our next visit. Neurological Diabetic polyneuropathy ([facility]) Stable on gabapentin twice daily Other Uses self-applied continuous glucose monitoring device Other Visit Diagnoses Vitamin D deficiency Relevant Orders VITAMIN D (25,OH) Patient Goals: A1C <7% Exercise: 150-300 minutes [...] Plan Note - Yahaira Garcia NP - 02/22/2024 1136 EDT Associated Problem(s): Diabetic polyneuropathy ([facility]) Stable on gabapentin twice daily * Assessment & Plan Note - Yahaira Garcia NP - 02/22/2024 1131 EDT Associated Problem(s): Type 2 diabetes mellitus with hyperglycemia ([facility]) Nearly controlled A1C 7.3 Cgm data looks great! Adjusted carb ratio with dinner to give more insulin. Adjusted correction during the day/evening to give more insulin. Keep up with great bolus habits and accurately accounting for carbs as best able! Discussed giving half carbs prior to eating if uncertain going to eat entirety of meal, giving restat end if finished whole meal, etc. Continue with farxiga 10 mg daily and Mounjaro 5 mg weekly injection. Continue to use dexcom CGM Discussed updated pump on portal.Frogdice to be able to use G7 sensors as well. Keep up with daily hydration in water, balanced meals and activity daily as able. Follow-up in 2-3 months or sooner with concerns. Discussed going low and slow with mounjaro to tolerate better. Fasting labs prior to next visit. Make eye exam! Back up plan today. * Assessment & Plan Note - Yahaira Garcia NP - 02/22/2024 1116 EDT Associated Problem(s): Essential hypertension BP at goal. Fasting labs prior to our next visit. documented in this encounter Plan of Treatment Upcoming Encounters Date Type Department Care Team (Late st Contact Info) Description 09/04/2024 13:[address] [facility] Endocrinology [address] [place] [address] José Miguel Padgett MD [address] [phone] Scheduled Orders Name Type Priority Associated Diagnoses Orde r Schedule LIPID PROFILE (INCLUDES CHOLESTEROL, TRIGLYCERIDES, HDL, LDL) Lab Routine Type 2 diabetes mellitus with hyperglycemia, with long-term current use of insulin ([facility]) Expected: 02/23/2024 (Approximate), Expires: 02/21/2025 COMPREHENSIVE METABOLIC PANEL (CMP) Lab Routine Type 2 diabetes mellitus with hyperglycemia, with long-term current use of insulin ([facility]) Expected: 02/23/2024 (Approximate), Expires: 02/21/2025 THYROID CASCADE Lab Routine Type 2 diabetes mellitus with hyperglycemia, with long-term current use of insulin ([facility]) Expected: 02/23/2024 (Approximate), Expires: 02/21/2025 VITAMIN D (25,OH) Lab Routine Type 2 diabetes mellitus with hyperglycemia, with long-term current use of insulin ([facility]) Vitamin D deficiency Expected: 02/23/2024 (Approximate), Expires: 02/21/2025 VITAMIN B12 Lab Routine Type 2 diabetes mellitus with hyperglycemia, with long-term current use of insulin ([facility]) Expected: 02/22/2024 (Approximate), Expires: 02/21/2025 documented as of this encounter Procedures Procedure Name Priority Date/Time Associated Diagnosis Comments POCT HEMOGLOBIN A1C Routine 02/22/2024 Type 2 diabetes mellitus with hyperglycemia, with long-term current use of insulin ([facility]) documented in this encounter Results * (ABNORMAL) POCT HEMOGLOBIN A1C (02/22/2024) Hemoglobin A1c, POC 7.3(A) 5.7 % [facility] POINT OF CARE Blood CAPILLARY BLOOD / Unknown 02/22/2024 Yahaira Garcia RED LEADER POINT OF CARE MARLEN T ORDERABLES [facility] POINT OF CARE documented in this encounter Visit Diagnoses Diagnosis Type 2 diabetes mellitus with hyperglycemia, with long-term current use of insulin ([facility])- 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 current use of insulin ([facility]) Encounter for long-term (current) use of insulin Insulin pump in place Insulin pump status Obesity (BMI 30-39.9) Obesity, unspecified Essential hypertension Unspecified essential hypertension Uses self-applied continuous glucose monitoring device Diabetic polyneuropathy associated with type 2 diabetes mellitus ([facility]) Vitamin D deficiency Unspecified vitamin D deficiency documented in this encounter Discontinued Medications Medication Sig Discontinue Reason Start Date End Da te tirzepatide (MOUNJARO) 2.5 mg/0.5 mL pen injectorIndications:Type 2 diabetes mellitus with hyperglycemia, with long-term current use of insulin ([facility]) Inject 0.5 mL into the skin once a week. E11.9 11/30/2023 02/22/2024 documented as of this encounter Care Teams Scorer Single Relationship Specialty Start Date End Date Rosalia Starr MD [address] [place] [phone] PCP - General 11/06/16 Silvia Broussard MD [address] [place] [phone] Endocrinology, Diabetes and Metabolism 11/23/21 documented as of this encounter
--- OUTSIDE RECORDS SUMMARY | 2024-06-20 16:00 | XMS_ITS | Referral Summary ---
Author Organization [facility] Address [address] [place] [address] Care Team Providers Care Technical Communication Teacher Name Role Phone Rosalia Starr MD Primary Care Provider [phone] Silvia Broussard MD Unavailable [phone] Encounters Date Type Department Care Team Description 06/04/2024 Lab Requisition [facility] Pathology & Laboratory Medicine - [address] [address] Silvia Zurita Melanocytic nevi of trunk 05/28/2024 15:30 EDT Telemedicine [facility] Endocrinology [address] [place] [address] Yahaira Garcia NP Type 2 diabetes mellitus with hyperglycemia, with long-term current use of insulin ([facility]) (Primary Dx); Obesity (BMI 30-39.9); [facility] current use of insulin ([facility]); Insulin pump in place; Essential hypertension; Uses self-applied continuous glucose monitoring device; Vitamin D deficiency; Diabetic polyneuropathy associated with type 2 diabetes mellitus ([facility]) 05/09/2024 Refill [facility] Endocrinology [address] [place] [address] Yahaira Garcia NP Medications Refill 05/02/2024 Telephone [facility] Endocrinology [address] [place] [address] Yessi De La Torre RN Medication Management 04/22/2024 Lab Requisition [facility] Pathology & Laboratory [address] [address] Outr Resulting Lab, Provider 04/22/2024 Lab Requisition [facility] Pathology & Laboratory [address] [address] Outr Resulting Lab, Provider from Last 3 Months Allergies Active Allergy Reactions Criticality Noted Date [...] every 3 days Active insulin pump controller [facility] Active glucagon,human recombinant (GLUCAGON EMERGENCY KIT, HUMAN, [...] 11 07/29/2021 Active insulin glargine,hum.rec.a nlog (BASAGLAR ADAMPEN) 100 unit/mL (3 mL) subcutaneous pen Inject [...] hyperglycemia, with long-term current use of insulin ([facility]) Inject 7.5 mg into the skin once [...] 10/05/2022 Type 2 diabetes mellitus with hyperglycemia ([facility]) 08/09/2020 Last Assessment & Plan: Controlled A1C 6.3 CGM data looks great, congratulated on successful changes! No pump changes today, encouraged to accurately bolus carbs prior to eating as best able, discussed can give bolus after first few bites if nervous going to go low. Continue with mounjaro 7.5 mg weekly and farxiga 10 mg daily. Encouraged to update pump portal.EdCourage to be able to use G7 sensors [...] settings as needed. Obesity (BMI 30-39.9) 08/09/2020 [facility] current use of insulin ([facility]) 08/09 Essential hypertension 08/09/2020 Last Assessment & Plan: LDL at goal. Diabetic polyneuropathy ([facility]) 08/09/2020 Last Assessment & Plan: stable Resolved Problems Problem Noted Date Diagnosed Date Resolved Date Diabetes mellitus ([facility]) 08/09/2020 10/05/2022 Social History Tobacco Use Types Packs/Day Years [...] Sexual Orientation Straight 12/04/2022 14 :24 EST Last Filed Vital Signs Vital Sign Reading [...] Info) Description 09/04/2024 13:30 EST Office Visit [facility] Endocrinology [address] [place] [address] José Miguel Padgett MD [address] [facility] [address] [place] [phone] Procedures Procedure Name Priority Date/Time Associated Diagnosis Comments SURGICAL PATHOLOGY Today 06/03/2024 16 :06 EDT Melanocytic nevi of trunk VITAMIN D (25,OH) Routine 04/22/2024 7:4 2 EDT VITAMIN B12 Routine 04/22/2024 7:42 EDT POCT HEMOGLOBIN A1C Routine 02/22/2024 Type 2 diabetes mellitus with hyperglycemia, with long-term current use of insulin ([facility]) URINE [id number] E RATIO (ACR) Routine 09/28/2023 10:37 EST Type 2 diabetes mellitus with hyperglycemia, with long-term current use of insulin ([facility]) from Last 3 Months or Most Recently [...] explore management options, if applicable. 06/06/2024 10:34 T [facility] Final Diagnosis A. SKIN OF MID BACK, RIGHT SUPERIOR MEDIAL, EXCISION: - Dermal scar, consistent with prior biopsy site. - No residual atypical nevus identified. 06/06/2024 10:34 [facility] Attestation By the signature below, the attending physician certifies that they have 1) personally conducted a gross and/or microscopic examination of the described specimen(s), and/or personally interpreted the results of laboratory testing of the described specimen(s), and 2) personally rendered or confirmed the above diagnosis. 06/06/2024 10:34 [facility] at 1034 Clinical History Appropriately healing biopsy site with evidence of reoccurrence; DDx: Severely atypical nevus; Notes: Please check margins; clinical diagnosis code: D48.5 06/06/2024 10:34 [facility] Gross Description A. Received in [...] sections. LYNDON SCHWARTZ(ASCP) 06/04/2024 14:38 06/06/2024 10:34 [facility] Performing Lab [facility] 06/06/2024 10:34 [facility] Scanned Images 06/06/2024 10:34 [facility] Tissue SPECIMEN FROM SKIN / Unknown 06/03/2024 16:06 EDT 06/04/2024 14:02 EDT Silvia Lal Zurita PATHOLOGY ORDERABLES [facility] [address] [place] [phone] * (ABNORMAL) VITAMIN D (25,OH) (04/22/2024 7:42 EDT) 25OH Vitamin D Tot 21(L) 30 - 100 ng/mL 04/23/2024 13:03 [facility] Comment: Vitamin D 25,OH Interpretive Ranges: Deficiency: ??<10.0 ng/mL Insufficiency: ??10.0 - 30.0 ng/mL Sufficiency: ??30.0 - 100.0 ng/mL Toxicity: ??>100.0 ng/mL Blood VENOUS BLOOD / Unknown 04/22/2024 7:42 EDT 04/22/2024 18:01 EDT Provider Outr Resulting Lab CHEMISTRY & BLOOD GAS ORDERABLES Performing Organization Address City/[facility]/ZIP Co de Phone Number [facility] [address] [place] [address] * VITAMIN B12 (04/22/2024 7:42 EDT) Vitamin B12 345 211 - 911 pg/mL 04/22/2024 19:24 EDT [facility] Blood VENOUS BLOOD / Unknown 04/22/2024 7:42 EDT 04/22/2024 18:01 EDT Provider Outr Resulting Lab CHEMISTRY & BLOOD GAS ORDERABLES Performing Organization Address [facility] Co de Phone Number [facility] [address] [place], [place] [phone] * (ABNORMAL) POCT HEMOGLOBIN A1C (02/22/2024) Hemoglobin A1c, POC 7.3(A) 5.7 % [facility] POINT OF CARE Blood CAPILLARY BLOOD / Unknown 02/22/2024 Yahaira Garcia NP POINT OF CARE MARLEN T ORDERABLES Performing Organization Address [facility] Co de Phone Number [facility] POINT OF CARE * URINE [id number]-[id number]-[id number] RATIO (ACR) (09/28/2023 10:37 EST) Albumin, Urine <0.6 See Note mg/dL 09/28/2023 20:26 [facility] Comment: NOTE: Reference range not established Creatinine, Urine 58.6 See Note mg/dL 09/28/2023 20:26 [facility] Comment: NOTE: Reference range not established Lab Urine Albumin to Creatinine Ratio 09/28/2023 20:26 [facility] Comment: Unable to calculate due to albumin result <0.6. Urine Albumin/Creatinine Ratio: Normal: <30 ug/mg Creatinine Moderately increased albuminuria: 30-300 ug/mg Creatinine Severely increased albuminuria: >300 ug/mg Creatinine Urine URINE / Unknown Urine Collect / Unknown 09/28/2023 10:37 EST 09/28/2023 10:37 EST Yahaira Garcia NP CHEMISTRY & BLOOD GAS ORDERABLES [facility] [address] [place] [phone] from Last 3 Months or Most Recently Relevant to Health Maintenance Care Teams Technical Communication Teacher Relationship Specialty Start Date End Date Rosalia Starr MD [address] [place] [phone] PCP - General 11/06/16 Silvia Broussard MD [address] [place] [phone] Endocrinology, Diabetes and Metabolism 11/23/21
--- OUTSIDE RECORDS SUMMARY | 2024-06-20 16:00 | XMS_ITS | Encounter Summary ---
Author Organization [facility] Address [address] [place] [address] Care Team Providers Care Demolition Worker Name Role Phone Rosalia Starr MD Primary Care Provider [phone] Silvia Broussard MD Unavailable [phone] Reason for Visit * Reason Onset Date Comments Prior Auth, Medication 11/15/2023 Encounter Details Date Type Department Care Team (Late st Contact Info) Description 11/15/2023 Telephone [facility] Endocrinology [address] [place] [address] Latisha Romano RN Prior Auth, Medication [...] Telephone Encounter - Latisha Romano RN - 11/30/2023 1322 EST Approved, faxed to [facility] messaged * Telephone Encounter - Yessi De La Torre RN - 11/30/2023 1136 EST Rec'd TC request from [employer] for office notes. Printed and to front office to fax, with Ref # [id number]. * Telephone Encounter - Latisha Romano RN - 11/30/2023 1111 EST Pt now has new ins. Will resubmit karynro to new ins.- submitted via [employer] * Telephone Encounter - Latisha Romano RN - 11/23/2023 0900 EST Refaxed as no response * Telephone Encounter - Latisha Romano RN - 11/16/2023 1024 EST Faxed * Telephone Encounter - Latisha Romano RN - 11/15/2023 0930 EST [facility] will fax pa form * Telephone Encounter - Latisha Romano RN - 11/15/2023 0832 EST Don't have any ins. Info to do pa for christos documented in this encounter Plan of Treatment Upcoming Encounters Date Type Department Care Team (Late st Contact Info) Description 09/04/2024 13:30 EST Office Visit [facility] Endocrinology [address] [place] [address] José Miguel Padgett MD [address] [place] [phone] documented as of this encounter Visit Diagnoses Not on filedocumented in this encounter Care Teams Demolition Worker Relationship Specialty Start Date End Date Rosalia Starr MD [address] [place] [phone] PCP - General 11/06/16 Silvia Broussard MD [address] [place] [phone] Endocrinology, Diabetes and Metabolism 11/23/21 documented as of this encounter
--- OUTSIDE RECORDS SUMMARY | 2024-06-20 16:00 | XMS_ITS | Encounter Summary ---
Author Organization [facility] Address [address] [place] [address] Care Team Providers Care First Crusher Name Role Phone Rosalia Starr MD Primary Care Provider Silvia Broussard MD Unavailable [phone] Reason for Visit * Reason Onset Date Comments Diabetes 01/08/2024 Low blood sugars Encounter Details Date Type Department Care Team (Late st Contact Info) Description 01/08/2024 Telephone [facility] [place] [address] [place], [place] [phone] Geraldine Strange, FAIZA [address] [place], [place] [phone] Diabetes (Low blood sugars) Social History Tobacco Use Types Packs/Day Years [...] Miscellaneous Notes * Telephone Encounter - Geraldine Strange RN - 01/08/2024 1306 EDT Having lows since starting Mounjaro. Eating far less, no appetite. Lows also around 3am. I don't see recent data in tconnect. I asked her to open T-connect. Request made via Faraday I spoke with her. See changes in another TE documented in this encounter Plan of Treatment Upcoming Encounters Date Type Department Care Team (Late st Contact Info) Description 09/04/2024 13:30 EST Office Visit [facility] Endocrinology [address] [place] [address] José Miguel Padgett MD [address] [place] [phone] documented as of this encounter Visit Diagnoses Not on filedocumented in this encounter Care Teams First Crusher Relationship Specialty Start Date End Date Rosalia Starr MD [address] [place] [phone] PCP - General 11/06/16 Silvia Broussard MD [address] [place] [phone] Endocrinology, Diabetes and Metabolism 11/23/21 documented as of this encounter
--- OUTSIDE RECORDS SUMMARY | 2024-06-20 16:00 | XMS_ITS | Encounter Summary ---
Author Organization [facility] Address [address] [place] [address] Care Team Providers Care Development Manager Name Role Phone Rosalia Starr MD Primary Care Provider [phone] Silvia Broussard MD Unavailable [phone] Encounter Details Date Type Department Care Team (Late st Contact Info) Description 06/04/2024 Lab Requisition [facility] Pathology & Laboratory Medicine - [address] [address] Silvia Zurita [address] [place] [address] [place] [address] [place] [phone] Melanocytic nevi of trunk Social History Tobacco Use Types Packs/Day Years [...] Info) Description 09/04/2024 13:30 EST Office Visit [facility] Endocrinology [address] [place] [address] José Miguel Padgett MD [address] [facility] [address] [place] [phone] documented as of this encounter Procedures Procedure Name Priority Date/Time Associated Diagnosis Comments SURGICAL PATHOLOGY Today 06/03/2024 16 :06 EDT Melanocytic nevi of trunk documented in this encounter Results * SURGICAL PATHOLOGY (06/03/2024 16:06 EDT) Note to Patient The following pathology results have been interpreted by your pathologist and may be available to you before your health provider has had the opportunity to review them. Please allow time for your provider to receive these results and explore management options, if applicable. 06/06/2024 10:34 [facility] Final Diagnosis A. SKIN OF MID BACK, RIGHT SUPERIOR MEDIAL, EXCISION: - Dermal scar, consistent with prior biopsy site. - No residual atypical nevus identified. 06/06/2024 10:34 [facility] Attestation By the signature below, the attending physician certifies that they have 1) personally conducted a gross and/or microscopic examination of the described specimen(s), and/or personally interpreted the results of laboratory testing of the described specimen(s), and 2) personally rendered or confirmed the above diagnosis. 06/06/2024 10:34 [facility] at 1034 Clinical History Appropriately healing biopsy site with evidence of reoccurrence; DDx: Severely atypical nevus; Notes: Please check margins; clinical diagnosis code: D48.5 06/06/2024 10:34 [facility] Gross Description A. Received in [...] sections. LYNDON SCHWARTZ(ASCP) 06/04/2024 14:38 06/06/2024 10:34 EDT [facility] Performing Lab [facility] 06/06/2024 10:34 EDT [facility] Scanned Images 06/06/2024 10:34 EDT [facility] Tissue SPECIMEN FROM SKIN / Unknown 06/03/2024 16:06 EDT 06/04/2024 14:02 EDT Silvia Zurita PATHOLOGY ORDERABLES [facility] [address] [place], [place] [phone] documented in this encounter Visit Diagnoses Diagnosis Melanocytic nevi of trunk Benign neoplasm of skin of trunk, except scrotum documented in this encounter Care Teams Development Manager Relationship Specialty Start Date End Date Rosalia Starr MD [address] [place] [phone] PCP - General 11/06/16 Silvia Broussard MD [address] [place] [address] [address] [place] [phone] Endocrinology, Diabetes and Metabolism 11/23/21 documented as of this encounter
--- OUTSIDE RECORDS SUMMARY | 2024-06-20 16:00 | XMS_ITS | Encounter Summary ---
Author Organization [facility] Address [address] [place] [address] Care Team Providers Care Center Machine Set Up Operator Name Role Phone Rosalia Starr MD Primary Care Provider [phone] Silvia Broussard MD Unavailable [phone] Reason for Visit * Reason Onset Date Comments Medication Management 09/28/2023 Denise luque has the Mounjaro, however patient told it needs a prior authorization Encounter Details Date Type Department Care Team (Late st Contact Info) Description 09/28/2023 Telephone [facility] [place] [address] [place] [address] Fannie Clark, switching clerk Management (Denise Stone has the Mounjaro, however patient told it needs a prior authorization ) Social History Tobacco Use Types Packs/Day Years [...] encounter Miscellaneous Notes * Telephone Encounter - Fannie Clark, RN - 10/02/2023 1154 EST Spoke with [facility] and they hope to have a prior authorization decision later today or tomorrow on Mounjaro. If approved both the pharmacy and our office will receive a fax. If declined, we will receive a fax. Patient aware. * Telephone Encounter - Fannie Clark RN - 09/28/2023 1337 EST Spoke with patient and advised we have completed the prior authorization paperwork and will keep her updated. Advised patient to check with Denise Beka in [place] over the weekend in case they have been updated on Mounjaro approval. Yahaira advised patient can either continue with Ozempic until Mounjaro has been approved, or skip a week. Patient verbalized understanding. * Telephone Encounter - Fannie Clark RN - 09/28/2023 1244 EST Cover My Meds authorization received. Nurse completed and then called [facility]acy [facility] at [phone]. Transferred to [facility] [employer] which sent fax. Fax given to Yahaira for signature. We will then fax. * Telephone Encounter - Fannie Clark RN - 09/28/2023 1032 EST Denise Stone has the Mounjaro, however patient told it needs a prior authorization. Patient was hoping to start on Saturday 09/29 or Sunday 09/30. Nurse advised we will investigate, complete prior authorization and call her back at [phone]. documented in this encounter Plan of Treatment Upcoming Encounters Date Type Department Care Team (Late st Contact Info) Description 09/04/2024 13:30 EST Office Visit [facility] [place] [address] [place] [address] José Miguel Padgett MD 130 [facility] [address] [place] [phone] documented as of this encounter Visit Diagnoses Not on filedocumented in this encounter Care Teams Center Machine Set Up Operator Relationship Specialty Start Date End Date Rosalia Starr MD [address] [place] [phone] PCP - General 11/06/16 Silvia Broussard MD [address] [place] [phone] Endocrinology, Diabetes and Metabolism 11/23/21 documented as of this encounter
--- OUTSIDE RECORDS SUMMARY | 2024-06-20 16:00 | XMS_ITS | Encounter Summary ---
Author Organization [facility] Address [address] [place] [address] Care Team Providers Care Woven Label Designer Name Role Phone Rosalia Starr MD Primary Care Provider [phone] Silvia Broussard MD Unavailable [phone] Encounter Details Date Type Department Care Team (Late st Contact Info) Description 04/22/2024 Lab Requisition [facility] Pathology & Laboratory Medicine - [address] [address] Outr Resulting Lab, Provider Social History Tobacco [...] Description 09/04/2024 13:[address] [facility] Endocrinology [address] [place], [place] [phone] José Miguel Padgett MD 130 [facility] [address] [place] [phone] documented as of this encounter Procedures Procedure Name Priority Date/Time Associated Diagnosis Comments VITAMIN D (25,OH) Routine 04/22/2024 7:42 EDT documented in this encounter Results * (ABNORMAL) VITAMIN D (25,OH) (04/22/2024 7:42 EDT) 25OH Vitamin D Tot 21(L) 30 - 100 ng/mL 04/23/2024 13:03 EDT [facility] Comment: Vitamin D 25,OH Interpretive Ranges: Deficiency: ??<10.0 ng/mL Insufficiency: ??10.0 - 30.0 ng/mL Sufficiency: ??30.0 - 100.0 ng/mL Toxicity: ??>100.0 ng/mL Blood VENOUS BLOOD / Unknown 04/22/2024 7:42 EDT 04/22/2024 18:01 EDT Provider Outr Resulting Lab CHEMISTRY & BLOOD GAS ORDERABLES [facility] [address] [place] [address] documented in this encounter Visit Diagnoses Not on filedocumented in this encounter Care Teams Woven Label Designer Relationship Specialty Start Date End Date Rosalia Starr MD [address] [place] [phone] PCP - General 11/06/16 Silvia Broussard MD [address] [place] [address] 3 [place] [phone] Endocrinology, Diabetes and Metabolism 11/23/21 documented as of this encounter
--- OUTSIDE RECORDS SUMMARY | 2024-06-20 16:00 | XMS_ITS | Encounter Summary ---
Author Organization [facility] Address [address] [place] [address] Care Team Providers Care Fire Technology Instructor Name Role Phone Rosalia Starr MD Primary Care Provider [phone] Silvia Broussard MD Unavailable [phone] Reason for Visit * Reason Onset Date Comments Diabetes 01/09/2024 Low blood sugars since starting Mounjaro Encounter Details Date Type Department Care Team (Late st Contact Info) Description 01/09/[address] [facility] [address] [place], [place] [phone] Geraldine Strange, FAIZA [address] [place], [place] [phone] Diabetes (Low blood sugars since starting Mounjaro) Social History Tobacco Use Types Packs/Day Years [...] Telephone Encounter - Geraldine Strange RN - 01/09/2024 0945 EDT Spoke with [place]. Phone is not compatible with T connect [phone]= bs 60's-70's 0600= 150-180 2pm: 70's 6-6:30pm= 200-220 And drops after boluses and corrections Setting changes send via Shodogg documented in this encounter Plan of Treatment Upcoming Encounters Date Type Department Care Team (Late st Contact Info) Description 09/04/2024 13:30 EST Office Visit [facility] Endocrinology [address] [place] [address] José Miguel Padgett MD [address] [place] [phone] documented as of this encounter Visit Diagnoses Not on filedocumented in this encounter Care Teams Fire Technology Instructor Relationship Specialty Start Date End Date Rosalia Starr MD [address] [place] [phone] PCP - General 11/06/16 Silvia Broussard MD [address] [place] [phone] Endocrinology, Diabetes and Metabolism 11/23/21 documented as of this encounter
--- OUTSIDE RECORDS SUMMARY | 2024-06-20 16:00 | XMS_ITS | Encounter Summary ---
Author Organization [facility] Address [address] [place] [address] Care Team Providers Care Ed Special Education Teacher Name Role Phone Rosalia Starr MD Primary Care Provider [phone] Silvia Broussard MD Unavailable [phone] Reason for Visit * Reason Comments Diabetes Encounter Details Date Type Department Care Team (Latest Contact Info) Description 05/28/2024 15:30 EDT Telemedicine [facility] [place] [address] [place] [address] Yahaira Garcia, ARIANNA 130 [facility] [address] [place] [phone] Type 2 diabetes mellitus with hyperglycemia, with long-term current use of insulin ([facility]) (Primary Dx); Obesity (BMI 30-39.9); 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 Urine Albumin/Creatinine Ratio: Normal: <30 ug/mg Creatinine Moderately increased albuminuria: 30-300 ug/mg Creatinine Severely increased albuminuria: >300 ug/mg Creatinine HGBA1C 7.3 (A) 02/22/2024 Glucose- * Yahaira Garcia NP - 05/28/20240 EDT Reason for Visit: DM f/up PCP: Dr. Rosalia Starr OTHER PROVIDERS: TELEMEDICINE VIDEO VISIT Today's visit was provided through telemedicine video conferencing: I have reviewed the appropriateness of using video technology with the patient with regards to today's visit. The location of the patient : Home (where patient lives) The location of the provider: home The following people and their roles were present for today's visit: Appointment Provider: Yahaira Garcia NP Kirsten M Didrikson, NP The concept of ???Telemedicine?? has been described to the patient.? Patient has been informed of the anticipated benefits and possible risks.? Patient understands the information provided regardingtelemedicine, has had the opportunity to ask questions about this information, and all questions have been answered to patient???s satisfaction. Patient consents for the use of telemedicine in his/her medical care and authorizes the transmission of any relevant medical information to providers and their staff involved in patient???s medical or mental health care. Patient understands that they maybe responsible for copays, deductible or coinsurance for this service. Elizabeth Corrigan is a 54 y.o. female who presented via video for a follow-up in [facility], with a history of DM since 1994. Hx of HTN, HLD, neuropathy, iron infusions/PHILIP. Works as [employer]. Lives with . Adult kids, 3. All live nearby. Mentions will be getting EUFLEXXA injections upcoming in knee, questions if going to affect BG's. Is going through OT as well for shoulder. Potential to get steroid injection there as well. Has increase the mounjaro and tolerating well, has been on curreint dose for about 2 weeks now. Has lost 7# since our last visit. Random BG vp communications 255. Had lunch about 3.5 hrs ago. States BG's have been more elevated all day, did have a site change yesterday. Has been coming downas day is going on. Bolusing before eating more often, does tend to give less carbs than going to eat if BG in 70-80s prior to eating, will then elevate after eating >200's Does use exercise mode, starts at start of activity, does still get lows with walking nearly at endor after. Infusion set changes 2 days. Did not look into [facility] program. TSH 1.3 (03/2024) [facility] DM: heavy on moms side Recent A1C: 6.3 (04/2024) 7.3 (01/2024) 7.1(10/2023) miguel 8.1 (04/2023) 8 (01/2023) 8.4 (11/2022) Diabetic Medications: tandem pump w/ dexcom lantus 82 units in case of pump failure Mounjaro 7.5 mg weekly farxiga 10 mg daily novolog TDD 105-115 units Intolerant metformin d/t pill size, ozempic [...] Problems Eye exam current (within one year): [facility] Provider: Last dental exam: [email or web address] has full false teeth for about 1 year now. CVD,PVD,CAD: HTN, HLD Statin: atorvastatin 20 mg, LDL at goal (03/2024) Aspirin: no ACEI/ARB: lisinopril 40 mg Prior visit with oil well logger/DM education: FAIZA Strange Foot care: self Comorbidities: Retinopathy: yes, small dot/blot hemes Stable: Nephropathy/Kidney function: GFR 68 (03/2024) No results found for: CALCGFR MCR up [...] Behavior normal. CGM INTERPRETATION Type of CGM: [employer] 05/13-05/26/2024 Type of DM: II Diabetic Medications: Farxiga Mounjaro novolog in pump Indication for monitoring: hyper/hypoglycemia, insulin dosing Report Interpretation: Average glucose 146 mg/dL, standard deviation 35 TIR 83%, TAR 16%, TBR 0% Nocturnal glucose control: yes Post-prandial [...] GLU, CA, GFR Elizabeth Corrigan is a 54 y.o. female who presented via video for a follow-up in [facility], with a history of DM since 1994. Problem List Items Addressed This Visit Endocrine/Metabolic Type 2 diabetes mellitus with hyperglycemia ([facility]) - Primary Controlled A1C 6.3 CGM data looks great, congratulated on successful changes! No pump changes today, encouraged to accurately bolus carbs prior to eating as best able, discussedcan give bolus after first few bites if nervous going to go low. Continue with mounjaro 7.5 mg weekly and farxiga 10 mg daily. Encouraged to update pump [email or web address] to be able to use G7 sensors as well. Continue with dexcom Cgm. Reach out with lows <70's more than twice weekly. Keep up with daily hydration in water, balanced meals and activity daily as able. Follow-up in 2-3 months or sooner with concerns. Pending ongoing tolerability and weight loss with mounjaro, can increase and adjust pump settings as needed. 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 B12 on lower normal side Start b12 1000 mcg daily Cardiac/Vasculature Essential hypertension LDL at goal. Neurological Diabetic polyneuropathy ([facility]) stable Other Uses self-applied continuous glucose monitoring device [...] Plan Note - Yahaira Garcia NP - 05/28/2024 1546 EDT Associated Problem(s): Diabetic polyneuropathy ([facility]) stable * Assessment & Plan Note - Yahaira Garcia NP - 05/28/2024 1546 EDT Associated Problem(s): Essential hypertension LDL at goal. * Assessment & Plan Note - Yahaira Garcia NP - 05/28/2024 1545 EDT Associated Problem(s): Vitamin D deficiency Start vitamin d 3000 units daily. B12 on lower normal side Start b12 1000 mcg daily * Assessment & Plan Note - Yahaira Garcia NP - 05/28/2024 1543 EDT Associated Problem(s): Type 2 diabetes mellitus with hyperglycemia ([facility]) Controlled A1C 6.3 CGM data looks great, congratulated on successful changes! No pump changes today, encouraged to accurately bolus carbs prior to eating as best able, discussedcan give bolus after first few bites if nervous going to go low. Continue with mounjaro 7.5 mg weekly and farxiga 10 mg daily. Encouraged to update pump [email or web address] to be able to use G7 sensors as well. Continue with dexcom Cgm. Reach out with lows <70's more than twice weekly. Keep up with daily hydration in water, balanced meals and activity daily as able. Follow-up in 2-3 months or sooner with concerns. Pending ongoing tolerability and weight loss with mounjaro, can increase and adjust pump settings as needed. 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 Medication Sig Dispensed Refills Start Date End Date LORazepam (ATIVAN) 0.5 mg tablet TAKE ONE TABLET BY MOUTH 30 TO 60 MINUTES BEFORE PROCEDURE. MAY REPEAT ONCE IF NEEDED 05/21/2024 added in this encounter Care Teams Ed Special Education Teacher Relationship Specialty Start Date End Date Rosalia Starr MD [address] [place] [phone] PCP - General 11/06/16 Silvia Broussard MD [address] [place] [phone] Endocrinology, Diabetes and Metabolism 11/23/21 documented as of this encounter
--- OUTSIDE RECORDS SUMMARY | 2024-06-20 16:00 | XMS_ITS | Encounter Summary ---
Author Organization [facility] Address [address] [place] [address] Care Team Providers Care Freight Manager Name Role Phone Rosalia Starr MD Primary Care Provider Silvia Broussard MD Unavailable [phone] Encounter Details Date Type Department Care Team (Late st Contact Info) Description 02/08/2024 Orders Only [facility] Endocrinology [address] [place] [address] Yahaira Garcia, ARIANNA 130 [facility] [address] [place] [phone] Type 2 diabetes mellitus with hyperglycemia, with long-term current use of insulin ([facility]) (Primary Dx) Social History Tobacco Use Types [...] Start Date End Da te tirzepatide (MOUNJARO) 5 mg/0.5 mL pen injectorIndications:Type 2 diabetes mellitus with hyperglycemia, with long-term current use of insulin ([facility]) Inject 0.5 mL into the skin once a week. 6 mL 2 02/08/2024 05/05/2024 documented in this encounter Plan of Treatment Upcoming Encounters Date Type Department Care Team (Late st Contact Info) Description 09/04/2024 13:30 EST Office Visit [facility] Endocrinology [address] [place] [address] José Miguel Padgett MD [address] [place] [phone] documented as of this encounter Visit Diagnoses Diagnosis Type 2 diabetes mellitus with hyperglycemia, with long-term current use of insulin ([facility])- Primary documented in this encounter Care Teams Freight Manager Relationship Specialty Start Date End Date Rosalia Starr MD [address] [place] [phone] PCP - General 11/06/16 Silvia Broussard MD [address] [place] [phone] Endocrinology, Diabetes and Metabolism 11/23/21 documented as of this encounter
--- OUTSIDE RECORDS SUMMARY | 2024-06-20 16:00 | XMS_ITS | Encounter Summary ---
Author Organization [facility] Address [address] [place] [address] Care Team Providers Care Lime Puller Name Role Phone Rosalia Starr MD Primary Care Provider [phone] Silvia Broussard MD Unavailable [phone] Reason for Visit * Reason Onset Date Comments Medications Refill 11/14/2023 Encounter Details Date Type Department Care Team (Late st Contact Info) Description 11/14/2023 Refill [facility] Endocrinology [address] [place] [address] [phone] Latisha Romano RN Medications Refill Social History [...] long-term current use of insulin ([facility]) Inject 0.5 mL into the skin once a week. E11.9 6 mL 3 11/14/2023 11/30/2023 documented in this encounter Miscellaneous Notes * Telephone Encounter - Latisha Romano RN - 11/14/2023 1547 EST . documented in this encounter Plan of Treatment Upcoming Encounters Date Type Department Care Team (Late st Contact Info) Description 09/04/2024 13:30 EST Office Visit [facility] Endocrinology [address] [place] [address] José Miguel Padgett MD [address] [phone] documented as of this encounter Visit Diagnoses Diagnosis Type 2 diabetes mellitus with hyperglycemia, with long-term current use of insulin ([facility])- Primary documented in this encounter Discontinued Medications Medication Sig Discontinue Reason Start Date End Da te tirzepatide (MOUNJARO) 2.5 mg/0.5 mL pen injectorIndications:Type 2 diabetes mellitus with hyperglycemia, with long-term current use of insulin ([facility]) Inject 0.5 mL into the skin once a week. E11.9 Reorder 10/04/2023 11/14/2023 documented as of this encounter Care Teams Lime Puller Relationship Specialty Start Date End Date Rosalia Starr MD [address] [place] [phone] PCP - General 11/06/16 Silvia Broussard MD [address] [phone] Endocrinology, Diabetes and Metabolism 11/23/21 documented as of this encounter
--- OUTSIDE RECORDS SUMMARY | 2024-06-20 16:00 | XMS_ITS | Encounter Summary ---
Author Organization [facility] Address [address] [place] [address] Care Team Providers Care Account Services Analyst Name Role Phone Rosalia Starr MD Primary Care Provider [phone] Silvia Broussard MD Unavailable [phone] Encounter Details Date Type Department Care Team (Late st Contact Info) Description 03/03/2024 Lab Requisition [facility] Pathology & Laboratory Medicine - [facility] [address] [place] [address] David Escoto, LYNDON [address] [place] [phone] Neoplasm of uncertain behavior of skin Social History Tobacco Use Types Packs/Day Years [...] Info) Description 09/04/2024 13:30 EST Office Visit [facility] Endocrinology [address] [place] [address] José Miguel Padgett MD [address] [facility] [address] [place] [phone] documented as of this encounter Procedures Procedure Name Priority Date/Time Associated Diagnosis Comments SURGICAL PATHOLOGY Today 02/29/2024 15 :10 EDT Neoplasm of uncertain behavior of skin documented in this encounter Results * SURGICAL PATHOLOGY (02/29/2024 15:10 EDT) Note to Patient The following pathology results have been interpreted by your pathologist and may be available to you before your health provider has had the opportunity to review them. Please allow time for your provider to receive these results and explore management options, if applicable. 03/04/2024 14:08 [facility] Final Diagnosis A. SKIN OF BACK, RIGHT SUPERIOR MEDIAL MID, SHAVE REMOVAL: - Melanocytic nevus, compound type, with unusual architectural features and severe cytologic atypia. - Nevus does not extend to edges of shave removal specimen in the plane of the sections examined. - Nevus present approximately 1.5 mm from peripheral tissue edge. 03/04/2024 14:08 [facility] Attestation By the signature below, the attending physician certifies that they have 1) personally conducted a gross and/or microscopic examination of the described specimen(s), and/or personally interpreted the results of laboratory testing of the described specimen(s), and 2) personally rendered or confirmed the above diagnosis. 03/04/2024 14:08 [facility] at 1408 Microscopic Description Sections consist of a shave biopsy of skin to the mid reticular dermis. There is a central poorly circumscribed compound melanocytic proliferation. The junctional component extends beyond the dermal component and consists of nests and individual cells. The nests are relatively small but some are poorly formed. Individual melanocytes show uneven spacing along the dermal-epidermal junction with areas of crowding. Well-developed confluence growth, however, is not seen. Rare melanocytes are noted above the basal zone centrally. Melanocytes are large and have an abundance of wispy cytoplasm containing fine melanin pigment. The nuclei have vesicular chromatin and vary, moderate degree in size and shape. Irregular nests of similar melanocytes are noted within the papillary dermis. There is an associated moderately dense lymphocytic infiltrate with heavily pigmented melanophages. Additional sections prepared for SOX-10 ALK PHOS (SP267, OOHLALA Mobile) better illustrate the proliferation and show the aforementioned features. NOTE: One or more of the reagents used in immunoperoxidase testing in this case may not have been cleared or approved by the U.S. Food and Drug Administration (FDA). The FDA has determined that such clearance or approval is not necessary. These tests are used for clinical purposes. They should not be regarded as investigational or for research. These reagents' performance characteristics have been determined by [facility] and/or by the referring laboratory. The positive and negative controls worked appropriately. If immunoperoxidase staining has been performed on alcohol fixed cytology specimens, which has not been fully validated, the assays should be interpreted with caution and correlated with clinical data. This laboratory is certified under the Clinical Laboratory Improvement Amendments of 1988 (CLIA-88) as qualified to perform high complexity clinical laboratory testing.? 03/04/2024 14:08 [facility] Clinical History Atypical nevus vs melanoma vs SK; clinical diagnosis code: D48.5 03/04/2024 14:08 [facility] Gross Description A. Received in formalin labelled with proper patient identification (initials W, L) and right superior medial mid back is an irregular dull merchant skin shave, 1.0 x 0.8 x 0.1 cm. The central skin surface shows a mottled dark brown macule, 0.4 cm in greatest dimension. The margin is inked. Trisected and entirely submitted in A1. LYNDON WETZEL(ASCP) 03/03/2024 8:07 03/04/2024 14:08 [facility] Performing Lab [facility] 14:08 [facility] Scanned Images 03/04/2024 14:08 [facility] Tissue SPECIMEN FROM SKIN / Unknown 02/29/2024 15:10 EDT 03/03/2024 7:12 EDT David HANEY PATHOLOGY ORDERABLES [facility] [address] [place], [place] [phone] documented in this encounter Visit Diagnoses Diagnosis Neoplasm of uncertain behavior of skin documented in this encounter Care Teams Account Services Analyst Relationship Specialty Start Date End Date Rosalia Starr MD [address] [place] [phone] PCP - General 11/06/16 Silvia Broussard MD [address] [place] [phone] Endocrinology, Diabetes and Metabolism 11/23/21 documented as of this encounter
--- OUTSIDE RECORDS SUMMARY | 2024-06-20 16:01 | XMS_ITS | Encounter Summary ---
Author Organization [facility] Address [address] [place] [address] Care Team Providers Care Regulatory Compliance Coordinator Name Role Phone Rosalia Starr MD Primary Care Provider [phone] Encounter Details Date Type Department Care Team (Late st Contact Info) Description 08/18/2021 Prep for Procedure [facility] Infectious Disease - [address] [address] Aliza Robles MD [address] [place] [address], [address] [place] [address] Social History Tobacco Use Types Packs/Day Years Used Date Smoking Tobacco: Never Smokeless Tobacco: Never Interpersonal Safety Answer Date Record ed Physically Hurt Never 05/30/2020 Verbally Threaten Not on file 05/30/2020 Sex and Gender Information Value Date Recorded Sex Assigned at Female 12/04/2022 14:24 EST Gender Identity Female 08/30/2019 14:41 EDT Sexual Orientation Straight 12/04/2022 14 :24 EST documented as of this encounter H&P Notes * Aliza Robles MD - 08/18/2021 1810 EDT I have been asked to order sars-cov-2 monoclonal antibodies on behalf of the patient's PCP as the PCP does not have infusion privileges at [facility]. I am trusting that the patient has a positive test orhigh risk exposure as defined in the EUA. I am trusting that the PCP has reviewed the EUA factsheetwith the patient. Aliza Robles MD 08/18/2021 18:11 documented in this encounter Plan of Treatment Upcoming Encounters Date Type Department Care Team (Late st Contact Info) Description 09/04/2024 13:30 EST Office Visit [facility] Endocrinology [address] [place] [address] José Miguel Padgett MD 130 [facility] [address] [place] [phone] documented as of this encounter Visit Diagnoses Not on filedocumented in this encounter Care Teams Regulatory Compliance Coordinator Relationship Specialty Start Date End Date Rosalia Starr MD [address] [place] [phone] PCP - General 11/06/16 documented as of this encounter
--- OUTSIDE RECORDS SUMMARY | 2024-06-20 16:01 | XMS_ITS | Encounter Summary ---
Author Organization [facility] Address [address] [place] [address] Care Team Providers Care Process Plant Operator Name Role Phone Unknown, Provider Primary Care Provider Encounter Details Date Type Department Care Team (Late st Contact Info) Description 05/26/2016 Results Only [facility] [phone] Rosalia Solis MD [address] [place] [address] Social History Tobacco Use Types Packs/Day Years Used Date Smoking Tobacco: Never Assessed Sex and Gender Information Value Date Recorded Sex Assigned at Female 12/04/2022 14:24 EST Gender Identity Female 08/30/2019 14:41 EDT Sexual Orientation Straight 12/04/2022 14 :24 EST documented as of this encounter Plan of Treatment Upcoming Encounters Date Type Department Care Team (Late st Contact Info) Description 09/04/2024 13:30 EST Office Visit [facility] [place] [address] [place] [address] José Miguel Padgett MD 130 [facility] [address] [place] [address] documented as of this encounter Procedures Procedure Name Priority Date/Time Associated Diagnosis Comments PAP TEST- RESULT ONLY Routine 05/26/2016 0:00 EDT documented in this encounter Results * PAP TEST- RESULT ONLY (05/26/2016 0:00 EDT) Pathology Report: CYTOPATHOLOGY REPORT Reports generated via electronic interface contain original data; however they are lacking the format of the original report. Caution should be taken when reading/interpreti ng unformatted reports. Name: ? ORTEGA CORRIGAN ? Accession #: ? [id number] ? : ? 1970 (Age: 46) ??F ?Collect Date: ? 05/26/2016 ? Location: ? [facility] ? Receive Date: ? 05/30/2016 ? Provider: ROSALIA SOLIS MD Copy to: ? Final Report SPECIMEN ADEQUACY ? Satisfactory for Evaluation - transformation zone component present GENERAL CATEGORIZATION ? Negative for Intraepithelial Lesion or Malignancy INTERPRETATION ? Shift in yumiko present suggestive of bacterial vaginosis. Hormonal/Contracep tive status: None Specimen/Source: ??Pap Test, Cervix/Endocervix, ThinPrep Imaging System with manual evaluation Document reviewed and electronically signed by: ? Evelyne Bergeron, CT(ASCP) ? Report ??Date: 06/06/2016 15:08 HPV with Pap Test ? Date Ordered: ? 06/06/2016 ? Status: ?? Signed Out ?Date Complete: ? 06/08/2016 ? By: ??System Interface ? Date Reported: ? 06/08/2016 ? Interpretation RESULT: Negative for HPV. No E6 or E7 mRNA is detected from HPV types 16,18,31,33,35, 39,45,51,52,56,58, 59,66, and 68 by business systems developer mediated amplification. Comments Document reviewed and electronically signed by: ? System Interface ? Report date: 06/08/2016 By the signature above, the attending physician certifies that he/she has personally conducted a gross and/or microscopic examination of the described specimens and rendered or confirmed the above diagnosis. End of Report [facility] 05/26/2016 05/30/2016 Rosalia Solis MD PATHOLOGY ORDERABLES Performing Organization Address City/State/[facility] Co de Phone Number [facility] [address] [place] [address] documented in this encounter Visit Diagnoses Not on filedocumented in this encounter Care Teams Process Plant Operator Relationship Specialty Start Date End Date Unknown, Provider, PCP - General 03/08/09 11/05/16 documented as of this encounter
--- OUTSIDE RECORDS SUMMARY | 2024-06-20 16:01 | XMS_ITS | Encounter Summary ---
Author Organization [facility] Address [address] [place] [address] Care Team Providers Care Clinical Quality Rn Name Role Phone Rosalia Starr MD Primary Care Provider [phone] Reason for Visit * Reason Comments Diabetes review labs Hyperlipidemia Encounter Details Date Type Department Care Team (Late st Contact Info) Description 10/10/2021 10:30 EST Office Visit [facility] Endocrinology [address] [place] [address] Silvia Broussard MD 130 [facility] [address] [place] [phone] Type 2 diabetes mellitus with hyperglycemia, with long-term current use of insulin ([facility] ([facility]) (Primary Dx); Encounter for laboratory test; Mixed hyperlipidemia; Hypoglycemia Social History Tobacco Use Types Packs/Day Years [...] EST documented in this encounter Progress Notes * Shira Saldaña RN - 10/10/2021 1030 EST DMII Ordered CMP, micro, lipid, A1c Needs foot and eye exam. Letter mailed * Silvia Ghosh MD - 10/10/2021 1030 EST [...] reports she is getting lows. She uses guardian connect Sensor. Got first shot of covid [...] on Lantus since 1999, on Novolog since 2005, insulin pump since 2014. She has been on [...] aspart u-100, insulin aspart u-100, insulin glargine, insu armando pen needles 32g x 5/32, insulin pump [...] CGM INTERPRETATION Elizabeth Corrigan Type of CGM: DataPadan connect Patient owns sensor Type of DM: [...] hyperglycemia, with long-term current use of insulin ([facility]) ([facility]) E11.65 250.00 Z79.4 790.29 V58.67 2. Encounter [...] Info) Description 09/04/2024 13:30 EST Office Visit [facility] Endocrinology [address] [place], [place] [phone] José Miguel Padgett MD 130 [facility] [address] [place] [address] documented as of this encounter Visit Diagnoses Diagnosis Type 2 diabetes mellitus with hyperglycemia, with long-term current use of insulin ([facility])- Primary Encounter for laboratory test Laboratory examination, unspecified Mixed hyperlipidemia Hypoglycemia Hypoglycemia, unspecified documented in this encounter Care Teams Clinical Quality Rn Relationship Specialty Start Date End Date Rosalia Starr MD [address] [place] [address] PCP - General 11/06/16 documented as of this encounter
--- OUTSIDE RECORDS SUMMARY | 2024-06-20 16:01 | XMS_ITS | Encounter Summary ---
Author Organization [facility] Address [address] [place] [address] Care Team Providers Care Regional Airline Pilot Name Role Phone Rosalia Starr MD Primary Care Provider [phone] Silvia Broussard MD Unavailable [phone] Reason for Visit * Reason Comments Diabetes Shared visit Encounter Details Date Type Department Care Team (Late st Contact Info) Description 12/08/2022 15:00 EST Nurse Only [facility] [place] [address] [place] [address] Geraldine Strange, RN [address] [place], [place] [address] Type 2 diabetes mellitus with hyperglycemia, with long-term current use of insulin ([facility]) (Primary Dx) Social History Tobacco Use Types [...] :24 EST documented as of this encounter Progress Notes * Geraldine Strange, RN - 12/08/2022 1500 EST This is a joined visit with Yahaira Garcia. Please see my info in her visit note. documented in this encounter Plan of Treatment Upcoming Encounters Date Type Department Care Team (Late st Contact Info) Description 09/04/2024 13:30 EST Office Visit [facility] Endocrinology [address] [place] [address] José Miguel Padgett MD [address] [place] [phone] documented as of this encounter Visit Diagnoses Diagnosis Type 2 diabetes mellitus with hyperglycemia, with long-term current use of insulin ([facility])- Primary documented in this encounter Care Teams Regional Airline Pilot Relationship Specialty Start Date End Date Rosalia Starr MD [address] [place] [phone] PCP - General 11/06/16 Silvia Broussard MD [address] [place] [phone] Endocrinology, Diabetes and Metabolism 11/23/21 documented as of this encounter
--- OUTSIDE RECORDS SUMMARY | 2024-06-20 16:01 | XMS_ITS | Encounter Summary ---
Author Organization [facility] Address [address] [place] [address] Care Team Providers Care Manager Talent Name Role Phone Rosalia Starr MD Primary Care Provider [phone] Silvia Broussard MD Unavailable [phone] Reason for Visit * Reason Onset Date Comments Provider Referred 07/06/2022 Encounter Details Date Type Department Care Team (Late st Contact Info) Description 07/06/2022 Telephone [facility] Endocrinology [address] [place] [address] Silvia Broussard MD 130 [facility] [address] [place] [phone] Provider Referred Social History Tobacco Use Types Packs/Day Years [...] encounter Miscellaneous Notes * Telephone Encounter - Silvia Ghosh MD - 07/06/2022 1508 EDT Can u fax this note to her PCP please . * Telephone Encounter - Silvia Ghosh MD - 07/06/2022 1504 EDT PCP sent me a note about her diabetes not being controlled. Letter sent to PCP that Elizabeth has cancelled multiple apts with us. documented in this encounter Plan of Treatment Upcoming Encounters Date Type Department Care Team (Late st Contact Info) Description 09/04/2024 13:30 EST Office Visit [facility] Endocrinology [address] [place] [address] José Miguel Padgett MD [address] [place] [phone] documented as of this encounter Visit Diagnoses Not on filedocumented in this encounter Care Teams Manager Talent Relationship Specialty Start Date End Date Rosalia Starr MD [address] [place] [phone] PCP - General 11/06/16 Silvia Broussard MD [address] [place] [phone] Endocrinology, Diabetes and Metabolism 11/23/21 documented as of this encounter
--- OUTSIDE RECORDS SUMMARY | 2024-06-20 16:01 | XMS_ITS | Encounter Summary ---
Author Organization [facility] Address [address] [place] [address] Care Team Providers Care Cleaner Wall Name Role Phone Rosalia Starr MD Primary Care Provider [phone] Reason for Visit * Reason Onset Date Comments Diabetes 06/03/2020 Encounter Details Date Type Department Care Team (Late st Contact Info) Description 06/03/2020 Telephone [facility] Endocrinology [address] [place] [phone] Geraldine Strange, FAIZA [address] [place], [place] [phone] Diabetes Social History Tobacco Use Types Packs/Day Years Used Date Smoking Tobacco: Never Assessed Interpersonal Safety Answer Date Record ed Physically Hurt Never 05/30/2020 Verbally Threaten Not on file 05/30/2020 Sex and Gender Information Value Date Recorded Sex Assigned at Female 12/04/2022 14:24 EST Gender Identity Female 08/30/2019 14:41 EDT Sexual Orientation Straight 12/04/2022 14 :24 EST documented as of this encounter Miscellaneous Notes * Telephone Encounter - Geraldine Strange, FAIZA - 06/03/2020 1500 EDT Reports low bs [...] Info) Description 09/04/2024 13:30 EST Office Visit [facility] Endocrinology [address] [place], [place] [address] José Miguel Padgett MD 130 [facility] [address] [place] [phone] documented as of this encounter Visit Diagnoses Not on filedocumented in this encounter Care Teams Cleaner Wall Relationship Specialty Start Date End Date Rosalia Starr MD [address] [place] [phone] PCP - General 11/06/16 documented as of this encounter
--- OUTSIDE RECORDS SUMMARY | 2024-06-20 16:01 | XMS_ITS | Encounter Summary ---
Author Organization [facility] Address [address] [place] [address] Care Team Providers Care Veneer Joiner Name Role Phone Unknown, Provider Primary Care Provider [phone] Encounter Details Date Type Department Care Team (Late st Contact Info) Description 11/13/2011 Results Only [facility] - [facility] ([facility]) [address] [place] [phone] Rosalia Solis MD [address] [place] [phone] Social History Tobacco Use Types Packs/Day [...] Info) Description 09/04/2024 13:30 EST Office Visit [facility] [place] [address] [place], [place] [phone] José Miguel Padgett MD [address] [facility] [address] [place] [address] documented as of this encounter Procedures Procedure Name Priority Date/Time Associated Diagnosis Comments PAP TEST- RESULT ONLY Routine 11/13/2011 0:00 EST documented in this encounter Results * PAP TEST- RESULT ONLY (11/13/2011 0:00 EST) Pathology Report: CYTOPATHOLOGY REPORT Reports generated via electronic interface contain original data; however they are lacking the format of the original report. Caution should be taken when reading/interpreti ng unformatted reports. Name: ? ORTEGA CORRIGAN ? Accession #: ? [id number] ? : ? 1970 (Age: 41) ??F ?Collect Date: ? 11/13/2011 ? Location: ? [facility] ? Receive Date: ? 11/15/2011 ? Provider: ROSALIA SOLIS MD Copy to: ? Final Report SPECIMEN ADEQUACY ? Satisfactory for Evaluation - transformation zone component present GENERAL CATEGORIZATION ? Negative for Intraepithelial Lesion or Malignancy INTERPRETATION ? Reactive cellular changes associated with inflammation present (includes repair). Shift in yumiko present suggestive of bacterial vaginosis. 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 SAHARA HOPE MD ? Report ??Date: 11/20/2011 14:18 HPV with Pap Test ? Date Ordered: ? 11/20/2011 ? Status: ?? Signed Out ?Date Complete: ? 11/22/2011 ? By: ??System Interface ? Date Reported: ? 11/22/2011 ? Interpretation RESULT: Negative for HPV types 16, 18, 31, 33, 35, 39, 45, 51, 52, 56, 58, 59, and 68. Comments Document reviewed and electronically signed by: ? System Interface ? Report date: 11/22/2011 By the signature above, the attending physician certifies that he/she has personally conducted a gross and/or microscopic examination of the described specimens and rendered or confirmed the above diagnosis. End of Report [facility] 11/13/2011 11/15/2011 Rosalia Solis MD PATHOLOGY ORDERABLES Performing Organization Address City/State/[facility] Co de Phone Number [facility] [address] [place] [address] documented in this encounter Visit Diagnoses Not on filedocumented in this encounter Care Teams Veneer Joiner Relationship Specialty Start Date End Date Unknown, Provider, PCP - General 03/08/09 11/05/16 documented as of this encounter
--- OUTSIDE RECORDS SUMMARY | 2024-06-20 16:01 | XMS_ITS | Encounter Summary ---
Author Organization [facility] Address [address] [place] [address] Care Team Providers Care Clinical Quality Analyst Name Role Phone Rosalia Starr MD Primary Care Provider [phone] Silvia Broussard MD Unavailable [phone] Reason for Visit * Reason Onset Date Comments Medication Management 01/05/2023 Encounter Details Date Type Department Care Team (Late st Contact Info) Description 01/05/2023 Telephone [facility] [place] [address] [place] [address] Caesar Rashid RN Medication Management Social History Tobacco Use [...] Dispensed Refills Start Date End Da te semaglutide (OZEMPIC) 1 mg/dose (4 mg/3 mL) pen injector Inject 0.75 mL into the skin every 7 days. 9 mL 2 01/08/2023 02/22/2023 documented in this encounter Miscellaneous Notes * Addendum Note - Caesar Rashid RN - 01/08/2023 1542 EDTAddended by: CAESAR RASHID on: 01/08/2023 15:42 Modules accepted: Orders * Telephone Encounter - Caesar Rashid RN - 01/08/2023 1542 EDT Prescription sent to pharmacy per Yahaira Garcia's orders. * Addendum Note - Caesar Rashid RN - 01/05/2023 1655 ESTAddended by: CAESAR RASHID on: 01/05/2023 16:55 Modules accepted: Orders * Telephone Encounter - Yahaira Garcia NP - 01/05/2023 1623 EST If not having lows on pump, okay to increase ozempic 1 mg weekly injection. Please have her reach out if having lows with this increase Thanks. * Telephone Encounter - Caesar Rashid RN - 01/05/2023 1550 EST Patient called to let Shavonne know she is doing well on her ozempic and she needs a refill. Would like to increase if possible. Message sent to Yahaira. documented in this encounter Plan of Treatment Upcoming Encounters Date Type Department Care Team (Late st Contact Info) Description 09/04/2024 13:30 EST Office Visit [facility] Endocrinology [address] [place] [address] José Miguel Padgett MD 130 [facility]- [address] [place] [phone] documented as of this encounter Visit Diagnoses Not on filedocumented in this encounter Discontinued Medications Medication Sig Discontinue Reason Start Date End Da te semaglutide (OZEMPIC) subcutaneous pen Inject 0.5 mg into the skin every 7 days. Dose adjustment 10/05/2022 01/05/2023 documented as of this encounter Care Teams Clinical Quality Analyst Relationship Specialty Start Date End Date Rosalia Starr MD [address] [place] [phone] PCP - General 11/06/16 Silvia Broussard MD [address] [place] [phone] Endocrinology, Diabetes and Metabolism 11/23/21 documented as of this encounter
--- OUTSIDE RECORDS SUMMARY | 2024-06-20 16:01 | XMS_ITS | Encounter Summary ---
Author Organization [facility] Address [address] [place] [address] Care Team Providers Care Sewer Tapper Name Role Phone Unknown, Provider Primary Care Provider [phone] Encounter Details Date Type Department Care Team (Late st Contact Info) Description 01/25/2008 Results Only [facility] [place] [facility] [address] [place] [address] Unknown, Provider, Social History Tobacco Use Types Packs/Day Years [...] Info) Description 09/04/2024 13:30 EST Office Visit [facility] Endocrinology [address] [place] [address] José Miguel Padgett MD 130 [facility] [address] [place] [phone] documented as of this encounter Procedures Procedure Name Priority Date/Time Associated Diagnosis Comments HELICOBACTER PYLORI IGG ANTIBODY Routine 01/25/2008 10:20 EDT documented in this encounter Results * HELICOBACTER PYLORI IGG ANTIBODY (01/25/2008 10:20 EDT) H Pylori IgG <0.4 U/mL [facility] Comment: Interpretation: ??Negative Negative is <0.9 U/mL Assayed utilizing the [facility] Immulite 2500. Values may vary with other methods. 01/25/2008 10:2 0 EDT 01/26/2008 15:22 EDT Provider Unknown CHEMISTRY & BLOOD GA S ORDERABLES [facility] [address] [place] [address] documented in this encounter Visit Diagnoses Not on filedocumented in this encounter Care Teams Sewer Tapper Relationship Specialty Start Date End Date Unknown, Provider, PCP - General 03/08/09 11/05/16 documented as of this encounter
--- OUTSIDE RECORDS SUMMARY | 2024-06-20 16:01 | XMS_ITS | Encounter Summary ---
Author Organization [facility] Address [address] [place] [address] Care Team Providers Care Awning Installer Name Role Phone Rosalia Starr MD Primary Care Provider [phone] Silvia Broussard MD Unavailable Encounter Details Date Type Department Care Team (Late st Contact Info) Description 10/07/2021 Lab Requisition [facility] Pathology & Laboratory Medicine - [facility] [address] [place] [address] Outr Resulting Lab, Provider Social History Tobacco [...] Office Visit [facility] Endocrinology [address] [place], [place] [address] José Miguel Padgett MD 130 [facility] [address] [place] [phone] documented as of this encounter Procedures Procedure Name Priority Date/Time Associated Diagnosis Comments CHLAMYDIA/N. GONORRHOEAE AMPLIFIED NUCLEIC ACID Routine 10/07/2021 13:41 EST documented in this encounter Results * CHLAMYDIA/N. GONORRHOEAE AMPLIFIED RNA (10/07/2021 13:41 EST) Neisseria gonorrhoeae Result Negative Negative 10/10/2021 15:22 EST [facility] Chlamydia trachomatis Result Negative Negative 10/10/2021 15:22 EST [facility] Urine URINE / Unknown 10/07/2021 1 3:41 EST 10/07/2021 21:14 EST Narrative [facility] - 10/10/2021 15:22 EST A first catch urine specimen is acceptable for detection of Gonorrhea and Chlamydia, but might detect up to 10% fewer infections when compared with vaginal and endocervical swab samples. Provider Outr Resulting Lab MICROBIOLOGY - GENERAL ORDERABLES [facility] [address] [place] [address] documented in this encounter Visit Diagnoses Not on filedocumented in this encounter Care Teams Awning Installer Relationship Specialty Start Date End Date Rosalia Starr MD [address] [place] [phone] PCP - General 11/06/16 Silvia Broussard MD [address] [place] [address] [address] [place] [phone] Endocrinology, Diabetes and Metabolism 11/23/21 documented as of this encounter
--- OUTSIDE RECORDS SUMMARY | 2024-06-20 16:01 | XMS_ITS | Encounter Summary ---
Author Organization [facility] Address [address] [place] [address] Care Team Providers Care Hunter Trapper Name Role Phone Rosalia Starr MD Primary Care Provider [phone] Reason for Visit * Reason Comments Follow-up Encounter Details Date Type Department Care Team (Latest Contact Info) Description 02/16/2021 16:00 EDT Office Visit [facility] Endocrinology [address] [place] [address] Silvia Broussard MD 130 [facility] [address] [place] [phone] Uncontrolled type 2 diabetes mellitus with hyperglycemia (HCC-CMS) (Primary Dx); 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 20 Tab 1 02/16/2021 10/05/2022 documented in this encounter Progress Notes * Geraldine Strange RN - 02/16/2021 1600 EDT Needs: foot exam, eyes, lipid, cmp; letter sent * Silvia Ghosh MD - 02/16/2021 1600 EDT 02/16/2021 FOLLOW-UP PATIENT: Elizabeth Corrigan CHIEF COMPLAINT Follow-up HISTORY OF PRESENT ILLNESS Elizabeth Corrigan is a very pleasant 50 y.o. female who presents for follow up for type 2 DM. Last seen in Jul. Reports has been doing diet and Has lost like 20 lbs. She reports she is getting lows. She uses [employer] connect Sensor. Got first shot of covid [...] strips as directed peripheral monitoring 4 times a day ??? citalopram (CELEXA) 20 mg tablet 1 [...] unit/mL injection up to 300 units a daysubcutaneously continuously via pump ??? insulin glargine (LANTUS SOLOSTAR U-100 INSULIN) 100 unit/mL (3 mL) injection pen ??? insulin pen needles 32G x 5/32 (PEN NEEDLE) ??? insulin pump controller [facility] ??? lisinopril (PRINIVIL) 40 mg tablet ??? [...] Uncontrolled type 2 diabetes mellitus with hyperglycemia ([facility]) E11.65 250.02 2. 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 Essential hypertension I10 401.9 [...] the visit. Silvia Rios MD 02/16/2021 17:10 * Geraldine Strange, RN - 02/16/2021 1600 EDT Spoke with pt to make the pump changes per order Dr Broussard. Discussed setup/linking to [employer] for sharing. Email with link sent Results for orders placed or performed in visit on 02/16/21 POCT GLUCOSE, MANUAL ENTRY Result Value Ref Range Glucose, POC 260 (A) 70 - 100 mg/dL [facility] POC COMMENT MANUAL (GLUCOSE) Tech ID POCT HEMOGLOBIN A1C Result Value Ref Range Hemoglobin A1c, POC 7.9 (A) 5.7 % documented in this encounter Miscellaneous Notes * Addendum Note - Geraldine Strange RN - 02/16/2021 1600 EDTAddended by: GERALDINE STRANGE on: 02/17/2021 08:50 Modules accepted: Orders documented in this encounter Plan of Treatment Upcoming Encounters Date Type Department Care Team (Late st Contact Info) Description 09/04/2024 13:30 EST Office Visit [facility] Endocrinology [address] [place] [address] José Miguel Padgett MD [address] [place] [address] [place] [phone] documented as of this encounter Procedures Procedure Name Priority Date/Time Associated Diagnosis Comments POCT GLUCOSE, MANUAL ENTRY Routine 02/16/2021 Uncontrolled type 2 diabetes mellitus with hyperglycemia ([facility]) POCT HEMOGLOBIN A1C Routine 02/16/2021 Uncontrolled type 2 diabetes mellitus with hyperglycemia ([facility]) documented in this encounter Results * (ABNORMAL) POCT HEMOGLOBIN A1C (02/16/2021) Hemoglobin A1c, POC 7.9(A) 5.7 % [facility] POINT OF CARE Blood CAPILLARY BLOOD / Unknown 02/16/2021 Silvia Broussard MD POINT OF CARE TEST O RASTA [facility] POINT OF CARE * (ABNORMAL) POCT GLUCOSE, MANUAL ENTRY (02/16/2021) Glucose, POC 260(A) 70 - 100 mg/dL [facility] POINT OF CARE [facility] POC COMMENT MANUAL (GLUCOSE) [facility] POINT OF clip baker ID [facility] POIN T OF CARE Blood CAPILLARY BLOOD / Unknown 02/16/2021 Silvia Broussard MD POINT OF CARE TEST O RASTA Performing Organization Address City/[facility] Co de Phone Number [facility] POINT OF CARE documented in this encounter Visit Diagnoses Diagnosis Uncontrolled type 2 diabetes mellitus with hyperglycemia ([facility])- Primary [facility] current use of insulin ([facility]) Encounter for long-term (current) use of insulin Essential hypertension Unspecified essential hypertension documented in this encounter Discontinued Medications Medication Sig Discontinue Reason Start Date End Da te docusate sodium (COLACE) 100 mg capsule 1 cap(s) orally 2 times a day Therapy completed 02/16/2021 documented as of this encounter Care Teams Hunter Trapper Relationship Specialty Start Date End Date Rosalia Starr MD [address] [place] [phone] PCP - General 11/06/16 documented as of this encounter
--- OUTSIDE RECORDS SUMMARY | 2024-06-20 16:01 | XMS_ITS | Encounter Summary ---
Author Organization [facility] Address [address] [place] [address] Care Team Providers Care Guidance Secretary Name Role Phone Unknown, Provider Primary Care Provider Encounter Details Date Type Department Care Team (Late st Contact Info) Description 03/21/2008 Results Only [facility] [place] [facility] [address] [place] [address] Valentine Fallon, ARIAN[address] [place] [address] Social History Tobacco Use Types Packs/Day Years [...] Info) Description 09/04/2024 13:30 EST Office Visit [facility] Endocrinology [address] [place] [address] José Miguel Padgett MD 130 [facility] [address] [place] [phone] documented as of this encounter Procedures Procedure Name Priority Date/Time Associated Diagnosis Comments HPV DETECTION, HIGH RISK TYPES Routine 03/21/2008 17:13 EDT CYTOPATHOLOGY Routine 03/21/2008 0:00 EDT documented in this encounter Results * HUMAN PAPILLOMA VIRUS DNA TEST (03/21/2008 17:13 EDT) Specimen Description Cervix, ThinPrep vial [facility] Result Positive for one or more of HPV types 16,18,31,33,35 ,39,45,51,52,5 6,58,59, or 68. These high/intermedi ate risk HPV types are associated with dysplasia and some cervical cancers. [facility] Report Status Final [id number] [facility] 03/21/2008 17:1 3 EDT 03/27/2008 15:28 EDT Valentine Fallon NP MICROBIOLOGY - GENERAL ORDERABLES Performing Organization Address City/State/[facility] Co de Phone Number [facility] [address] [place] [address] * CYTOPATHOLOGY (03/21/2008 0:00 EDT) Pathology Report: CYTOPATHOLOGY REPORT Reports generated via electronic interface contain original data; however they are lacking the format of the original report. Caution should be taken when reading/interpreti ng unformatted reports. Name: ? BETI CORRIGANA ? Accession #: ? [id number] : ? 1970 (Age: 38) ??F ?Collect Date: ? 03/21/2008 Location: ? [facility] ? Receive Date: ? 03/24/2008 Provider: ?VALENTINE WATTS-RISING DRIVER SALES Copy to: ? Specimen/Source: ?ThinPrep Pap Test, Endocervix, processed on Tachyus ThinPrep Imaging System, with manual evaluation Last [...] yumiko present suggestive of bacterial vaginosis. EDUCATIONAL NOTES/RECOMMENDATI ONS ? [facility] recommends following the 2006 Consensus Guidelines for the Management of Women with Abnormal Cervical Cancer Screening Tests (JLGTD, 2007;11(4):201-222 ). ??Consensus guidelines are available online at www.ASCCP.org. ? Document reviewed and electronically signed by: ? SAHARA HOPE MD ? Report Date: ??03/27/2008 08:58 End of Report [facility] 03/21/2008 03/24/2008 Valentine Watts-Rising DRIVER SALES PATHOLOGY ORDER FRED Performing Organization Address City/State/[facility] Co de Phone Number [facility] [address] [place] [address] documented in this encounter Visit Diagnoses Not on filedocumented in this encounter Care Teams Guidance Secretary Relationship Specialty Start Date End Date Unknown, Provider, PCP - General 03/08/09 11/05/16 documented as of this encounter
--- OUTSIDE RECORDS SUMMARY | 2024-06-20 16:01 | XMS_ITS | Encounter Summary ---
Author Organization [facility] Address [address] [place] [address] Care Team Providers Care Rail Car Loader Name Role Phone Rosalia Starr MD Primary Care Provider [phone] Silvia Broussard MD Unavailable [phone] Reason for Visit * Reason Comments Diabetes Encounter Details Date Type Department Care Team (Latest Contact Info) Description 05/03/2023 14:30 EDT Office Visit [facility] Endocrinology [address] [place] [address] Yahaira Garcia, ARIANNA [address] [facility] [place] [phone] Type 2 diabetes mellitus with hyperglycemia, with long-term current use of insulin ([facility]) (Primary Dx); Obesity (BMI 30-39.9); 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 Inject into fatty tissue of thighs or buttocks. Work on bolus habits, NOT suspending pump!! If nervous about low, give bolus at first or last bite. Keep working on accurately assessing carb counting as well. Switch to dexcom and tandem pump next week with FAIZA Strange. Keep up with daily hydration, balanced meals and activity daily as able. Follow-up in 2 months or sooner with concerns. documented in this encounter Ordered Prescriptions Prescription Sig Dispensed Refills Start Date End Da te semaglutide (OZEMPIC) 2 mg/dose (8 mg/3 mL) pen injector Inject 2 mg into the skin every 7 days. 9 mL 2 05/03/2023 09/28/2023 Blood-Glucose Transmitter (DEXCOM G6 TRANSMITTER) device 1 application by misc (non-drug; combo route) route continuous. 1 Each 3 05/03/2023 01/25/2024 Blood-Glucose Sensor (DEXCOM G6 SENSOR) device 1 application by misc (non-drug; combo route) route continuous. 9 Each 2 05/03/2023 01/25/2024 documented in this encounter Progress Notes * Latisha Romano RN - 05/03/2023 1430 EDT Needs eye and foot Lab letter and message sent Lab Results Component Value Date UABCR 06/28/2022 Comment: Unable to calculate due to albumin result <0.6. Urine Albumin/Creatinine Ratio: Normal: <30 ug/mg Creatinine Moderately increased albuminuria: 30-300 ug/mg Creatinine Abisai increased albuminuria: >300 ug/mg Creatinine HGBA1C 8.0 (A) 02/22/2023 Glucose- * Yahaira Garcia NP - 05/03/2023 1430 EDT Reason for Visit: DM f/up PCP: Dr. Rosalia Starr OTHER PROVIDERS: Elizabeth Corrigan is a 53 y.o. female who presented to the clinic for a follow-up in [facility], with a history of DM since 1994. Hx of HTN, HLD, neuropathy Works as [employer]. Lives with . Adult kids, 3. All live nearby. Has all tandem supplies and scheduled next week to see FAIZA Strange to switch pumps. Looking forwardto this. Notes having trouble with infusion sets just today. Causing BG's to elevate. Random BG in clinic 330. Had lunch about 1 hour ago, did bolus for this. Will bolus before eating, 5-10 minutes. Unless at dinner and having a low prior as this is when previously been having lows. Is using the bolus wizard for meals and corrections. States the recent heat elevates glucose levels. Will suspend pump when low normal glucose level as nervous going to fall quickly with glucose. Has lost 4# since our last visit. Working hard on adding more protein during the day and with lows. Mentions getting her scripts out of [facility] for a better anne. Did not look into [facility] program. Does not remember why came off metformin, believes d/t being on pump. Does note it being a large pill and has a very hard time with this. [facility] DM: heavy on moms side Recent A1C: 8.1 (04/2023) 8 (01/2023) 8.4 (11/2022) 9 (07/2022) Diabetic Medications: 630G pump lantus 85 units in case of pump failure ozempic 1 mg weekly farxiga 10 mg daily novolog TDD 110 units Current monitoring regimen: Frequency of monitoring? : guardian sensor Fasting range: Preprandial range: Postprandial range: Any [...] Problems Eye exam current (within one year): [facility] center Provider: Last dental exam: [facility], has full false teeth for about 1 year now. 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 4.3 (07/2022) Lab Results Component Value Date Lab Urine Albumin to Creatinine Ratio 06/28/2022 Comment: Unable to calculate due to albumin result <0.6. Urine Albumin/Creatinine Ratio: Normal: <30 ug/mg Creatinine Moderately increased albuminuria: 30-300 ug/mg Creatinine Severley increased albuminuria: >300 ug/mg Creatinine Neuropathy: yes, always numb, take gabapentin-does see lower symptoms with this. Location: BL feet Stable: yes/no Review of Systems Constitutional: Negative. Eyes: Negative. Gastrointestinal: Negative. Endocrine: Negative. Genitourinary: Negative. Neurological: Positive for numbness. Physical Exam Vitals and nursing note reviewed. Constitutional: Appearance: Normal appearance. HENT: Head: Normocephalic and atraumatic. Cardiovascular: Rate and Rhythm: Normal rate and regular rhythm. Pulses: Dorsalis pedis pulses are 1+ on the right side and 1+ on the left side. Posterior tibial pulses are 1+ on the right side and 1+ on the left side. Pulmonary: Effort: Pulmonary effort is normal. Breath sounds: Normal breath sounds. Musculoskeletal: Cervical back: Normal range of motion and neck supple. Feet: Right foot: Protective Sensation: 3 sites tested. 3 sites sensed. Skin integrity: Skin integrity normal. Toenail Condition: Right toenails are normal. Left foot: Protective Sensation: 3 sites tested. 3 sites sensed. Skin integrity: Skin integrity normal. Toenail Condition: Left toenails are normal. Skin: General: Skin is warm and dry. Neurological: Mental Status: She is alert and oriented to person, place, and time. Psychiatric: Mood and Affect: Mood normal. Behavior: Behavior normal. Thought Content: Thought content normal. CGM INTERPRETATION Type of CGM: guardian 04/20-05/03/2023 Type of DM: II Diabetic Medications: ozempic farxiga novolog in pump Indication for monitoring: hyper/hypoglycemia, insulin dosing Report Interpretation: Average glucose 224 mg/dL, standard deviation 24.9 TIR 29%, TAR 71%, TBR 0% Nocturnal glucose control: no Post-prandial [...] is a 53 y.o. female who presented to the clinic for a follow-up in [facility], with a history of DM since 1994. Problem List Items Addressed This Visit Endocrine/Metabolic Type 2 diabetes mellitus with hyperglycemia (HCC-CMS) ([facility]) ([facility]) - Primary Uncontrolled A1C 8.1 Increase ozempic 2 mg weekly injection. Inject into fatty tissue of thighs or buttocks. Work on bolus habits, NOT suspending pump!! If nervous about low, give bolus at first or last bite. Keep working on accurately assessing carb counting as well. Switch to dexcom and tandem pump next week with FAIZA Strange. Keep up with daily hydration, balanced meals and activity daily as able. Follow-up in 2 months or sooner with concerns. Will continue to discuss adding metformin or switching SGLT if amenable. Relevant Medications semaglutide (OZEMPIC) 2 mg/dose (8 mg/3 mL) pen injector Other Relevant Orders VITAMIN D (25,OH) COMPREHENSIVE METABOLIC PANEL (CMP) LIPID PROFILE (INCLUDES CHOLESTEROL, TRIGLYCERIDES, HDL, LDL) THYROID CASCADE HEMOGLOBIN A1C VITAMIN B12 POCT HEMOGLOBIN A1C (Completed) POCT GLUCOSE, MANUAL ENTRY (Completed) Obesity (BMI 30-39.9) snf current use of insulin ([facility]) ([facility]) Insulin pump in place Cardiac/Vasculature Essential hypertension BP at goal . LDL at goal. Neurological Diabetic polyneuropathy ([facility]) ([facility]) ([facility]) Relevant Medications semaglutide (OZEMPIC) 2 mg/dose (8 mg/3 mL) pen injector Other Uses self-applied continuous glucose [...] Plan Note - Yahaira Garcia NP - 05/03/2023 1436 EDT Associated Problem(s): Type 2 diabetes mellitus with hyperglycemia ([facility]) Uncontrolled A1C 8.1 Increase ozempic 2 mg weekly injection. Inject into fatty tissue of thighs or buttocks. Work on bolus habits, NOT suspending pump!! If nervous about low, give bolus at first or last bite. Keep working on accurately assessing carb counting as well. Switch to dexcom and tandem pump next week with FAIZA Strange. Keep up with daily hydration, balanced meals and activity daily as able. Follow-up in 2 months or sooner with concerns. Will continue to discuss adding metformin or switching SGLT if amenable. * Assessment & Plan Note - Yahaira Garcia NP - 05/03/2023 1434 EDT Associated Problem(s): Essential hypertension BP at goal . LDL at goal. documented in this encounter Plan of Treatment Upcoming Encounters Date Type Department Care Team (Late st Contact Info) Description 09/04/2024 13:[address] [facility] Endocrinology [address] [place], [place] [phone] José Miguel Padgett MD [address] [facility] [address] [place] [phone] documented as of this encounter Procedures Procedure Name Priority Date/Time Associated Diagnosis Comments POCT GLUCOSE, MANUAL ENTRY Routine 05/03/2023 Type 2 diabetes mellitus with hyperglycemia, with long-term current use of insulin ([facility]) POCT HEMOGLOBIN A1C Routine 05/03/2023 Type 2 diabetes mellitus with hyperglycemia, with long-term current use of insulin ([facility]) documented in this encounter Results * (ABNORMAL) POCT GLUCOSE, MANUAL ENTRY (05/03/2023) Glucose, POC 260(A) 70 - 100 mg/dL [facility] POINT OF CARE HN LAB POC COMMENT MANUAL (GLUCOSE) [facility] POINT OF correspondence school teacher ID [facility] POIN T OF CARE Blood CAPILLARY BLOOD / Unknown 05/03/2023 Yahaira Garcia NP POINT OF CARE MARLEN T ORDERABLES [facility] POINT OF CARE * (ABNORMAL) POCT HEMOGLOBIN A1C (05/03/2023) Hemoglobin A1c, POC 8.1(A) 5.7 % [facility] POINT OF CARE Blood CAPILLARY BLOOD / Unknown 05/03/2023 Yahaira Garcia MICROBIOLOGY DIRECTOR POINT OF CARE MARLEN T ORDERABLES [facility] POINT OF CARE documented in this encounter Visit Diagnoses Diagnosis Type 2 diabetes mellitus with hyperglycemia, with long-term current use of insulin ([facility])- Primary Obesity (BMI 30-39.9) Obesity, unspecified snf current use of insulin ([facility]) Encounter for long-term (current) use of insulin Insulin pump in place Insulin pump status Essential hypertension Unspecified essential hypertension Diabetic polyneuropathy associated with type 2 diabetes mellitus ([facility]) Uses self-applied continuous glucose monitoring device documented in this encounter Discontinued Medications Medication Sig Discontinue Reason Start Date End Da te Blood-Glucose Sensor (DEXCOM G6 SENSOR) device 1 application by misc (non-drug; combo route) route continuous. Reorder 10/05/2022 05/03/2023 Blood-Glucose Transmitter (DEXCOM G6 TRANSMITTER) device 1 application by misc (non-drug; combo route) route continuous. Reorder 10/05/2022 05/03/2023 semaglutide (OZEMPIC) 1 mg/dose (4 mg/3 mL) pen injector Inject 0.75 mL into the skin every 7 days. 03/29/2023 05/03/2023 documented as of this encounter Care Teams Rail Car Loader Relationship Specialty Start Date End Date Rosalia Starr MD [address] [place] [phone] PCP - General 11/06/16 Silvia Broussard MD [address] [place] [phone] Endocrinology, Diabetes and Metabolism 11/23/21 documented as of this encounter
--- OUTSIDE RECORDS SUMMARY | 2024-06-20 16:01 | XMS_ITS | Encounter Summary ---
Author Organization [facility] Address [address] [place] [address] Care Team Providers Care Store Clerk Checker Name Role Phone Rosalia Starr MD Primary Care Provider [phone] Silvia Broussard MD Unavailable Encounter Details Date Type Department Care Team (Late st Contact Info) Description 09/28/2021 Lab Requisition [facility] Pathology & Laboratory Medicine - [address] [address] Rosalia Starr MD [address] [place] [phone] Encounter for screening for malignant neoplasm of cervix; Encounter for general adult medical examination without abnormal findings Social History Tobacco Use Types Packs/Day Years [...] Info) Description 09/04/2024 13:30 EST Office Visit [facility] Endocrinology [address] [place] [address] José Miguel Padgett MD [address] [facility] [address] [place] [phone] documented as of this encounter Procedures Procedure Name Priority Date/Time Associated Diagnosis Comments PAP TEST Today 09/26/2021 8:30 EST Encounter for screening for malignant neoplasm of cervix Encounter for general adult medical examination without abnormal findings CHLAMYDIA/N. GONORRHOEAE AMPLIFIED NUCLEIC ACID, THINPREP Today 09/26/2021 8:30 EST Encounter for screening for malignant neoplasm of cervix Encounter for general adult medical examination without abnormal findings HPV DNA DETECTION WITH GENOTYPING, PCR Today 09/26/2021 8:30 EST Encounter for screening for malignant neoplasm of cervix Encounter for general adult medical examination without abnormal findings documented in this encounter Results * HUMAN PAPILLOMAVIRUS (HPV) DETECTION-HIGH RISK TYPES (09/26/2021 8:30 EST) HPV other High Risk types, PCR Negative Negative 10/05/2021 14:29 EST [facility] Comment:No E6 or E7 mRNA is detected from HPV types 16,18,31,33,35,39,45,51,52,56,58,59,66, and 68 by developmental mathematics professor mediated amplification. Papanicolaou smear specimen (specimen) CERVIX UTERI STRUCTURE / Unknown 09/26/2021 8:30 EST 10/04/2021 8:58 EST Rosalia Starr MD MICROBIOLOGY - GENER AL ORDERABLES [facility] [address] [place] [address] * PAP TEST (09/26/2021 8:30 EST) Specimens A. Cervix and/or Endocervix , ThinPrep Imaging System with Manual Evaluation 10/05/2021 14:29 EST [facility] Specimen Adequacy Satisfactory for Evaluation - transformation zone component present 10/05/2021 14:29 [facility] General Categorization Negative for intraepithelial lesion or malignancy 10/05/2021 14:29 [facility] Descriptive Diagnosis Shift in yumiko present suggestive of bacterial vaginosis. 10/05/2021 14:29 [facility] Attestation . 10/05/2021 14:29 [facility] at 1429 Clinical History See below 10/05/20 14:29 [facility] HPV The result for the Human Papillomavirus (HPV) Detection-High Risk Types is Negative. No E6 or E7 mRNA is detected from HPV types 16,18,31,33,35,39 ,45,51,52,56,58,5 9,66, and 68 by developmental mathematics professor mediated amplification.Mervat ting was performed on specimen [id number] and was resulted on 10/05/2021 1428 EST by CARISSA, LAB INSTRUMENT RESULTS IN 10/05/2021 14:29 [facility] Performing Lab [facility] 10/05/2021 14:29 [facility] Scanned Images 10/05/2021 14:29 [facility] Papanicolaou smear specimen (specimen) CERVIX UTERI STRUCTURE / Unknown 09/26/2021 8:30 EST 09/28/2021 15:24 EST Rosalia Starr MD PATHOLOGY ORDERABLES Performing Organization Address City/State/[facility] Co de Phone Number [facility] [address] [place] [address] * CHLAMYDIA/N. GONORRHOEAE AMPLIFIED RNA, THINPREP (09/26/2021 8:30 EST) Neisseria gonorrhoeae Result Negative Negative 09/29/2021 10:30 [facility] Chlamydia trachomatis Result Negative Negative 09/29/2021 10:30 [facility] Papanicolaou smear specimen (specimen) CERVIX UTERI STRUCTURE / Unknown 09/26/2021 8:30 EST 09/28/2021 12:24 EST Rosalia Starr MD MICROBIOLOGY - GENER AL ORDERABLES [facility] [address] [place] [address] documented in this encounter Visit Diagnoses Diagnosis Encounter for screening for malignant neoplasm of cervix Screening for malignant neoplasm of the cervix Encounter for general adult medical examination without abnormal findings Unspecified general medical examination documented in this encounter Care Teams Store Clerk Checker Relationship Specialty Start Date End Date Rosalia Starr MD [address] [place] [phone] PCP - General 11/06/16 Silvia Broussard MD [address] [place] [phone] Endocrinology, Diabetes and Metabolism 11/23/21 documented as of this encounter
--- OUTSIDE RECORDS SUMMARY | 2024-06-20 16:01 | XMS_ITS | Encounter Summary ---
Author Organization Health system Address [address] [place] [address] Care Team Providers Care Pulping Machine Operator Name Role Phone Rosalia Starr MD Primary Care Provider [phone] Silvia Broussard MD Unavailable Encounter Details Date Type Department Care Team (Late st Contact Info) Description 09/27/2021 Lab Requisition [facility] Pathology & Laboratory Medicine - [address] [address] Rosalia Starr MD [address] [place] [phone] Encounter for general adult medical examination without abnormal findings; Encounter for screening for malignant neoplasm of cervix Social History Tobacco Use Types Packs/Day Years [...] Info) Description 09/04/2024 13:30 EST Office Visit [facility] Endocrinology [address] [place] [phone] José Miguel Padgett MD [address] [place] [phone] Scheduled Orders Name Type Priority Associated Diagnoses Orde r Schedule PAP TEST Pathology Today Encounter for general adult medical examination without abnormal findings Encounter for screening for malignant neoplasm of cervix Ordered: 09/27/2021 documented as of this encounter Visit Diagnoses Diagnosis Encounter for general adult medical examination without abnormal findings Unspecified general medical examination Encounter for screening for malignant neoplasm of cervix Screening for malignant neoplasm of the cervix documented in this encounter Care Teams Pulping Machine Operator Relationship Specialty Start Date End Date Rosalia Starr MD [address] [place] [phone] PCP - General 11/06/16 Silvia Broussard MD [address] [place] [phone] Endocrinology, Diabetes and Metabolism 11/23/21 documented as of this encounter
--- OUTSIDE RECORDS SUMMARY | 2024-06-20 16:01 | XMS_ITS | Encounter Summary ---
Author Organization [facility] Address [address] [place] [address] Care Team Providers Care Admiralty Lawyer Name Role Phone Rosalia Starr MD Primary Care Provider Silvia Broussard MD Unavailable [phone] Reason for Visit * Reason Onset Date Comments Prior Auth, Medication 10/18/2022 Encounter Details Date Type Department Care Team (Late st Contact Info) Description 10/18/2022 Telephone [facility] Endocrinology [address] [place] [address] Latisha Romano RN Prior Auth, Medication [...] Telephone Encounter - Latisha Romano RN - 10/18/2022 0806 EST santosan sensor approved thru [employer] documented in this encounter Plan of Treatment Upcoming Encounters Date Type Department Care Team (Late st Contact Info) Description 09/04/2024 13:30 EST Office Visit [facility] Endocrinology [address] [place] [address] José Miguel Padgett MD [address] [place] [phone] documented as of this encounter Visit Diagnoses Not on filedocumented in this encounter Care Teams Admiralty Lawyer Relationship Specialty Start Date End Date Rosalia Starr MD [address] [place] [phone] PCP - General 11/06/16 Silvia Broussard MD [address] [place] [phone] Endocrinology, Diabetes and Metabolism 11/23/21 documented as of this encounter
--- OUTSIDE RECORDS SUMMARY | 2024-06-20 16:01 | XMS_ITS | Encounter Summary ---
Author Organization [facility] Address [address] [place] [address] Care Team Providers Care Medical Dosimetrist Name Role Phone Unknown, Provider Primary Care Provider [phone] Encounter Details Date Type Department Care Team (Late st Contact Info) Description 07/27/2007 Results Only [facility] conversion [address] [place] [address] Valentine Fallon, ARIANNA [address] [place] [address] Social History Tobacco Use Types Packs/Day Years [...] Info) Description 09/04/2024 13:30 EST Office Visit [facility] Endocrinology [address] [place] [address] José Miguel Padgett MD [address] [facility] [address] [place] [phone] documented as of this encounter Procedures Procedure Name Priority Date/Time Associated Diagnosis Comments CYTOPATHOLOGY Routine 07/27/2007 0:00 EDT documented in this encounter Results * CYTOPATHOLOGY (07/27/2007 0:00 EDT) Pathology Report: CYTOPATHOLOGY REPORT Reports generated via electronic interface contain original data; however they are lacking the format of the original report. Caution should be taken when reading/interpreti ng unformatted reports. Name: ? ORTEGA CORRIGAN ? Accession #: ? [id number] : ? 1970 (Age: 37) ??F ?Collect Date: ? 07/27/2007 Location: ? [facility] ? Receive Date: ? 07/31/2007 Provider: ?VALENTINE WATTS-DOROTHY CLINICAL TRIAL MANAGER Copy to: ? Specimen/Source: ?ThinPrep Pap Test, Endocervix, processed on Hyphen 8 ThinPrep Imaging System, with manual evaluation Last [...] Low grade squamous intraepithelial lesion (LSIL). EDUCATIONAL NOTES/RECOMMENDATI ONS ? [facility] recommends following the 2001 Consensus Guidelines for the Management of Women with Cervical Cytological Abnormalities (RAI,2002;287:212 0-9). Management algorithms have been distributed by [facility] and are available online at www.ASCCP.org. ? Document reviewed and electronically signed by: ? JOHANA JOSEPH MD ? Report Date: ??08/08/2007 10:36 End of Report [facility] 07/27/2007 07/31/2007 Valentine Watts-Dorothy CLINICAL TRIAL MANAGER PATHOLOGY ORDER FRED Performing Organization Address City/State/[facility] Co de Phone Number [facility] [address] [place] [address] documented in this encounter Visit Diagnoses Not on filedocumented in this encounter Care Teams Medical Dosimetrist Relationship Specialty Start Date End Date Unknown, Provider, PCP - General 03/08/09 11/05/16 documented as of this encounter
--- OUTSIDE RECORDS SUMMARY | 2024-06-20 16:01 | XMS_ITS | Encounter Summary ---
Author Organization [facility] Address [address] [place] [address] Care Team Providers Care Stablehand Name Role Phone Rosalia Starr MD Primary Care Provider [phone] Silvia Broussard MD Unavailable [phone] Reason for Visit * Reason Comments Diabetes Encounter Details Date Type Department Care Team (Late st Contact Info) Description 02/22/2023 16:15 EDT Office Visit [facility] Endocrinology [address] [place] [address] Yahaira Garcia, IT TECHNICAL SPECIALIST [address] [facility]- [address] [place] [phone] Type 2 diabetes mellitus with hyperglycemia, with long-term current use of insulin ([facility]) (Primary Dx); Insulin pump in place; intermediate current use of insulin ([facility]); Obesity (BMI 30-39.9); Essential hypertension Social History Tobacco Use Types [...] Sign Reading Time Taken Comments Blood Pressure 132/60 02/22/2023 1536 EDT Pulse 90 02/22/2023 1536 EDT Temperature - - Respiratory Rate - - Oxygen Saturation - - Inhaled Oxygen Concentration - - Weight 85.4 kg (188 lb 3.2 oz) 02/22/2023 1536 E DT Height 157.5 cm (5' 2) 02/22/2023 1536 EDT Body Mass Index 34.42 02/22/2023 1536 EDT documented in this encounter Patient Instructions * Patient Instructions* Yahaira Garcia NP - 02/22/2023 16:15 EDT A1C 8 Adjusted carb ratio all day to give less insulin and encouraged to give appropriate carb bolus withALL MEALS!! Give the bolus 5-15 minutes BEFORE meals and snacks. Call clinic if causing further lows!! If seeing glucose going down on pump and not having symptoms, intake PROTEIN only! If having symptoms have 5 g carbs and then protein!! Continue with ozempic 1 mg weekly and farxiga 10 mg daily. Continue with CGM and use within pump. Keep up with daily hydration, balanced meals and activity daily as able. Follow-up in 2 months or sooner with concerns. Call tandem to switch pumps when out of warranty. Make visit with FAIZA Strange to switch this over documented in this encounter Ordered Prescriptions Prescription Sig Dispensed Refills Start Date End Da te semaglutide (OZEMPIC) 1 mg/dose (4 mg/3 mL) pen injector Inject 0.75 mL into the skin every 7 days. 9 mL 2 02/22/2023 03/29/2023 documented in this encounter Progress Notes * Latisha Romano RN - 02/22/2023 1615 EDT Shared visit Needs foot and eye Lab Results Component Value Date UABCR 06/28/2022 Comment: Unable to calculate due to albumin result <0.6. Urine Albumin/Creatinine Ratio: Normal: <30 ug/mg Creatinine Moderately increased albuminuria: 30-300 ug/mg Creatinine Abisai increased albuminuria: >300 ug/mg Creatinine HGBA1C 8.4 (A) 12/08/2022 Glucose- * Yahaira Garcia, IT TECHNICAL SPECIALIST - 02/22/2023 1615 EDT Reason for Visit: DM f/up PCP: Dr. Rosalia Starr OTHER PROVIDERS: Elizabeth Corrigan is a 52 y.o. female who presented to the clinic for a follow-up in [facility], with a history of DM since 1994. Hx of HTN, HLD, neuropathy Works as [employer]. Lives with . Adult kids, 3. All live nearby. Shared visit with FAIZA Strange today. Plans to switch over to tandem pump and dexcom March 14. Random BG in clinic 209. Has just eaten an hour ago. Has increased the ozempic and has had some constipation with this, getting better with time. Has noticed with this increase if gives full carb bolus will have lows. Will often give less carbs to lower bolus 3-4 units. Occurs with all meals. Will bolus before eating, 5-10 minutes. Unless at dinner and having a low prior as this is when previously been having lows. Is using the bolus wizard for meals and corrections. Does not typically intake protein after having lows or seeing glucose level decrease on pump. Is working on daily hydration. No further UTI's since our last visit. Mentions getting her scripts out of [facility] for a better anne. Did not look into [facility] HAP program. Does not remember why came off metformin, believes d/t being on pump. Does note it being a large pill and has a very hard time with this. [facility] DM: heavy on moms side Recent A1C: 8 (01/2023) 8.4 (11/2022) 9 (07/2022) 7.9 (01/2021) Diabetic Medications: 630G pump lantus 85 units [...] Problems Eye exam current (within one year): [facility] Provider: Last dental exam: [facility], has full false teeth for about 1 year now. 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 Comorbidities: Retinopathy: yes, small dot/blot hemes Stable: [...] Normal appearance. HENT: Head: Normocephalic and atraumatic. Skin: General: Skin is warm and dry. Neurological: Mental Status: She is alert and oriented to person, place, and time. Psychiatric: Mood and Affect: Mood normal. Behavior: Behavior normal. Thought Content: Thought content normal. CGM INTERPRETATION Type of CGM: guardian 02/09-02/22/2023 Type of DM: II Diabetic Medications: ozempic farxiga novolog in pump Indication for monitoring: hyper/hypoglycemia, insulin dosing Report Interpretation: Average glucose 188 mg/dL, standard deviation 26.3 TIR 48%, TAR 52%, TBR 0% Nocturnal glucose control: no/yes Post-prandial glucose excursions: yes all meals Hypoglycemia incidence: minimal Other (exercise/activity): Hemoglobin A1c, POC Date Value Ref Range Status 02/22/2023 8.0 (A) 5.7 % Final Lab Results Component Value Date UABCR 06/28/2022 Comment: Unable to calculate due to albumin result <0.6. Urine Albumin/Creatinine Ratio: Normal: <30 ug/mg Creatinine Moderately increased albuminuria: 30-300 ug/mg Creatinine Abisai increased albuminuria: >300 ug/mg Creatinine No results found for: NA, K, CL, CO2, BUN, CSFGLU, CREATINE, GLU, CA, GFR Eilzabeth Corrigan is a 52 y.o. female who presented to the clinic for a follow-up in [facility], with a history of DM since 1994. Problem List Items Addressed This Visit Endocrine/Metabolic Type 2 diabetes mellitus with hyperglycemia ([facility]) ([facility]) ([facility]) - Primary Uncontrolled A1C 8 Adjusted carb ratio all day to give less insulin and encouraged to give appropriate carb bolus withALL MEALS!! Give the bolus 5-15 minutes BEFORE meals and snacks. If seeing glucose going down on pump and not having symptoms, intake PROTEIN only! If having symptoms have 5 g carbs and then protein!! Continue with ozempic 1 mg weekly and farxiga 10 mg daily. Continue with CGM and use within pump. Keep up with daily hydration, balanced meals and activity daily as able. Follow-up in 2 months or sooner with concerns. Call tandem to switch pumps when out of warranty. Make visit with FAIZA Strange to switch this over Will further discuss restarting metformin at f/up if needed, switch SGLT and increase ozempic. Relevant Medications semaglutide (OZEMPIC) 1 mg/dose (4 mg/3 mL) pen injector Other Relevant Orders HEMOGLOBIN A1C THYROID CASCADE VITAMIN D (25,OH) VITAMIN B12 POCT HEMOGLOBIN A1C (Completed) Obesity (BMI 30-39.9) intermediate current use of insulin ([facility]) ([facility]) Insulin pump in place Cardiac/Vasculature Essential hypertension BP at goal. LDL at goal. Patient Goals: A1C <7% Exercise: 150-300 minutes of CV exercise/week. I spent a total of 30 minutes on the date of this encounter meeting with the patient and reviewing documentation/coordinating care as described in the above note. No procedures were performed at the time of the visit. This does not include time reviewing CGM data. * Geraldine Strange RN - 02/22/2023 1615 EDT Results for orders placed or performed in visit on 02/22/23 POCT HEMOGLOBIN A1C Result Value Ref Range Hemoglobin A1c, POC 8.0 (A) 5.7 % Diabetes education note joint visit visit type: office SBGM results: See pt docs Current regimen: Medtronic 630g with guardian automode Ozempic 1 mg weekly Dietary intake history: 1030: ogurt with honey, vanilla oats with almonds, bb and pecans 3:30: leftovers or soup or turkey bulkie 7:30: rice, meat Water 1 liter, iced, decaaf tea, coffee Notes: If she takes Exact amount of carbs her bolus is too big. Has learned to decrease 3-4 units Has to wait 20 minutes at least to bolus, before dinner or she goes low tdd 109.3, sf 15.6, ratio 4.6 Basal rate adjusted to match automode calc basal Pump changes made physically by me. documented in this encounter Miscellaneous Notes * Assessment & Plan Note - Yahaira Garcia NP - 02/22/2023 1640 EDT Associated Problem(s): Essential hypertension BP at goal. LDL at goal. * Assessment & Plan Note - Yahaira Garcia NP - 02/22/2023 1615 EDT Associated Problem(s): Type 2 diabetes mellitus with hyperglycemia ([facility]) Uncontrolled A1C 8 Adjusted carb ratio all day to give less insulin and encouraged to give appropriate carb bolus withALL MEALS!! Give the bolus 5-15 minutes BEFORE meals and snacks. If seeing glucose going down on pump and not having symptoms, intake PROTEIN only! If having symptoms have 5 g carbs and then protein!! Continue with ozempic 1 mg weekly and farxiga 10 mg daily. Continue with CGM and use within pump. Keep up with daily hydration, balanced meals and activity daily as able. Follow-up in 2 months or sooner with concerns. Call tandem to switch pumps when out of warranty. Make visit with FAIZA Strange to switch this over Will further discuss restarting metformin at f/up if needed, switch SGLT and increase ozempic. documented in this encounter Plan of Treatment Upcoming Encounters Date Type Department Care Team (Late st Contact Info) Description 09/04/2024 13:30 EST Office Visit [facility] Endocrinology [address] [place], [place] [phone] José Miguel Padgett MD [address] [place] [address] [place] [phone] documented as of this encounter Procedures Procedure Name Priority Date/Time Associated Diagnosis Comments POCT HEMOGLOBIN A1C Routine 02/22/2023 Type 2 diabetes mellitus with hyperglycemia, with long-term current use of insulin ([facility]) documented in this encounter Results * (ABNORMAL) POCT HEMOGLOBIN A1C (02/22/2023) Hemoglobin A1c, POC 8.0(A) 5.7 % [facility] POINT OF CARE Blood CAPILLARY BLOOD / Unknown 02/22/2023 Yahaira Garcia NP POINT OF CARE MARLEN T ORDERABLES [facility] POINT OF CARE documented in this encounter Visit Diagnoses Diagnosis Type 2 diabetes mellitus with hyperglycemia, with long-term current use of insulin ([facility])- Primary Insulin pump in place Insulin pump status terminal carman current use of insulin ([facility]) Encounter for long-term (current) use of insulin Obesity (BMI 30-39.9) Obesity, unspecified Essential hypertension Unspecified essential hypertension documented in this encounter Discontinued Medications Medication Sig Discontinue Reason Start Date End Da te semaglutide (OZEMPIC) 1 mg/dose (4 mg/3 mL) pen injector Inject 0.75 mL into the skin every 7 days. Reorder 01/08/2023 02/22/2023 documented as of this encounter Historical Medications * This list may reflect changes made after this encounter. Medication Sig Dispensed Refills Start Date End Date UNABLE TO FIND Iron. Low dose 1 low dose tab daily fluticasone propionate (FLONASE) 50 mcg/actuation nasal spray Per patient - uses PRN 05/23 added in this encounter Care Teams Stablehand Relationship Specialty Start Date End Date Rosalia Starr MD [address] [place] [phone] PCP - General 11/06/16 Silvia Broussard MD [address] [place] [phone] Endocrinology, Diabetes and Metabolism 11/23/21 documented as of this encounter
--- OUTSIDE RECORDS SUMMARY | 2024-06-20 16:01 | XMS_ITS | Encounter Summary ---
Author Organization [facility] Address [address] [place] [address] Care Team Providers Care Sales Support Assistant Name Role Phone Rosalia Starr MD Primary Care Provider [phone] Reason for Referral * Prior Authorization (See Order Priority) - Authorization Not Required Specialty Diagnoses / Procedures Referred By Contac t Referred To Contact Infusion Therapy Diagnoses NICOLE Robles, Aliza Nieto MD [address] [facility], [address] [place] [address] [facility] [address] [place] [address] Referral ID Status Reason Start Date Expiration Date Visits Requested Visits Authorized [id number] Authorization Not Required Specialty Services Required 08/18/20 21 1 1 Question Answer Is this appt for transfusion, medication, test or injection? Infusion How many infusions need to be ordered for appt? 1 Infusion Name Other Please specify: Casirivimab/imdevimab Infusion Dose 1200mg What is the infusion frequency? Once Is this the first dose of infusion(s)? Yes Are labs to be obtained during the appt? No Does this have a lab dependency? This patient is not lab dependent Are preliminary tests complete (like MRI)? N/A Have orders been place for this appt? (i.e.: Blood Transfusion Order Set, Therapy Plan, Lab Orders, Supportive Plan, Etc) Yes Encounter Details Date Type Department Care Team (Late st Contact Info) Description 08/18/2021 Orders Only [facility] [address] [place] [address] Mercedez Carrion, RN [address] [place] [address] COVID (Primary Dx) Social History Tobacco Use Types [...] Description 09/04/2024 13:[address] [facility] Endocrinology [address] [place] [address] José Miguel Padgett MD [address] [facility]- [address] [place] [phone] Scheduled Referrals Name Type Priority Associated Diagnoses Order Schedule AMB CONS/FOLLOW UP SHEP 4 INFUSIONS Outpatient Referral Routine/Next Available Covid Expected: 08/19/2021 (Approximate), Expires: 08/18/2022 documented as of this encounter Visit Diagnoses Diagnosis COVID- Primary documented in this encounter Care Teams Sales Support Assistant Relationship Specialty Start Date End Date Rosalia Starr MD [address] [place] [phone] PCP - General 11/06/16 documented as of this encounter
--- OUTSIDE RECORDS SUMMARY | 2024-06-20 16:01 | XMS_ITS | Encounter Summary ---
Author Organization [facility] Address [address] [place] [address] Care Team Providers Care Music Therapist Name Role Phone Rosalia Starr MD Primary Care Provider [phone] Silvia Broussard MD Unavailable [phone] Encounter Details Date Type Department Care Team (Late st Contact Info) Description 10/05/2022 Telephone [facility] Endocrinology [address] [place] [address] Yahaira Garcia, ARIANNA 130 [facility] [address] [place] [phone] Social History Tobacco Use Types Packs/Day [...] Info) Description 09/04/2024 13:30 EST Office Visit [facility] Endocrinology [address] [place] [address] José Miguel Padgett MD [address] [phone] documented as of this encounter Visit Diagnoses Not on filedocumented in this encounter Care Teams Music Therapist Relationship Specialty Start Date End Date Rosalia Starr MD [address] [place] [phone] PCP - General 11/06/16 Silvia Broussard MD [address] [phone] Endocrinology, Diabetes and Metabolism 11/23/21 documented as of this encounter
--- OUTSIDE RECORDS SUMMARY | 2024-06-20 16:01 | XMS_ITS | Encounter Summary ---
Author Organization [facility] Address [address] [place] [address] Care Team Providers Care [employer] Basketball [employer] Scout Name Role Phone Rosalia Starr MD Primary Care Provider [phone] Reason for Visit * Reason Comments Diabetes Uncontrolled blood s ugars Encounter Details Date Type Department Care Team (Late st Contact Info) Description 07/01/2020 13:00 EDT Nurse Only [facility] Endocrinology [address] [place] [address] Geraldine Strange, RN [address] [place] [address] Type 1 diabetes mellitus with hypoglycemia and without coma (HCC-CMS) (Primary Dx) Social History Tobacco Use Types [...] in this encounter Progress Notes * Geraldine Strange, FAIZA - 07/01/2020 1300 EDT [...] 09/04/2024 13:30 EST Office Visit [facility] Endocrinology [address] [place], [place] [phone] José Miguel Padgett MD [address] [facility] [address] [place] [phone] documented as of this encounter Visit Diagnoses Diagnosis Type 1 diabetes mellitus with hypoglycemia and without coma ([facility] Primary Type I (juvenile type) diabetes mellitus with other specified manifestations, not stated as uncontrolled documented in this encounter Care Teams [employer] Scout Relationship Specialty Start Date End Date Rosalia Starr MD [address] [place] [phone] PCP - General 11/06/16 documented as of this encounter
--- OUTSIDE RECORDS SUMMARY | 2024-06-20 16:01 | XMS_ITS | Encounter Summary ---
Author Organization [facility] Address [address] [place] [address] Care Team Providers Care Sewing Supervisor Name Role Phone Rosalia Starr MD Primary Care Provider [phone] Silvia Broussard MD Unavailable [phone] Reason for Visit * Reason Comments Diabetes Shared visit Encounter Details Date Type Department Care Team (Late st Contact Info) Description 02/22/2023 15:30 EDT Nurse Only [facility] Endocrinology [address] [place], [place] [phone] Geraldine Strange, FAIZA [address] [place], [place] [phone] Type 2 diabetes mellitus with hyperglycemia, with long-term current use of insulin ([facility]) (Primary Dx) Social History Tobacco Use [...] of this encounter Progress Notes * Geraldine StrangeFAIZA - 02/22/2023 1530 EDT This is a joined visit with Yahaira Garcia. Please see my info in her visit note. documented in this encounter Plan of Treatment Upcoming Encounters Date Type Department Care Team (Late st Contact Info) Description 09/04/2024 13:30 EST Office Visit [facility] Endocrinology [address] [place] [address] José Miguel Padgett MD [address] [place] [phone] documented as of this encounter Visit Diagnoses Diagnosis Type 2 diabetes mellitus with hyperglycemia, with long-term current use of insulin ([facility])- Primary documented in this encounter Care Teams Sewing Supervisor Relationship Specialty Start Date End Date Rosalia Starr MD [address] [place] [phone] PCP - General 11/06/16 Silvia Broussard MD [address] [place] [phone] Endocrinology, Diabetes and Metabolism 11/23/21 documented as of this encounter
--- OUTSIDE RECORDS SUMMARY | 2024-06-20 16:01 | XMS_ITS | Encounter Summary ---
Author Organization [facility] Address [address] [place] [address] Care Team Providers Care Shaft Mechanic Name Role Phone Rosalia Starr MD Primary Care Provider Encounter Details Date Type Department Care Team (Late st Contact Info) Description 10/24/2017 Historical Results Only [facility] [place] [address] [place] [address] Silvia Broussard MD [address] [place] [phone] Social History Tobacco Use Types Packs/Day [...] Info) Description 09/04/2024 13:30 EST Office Visit [facility] Endocrinology [address] [place] [phone] José Miguel Padgett MD [address] [place] [phone] documented as of this encounter Procedures Procedure Name Priority Date/Time Associated Diagnosis Comments MICROALBUMIN, URINE Routine 10/24/2017 1 5:51 EST URINE [id number] NE RATIO (ACR) Routine 10/24/2017 15:51 EST documented in this encounter Results * MICROALBUMIN, URINE (10/24/2017 15:51 EST) Albumin, Urine 0.80 <1.7 mg/dL 10/24/2017 19:45 EST [facility] Lab Urine Albumin to Creatinine Ratio 5.0 ug/mg 10/24/2017 19:45 [facility] Comment: Normal: <30 ug/mg Creat Microalbuminuria: 30-300 ug/mg Creat Clinical albuminuria: >300 ug/mg Creat Creatinine, Urine 157.50 mg/dL 10/24/2017 19:45 [facility] 10/24/2017 15:5 1 EST 10/24/2017 16:54 EST Silvia Broussard MD HEMATOLOGY & PF4 ORD ERABLES [facility] * ALBUMIN, URINE (10/24/2017 15:51 EST) Albumin, Urine 0.80 <1.7 mg/dL 10/24/2017 19:45 [facility] Lab Urine Albumin to Creatinine Ratio 5.0 ug/mg 10/24/2017 19:45 [facility] Comment: Normal: <30 ug/mg Creat Microalbuminuria: 30-300 ug/mg Creat Clinical albuminuria: >300 ug/mg Creat Creatinine, Urine 157.50 mg/dL 10/24/2017 19:45 [facility] 10/24/2017 15:5 1 EST 10/24/2017 16:54 EST Silvia Broussard MD CHEMISTRY & BLOOD GA S ORDERABLES [facility] documented in this encounter Visit Diagnoses Not on filedocumented in this encounter Care Teams Shaft Mechanic Relationship Specialty Start Date End Date Rosalia Starr MD [address] [place] [phone] PCP - General 11/06/16 documented as of this encounter
--- OUTSIDE RECORDS SUMMARY | 2024-06-20 16:01 | XMS_ITS | Encounter Summary ---
Author Organization [facility] Address [address] [place] [address] Care Team Providers Care Paver Operator Name Role Phone Rosalia Starr MD Primary Care Provider [phone] Silvia Broussard MD Unavailable [phone] Reason for Visit * Reason Onset Date Comments Medication Problem 11/21/2022 Encounter Details Date Type Department Care Team (Late st Contact Info) Description 11/21/2022 Telephone [facility] [place] [address] [place] [address] Shira Saldaña RN Medication Problem Social History Tobacco Use Types Packs/Day Years [...] encounter Miscellaneous Notes * Telephone Encounter - Yahaira Garcia NP - 11/21/2022 8457 EST Sent [employer] message. * Telephone Encounter - Shira Saldaña RN - 11/21/2022 1022 EST Patient called with syncopal episodes after taking ozempic. Message sent to Yahaira documented in this encounter Plan of Treatment Upcoming Encounters Date Type Department Care Team (Late st Contact Info) Description 09/04/2024 13:30 EST Office Visit [facility] Endocrinology [address] [place] [address] José Miguel Padgett MD [address] [place] [phone] documented as of this encounter Visit Diagnoses Not on filedocumented in this encounter Care Teams Paver Operator Relationship Specialty Start Date End Date Rosalia Starr MD [address] [place] [phone] PCP - General 11/06/16 Silvia Broussard MD [address] [place] [phone] Endocrinology, Diabetes and Metabolism 11/23/21 documented as of this encounter
--- OUTSIDE RECORDS SUMMARY | 2024-06-20 16:01 | XMS_ITS | Encounter Summary ---
Author Organization [facility] Address [address] [place] [address] Care Team Providers Care Cistern Room Working Supervisor Name Role Phone Rosalia Starr MD Primary Care Provider [phone] Silvia Broussard MD Unavailable [phone] Reason for Visit * Reason Onset Date Comments Blood Sugar Problem 03/22/2023 Encounter Details Date Type Department Care Team (Late st Contact Info) Description 03/22/2023 Telephone [facility] Endocrinology [address] [place] [address] Latisha Romano RN Blood Sugar Problem Social History Tobacco Use Types Packs/Day [...] Telephone Encounter - Yahaira Garcia NP - 03/22/2023 1115 EDT Called to discuss lows. Overnight around 2:30-3am will have lows. And again around 3 pm. Alarm will go off at 90's and thenwill intake glucose to correct Low appetite and having to force self to eat. Assisted in changing pump settings: Time Basal MN 2.55 14:00 2.55 Plans to call regarding new Tandem pump today, will switch over with FAIZA Strange. Recommended to stop by clinic in 2 weeks to upload pump if needed. * Telephone Encounter - Latisha Romano RN - 03/22/2023 1036 EDT Called yesterday to speak with jose carlos who transferred call here today- has been having lows Mostly between 2:30-3:00 am and mid afternoon for several weeks- states since being on ozempic she's had noappetite And has been eating less causing low bg's-- unalbe to see data from medtronic pump CAN RESPOND VIA Format DynamicsT documented in this encounter Plan of Treatment Upcoming Encounters Date Type Department Care Team (Late st Contact Info) Description 09/04/2024 13:30 EST Office Visit [facility] Endocrinology [address] [place] [address] José Miguel Padgett MD [address] [place] [phone] documented as of this encounter Visit Diagnoses Not on filedocumented in this encounter Care Teams Cistern Room Working Supervisor Relationship Specialty Start Date End Date Rosalia Starr MD [address] [place] [address] PCP - General 11/06/16 Silvia Broussard MD [address] [place] [phone] Endocrinology, Diabetes and Metabolism 11/23/21 documented as of this encounter
--- OUTSIDE RECORDS SUMMARY | 2024-06-20 16:01 | XMS_ITS | Encounter Summary ---
Author Organization [facility] Address [address] [place] [address] Care Team Providers Care Tractor Trailer Technician Name Role Phone Rosalia Starr MD Primary Care Provider [phone] Encounter Details Date Type Department Care Team (Latest Contact Info) Description 08/09/2020 Travel Social History Tobacco Use Types Packs/Day Years Used Date Smoking Tobacco: Never Smokeless Tobacco: Never Interpersonal Safety Answer Date Record ed Physically Hurt Never 05/30/2020 Verbally Threaten Not on file 05/30/2020 Sex and Gender Information Value Date Recorded Sex Assigned at Female 12/04/2022 14:24 EST Gender Identity Female 08/30/2019 14:41 EDT Sexual Orientation Straight 12/04/2022 14 :24 EST COVID-19 Exposure Response Date Recorded In the last month, have you been in contact with someone who was confirmed or suspected to have Coronavirus / COVID-19? No / Unsure 08/09/2020 15:06 EDT documented as of this encounter Plan of Treatment Upcoming Encounters Date Type Department Care Team (Late st Contact Info) Description 09/04/2024 13:30 EST Office Visit [facility] Endocrinology [address] [place], [place] [phone] José Miguel Padgett MD [address] [place] [address] [place] [address] documented as of this encounter Visit Diagnoses Not on filedocumented in this encounter Care Teams Tractor Trailer Technician Relationship Specialty Start Date End Date Rosalia Starr MD [address] [place] [place] [phone] PCP - General 11/06/16 documented as of this encounter
--- OUTSIDE RECORDS SUMMARY | 2024-06-20 16:01 | XMS_ITS | Encounter Summary ---
Author Organization [facility] Address [address] [place] [address] Care Team Providers Care Lcsw Name Role Phone Unknown, Provider Primary Care Provider [phone] Encounter Details Date Type Department Care Team (Late st Contact Info) Description 08/20/[address] [facility] - [facility] ([facility]) [address] [place], [place] [address] Valentine Fallon NP [address] [place] [address] Social History Tobacco Use Types Packs/Day Years [...] Info) Description 09/04/2024 13:30 EST Office Visit [facility] - [facility] Endocrinology [address] [place], [place] [address] José Miguel Padgett MD 130 [facility] [address] [place] [phone] documented as of this encounter Procedures Procedure Name Priority Date/Time Associated Diagnosis Comments CYTOPATHOLOGY Routine 08/20/2010 0:00 EDT documented in this encounter Results * CYTOPATHOLOGY (08/20/2010 0:00 EDT) Pathology Report: CYTOPATHOLOGY REPORT ? Reports generated via electronic interface contain original data; ? however they are lacking the format of the original report. ? Caution should be taken when reading/interpreti ng unformatted reports. ? Name: ? ORTEGA CORRIGAN ? Accession #: ? [id number] ? : ? 1970 (Age: 40) ??F ?Collect Date: ? 08/20/2010 ? Location: ? [facility] ? Receive Date: ? 08/22/2010 ? Provider: ?VALENTINE WATTS-RISING CRICKET COACH ? Copy to: ? Specimen/Source: ?Pap Test, Endocervix, ThinPrep Imaging System with ? manual evaluation ? Last Menstrual Period: ? 10/02/10 ? Previous Gynecologic Pathology: ? HPV: + ? LSIL: 05/09 ? Treatment History: ? LEEP: LSIL 0509 ? SPECIMEN ADEQUACY ? Satisfactory for Evaluation ? - transformation zone component present ? GENERAL CATEGORIZATION ? Negative for Intraepithelial Lesion or Malignancy ? INTERPRETATION ? Reactive cellular changes associated with inflammation present (includes ?? repair). ? Shift in yumiko present suggestive of bacterial vaginosis. ? Document reviewed and electronically signed by: ? JESSICA ALOK AIDAN MD ? Report Date: ??08/25/2010 15:26 ? End of Report ? VELVET SMITH 08/20/2010 08/22/2010 Valentine Watts-Tyler CRICKET COACH PATHOLOGY ORDER FRED VELVET SMITH [address] [place] [address] documented in this encounter Visit Diagnoses Not on filedocumented in this encounter Care Teams Lcsw Relationship Specialty Start Date End Date Unknown, Provider, PCP - General 03/08/09 11/05/16 documented as of this encounter
--- OUTSIDE RECORDS SUMMARY | 2024-06-20 16:01 | XMS_ITS | Encounter Summary ---
Author Organization [facility] Address [address] [place] [address] Care Team Providers Care Field Administrator Name Role Phone Rosalia Starr MD Primary Care Provider [phone] Encounter Details Date Type Department Care Team (Late st Contact Info) Description 11/07/2016 Results Only Imaging [facility] [[email or web address]] [phone] Unknown, Provider, Social History Tobacco Use Types [...] Info) Description 09/04/2024 13:30 EST Office Visit [facility] Endocrinology [address] [place] [address] José Miguel Padgett MD 130 [facility] [address] [place] [phone] Pending Results Name Type Priority Associated Diagnoses Date /Time OUTSIDE IMAGES - CT BODY Imaging 11/07/2016 7:46 EST documented as of this encounter Visit Diagnoses Not on filedocumented in this encounter Care Teams Field Administrator Relationship Specialty Start Date End Date Rosalia Starr MD [address] [place] [address] PCP - General 11/06/16 documented as of this encounter
--- OUTSIDE RECORDS SUMMARY | 2024-06-20 16:01 | XMS_ITS | Encounter Summary ---
Author Organization [facility] Address [address] [place] [address] Care Team Providers Care Environmental Studies Professor Name Role Phone Rosalia Starr MD Primary Care Provider [phone] Silvia Broussard MD Unavailable [phone] Reason for Visit * Reason Onset Date Comments Medications Refill 03/29/2023 Encounter Details Date Type Department Care Team (Late st Contact Info) Description 03/29/2023 Refill [facility] Endocrinology [address] [place] [phone] Latisha Romano RN Medications Refill Social History [...] the skin every 7 days. 9 mL 3 03/29/2023 05/03/2023 documented in this encounter Plan of Treatment Upcoming Encounters Date Type Department Care Team (Late st Contact Info) Description 09/04/2024 13:30 EST Office Visit [facility] Endocrinology [address] [place], [place] [phone] José Miguel Padgett MD [address] [phone] documented as of this encounter Visit Diagnoses Not on filedocumented in this encounter Discontinued Medications Medication Sig Discontinue Reason Start Date End Da te semaglutide (OZEMPIC) 1 mg/dose (4 mg/3 mL) pen injector Inject 0.75 mL into the skin every 7 days. Reorder 02/22/2023 03/29/2023 documented as of this encounter Care Teams Environmental Studies Professor Relationship Specialty Start Date End Date Rosalia Starr MD [address] [place] [phone] PCP - General 11/06/16 Silvia Broussard MD [address] [phone] Endocrinology, Diabetes and Metabolism 11/23/21 documented as of this encounter
--- OUTSIDE RECORDS SUMMARY | 2024-06-20 16:01 | XMS_ITS | Encounter Summary ---
Author Organization [facility] Address [address] [place] [address] Care Team Providers Care Sealer Aircraft Name Role Phone Rosalia Starr MD Primary Care Provider [phone] Reason for Visit * Reason Comments Diabetes Encounter Details Date Type Department Care Team (Late st Contact Info) Description 08/09/2020 15:00 EDT Office Visit [facility] Endocrinology [address] [place] [address] Silvia Broussard MD 130 [facility] [address] [place] [phone] Type 2 diabetes mellitus with hyperglycemia, with long-term current use of insulin ([facility]) (Primary Dx) Social History Tobacco Use [...] 15:06 EDT documented as of this encounter Last Filed [...] Dispensed Refills Start Date End Da te dapagliflozin (FARXIGA) 10 mg tablet Take 1 Tab by mouth daily. 90 Tab 2 08/09/2020 07/29/2021 documented in this encounter Progress Notes * Latisha Romano RN - 08/09/2020 1500 EDT Last A1c 07/30/2020-8.5 Needs foot, eye (has appt scheduled), micro and back up plan Lab Results Component Value Date UABCR 5.0 10/24/2017 UABCR 5.0 10/24/2017 * Silvia Ghosh MD - 08/09/2020 1500 EDT [...] [facility] embraase ??? lisinopril (PRINIVIL) 40 mg tablet ??? [...] hyperglycemia, with long-term current use of insulin ([facility]) E11.65 250.00 Z79.4 790.29 V58.67 Dm stable, [...] more insulin. I offer to use pramlintide if we do not want to increase more the insulin to help reduce weight. I asked her to come back in a few weeks with Cornelia to see how these changes are working. Will see her back in 3 months. Face to face time: 40 min, >50% counseling and coordinating care for DM. Silvia Rios MD 08/09/2020 16:40 * Geraldine Strange RN - 08/09/2020 1500 EDT Prescription for Lantus faxed to pharmacy per order Dr Broussard * Geraldine Strange RN - 08/09/2020 1500 EDT Unable to lmtrc as voicemail is not set up. * Geraldine Strange RN - 08/09/2020 1500 EDT Unable to reach, voicemail not set up yet. * Geraldine Strange RN - 08/09/2020 1500 EDT Letter sent for normal microalbumin documented in this encounter Plan of Treatment Upcoming Encounters Date Type Department Care Team (Late st Contact Info) Description 09/04/2024 13:30 EST Office Visit [facility] Endocrinology [address] [place] [address] José Miguel Padgett MD 130 [facility] [address] [place] [phone] Scheduled Orders Name Type Priority Associated Diagnoses Orde r Schedule POCT HEMOGLOBIN A1C Point of Care Testing Routine Type 2 diabetes mellitus with hyperglycemia, with long-term current use of insulin ([facility]) Ordered: 08/05/2020 documented as of this encounter Procedures Procedure Name Priority Date/Time Associated Diagnosis Comments MICROALBUMIN, URINE Routine 08/09/2020 1 6:10 EDT Type 2 diabetes mellitus with hyperglycemia, with long-term current use of insulin ([facility]) documented in this encounter Results * MICROALBUMIN, URINE (08/09/2020 16:10 EDT) Albumin, Urine <0.06 <1.7 mg/dL 08/09/2020 18:55 EDT [facility] Comment:Unable to calculate ug/mg Crea result. Lab Urine Albumin to Creatinine Ratio TNP ug/mg 08/09/2020 18:51 EDT [facility] Creatinine, Urine 60.70 mg/dL 08/09/2020 18:55 EDT [facility] 08/09/2020 16:1 0 EDT 08/09/2020 17:50 EDT Silvia Broussard MD HEMATOLOGY & PF4 ORD ERABLES [facility] [address] [place] [address] documented in this encounter Visit Diagnoses Diagnosis Type 2 diabetes mellitus with hyperglycemia, with long-term current use of insulin ([facility])- Primary documented in this encounter Discontinued Medications Medication Sig Discontinue Reason Start Date End Da te omeprazole (PRILOSEC) 40 mg capsule Abstraction 08/26/2019 08/09/2020 metFORMIN (GLUCOPHAGE) 500 mg tablet 1 tab(s) orally 2 times a day Therapy completed 08/09/2020 FARXIGA 5 mg tablet Order modification 08/31/2019 0 documented as of this encounter Historical Medications * This list may reflect changes made after this encounter. Medication Sig Dispensed Refills Start Date End Date magnesium oxide (MAG-OX) 400 mg (241.3 mg magnesium) tablet Take 1 Tablet by mouth daily. pantoprazole (PROTONIX) 40 mg tablet Take 1 Tablet by mouth daily. 07/30/2020 venlafaxine (EFFEXOR-XR) 37.5 mg XR capsule Take by mouth daily. 06/15/2020 added in this encounter Care Teams Sealer Aircraft Relationship Specialty Start Date End Date Rosalia Starr MD [address] [place] [phone] PCP - General 11/06/16 documented as of this encounter
--- OUTSIDE RECORDS SUMMARY | 2024-06-20 16:01 | XMS_ITS | Encounter Summary ---
Author Organization [facility] Address [address] [place] [address] Care Team Providers Care Clinical Implementation Specialist Name Role Phone Rosalia Starr MD Primary Care Provider [phone] Reason for Visit * Reason Onset Date Comments Appointment Related 08/18/2021 Encounter Details Date Type Department Care Team (Late st Contact Info) Description 08/18/2021 Telephone [facility] [address] [place] [address] Aliza Robles MD [address] [facility], [address] [place] [address] Appointment Related Social History Tobacco Use Types Packs/Day Years [...] encounter Miscellaneous Notes * Telephone Encounter - Rosalia Winston - 08/18/2021 0258 EDT Left VM documented in this encounter Plan of Treatment Upcoming Encounters Date Type Department Care Team (Late st Contact Info) Description 09/04/2024 13:[address] [facility] Endocrinology [address] [place], [place] [phone] José Miguel Padgett MD 130 [facility] [address] [place] [phone] documented as of this encounter Visit Diagnoses Not on filedocumented in this encounter Care Teams Clinical Implementation Specialist Relationship Specialty Start Date End Date Rosalia Starr MD [address] [place] [phone] PCP - General 11/06/16 documented as of this encounter
--- OUTSIDE RECORDS SUMMARY | 2024-06-20 16:01 | XMS_ITS | Encounter Summary ---
Author Organization [facility] Address [address] [place] [address] Care Team Providers Care Brilliandeer Looper Name Role Phone Rosalia Starr MD Primary Care Provider [phone] Reason for Visit * Reason Onset Date Comments Diabetes 02/28/2021 low bs after cor rections Encounter Details Date Type Department Care Team (Late st Contact Info) Description 02/28/2021 Telephone [facility] - [facility] Endocrinology [address] [place] [address] Geraldine Strange, FAIZA [address] [place], [place] [phone] Diabetes (low bs after corrections) Social History Tobacco Use Types Packs/Day Years [...] Telephone Encounter - Geraldine Strange, FAIZA - 02/28/2021 1041 EDT Example: this am @ 0640 fbs 295. Pump had her take 15.4 units. At 0936 am bs rapidly dropped to 40,recheck was 39. Based on tdd 117. Manually calc sf 14.5, ratio 4.3 Sensitivity is 12. I increased all three sensitivities to 15. We discussed any bs over 250, use herdual 70/30 split over 1 hr. She will call back if low bs are not resolved. documented in this encounter Plan of Treatment Upcoming Encounters Date Type Department Care Team (Late st Contact Info) Description 09/04/2024 13:30 EST Office Visit [facility] Endocrinology [address] [place] [address] José Miguel Padgett MD 130 [facility] [address] [place] [phone] documented as of this encounter Visit Diagnoses Not on filedocumented in this encounter Care Teams Brilliandeer Looper Relationship Specialty Start Date End Date Rosalia Starr MD [address] [place] [phone] PCP - General 11/06/16 documented as of this encounter
--- OUTSIDE RECORDS SUMMARY | 2024-06-20 16:01 | XMS_ITS | Encounter Summary ---
Author Organization [facility] Address [address] [place] [address] Care Team Providers Care Or Rn Name Role Phone Rosalia Starr MD Primary Care Provider [phone] Silvia Broussard MD Unavailable [phone] Reason for Visit * Reason Comments Diabetes Pump upgrade to Tand em with control IQ Encounter Details Date Type Department Care Team (Late st Contact Info) Description 05/14/2023 15:00 EDT Nurse Only [facility] Endocrinology [address] [place], [place] [phone] Geraldine Strange, FAIZA [address] [place], [place] [address] Type 2 diabetes mellitus with hyperglycemia, with long-term current use of insulin ([facility]) (Primary Dx) Social History Tobacco Use Types [...] of this encounter Progress Notes * Geraldine Strange RN - 05/14/2023 1500 EDT Diabetes Education Note Insulin pump training DM visit type: office Insulin pump type: e11.65 Tandem with Control IQ Education: Tandem Pump, Dexcom G6. See pt docs for training checklist Assessment: E11.65 Pt here for pump training today. Pump setup.Pt has been on a Medtronic pump with guardian sensor. Settings transferred to current pump. Plan: Leaves with insulin infusing via pump/ dexcom is in warmup. Control IQ is on. Pt is linked toclin. Next visit: with endocrinology documented in this encounter Miscellaneous Notes * Addendum Note - Geraldine Strange RN - 05/14/2023 1500 EDTAddended by: GERALDINE STRANGE on: 05/15/2023 09:06 Modules accepted: Level of Service documented in this encounter Plan of Treatment Upcoming Encounters Date Type Department Care Team (Late st Contact Info) Description 09/04/2024 13:30 EST Office Visit [facility] Endocrinology [address] [place] [address] José Miguel Padgett MD [address] [place] [phone] documented as of this encounter Visit Diagnoses Diagnosis Type 2 diabetes mellitus with hyperglycemia, with long-term current use of insulin ([facility])- Primary documented in this encounter Care Teams Or Rn Relationship Specialty Start Date End Date Rosalia Starr MD [address] [place] [phone] PCP - General 11/06/16 Silvia Broussard MD [address] [place] [phone] Endocrinology, Diabetes and Metabolism 11/23/21 documented as of this encounter
--- OUTSIDE RECORDS SUMMARY | 2024-06-20 16:01 | XMS_ITS | Encounter Summary ---
Author Organization [facility] Address [address] [place] [address] Care Team Providers Care Holter Technician Name Role Phone Rosalia Starr MD Primary Care Provider [phone] Silvia Broussard MD Unavailable [phone] Reason for Visit * Reason Comments Diabetes Encounter Details Date Type Department Care Team (Late st Contact Info) Description 12/08/2022 15:45 EST Office Visit [facility] Endocrinology [address] [place] [address] Yahaira Garcia, SOLAR HOT WATER INSTALLER [address] [facility]- [address] [place] [phone] Type 2 diabetes mellitus with hyperglycemia, with long-term current use of insulin ([facility]) (Primary Dx); Insulin pump in place; assisted current use of insulin ([facility]); Obesity (BMI 30-39.9); Essential hypertension Social History [...] Sign Reading Time Taken Comments Blood Pressure 138/64 12/08/2022 1525 EST Pulse 90 12/08/2022 1525 EST Temperature - - Respiratory Rate - - Oxygen Saturation - - Inhaled Oxygen Concentration - - Weight 87.9 kg (193 lb 12.8 oz) 12/08/2022 1525 EST Height 157.5 cm (5' 2) 12/08/2022 1525 EST Body Mass Index 35.45 12/08/2022 1525 EST documented in this encounter Patient Instructions * Patient Instructions* Yahaira Garcia NP - 12/08/2022 15:45 EST A1C 8.4 Adjusted AIOB to give slightly less correction ratio all day. Adjust carb ratio during the day to give more insulin, and correction factor to give more at bedtime and prevent elevations overnight. Work on giving bolus BEFORE eating and always using bolus wizard to make this calculation!! Continue with ozempic 0.5 mg weekly and farxiga 10 mg daily. Continue with guardian sensor. Encouraged to increase daily hydration in water, balanced meals and activity daily as able. Follow-up in 2 months or sooner with concerns. Call if having more lows <70's!! documented in this encounter Progress Notes * Latisha Romano RN - 12/08/2022 1615 EST Needs eye and foot Scanned labs utd Lab Results Component Value Date UAR 06/28/2022 Comment: Unable to calculate due to albumin result <0.6. Urine Albumin/Creatinine Ratio: Normal: <30 ug/mg Creatinine Moderately increased albuminuria: 30-300 ug/mg Creatinine Severley increased albuminuria: >300 ug/mg Creatinine HGBA1C 7.9 (A) 02/16/2021 Glucose- * Yahaira Garcia NP - 12/08/2022 1545 EST Reason for Visit: DM f/up PCP: Dr. Rosalia Starr OTHER PROVIDERS: Elizabeth Corrigan is a 52 y.o. female who presented to the clinic for a follow-up in [facility], with a history of DM for 28 yrs. 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 Lives with . Adult kids, 3. All live nearby. Shared visit with FAIZA Strange today. Has not gotten started on dexcom CGM. Able to switch over to tandem in February 2023. Plans to go forward with this then. Did switch over to the ozempic. Initially had syncopal episodes d/t constipation. Has increased hydration, moved injection site with much less of these episodes. Does not want to rid this d/t furtherstability in glucose. Less appetite with this switch Has been having lots of lows with this changes. Mentions having UTI about 1 mo ago, given abx with this. Random BG in clinic 197. Eaten 3 hrs ago. Is still bolusing at first bite or after meals. Often elevated overnight/during the day. Mentions getting her scripts out of [facility] for a better anne. Did not look into [facility] program. Does not remember why came off metformin, believes d/t being on pump. Does note it being a large pill and has a very hard time with this. [facility] DM: heavy on moms side Recent A1C: 8.4 (11/2022) 9 (07/2022) 7.9 (01/2021) Diabetic Medications: 630G pump Has been on this pump for ??>4 yrs lantus 85 units in case of pump failure ozempic 0.5 mg weekly farxiga 10 mg daily novolog TDD 120 units Current monitoring regimen: Frequency of monitoring? : guardian sensor Fasting range: Preprandial range: Postprandial range: Any episodes of hypoglycemia? yes Cause of hypoglycemia? Nutrition Daily Recall: Breakfast: yogurt, fruit, honey Lunch: leftovers, turkey/ham sandwich Dinner: burger/fish/pork, small portion rice/potato, vegetables Snacks: fruit, yogurt Beverages: water 36-45 oz/day , coffee in AM, 1 small can diet soda/day, diet peach iced tea Exercise: some, minimal in winter and more in summer. Diabetes Related Problems Eye exam current (within one year): [facility], [facility] vision center Provider: Last dental exam: JESSICA, has full false teeth for about 1 year now. CVD,PVD,CAD: HTN, HLD Statin: atorvastatin 20 mg, LDL at goal (07/2022) Aspirin: no ACEI/ARB: lisinopril 40 mg Prior visit with consumer attorney/DM education: Foot care: self? Comorbidities: Retinopathy: yes, [...] normal. CGM INTERPRETATION Type of CGM: guardian 11/25-12/08/2022 Type of DM: II Diabetic Medications: ozempic farxiga novolog in pump Indication for monitoring: hyper/hypoglycemia, insulin dosing Report Interpretation: Average glucose 195 mg/dL, standard deviation 49 TIR 43%, TAR 15%, TBR 42% (believe BG parameters or not typical) Nocturnal glucose control: no Post-prandial glucose excursions: yes Hypoglycemia incidence: yes Other (exercise/activity): Hemoglobin A1c, POC Date Value Ref Range Status 12/08/2022 8.4 (A) 5.7 % Final Lab Results Component Value Date UABCR 06/28/2022 Comment: Unable to calculate due to albumin result <0.6. Urine Albumin/Creatinine Ratio: Normal: <30 ug/mg Creatinine Moderately increased albuminuria: 30-300 ug/mg Creatinine Severley increased albuminuria: >300 ug/mg Creatinine No results found for: NA, K, CL, CO2, BUN, CSFGLU, CREATINE, GLU, CA, GFR Elizabeth Corrigan is a 52 y.o. female who presented to the clinic for a follow-up in [facility], with a history of DM for 28 yrs. Problem List Items Addressed This Visit Endocrine/Metabolic Type 2 diabetes mellitus with hyperglycemia ([facility]) ([facility]) - Primary Uncontrolled A1C 8.4 Adjusted AIOB to give slightly less correction ratio all day. Adjust carb ratio during the day to give more insulin, and correction factor to give more at bedtime and prevent elevations overnight. Work on giving bolus BEFORE eating and always using bolus wizard to make this calculation!! Continue with ozempic 0.5 mg weekly and farxiga 10 mg daily. Continue with guardian sensor. Call if having more lows <70's!! Encouraged to increase daily hydration in water, balanced meals and activity daily as able. Follow-up in 2 months or sooner with concerns. Discussed leaving ozempic for now to allow further tolerability and will look to come off this if further concerns, if none can try increase in 1-2 months. Will defer switch to another SGLT today with recent UTI. Plan to switch to tandem/dexcom in February when out of warranty. 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 LDL at goal. Patient Goals: A1C <7% Exercise: 150-300 minutes of CV exercise/week. I spent a total of 30 minutes on the date of this encounter meeting with the patient and reviewing documentation/coordinating care as described in the above note. No procedures were performed at the time of the visit. This does not include time reviewing CGM data. * Geraldine Strange RN - 12/08/2022 2295 EST Results for orders placed or performed in visit on 12/08/22 POCT HEMOGLOBIN A1C Result Value Ref Range Hemoglobin A1c, POC 8.4 (A) 5.7 % * Geraldine Strange RN - 12/08/2022 1545 EST Diabetes education note joint visit visit type: office SBGM results: See patient docs Hypoglycemia: Symptomatic at 68-70 Current regimen: Insulin pump and sensor Ozempic 0.5mg weekly: constipation Dietary intake history: : yogurt, honey, berries 0065-6602: leftovers: soups Dinner: soup or burger or pasta or salad Snacks: fruit or pb crackers granola bar at 4pm Beverages: 36oz with pushing, coffee Activity: Not active Notes: In February ? Transition to Tandem with control IQ Mostly boluses when ready to eat. If high she took late bolus Syncopal 3x Changing to decaf documented in this encounter Miscellaneous Notes * Assessment & Plan Note - Yahaira Garcia NP - 12/08/2022 1612 EST Associated Problem(s): Type 2 diabetes mellitus with hyperglycemia ([facility]) Uncontrolled A1C 8.4 Adjusted AIOB to give slightly less correction ratio all day. Adjust carb ratio during the day to give more insulin, and correction factor to give more at bedtime and prevent elevations overnight. Work on giving bolus BEFORE eating and always using bolus wizard to make this calculation!! Continue with ozempic 0.5 mg weekly and farxiga 10 mg daily. Continue with guardian sensor. Call if having more lows <70's!! Encouraged to increase daily hydration in water, balanced meals and activity daily as able. Follow-up in 2 months or sooner with concerns. Discussed leaving ozempic for now to allow further tolerability and will look to come off this if further concerns, if none can try increase in 1-2 months. Will defer switch to another SGLT today with recent UTI. Plan to switch to tandem/dexcom in February when out of warranty. * Assessment & Plan Note - Yahaira Garcia NP - 12/08/2022 1612 EST Associated Problem(s): Essential hypertension BP stable. LDL at goal. documented in this encounter Plan of Treatment Upcoming Encounters Date Type Department Care Team (Late st Contact Info) Description 09/04/2024 13:30 EST Office Visit [facility] Endocrinology [address], [place] [phone] José Miguel Padgett MD [address] [facility] [address] [place] [phone] documented as of this encounter Procedures Procedure Name Priority Date/Time Associated Diagnosis Comments POCT HEMOGLOBIN A1C Routine 12/08/2022 Type 2 diabetes mellitus with hyperglycemia, with long-term current use of insulin ([facility]) documented in this encounter Results * (ABNORMAL) POCT HEMOGLOBIN A1C (12/08/2022) Hemoglobin A1c, POC 8.4(A) 5.7 % [facility] POINT OF CARE Blood CAPILLARY BLOOD / Unknown 12/08/2022 Yahaira Garcia NP POINT OF CARE MARLEN T ORDERABLES [facility] POINT OF CARE documented in this encounter Visit Diagnoses Diagnosis Type 2 diabetes mellitus with hyperglycemia, with long-term current use of insulin ([facility])- Primary Insulin pump in place Insulin pump status assisted current use of insulin ([facility]) Encounter for long-term (current) use of insulin Obesity (BMI 30-39.9) Obesity, unspecified Essential hypertension Unspecified essential hypertension documented in this encounter Discontinued Medications Medication Sig Discontinue Reason Start Date End Da te sulfamethoxazole-trimeth oprim (BACTRIM/CO-TRIMOXAZOLE DS) 800-160 mg per tablet take one tablet by mouth twice a day for 7 days Therapy completed 11/08/2022 12/08/2022 documented as of this encounter Historical Medications * This list may reflect changes made after this encounter. Medication Sig Dispensed Refills Start Date End Date sulfamethoxazole-trimetho prim (BACTRIM/CO-TRIMOXAZOLE DS) 800-160 mg per tablet take one tablet by mouth twice a day for 7 days 11/08/2022 12/08/2022 added in this encounter Care Teams Holter Technician Relationship Specialty Start Date End Date Rosalia Starr MD [address] [place] [phone] PCP - General 11/06/16 Silvia Broussard MD [address] [place] [phone] Endocrinology, Diabetes and Metabolism 11/23/21 documented as of this encounter
--- OUTSIDE RECORDS SUMMARY | 2024-06-20 16:01 | XMS_ITS | Encounter Summary ---
Author Organization [facility] Address [address] [place] [address] Care Team Providers Care Carpenter Supervisor Name Role Phone Rosalia Starr MD Primary Care Provider [phone] Silvia Broussard MD Unavailable [phone] Encounter Details Date Type Department Care Team (Late st Contact Info) Description 04/26/2023 Lab Requisition [facility] Pathology & Laboratory Medicine - [address] [address] Outr Resulting Lab, Provider Social History Tobacco [...] Info) Description 09/04/2024 13:30 EST Office Visit [facility] Endocrinology [address] [place], [place] [phone] José Miguel Padgett MD [address] [facility] [address] [place] [phone] documented as of this encounter Procedures Procedure Name Priority Date/Time Associated Diagnosis Comments VITAMIN B12 Routine 04/26/2023 9:02 EDT documented in this encounter Results * VITAMIN B12 (04/26/2023 9:02 EDT) Vitamin B12 419 211 - 911 pg/mL 04/26/2023 19:[address] [facility] Blood VENOUS BLOOD / Unknown 04/26/2023 9:02 EDT 04/26/2023 17:17 EDT Provider Outr Resulting Lab CHEMISTRY & BLOOD GAS ORDERABLES Performing Organization Address City/State/[facility] Co de Phone Number [facility] [address] [place] [address] documented in this encounter Visit Diagnoses Not on filedocumented in this encounter Care Teams Carpenter Supervisor Relationship Specialty Start Date End Date Rosalia Starr MD [address] [place] [phone] PCP - General 11/06/16 Silvia Broussard MD [address] [place] [address] [address] [place] [phone] Endocrinology, Diabetes and Metabolism 11/23/21 documented as of this encounter
--- OUTSIDE RECORDS SUMMARY | 2024-06-20 16:01 | XMS_ITS | Encounter Summary ---
Author Organization [facility] Address [address] [place] [address] Care Team Providers Care Call Center Nurse Name Role Phone Rosalia Starr MD Primary Care Provider [phone] Silvia Broussard MD Unavailable [phone] Reason for Visit * Reason Onset Date Comments Medications Refill 04/10/2022 Encounter Details Date Type Department Care Team (Late st Contact Info) Description 04/10/2022 Refill [facility] Endocrinology [address] [place] [phone] Latisha Romano RN Medications Refill Social History [...] Dispensed Refills Start Date End Da te liraglutide (VICTOZA 3-PJ) 0.6 mg/0.1 mL (18 mg/3 mL) injectable pen Inject 1.8 mg into the skin daily. 27 mL 3 04/11/2022 10/05/2022 documented in this encounter Plan of Treatment Upcoming Encounters Date Type Department Care Team (Late st Contact Info) Description 09/04/2024 13:30 EST Office Visit [facility] Endocrinology [address] [place] [address] José Miguel Padgett MD [address] [phone] documented as of this encounter Visit Diagnoses Not on filedocumented in this encounter Discontinued Medications Medication Sig Discontinue Reason Start Date End Da te VICTOZA 3-PJ 0.6 mg/0.1 mL (18 mg/3 mL) injectable pen Inject 1.8 mg into the skin daily. Reorder 03/21/2021 04/10/2022 documented as of this encounter Care Teams Call Center Nurse Relationship Specialty Start Date End Date Rosalia Starr MD [address] [place] [phone] PCP - General 11/06/16 Silvia Broussard MD [address] [phone] Endocrinology, Diabetes and Metabolism 11/23/21 documented as of this encounter
--- OUTSIDE RECORDS SUMMARY | 2024-06-20 16:01 | XMS_ITS | Encounter Summary ---
Author Organization [facility] Address [address] [place] [address] Care Team Providers Care Apprentice Embalmer Name Role Phone Rosalia Starr MD Primary Care Provider [phone] Reason for Visit * Reason Onset Date Comments Medications Refill 07/29/2021 Encounter Details Date Type Department Care Team (Late st Contact Info) Description 07/29/2021 Telephone [facility] [place] [address] [place] [address] Latisha Romano RN Medications Refill Social History [...] by mouth daily. 30 Tablet 11 07/29/2021 documented in this encounter Miscellaneous Notes * Telephone Encounter - Marie Vo - 08/01/2021 1050 EDT appt scheduled and mailed * Telephone Encounter - Latisha Romano RN - 07/29/2021 1242 EDT Needs f/u scheduled-thx documented in this encounter Plan of Treatment Upcoming Encounters Date Type Department Care Team (Late st Contact Info) Description 09/04/2024 13:30 EST Office Visit [facility] Endocrinology [address] [place], [place] [phone] José Miguel Padgett MD 130 [facility]- [address] [place] [phone] documented as of this encounter Visit Diagnoses Not on filedocumented in this encounter Discontinued Medications Medication Sig Discontinue Reason Start Date End Da te dapagliflozin (FARXIGA) 10 mg tablet Take 1 Tab by mouth daily. Reorder 08/09/2020 07/29/2021 documented as of this encounter Care Teams Apprentice Embalmer Relationship Specialty Start Date End Date Rosalia Satrr MD [address] [place] [phone] PCP - General 11/06/16 documented as of this encounter
--- OUTSIDE RECORDS SUMMARY | 2024-06-20 16:01 | XMS_ITS | Encounter Summary ---
Author Organization [facility] Address [address] [place] [address] Care Team Providers Care Title Insurance Sales Representative Name Role Phone Rosalia Starr MD Primary Care Provider [phone] Silvia Bruossard MD Unavailable [phone] Encounter Details Date Type Department Care Team (Late st Contact Info) Description 06/29/2022 Lab Requisition [facility] Pathology & Laboratory Medicine - [address] [address] Outr Resulting Lab, Provider Social History Tobacco [...] Info) Description 09/04/2024 13:30 EST Office Visit [facility] Endocrinology [address] [place], [place] [address] José Miguel Padgett MD [address] [facility] [address] [place] [phone] documented as of this encounter Procedures Procedure Name Priority Date/Time Associated Diagnosis Comments URINE [id number]-[id number] NE RATIO (ACR) Routine 06/28/2022 16:30 EDT documented in this encounter Results * URINE [id number]-RH-[id number] RATIO (ACR) (06/28/2022 16:30 EDT) Albumin, Urine <0.6 See Note mg/dL 06/29/2022 17:58 EDT [facility] Comment: NOTE: Reference range not established Creatinine, Urine 96.0 See Note mg/dL 06/29/2022 17:58 EDT [facility] Comment: NOTE: Reference range not established Lab Urine Albumin to Creatinine Ratio 06/29/2022 17:58 EDT [facility] Comment: Unable to calculate due to albumin result <0.6. Urine Albumin/Creatinine Ratio: Normal: <30 ug/mg Creatinine Moderately increased albuminuria: 30-300 ug/mg Creatinine Severley increased albuminuria: >300 ug/mg Creatinine Urine URINE SPECIMEN COLLECTION, CLEAN CATCH / Unknown 06/28/2022 16:30 EDT 06/29/2022 17:22 EDT Provider Outr Resulting Lab CHEMISTRY & BLOOD GAS ORDERABLES [facility] [address] [place] [address] documented in this encounter Visit Diagnoses Not on filedocumented in this encounter Care Teams Title Insurance Sales Representative Relationship Specialty Start Date End Date Rosalia Starr MD [address] [place] [phone] PCP - General 11/06/16 Silvia Broussard MD [address] [place], [place] [id number] [address] [place] [phone] Endocrinology, Diabetes and Metabolism 11/23/21 documented as of this encounter
--- OUTSIDE RECORDS SUMMARY | 2024-06-20 16:01 | XMS_ITS | Encounter Summary ---
Author Organization [facility] Address [address] [place] [address] Care Team Providers Care Graduate Engineer Name Role Phone Rosalia Starr MD Primary Care Provider [phone] Reason for Referral * Prior Authorization (See Order Priority) - Authorization Not Required Specialty Diagnoses / Procedures Referred By Contac t Referred To Contact Infusion Therapy Diagnoses NICOLE Robles, Aliza Nieto MD [address] [facility], [address] [place] [address] [facility] [address] [place] [address] Referral ID Status Reason Start Date Expiration Date Visits Requested Visits Authorized [id number] Authorization Not Required Specialty Services Required 08/18/20 [...] Plan, Lab Orders, Supportive Plan, Etc) Yes Reason for Visit * Prior Authorization (See Order Priority) - Authorization Not Required Specialty Diagnoses / Procedures Referred By Contac t Referred To Contact Infusion Therapy Diagnoses Aliza Ortega MD [address] [facility], [facility] [address] [place] [address] [facility] [address] [place] [address] Referral ID Status Reason Start Date Expiration Date Visits Requested Visits Authorized [id number] Authorization Not Required Specialty Services Required 08/18/20 21 1 1 Encounter Details Date Type Department Care Team (Late st Contact Info) Description 08/19/2021 7:24 EDT - 08/19/2021 23:59 EDT Hospital Encounter [facility] [address] [address] Infusion, Monoclonal Antibody COVID Discharge Disposition: Home or Self Care Social History Tobacco Use Types Packs/Day Years [...] - documented in this encounter Discharge Instructions * Discharge Instructions* Tomeka Garvin RN - 08/19/2021 7:25 EDT Images from the original note were not included. Today you received an infusion of a monoclonal antibody called REGEN-COV (casirivimab and imdevimab) for treatment of COVID-19 symptoms. After you are [...] Dispensed Refills Start Date End Date albuterol 90 mcg/actuation inhaler aspirin 81 mg EC tablet 1 tab(s) orally once a day atorvastatin (LIPITOR) 20 mg tablet 1 tab(s) orally once a day blood glucose test strips citalopram (CELEXA) 20 mg tablet 1 tab(s) orally once a day dapagliflozin (FARXIGA) 10 mg tablet Take 1 Tablet by mouth daily. 30 Tablet 11 07/29/2021 gabapentin (NEURONTIN) 300 mg capsule 3 tabs orally 3 times a day glucagon,human recombinant (GLUCAGON EMERGENCY KIT, HUMAN, INJECTION) hydroCHLOROthiazide (HYDRODIURIL) 25 mg tablet 1 tab(s) orally once a day Infusion Set for Insulin Pump infusion set . Subcutanous insertion every 3 days insulin aspart U-100 (NOVOLOG FLEXPEN) 100 unit/mL (3 mL) injectable pen insulin aspart U-100 (NOVOLOG U-100 INSULIN ASPART) 100 unit/mL injection daily subcutaneously continuously via pump 10 Vial 3 03/21/2021 insulin pen needles 32G x insulin pump controller [facility] lisinopril (PRINIVIL) 40 mg tablet daily. 08/13/2019 magnesium oxide (MAG-OX) 400 mg (241.3 mg magnesium) tablet Take 1 Tablet by mouth daily. pantoprazole (PROTONIX) 40 mg tablet Take 1 Tablet by mouth daily. 07/30/2020 venlafaxine (EFFEXOR-XR) 37.5 mg XR capsule Take by mouth daily. 06/15/2020 venlafaxine (EFFEXOR-XR) 75 mg XR capsule Take with 37.5 mg tab 08/31/2019 insulin glargine (LANTUS SOLOSTAR/SEMGLEE) 100 unit/mL (3 mL) injection penIndications:pump failure 10/05/2022 ondansetron (ZOFRAN-ODT) 4 mg disintegrating tablet Take 1 Tab by mouth every 8 hours as needed for Nausea. 20 Tab 1 02/16/2021 10/05/2022 VICTOZA 3-PJ 0.6 mg/0.1 mL (18 mg/3 mL) injectable pen Inject 1.8 mg into the skin daily. 9 Pen 3 03/21/2021 04/10/2022 documented as of this encounter Discharge Disposition Disposition Code Departure Means Destination Home or Self Intermediate documented in this encounter Progress Notes * Jesika Licea RN - 08/19/2021 1600 EDT Elizabeth Corrigan arrives to [facility] Urgent [facility] infusion room for REGEN-COV treatment of COVID 19 related to ICD [...] Info) Description 09/04/2024 13:30 EST Office Visit [facility] Endocrinology [address] [place] [address] José Miguel Padgett MD [address] [facility] [address] [place] [phone] Scheduled Referrals Name Type Priority Associated Diagnoses Order Schedule AMB CONS/FOLLOW UP SHEP 4 INFUSIONS Outpatient Referral Routine/Next Available COVID 1 Occurrences starting 08/19/2021 until 08/19/2021 documented as of this encounter Visit Diagnoses Diagnosis COVID documented in this encounter Administered Medications Inactive Administered Medications - up to 3 most recent administrations Medication Order MAR Action Action Date Dose Rate Site casirivimab-imdevimab 1,200 mg in sodium chloride (NS) 0.9 % [...] understands the risks and benefits? Yes, Routine Given 08/19/2021 16:08 EDT 1,200 mg 310 mL/hr sodium chloride 0.9 % (NS) infusion 100 mL/hr, intravenous, CONTINUOUS, Starting on Sun08/19/21 at 1045, Until 08/20/21 at 1608, Routine, Outpatient Infusion New Bag 08/19/2021 16:09 EDT 100 mL/hr 100 mL/hr documented in this encounter Orders Medications Ordered That Chago ht Not Have Been Administered Count Last Ordered Date First Ordered Date acetaminophen (TYLENOL) tablet 650 mg 1 diphenhydrAMINE (BENADRYL) injection 50 mg 1 08/19/2021 EPINEPHrine (ADRENALIN) injection 0.3 mg 1 08/19/2021 lidocaine (PF) 10 mg/mL (1 % ) injection 2 mg 1 08/19/2021 methylPREDNISolone sod suc(P F) (SOLU-MEDROL) injection 100 mg 1 08/19/2021 ondansetron (PF) (ZOFRAN) injection 4 mg 1 08/19/2021 sodium chloride 0.9 % (flush) flush 10 mL 1 08/19/2021 sodium chloride 0.9 % (flush) flush 20 mL 1 08/19/2021 documented in this encounter Care Teams Graduate Engineer Relationship Specialty Start Date End Date Rosalia Starr MD [address] [place] [phone] PCP - General 11/06/16 documented as of this encounter
--- OUTSIDE RECORDS SUMMARY | 2024-06-20 16:01 | XMS_ITS | Encounter Summary ---
Author Organization [facility] Address [address] [place] [address] Care Team Providers Care Blockman Name Role Phone Rosalia Starr MD Primary Care Provider [phone] Reason for Visit * Reason Onset Date Comments Prior Auth, Other (i.e. radiology, etc.) 021 insulin pump Encounter Details Date Type Department Care Team (Late st Contact Info) Description 05/12/[address] [facility] Endocrinology [address] [place] [address] Shira Saldaña RN Prior Auth, Other (i.e. radiology, etc.) (insulin pump) Social History Tobacco Use Types Packs/Day Years [...] encounter Miscellaneous Notes * Telephone Encounter - Shira Saldaña RN - 05/12/2021 0840 EDT Received notification from [facility] that prior auth is not required for a replacement insulin pump. Notification scanned into chart. documented in this encounter Plan of Treatment Upcoming Encounters Date Type Department Care Team (Late st Contact Info) Description 09/04/2024 13:[address] [facility] Endocrinology [address] [place], [place] [phone] José Miguel Padgett MD [address] [facility] [address] [place] [phone] documented as of this encounter Visit Diagnoses Not on filedocumented in this encounter Care Teams Blockman Relationship Specialty Start Date End Date Rosalia Starr MD [address] [facility] [place] [phone] PCP - General 11/06/16 documented as of this encounter
--- OUTSIDE RECORDS SUMMARY | 2024-06-20 16:01 | XMS_ITS | Encounter Summary ---
Author Organization [facility] Address [address] [place] [address] Care Team Providers Care Casing In Line Setter Name Role Phone Rosalia Starr MD Primary Care Provider Silvia Broussard MD Unavailable [phone] Reason for Visit * Reason Onset Date Comments Medications Refill 10/06/2022 Encounter Details Date Type Department Care Team (Late st Contact Info) Description 10/06/2022 Refill [facility] [place] [address] [place] [address] Latisha Romano RN Medications Refill Social History [...] Dispensed Refills Start Date End Da te insulin glargine (LANTUS SOLOSTAR/SEMGLEE) 100 unit/mL (3 mL) injection penIndications:pump failure Inject 85 Units into the skin once daily. 15 mL 2 10/06/2022 10/06/2022 documented in this encounter Miscellaneous Notes * Telephone Encounter - Latisha Romano RN - 10/06/2022 0934 EST INS Requiring brand lantus- rx sent documented in this encounter Plan of Treatment Upcoming Encounters Date Type Department Care Team (Late st Contact Info) Description 09/04/2024 13:30 EST Office Visit [facility] Endocrinology [address] [place] [address] José Miguel Padgett MD [address] [place] [phone] documented as of this encounter Visit Diagnoses Not on filedocumented in this encounter Discontinued Medications Medication Sig Discontinue Reason Start Date End Da te insulin glargine (LANTUS SOLOSTAR/SEMGLEE) 100 unit/mL (3 mL) injection penIndications:pump failure Inject 85 Units into the skin once daily. Reorder 10/05/2022 10/06/2022 documented as of this encounter Care Teams Casing In Line Setter Relationship Specialty Start Date End Date Rosalia Starr MD [address] [place] [phone] PCP - General 11/06/16 Silvia Broussard MD [address] [place] [phone] Endocrinology, Diabetes and Metabolism 11/23/21 documented as of this encounter
--- OUTSIDE RECORDS SUMMARY | 2024-06-20 16:01 | XMS_ITS | Encounter Summary ---
Author Organization [facility] Address [address] [place] [address] Care Team Providers Care Supervisor Plastering Name Role Phone Rosalia Starr MD Primary Care Provider [phone] Silvia Broussard MD Unavailable [phone] Encounter Details Date Type Department Care Team (Late st Contact Info) Description 09/28/2021 Lab Requisition [facility] Pathology & Laboratory Medicine - [address] [address] Rosalia Starr MD [address] [place] [phone] Encounter for general adult medical examination [...] Info) Description 09/04/2024 13:30 EST Office Visit [facility] Endocrinology [address] [place] [address] José Miguel Padgett MD [address] [phone] Scheduled Orders Name Type Priority Associated Diagnoses Orde r Schedule HPV DNA DETECTION WITH GENOTYPING, PCR, THINPREP Microbiology Today Encounter for general adult medical examination without abnormal findings Encounter for screening for malignant neoplasm of cervix Ordered: 09/28/2021 CHLAMYDIA/N. GONORRHOEAE AMPLIFIED RNA Microbiology Encounter for general adult medical examination without abnormal findings Encounter for screening for malignant neoplasm of cervix Ordered: 09/28/2021 documented as of this encounter Visit Diagnoses Diagnosis Encounter for general adult medical examination without abnormal findings Unspecified general medical examination Encounter for screening for malignant neoplasm of cervix Screening for malignant neoplasm of the cervix documented in this encounter Care Teams Supervisor Plastering Relationship Specialty Start Date End Date Rosalia Starr MD [address] [place] [phone] PCP - General 11/06/16 Silvia Broussard MD [address] [place] [phone] Endocrinology, Diabetes and Metabolism 11/23/21 documented as of this encounter
--- OUTSIDE RECORDS SUMMARY | 2024-06-20 16:01 | XMS_ITS | Encounter Summary ---
Author Organization [facility] Address [address] [place] [address] Care Team Providers Care Industrial Energy Engineer Name Role Phone Rosalia Starr MD Primary Care Provider [phone] Silvia Broussard MD Unavailable [phone] Reason for Visit * Reason Comments Diabetes Encounter Details Date Type Department Care Team (Latest Contact Info) Description 10/05/2022 9:45 EST Office Visit [facility] [address] [place] [address] Yahaira Garcia, HUNTER SKIN DIVER [address] [facility]- [address] [place] [address] Type 2 diabetes mellitus with hyperglycemia, with long-term current use of insulin ([facility]) (Primary Dx); 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 (HCC-CMS); Insulin pump in place; Essential hypertension; Obesity (BMI 30-39.9); Diabetic polyneuropathy associated with type 2 diabetes [...] Sign Reading Time Taken Comments Blood Pressure 100/54 10/05/2022 0936 EST Pulse 76 10/05/2022 0936 EST Temperature - - Respiratory Rate 16 10/05/2022 0936 EST Oxygen Saturation - - Inhaled Oxygen Concentration - - Weight 86.6 kg (191 lb) 10/05/2022 0936 EST Height 154.9 cm (5' 1) 10/05/2022 0936 EST Body Mass Index 36.09 10/05/2022 0936 EST documented in this encounter Patient Instructions * Patient Instructions* Yahaira Garcia NP - 10/05/2022 9:45 EST A1C 9 Switch to ozempic 0.5 mg weekly injection. Inject into fatty tissue of thighs of buttocks. STOP victoza. Adjust ISF/ICR to give less insulin, try to use pump algorithm to give bolus when needed. Adjust basal overnight to help prevent lows as well. Enter glucose into pump EVERY TIME, try not to adjust what pump wants to give you-call if having more lows! Continue with farxiga 10 mg daily. Switch to dexcom CGM if able, sent to pharmacy. Prefers to switch to tandem t:slim as well, give them a call to see when able to transition. If not able to switch pumps soon, can continue on current CGM. Increase hydration in water daily as able, balanced meals-adding protein to meals/snacks and activity daily as able. Follow-up in 2 months or sooner with concerns. Call or send [employer] message in 1 month with glucose data Tandem customer service: option 2 to start pump. documented in this encounter Ordered Prescriptions Prescription Sig Dispensed Refills Start Date End Da te Blood-Glucose Transmitter (DEXCOM G6 TRANSMITTER) device 1 application by [facility] [place] (non-drug; combo route) route continuous. 1 Each 3 10/05/2022 05/03/2023 Blood-Glucose Sensor (DEXCOM G6 SENSOR) device 1 application by [facility] [place] (non-drug; combo route) route continuous. 9 Each 2 10/05/2022 05/03/2023 semaglutide (OZEMPIC) subcutaneous pen Inject 0.5 mg into the skin every 7 days. 4.5 mL 2 10/05/2022 01/05/2023 insulin glargine (LANTUS SOLOSTAR/SEMGLEE) 100 unit/mL (3 mL) injection penIndications:pump failure Inject 85 Units into the skin once daily. 15 mL 2 10/05/2022 10/06/2022 documented in this encounter Progress Notes * Latisha Romano RN - 10/05/2022 0907 EST A1c done 6 weeks ago Needs pump paperwork sent in after visit Lab Results Component Value Date UAR 06/28/2022 Comment: Unable to calculate due to albumin result <0.6. Urine Albumin/Creatinine Ratio: Normal: <30 ug/mg Creatinine Moderately increased albuminuria: 30-300 ug/mg Creatinine Abisai increased albuminuria: >300 ug/mg Creatinine HGBA1C 7.9 (A) 02/16/2021 A1c - 9.0 (08/14/2022) scanned in * Yahaira Garcia NP - 10/05/2022 0920 EST Reason for Visit: DM f/up PCP: Dr. Rosalia Starr OTHER PROVIDERS: Elizabeth Corrigan is a 52 y.o. female who presented to the clinic for a follow-up in [facility], with a history of DM for 28 yrs. Hx of HTN, HLD, neuropathy Works as in[employer]. Lives with . Adult kids, 3. All live nearby. Visit with Dr. Broussard 1 year ago, adjusted basal rate to prevent lows in AM. Does believe she has been on current pump for 3-5 yrs. Had recently run out of her CGM's d/t no recent clinic visit. Mentions being on abx recently for sinus and chest infections. Glucose seemed more variable with this. Random BG in clinic 177. Had bfast of banana and PB crackers on her way in this morning. Is working on loosing weight, with diet and lifestyle changes. Had been at a plateau until recent illness, lost another 5#. Mentions getting her scripts out of [facility] for a better anne. C/o the pump giving her more insulin than needed when making corrections and carbs for higher glucose levels, will always have low after if goes by pump algorithm. Mentions needing to go to bed with glucose in 180-200 range or will have low overnight. Does not remember why came off metformin, believes d/t being on pump. Does note it being a large pill and has a very hard time with this. [facility] DM: heavy on moms side Recent A1C: 9 (07/2022) 7.9 (01/2021) Diabetic Medications: 630G pump Has been on this pump for ??>4 yrs lantus 85 units in case of pump failure Victoza 1.8 mg daily farxiga 10 mg daily novolog TDD 120 units Current monitoring regimen: Frequency of monitoring? : guardian sensor Fasting range: Preprandial range: Postprandial range: Any episodes of hypoglycemia? yes Cause of hypoglycemia? Nutrition Daily Recall: Breakfast: yogurt, fruit, honey Lunch: leftovers, turkey/ham sandwich Dinner: burger/fish/pork, small portion rice/potato, vegetables Snacks: fruit, yogurt Beverages: minimal water, coffee in AM, 1 small can diet soda/day, diet peach iced tea Exercise: some, minimal in winter and more in summer. Diabetes Related Problems Eye exam current (within one year): [facility] Provider: Last dental exam: [facility], has full false teeth for about 1 year now. CVD,PVD,CAD: HTN, HLD Statin: atorvastatin 20 mg, LDL at goal 07/2022) Aspirin: no ACEI/ARB: lisinopril 40 mg Prior visit with administrative assistant office manager/DM education: Foot care: self? Comorbidities: Retinopathy: yes, [...] Normal range of motion and neck supple. Skin: General: Skin is warm and dry. Neurological: Mental Status: She is alert and oriented to person, place, and time. Psychiatric: Mood and Affect: Mood normal. Behavior: Behavior normal. Thought Content: Thought content normal. CGM INTERPRETATION Type of CGM: guardian 1125-10/05/2022 Type of DM: II Diabetic Medications: victoza farxiga novolog in pump Indication for monitoring: hyper/hypoglycemia, insulin dosing Report Interpretation: Average glucose 178 mg/dL, standard deviation TIR 54%, TAR 46%, TBR 0% Nocturnal glucose control: no Post-prandial glucose excursions: yes Hypoglycemia incidence: no Other (exercise/activity): Hemoglobin A1c, POC Date Value Ref Range Status 02/16/2021 7.9 (A) 5.7 % Final Lab Results Component [...] the clinic for a follow-up in [facility], with a history of DM for 28 yrs. Problem List Items Addressed This Visit Endocrine/Metabolic Type 2 diabetes mellitus with hyperglycemia ([facility]) ([facility]) - Primary Uncontrolled A1C 9 Switch to ozempic 0.5 mg weekly injection. Inject into fatty tissue of thighs of buttocks. Printed script for pharmacy in [place] with better prices. STOP victoza. Adjust ISF/ICR to give less insulin, try to use pump algorithm to give bolus when needed. Adjust basal overnight to help prevent lows as well. Enter glucose into pump EVERY TIME, try not to adjust what pump wants to give you-call if having more lows! Continue with farxiga 10 mg daily. Switch to dexcom CGM if able, sent to pharmacy. Prefers to switch to tandem t:slim as well, give them a call to see when able to transition. Increase hydration in water daily as able, balanced meals-adding protein to meals/snacks and activity daily as able. Follow-up in 2-3 months or sooner with concerns. Call in 1 month with glucose data and pending will increase ozempic. Pending tolerability will increase ozempic as able, would like to switch to invokana/jardiance if able as well. Given tandem information to assess when able to switch pumps. Pending this would like to switch to dexcom right away or wait until able to switch pumps. Back up plan today with refill of lantus. Extensively discussed the need to continue with follow-up or discuss via mychart to continue makingchanges. Given [facility] HAP info. 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 LDL at goal. Neurological Diabetic polyneuropathy ([facility]) ([facility]) Unstable. Will continue to discuss replacing nighttime dose with pregabalin to see if helps. Relevant Medications insulin glargine (LANTUS SOLOSTAR/SEMGLEE) 100 unit/mL (3 mL) injection pen semaglutide (OZEMPIC) subcutaneous pen Patient Goals: A1C <7% Exercise: 150-300 minutes of CV exercise/week. I spent a total of 60 minutes on the date of this encounter meeting with the patient and reviewing documentation/coordinating care as described in the above note. No procedures were performed at the time of the visit. This does not include time reviewing CGM data. documented in this encounter Miscellaneous Notes * Assessment & Plan Note - Yahaira Garcia NP - 10/05/2022 1021 EST Associated Problem(s): Diabetic polyneuropathy ([facility]) Unstable. Will continue to discuss replacing nighttime dose with pregabalin to see if helps. * Assessment & Plan Note - Yahaira Garcia NP - 10/05/2022 0947 EST Associated Problem(s): Type 2 diabetes mellitus with hyperglycemia ([facility]) Uncontrolled A1C 9 Switch to ozempic 0.5 mg weekly injection. Inject into fatty tissue of thighs of buttocks. Printed script for pharmacy in [place] with better prices. STOP victoza. Adjust ISF/ICR to give less insulin, try to use pump algorithm to give bolus when needed. Adjust basal overnight to help prevent lows as well. Enter glucose into pump EVERY TIME, try not to adjust what pump wants to give you-call if having more lows! Continue with farxiga 10 mg daily. Switch to dexcom CGM if able, sent to pharmacy. Prefers to switch to tandem t:slim as well, give them a call to see when able to transition. Increase hydration in water daily as able, balanced meals-adding protein to meals/snacks and activity daily as able. Follow-up in 2-3 months or sooner with concerns. Call in 1 month with glucose data and pending will increase ozempic. Pending tolerability will increase ozempic as able, would like to switch to invokana/jardiance if able as well. Given tandem information to assess when able to switch pumps. Pending this would like to switch to dexcom right away or wait until able to switch pumps. Back up plan today with refill of lantus. Extensively discussed the need to continue with follow-up or discuss via mychart to continue makingchanges. Given [facility] HAP info. * Assessment & Plan Note - Yahaira Garcia NP - 10/05/2022 0943 EST Associated Problem(s): Essential hypertension BP at goal. LDL at goal. documented in this encounter Plan of Treatment Upcoming Encounters Date Type Department Care Team (Late st Contact Info) Description 09/04/2024 13:30 EST Office Visit [facility] Endocrinology [address] [place] [address] José Miguel Padgett MD [address] [facility] [address] [place] [phone] documented as of this encounter Visit Diagnoses Diagnosis Type 2 diabetes mellitus with hyperglycemia, with long-term current use of insulin ([facility] current use of insulin ([facility]) Encounter for long-term (current) use of insulin Insulin pump in place Insulin pump status Essential hypertension Unspecified essential hypertension Obesity (BMI 30-39.9) Obesity, unspecified Diabetic polyneuropathy associated with type 2 diabetes mellitus ([facility]) documented in this encounter Discontinued Medications Medication Sig Discontinue Reason Start Date End Da te ondansetron (ZOFRAN-ODT) 4 mg disintegrating tablet Take 1 Tab by mouth every 8 hours as needed for Nausea. 02/16/2021 10/05/2022 insulin glargine (LANTUS SOLOSTAR/SEMGLEE) 100 unit/mL (3 mL) injection penIndications:pump failure Reorder 10/05/2022 liraglutide (VICTOZA 3-PJ) 0.6 mg/0.1 mL (18 mg/3 mL) injectable pen Inject 1.8 mg into the skin daily. 04/11/2022 10/05/2022 documented as of this encounter Care Teams Industrial Energy Engineer Relationship Specialty Start Date End Date Rosalia Starr MD [address] [place] [address] PCP - General 11/06/16 Silvia Broussard MD [address] [place] [phone] Endocrinology, Diabetes and Metabolism 11/23/21 documented as of this encounter
--- OUTSIDE RECORDS SUMMARY | 2024-06-20 16:01 | XMS_ITS | Encounter Summary ---
Author Organization [facility] Address [address] [place] [address] Care Team Providers Care Regional Controller Name Role Phone Unknown, Provider Primary Care Provider Encounter Details Date Type Department Care Team (Late st Contact Info) Description 07/02/2013 Results Only [facility] Laboratory Services - [facility] ([facility]) [address] [place] [id number] Rosalia Solis MD [address] [place] [phone] Social History Tobacco Use Types Packs/Day [...] [facility] Endocrinology [address] [place], [place] [phone] José Miguel Padgett MD 130 [facility] [address] [place] [address] documented as of this encounter Procedures Procedure Name Priority Date/Time Associated Diagnosis Comments SURGICAL PATHOLOGY Routine 07/02/2013 22 :31 EDT documented in this encounter Results * SURGICAL PATHOLOGY (07/02/2013 22:31 EDT) Pathology Report: SURGICAL PATHOLOGY REPORT Reports generated via electronic interface contain original data; however they are lacking the format of the original report. Caution should be taken when reading/interpreti ng unformatted reports. Name: ? ORTEGA CORRIGAN ? Accession #: ? [id number] ? : ? 1970 (Age: 43) ??F ? Collect Date: ? 07/02/2013 ? Location: ? [facility] ? Receive Date: ? 07/03/2013 ? Provider: ROSALIA SOLIS MD Copy to: ? Final Pathologic Diagnosis: ENDOMETRIUM, BIOPSY: - ??Proliferative-ty pe endometrium with: ?? - ??Disordered glandular pattern. ?? - ??Mild stromal and glandular changes suggestive of progesterone effect. Comment: The presence of perivascular stromal changes and intra-cytoplastic vacuolar change of some of the glandular cells suggests progesterone effects. Correlation with clinical features, especially with exogenous progesterone, is recommended. Dr. Neal 07/07/2013 at 04:15 PM Document reviewed and electronically signed by: Rosa Neal MD Report ??Date: 07/07/2013 16:18 By the signature above, the attending physician certifies that he/she has personally conducted a gross and/or microscopic examination of the described specimens and rendered or confirmed the above diagnosis. Specimen(s) Received: Endometrial biopsy Clinical History: Metromenorrhagia Gross Description: ? Received in formalin labelled with proper patient identification (initials W, L) and endometrial bx is an aggregate of pink-bullock focally hemorrhagic tissue (2.5 x 1.7 x 0.6 cm). ??Submitted in toto in cassettes 1 and 2. Ortega Lacey 07/04/2013 08:47 AM End of Report [facility] 07/02/2013 22:3 1 EDT 07/03/2013 22:31 EDT Rosalia Solis MD PATHOLOGY ORDERABLES [facility] [address] [place] [address] documented in this encounter Visit Diagnoses Not on filedocumented in this encounter Care Teams Regional Controller Relationship Specialty Start Date End Date Unknown, Provider, PCP - General 03/08/09 11/05/16 documented as of this encounter
--- OUTSIDE RECORDS SUMMARY | 2024-06-20 16:01 | XMS_ITS | Encounter Summary ---
Author Organization [facility] Address [address] [place] [address] Care Team Providers Care Instrument And Controls Technician Name Role Phone Rosalia Starr MD Primary Care Provider [phone] Reason for Visit * Reason Onset Date Comments Medications Refill 03/21/2021 Encounter Details Date Type Department Care Team (Late st Contact Info) Description 03/21/2021 Refill [facility] Endocrinology [address] [place] [address] Geraldine Strange, FAIZA [address] [place] [address] Medications Refill Social History Tobacco Use Types [...] Refills Start Date End Da te insulin aspart U-100 (NOVOLOG U-100 INSULIN ASPART) 100 unit/mL injection daily subcutaneously continuously via pump 10 Vial 3 03/21/2021 VICTOZA 3-PJ 0.6 mg/0.1 mL (18 mg/3 mL) injectable pen Inject 1.8 mg into the skin daily. 9 Pen 3 03/21/2021 04/10/2022 documented in this encounter Miscellaneous Notes * Telephone Encounter - Geraldine Strange RN - 03/21/2021 1412 EDT Prescriptions faxed to pharmacy per order Dr Broussard documented in this encounter Plan of Treatment Upcoming Encounters Date Type Department Care Team (Late st Contact Info) Description 09/04/2024 13:30 EST Office Visit [facility] Endocrinology [address] [place] [address] José Miguel Padgett MD 130 [facility]- [address] [place] [phone] documented as of this encounter Visit Diagnoses Not on filedocumented in this encounter Discontinued Medications Medication Sig Discontinue Reason Start Date End Da te VICTOZA 3-PJ 0.6 mg/0.1 mL (18 mg/3 mL) injectable pen 1.8 mg daily. Reorder 09/01/2019 03/21/2021 insulin aspart U-100 (NOVOLOG U-100 INSULIN ASPART) 100 unit/mL injection up to 300 units a day subcutaneously continuously via pump Reorder 03/21/2021 documented as of this encounter Care Teams Instrument And Controls Technician Relationship Specialty Start Date End Date Rosalia Starr MD [address] [place] [phone] PCP - General 11/06/16 documented as of this encounter
--- OUTSIDE RECORDS SUMMARY | 2024-06-20 16:01 | XMS_ITS | Encounter Summary ---
Author Organization [facility] Address [address] [place] [address] Care Team Providers Care Relief Pharmacist Name Role Phone Unavailable Primary Care Provider Unavailabl e Encounter Details Date Type Department Care Team (Late st Contact Info) Description 02/26/2009 Orders Only [facility] Laboratory Services - [facility] ([facility]) [address] [place], [place] [address] Valentine Fallon, ARIANNA [address] [place] [address] Social History Tobacco Use Types [...] Info) Description 09/04/2024 13:30 EST Office Visit [facility] [place] [address] [place] [address] José Miguel Padgett MD 130 [facility] [address] [place] [phone] documented as of this encounter Procedures Procedure Name Priority Date/Time Associated Diagnosis Comments CYTOPATHOLOGY Routine 02/26/2009 0:00 EDT documented in this encounter Results * CYTOPATHOLOGY (02/26/2009 0:00 EDT) Pathology Report: CYTOPATHOLOGY REPORT ? Reports generated via electronic interface contain original data; ? however they are lacking the format of the original report. ? Caution should be taken when reading/interpreti ng unformatted reports. ? Name: ? ORTEGA CORRIGAN ? Accession #: ? [id number] ? : ? 1970 (Age: 38) ??F ?Collect Date: ? 02/26/2009 ? Location: ? [facility] ? Receive Date: ? 03/01/2009 ? Provider: ?VALENTINE WATTS-[facility] TECHNOLOGY RISK INTERN ? Copy to: ? Specimen/Source: ?Pap Test, Endocervix, ThinPrep Imaging System with ? manual evaluation ? Last Menstrual Period: ? Other: ? HPVA - HPV testing requested if ASC-US on the current ThinPrep Pap test. ? SPECIMEN ADEQUACY ? Satisfactory for Evaluation ? - transformation zone component present ? GENERAL CATEGORIZATION ? Epithelial Cell Abnormality ? INTERPRETATION ? Squamous Cell Abnormality - Low grade squamous intraepithelial lesion ? (LSIL). ? EDUCATIONAL NOTES/RECOMMENDATI ONS ? [facility] recommends following the 2006 Consensus Guidelines for the Management of Women with Abnormal Cervical Cancer Screening Tests (JLGTD, ? 2007;11(4):201-222 ). ??Consensus guidelines are available online at ? www.ASCCP.org. ? Document reviewed and electronically signed by: ? EVELYNWYN ANANYAMAN MD [facility] ? Report Date: ??03/03/2009 18:01 ? End of Report ? [facility] 02/26/2009 03/01/2009 Valentine Fallon TECHNOLOGY RISK INTERN PATHOLOGY ORDER FRED [facility] [address] [place] [address] documented in this encounter Visit Diagnoses Not on filedocumented in this encounter
--- OUTSIDE RECORDS SUMMARY | 2024-06-20 16:01 | XMS_ITS | Encounter Summary ---
Author Organization [facility] Address [address] [place] [address] Care Team Providers Care Concession Worker Name Role Phone Rosalia Starr MD Primary Care Provider [phone] Silvia Broussard MD Unavailable [phone] Reason for Visit * Reason Onset Date Comments Medications Refill 10/06/2022 Encounter Details Date Type Department Care Team (Late st Contact Info) Description 10/06/2022 Refill [facility] Endocrinology [address] [place] [phone] Latisha Romano RN Medications Refill Social History [...] Refills Start Date End Da te insulin glargine,hum.rec.anlog (BASAGLAR KWIKPEN) 100 unit/mL (3 mL) subcutaneous pen Inject 85 Units into the skin at bedtime. 15 mL 5 10/06/2022 documented in this encounter Miscellaneous Notes * Telephone Encounter - Latisha Romano RN - 10/10/2022 0906 EST basaglar covered * Telephone Encounter - Latisha Romano RN - 10/06/2022 1327 EST Attempting to send in basaglar to see if covered documented in this encounter Plan of Treatment Upcoming Encounters Date Type Department Care Team (Late st Contact Info) Description 09/04/2024 13:30 EST Office Visit [facility] Endocrinology [address] [place] [address] José Miguel Padgett MD [address] [place] [phone] documented as of this encounter Visit Diagnoses Not on filedocumented in this encounter Discontinued Medications Medication Sig Discontinue Reason Start Date End Da te insulin glargine (LANTUS SOLOSTAR/SEMGLEE) 100 unit/mL (3 mL) injection penIndications:pump failure Inject 85 Units into the skin once daily. 10/06/2022 10/06/2022 documented as of this encounter Care Teams Concession Worker Relationship Specialty Start Date End Date Rosalia Starr MD [address] [place] [phone] PCP - General 11/06/16 Silvia Broussard MD [address] [place] [phone] Endocrinology, Diabetes and Metabolism 11/23/21 documented as of this encounter
--- OUTSIDE RECORDS SUMMARY | 2024-06-20 16:02 | XMS_ITS | Encounter Summary ---
Author Organization [facility] Address [address] [place] [address] Care Team Providers Care Vp Of Product Name Role Phone Unknown, Provider Primary Care Provider Encounter Details Date Type Department Care Team (Late st Contact Info) Description 07/02/2001 Results Only [facility] conversion [address] [place] [address] Nathan Khan MD Social History Tobacco Use Types Packs/Day Years [...] Info) Description 09/04/2024 13:30 EST Office Visit [facility] Endocrinology [address] [place] [address] José Miguel Padgett MD [address] [facility] [place] [address] documented as of this encounter Procedures Procedure Name Priority Date/Time Associated Diagnosis Comments CYTOPATHOLOGY Routine 07/02/2001 0:00 EDT documented in this encounter Results * CYTOPATHOLOGY (07/02/2001 0:00 EDT) Pathology Report: CYTOPATHOLOGY REPORT Reports generated via electronic interface contain original data; however they are lacking the format of the original report. Caution should be taken when reading/interpreti ng unformatted reports. Name: ? ORTEGA CORRIGAN ? Accession #: ? [id number] : ? 1970 (Age: 31) ??F ?Collect Date: ? 07/02/2001 Location: ? [facility] ? Receive Date: ? 07/04/2001 Provider: ?NATHAN KHAN MD Copy to: ? Specimen/Source: ?ThinPrep Pap Test, Cervix/Endocervix Last Menstrual Period: ? 06/14/01 ? SPECIMEN ADEQUACY ? Satisfactory for evaluation but limited by an absence of a transformation zone component. GENERAL CATEGORIZATION ? Benign Cellular Changes DESCRIPTIVE DIAGNOSIS ? 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 ? Document reviewed and electronically signed by: ? Lindsey Bach, ??SCT(ASCP) ? Report Date: ??07/05/2001 15:13 End of Report [facility] 07/02/2001 07/04/2001 Nathan Khan MD PATHOLOGY ORDERABLES [facility] [address] [place] [address] documented in this encounter Visit Diagnoses Not on filedocumented in this encounter Care Teams Vp Of Product Relationship Specialty Start Date End Date Unknown, Provider, PCP - General 03/08/09 11/05/16 documented as of this encounter
--- OUTSIDE RECORDS SUMMARY | 2024-06-20 16:02 | XMS_ITS | Encounter Summary ---
Author Organization [facility] Address [address] [place] [address] Care Team Providers Care Trust Vault Clerk Name Role Phone Unknown, Provider Primary Care Provider Encounter Details Date Type Department Care Team (Late st Contact Info) Description 04/20/2007 Results Only [facility] conversion [address] [place] [address] Valentine Fallon, ARIANNA [address] [place] [address] Social History Tobacco Use Types Packs/Day Years [...] 09/04/2024 13:30 EST Office Visit [facility] Endocrinology [address] [place] [address] José Miguel Padgett MD [address] [facility] [place] [phone] documented as of this encounter Procedures Procedure Name Priority Date/Time Associated Diagnosis Comments CYTOPATHOLOGY Routine 04/20/2007 0:00 EDT documented in this encounter Results * CYTOPATHOLOGY (04/20/2007 0:00 EDT) Pathology Report: CYTOPATHOLOGY REPORT Reports generated via electronic interface contain original data; however they are lacking the format of the original report. Caution should be taken when reading/interpreti ng unformatted reports. Name: ? ORTEGA CORRIGAN ? Accession #: ? [id number] : ? 1970 (Age: 37) ??F ?Collect Date: ? 04/20/2007 Location: ? [facility] ? Receive Date: ? 04/22/2007 Provider: ?VALENTINE WATTS-DOROTHY YAM CURER Copy to: ? Specimen/Source: ?ThinPrep Pap Test, Endocervix, processed on [employer] ThinPrep Imaging System, with manual evaluation Last Menstrual Period: ? 04/11/07 Previous Gynecologic Pathology: ? Yes: Abnormal 10/03 ASC-US: ??w/HPV 10/03 ? SPECIMEN ADEQUACY ? Satisfactory for Evaluation - transformation zone component present GENERAL CATEGORIZATION ? Epithelial Cell Abnormality INTERPRETATION ? Squamous Cell Abnormality - Low grade squamous intraepithelial lesion (LSIL). Shift in yumiko present suggestive of bacterial vaginosis. EDUCATIONAL NOTES/RECOMMENDATI ONS ? [facility] recommends following the 2001 Consensus Guidelines for the Management of Women with Cervical Cytological Abnormalities (RAI,2002;287:212 0-9). Management algorithms have been distributed by [facility] and are available online at www.ASCCP.org. ? Document reviewed and electronically signed by: ? Thomas Ching MD ? Report Date: ??04/29/2007 11:22 End of Report [facility] 04/20/2007 04/22/2007 Valentine Watts-Rising YAM CURER PATHOLOGY ORDER FRED Performing Organization Address City/State/[facility] Co de Phone Number [facility] [address] [place] [address] documented in this encounter Visit Diagnoses Not on filedocumented in this encounter Care Teams Trust Vault Clerk Relationship Specialty Start Date End Date Unknown, Provider, PCP - General 03/08/09 11/05/16 documented as of this encounter
--- OUTSIDE RECORDS SUMMARY | 2024-06-20 16:02 | XMS_ITS | Encounter Summary ---
Author Organization [facility] Address [address] [place] [address] Care Team Providers Care Box Sealing Inspector Name Role Phone Unavailable Primary Care Provider Unavailabl e Encounter Details Date Type Department Care Team (Late st Contact Info) Description 10/05/2006 13:10 EST Hospital Encounter [facility] [address] [place] [address] Laurence Fallon, ARIANNA [address] [place] [address] Social History Tobacco Use Types Packs/Day Years [...] Info) Description 09/04/2024 13:30 EST Office Visit [facility] Endocrinology [address] [place] [address] José Miguel Padgett MD [address] [facility] [place] [address] documented as of this encounter Procedures Procedure Name Priority Date/Time Associated Diagnosis Comments N. GONORRHOEAE AMPLIFIED PROBE Routine 10/05/2006 18:52 EST HPV DETECTION, HIGH RISK TYPES Routine 10/05/2006 18:52 EST ZZCHLAMYDIA TRACHOMATIS AMPLIFIED PROBE Routine 10/05/2006 18:52 EST T4 FREE Routine 10/05/2006 18:52 EST documented in this encounter Results * HUMAN PAPILLOMA VIRUS DNA TEST (10/05/2006 18:52 EST) Specimen Description Cervix, ThinPrep vial [facility] Result Positive for one or more of HPV types 16,18,31,33,35 ,39,45,51,52,5 6,58,59, or 68. These high/intermedi ate risk HPV types are associated with dysplasia and some cervical cancers. [facility] Report Status Final [id number] [facility] 10/05/2006 18:5 2 EST 10/15/2006 22:27 EST Laurence Fallon NP MICROBIOLOGY - GENERAL ORDERABLES [facility] [address] [place] [address] * N. GONORRHOEAE AMPLIFIED PROBE (10/05/2006 18:52 EST) Result No Neisseria gonorrhoeae DNA detected by pin ball machine mechanic mediated amplification. [facility] Report Status Final [id number] [facility] Specimen Description Cervix [facility] 10/05/2006 18:5 2 EST 10/07/2006 15:14 EST Provider Unknown MICROBIOLOGY - GENER AL ORDERABLES Performing Organization Address [facility] Co de Phone Number [facility] [address] [place] [address] * CHLAMYDIA TRACHOMATIS AMPLIFIED PROBE (10/05/2006 18:52 EST) Specimen Description Cervix [facility] Result No Chlamydia trachomatis DNA detected by pin ball machine mechanic mediated amplification. [facility] Report Status Final [id number] [facility] 10/05/2006 18:5 2 EST 10/07/2006 15:13 EST Provider Unknown MICROBIOLOGY - GENER AL ORDERABLES Performing Organization Address [facility] Co de Phone Number [facility] [address] [place] [address] * T4 FREE (10/05/2006 18:52 EST) Free T4 1.2 0.8 - 1.8 ng/dL [facility] 10/05/2006 18:5 2 EST 10/07/2006 15:05 EST Provider Unknown CHEMISTRY & BLOOD GA S ORDERABLES Performing Organization Address [facility] Co de Phone Number [facility] [address] [place] [address] documented in this encounter Visit Diagnoses Not on filedocumented in this encounter
--- OUTSIDE RECORDS SUMMARY | 2024-06-20 16:02 | XMS_ITS | Encounter Summary ---
Author Organization [facility] Address [address] [place] [address] Care Team Providers Care Landscape Management Technician Name Role Phone Unknown, Provider Primary Care Provider Encounter Details Date Type Department Care Team (Late st Contact Info) Description 10/05/2006 Results Only [facility] conversion [address] [place] [address] Valentine Fallon, ARIANNA [address] [place] [address] Social History Tobacco Use Types Packs/Day Years [...] Office Visit [facility] Endocrinology [address] [place] [address] José Miguel Padgett MD [address] [facility] [place] [phone] documented as of this encounter Procedures Procedure Name Priority Date/Time Associated Diagnosis Comments CYTOPATHOLOGY Routine 10/05/2006 0:00 EST documented in this encounter Results * CYTOPATHOLOGY (10/05/2006 0:00 EST) Pathology Report: CYTOPATHOLOGY REPORT Reports generated via electronic interface contain original data; however they are lacking the format of the original report. Caution should be taken when reading/interpreti ng unformatted reports. Name: ? ORTEGA CORRIGAN ? Accession #: ? [id number] : ? 1970 (Age: 36) ??F ?Collect Date: ? 10/05/2006 Location: ? [facility] ? Receive Date: ? 10/08/2006 Provider: ?VALENTINE WATTS-KIT [facility] ROOFER ASSISTANT Copy to: ? Specimen/Source: ?ThinPrep Pap Test, Endocervix, processed on [employer] ThinPrep Imaging System, with manual evaluation Last [...] of bacterial vaginosis. EDUCATIONAL NOTES/RECOMMENDATI ONS ? [facility] recommends following the 2001 Consensus Guidelines for the Management of Women with Cervical Cytological Abnormalities (RAI,2002;287:212 0-9). Management algorithms have been distributed by [facility] and are available online at www.ASCCP.org. ? Document reviewed and electronically signed by: ? LUCILA HILLIARD MD [facility] ? Report Date: ??10/16/2006 10:23 End of Report [facility] 10/05/2006 10/08/2006 Valentine Watts-Rising ROOFER ASSISTANT PATHOLOGY ORDER FRED [facility] [address] [place] [address] documented in this encounter Visit Diagnoses Not on filedocumented in this encounter Care Teams Landscape Management Technician Relationship Specialty Start Date End Date Unknown, Provider, PCP - General 03/08/09 11/05/16 documented as of this encounter
--- OUTSIDE RECORDS SUMMARY | 2024-06-20 16:02 | XMS_ITS | Encounter Summary ---
Author Organization [facility] Address [address] [place] [address] Care Team Providers Care Restaurant Manager Name Role Phone Unknown, Provider Primary Care Provider Encounter Details Date Type Department Care Team (Late st Contact Info) Description 08/01/2005 Results Only [facility] conversion [address] [place] [address] Darci Eckert, [address] [address] Social History Tobacco Use Types Packs/Day Years [...] Info) Description 09/04/2024 13:30 EST Office Visit [facility] Endocrinology [address] [place] [address] José Miguel Padgett MD [address] [facility] [place] [phone] documented as of this encounter Procedures Procedure Name Priority Date/Time Associated Diagnosis Comments CYTOPATHOLOGY Routine 08/01/2005 0:00 EDT documented in this encounter Results * CYTOPATHOLOGY (08/01/2005 0:00 EDT) Pathology Report: CYTOPATHOLOGY REPORT Reports generated via electronic interface contain original data; however they are lacking the format of the original report. Caution should be taken when reading/interpreti ng unformatted reports. Name: ? ORTEGA CORRIGAN ? Accession #: ? [id number] : ? 1970 (Age: 35) ??F ?Collect Date: ? 08/01/2005 Location: ? [facility] ? Receive Date: ? 08/03/2005 Provider: ?DARCI ECKERT [facility] Copy to: ?ELENA AYALA MD ? Specimen/Source: ?ThinPrep Pap Test, Cervix/Endocervix, processed on [employer] ThinPrep Imaging System, with manual evaluation Last [...] Report Date: ??08/08/2005 07:04 End of Report [facility] 08/01/2005 08/03/2005 Darci Eckert CNMarj PATHOLOGY ORDERA BLES Performing Organization Address City/State/[facility] Co de Phone Number [facility] [address] [place] [address] documented in this encounter Visit Diagnoses Not on filedocumented in this encounter Care Teams Restaurant Manager Relationship Specialty Start Date End Date Unknown, Provider, PCP - General 03/08/09 11/05/16 documented as of this encounter
--- OUTSIDE RECORDS SUMMARY | 2024-06-20 16:02 | XMS_ITS | Continuity of Care Document ---
Author Organization [facility] Address [address] [place] [address] Phone Care Team Providers Care Sas Analyst Name Role Phone Out of Town, Provider Primary Care Provider Unav ailable Donaldo Pratt Attending Provider Unavailable Allergies, Adverse Reactions, Alerts Allergen Type Severity Reaction Last Updated Verified Status ampicillin Allergy HIVES January 26, 2021 8:39am Yes Active Penicillins Allergy hives January 26, 2021 8:39am Yes Active Medications Medication Status Dose Units Route Directions Qty Days St art Date End Date Instructions Atorvastatin Active 20 MG PO DAILY Ugo 2019 11:15am Dapagliflozin (Farxiga) 5 mg tablet Active 5 MG PO DAILY 2019 11:16am Liraglutide (Victoza 2-Luca) 0.6 mg/0.1 mL (18 mg/3 mL) pen injector Active 0.6 MG SC DAILY 2019 11:16am Venlafaxine (Effexor Xr) 75 mg capsule,exten ded release 24hr Active 75 MG PO DAILY 2019 11:16am Insulin Lispro Active 300 UNITS SC DAILY 2019 11:17am Albuterol Sulfate (Proair Hfa) 90 mcg/actuation HFA aerosol inhaler Active 1 INH INH ONCE 2019 11:18am Lisinopril Active 40 MG PO DAILY 2019 11:18am Gabapentin Active 300 MG PO THREE ALLI ES A DAY 2019 11:19am Aspirin (Adult Aspirin Regimen) 81 mg tablet,delaye d release (DR/EC) Active 81 MG PO DAILY 2019 11:19am Diclofenac Potassium Active 50 MG PO TWICE A DAY 60 2019 11:57am Start taking afterDosepak is finished Methylprednis olone (Medrol (Luca)) 4 mg tablets,dose pack Discontin ued 4 MG PO per package directions 2019 11:58am January 26, 2021 8:40am Cyclobenzapri ne Active 10 MG PO THREE TIMES A DAY 84 2019 11:59am Problems Active Problems Medical Problem Onset Date Status Lumbar radiculopathy Active Procedures Procedure Date Performed Status Lumbar Spine 4 vw Min August 30, 2020 11:12am completed Advance Directives Advance Directive Response Recorded Date/ Time Does patient have an Advanced Directive? No August 30, 2020 11:00am Do we have a copy [facility] [place] [facility] No August 30, 2020 11:00am Pt has a Living Will? No August 302019 11:00am Do we have a copy on file here at [facility]? No August 30, 2020 11:00am Pt has a Power of Cover Assembler? Rebecca Arizmendi 2019 11:00am Do we have a copy on file here at [facility]? No August 30, 2020 11:00am Chief Complaint and Reason for Visit Chief Complaint SCIATICA X-RAY fu sciatica Reason for Visit Lumbar radiculopathy Lumbar radiculopathy Encounters Encounter Location(s) Arrival/Admit Date Discharge/Depart Date Provider(s) Departed Physician/Prov ider Office Visit [facility] Orthopedic&Rehab August 30, 2020 11:00am August 30, 2020 12:22pm Donaldo Pratt MD Departed Clinical [facility] Orthopedics August 30, 2020 11:04am August 30, 2020 11:05am Donaldo Pratt MD Departed Physician/Prov [facility] January 26, 2021 8:34am January 26, 2021 9:36am LYNDON Sabillon Recent Diagnosis Onset Date Lumbar radiculopathy Lumbar radiculopathy Assessments Diagnosis Onset Date Resolution Status Lumbar radiculopathy acute Lumbar radiculopathy acute Functional Status No Functional Status information available Goals Goals may be documented in an alternate section. Mental Status No Mental Status Information Available Medical Equipment No Medical Equipment Information available Insurance Providers Guarantor ORTEGA FRANKLIN Address [address] [facility] [address] Contact Info. Home Phone: Payer Policy Id Coverage Id Subscriber's Name Subscriber Id Effective Date Expiration Date COMM UNLISTED INSURANCE [id number] CAR Najera NOEMI [id number] SELF PAY Self N/A Plan of Treatment [...] Referrals to Other Providers Reason for Referral Referral Start Date Provider Provider Contact Information Provider Address M54.16 - Radiculopathy, lumbar region January 26, [address] [address] Future Procedures Future procedure information is unavailable Future Medications Future medication information is unavailable Patient Instructions Patient instructions are unavailable Social History Smoking Status Status Date of Observation Never smoked tobacco (finding) December 8:42am Observation Status Observation Response Date of Response alcohol intake frequency holidays/special occasi ons only January 26, 2021 8:42am substance use type does not use January 26 8:42am Smoking Status Never smoker January 26, 2021 8:42am Assigned Sex Female Vital Signs Vital Reading Result Reference Range Collection Date/Time Height 62 [in_i] August 30 10:09am Weight 88.90 kg August 30 10:09am Heart Rate 75 /min 60-100 August 30 10:09am Oxygen saturation by Pulse oximetry 97 % 95-100 August 30, 2020 0:09am BP Systolic 118 mm[Hg] 100-140 August 30, 020 10:09am BP Diastolic 68 mm[Hg] 50-85 August 30, 020 10:09am BMI (Body Mass Index) 35.8 kg/m2 [facility] 2019 10:09am Height 62 [in_i] January 26 8:42am Weight 87.14 kg January 26 8:42am Heart Rate 76 /min 60-100 January 26 8:42am Respiratory rate 16 /min 12-24 January 26, 2021 8:42am Oxygen saturation by Pulse oximetry 96 % 95-100 January 26, 2021 8:4 2am BP Systolic 121 mm[Hg] 100-140 January 26 8:42am BP Diastolic 74 mm[Hg] 50-85 January 26 8:42am BMI (Body Mass Index) 35.1 kg/m2 January 26, 2021 8:42am
--- OUTSIDE RECORDS SUMMARY | 2024-06-20 16:02 | XMS_ITS | Continuity of Care Document ---
Author Organization [facility] Address [address] [place] [address] Phone Care Team Providers Care Clinical Marketing Manager Name Role Phone Out of Town, Provider Primary Care Provider Unav ailable Donaldo Pratt Attending Provider [phone] Allergies, Adverse Reactions, Alerts Allergen Type Severity Reaction Last Updated Verified Status ampicillin Allergy HIVES August 30, 2020 10:11am Ye s Active Penicillins Allergy hives August 30, 2020 10:11am Y es Active Medications Medication Status Dose Units Route Directions Qty Days St art Date End Date Instructions Atorvastatin Active 20 MG PO DAILY Ugo reyna 2019 10:15am Dapagliflozin (Farxiga) 5 mg tablet Active 5 MG PO DAILY August 30, 2020 10:16am Liraglutide (Victoza 2-Luca) 0.6 mg/0.1 mL (18 mg/3 mL) pen injector Active 0.6 MG SC DAILY August 30, 2020 10:16am Venlafaxine (Effexor Xr) 75 mg capsule,extend ed release 24hr Active 75 MG PO DAILY August 30, 2020 10:16am Insulin Lispro Active 300 UNITS SC DAILY No vember 2019 10:17am Albuterol Sulfate (Proair Hfa) 90 mcg/actuation HFA aerosol inhaler Active 1 INH INH ONCE August 30, 2020 10:18am Lisinopril Active 40 MG PO DAILY Novemb er 2019 10:18am Gabapentin Active 300 MG PO THREE ALLI ES A DAY August 30, 2020 10:19am Aspirin (Adult Aspirin Regimen) 81 mg tablet,delayed release (DR/EC) Active 81 MG PO DAILY August 30, 2020 10:19am Diclofenac Potassium Active 50 MG PO TWICE A DAY 60 August 30, 2020 10:57am Start taking afterDosepak is finished Methylpredniso lone (Medrol (Luca)) 4 mg tablets,dose pack Active 4 MG PO per package directions 21 August 30, 2020 10:58am Cyclobenzaprin e Active 10 MG PO THREE TIMES A DAY 84 August 30, 2020 10:59am Problems Active Problems Medical Problem Onset Date Status Lumbar radiculopathy Active Procedures Procedure Date Performed Status Lumbar Spine 4 vw Min August 30, 2020 10:12am completed Advance Directives Advance Directive Response Recorded Date/ Time Does patient have an Advanced Directive? No August 30, 2020 10:00am Do we [place] a [place] [facility] No August 30, 2020 10:00am Pt has a Living Will? No August 302019 10:00am Do we have a copy on file here at [facility]? No August 30, 2020 10:00am Pt has a Power of Pest Locator? No Ugo reyna 2019 10:00am Do we have a copy on file here at [facility]? No August 30, 2020 10:00am Chief Complaint and Reason for Visit Chief Complaint SCIATICA X-RAY Reason for Visit Lumbar radiculopathy Encounters Encounter Location(s) Arrival/Admit Date Discharge/Depart Date Provider(s) Departed Physician/Prov ider [facility] August 30, 2020 10:00am August 30, 2020 11:22am Donaldo Pratt MD [facility] August 30, 2020 10:04am August 30, 2020 10:05am Donaldo Pratt MD Recent Diagnosis Onset Date Lumbar radiculopathy Assessments Diagnosis Onset Date Resolution Status Lumbar radiculopathy acute Functional Status No Functional Status information available Goals Goals may be documented in an alternate section. Mental Status No Mental Status Information Available Medical Equipment No Medical Equipment Information available Insurance Providers Guarantor ORTEGA NOEMI Address [address] [place] [id number] Contact Info. Home Phone: Payer Policy Id Coverage Id Subscriber's Name Subscriber Id Effective Date Expiration Date COMM UNLISTED INSURANCE [id number] CAR W NOEMI [id number] SELF PAY Self N/A Social History Assigned Sex Female Vital Signs Vital Reading Result Reference Range Collection Date/Time Height 62 [in_i] August 30, 020 10:09am Weight 88.90 kg August 30, 10:09am Heart Rate 75 /min 60-100 August 30, 020 10:09am Oxygen saturation by Pulse oximetry 97 % 95-100 August 30, 2020 1 0:09am BP Systolic 118 mm[Hg] 100-140 August 30, 2 020 10:09am BP Diastolic 68 mm[Hg] 50-85 August 30, 020 10:09am BMI (Body Mass Index) 35.8 kg/m2 [facility] 2019 10:09am
--- OUTSIDE RECORDS SUMMARY | 2024-06-20 16:02 | XMS_ITS | Continuity of Care Document ---
Author Organization [facility] Address [address] [place] [address] Phone Care Team Providers Care Senior Game Developer Name Role Phone Out of Town, Provider Primary Care Provider Unav ailable Donaldo Pratt Attending Provider [phone] Allergies, Adverse Reactions, Alerts Allergen Type Severity [...] have a copy on file here at [facility]? No August 30, 2020 10:00am Pt has a Living Will? No August 302019 10:00am Do we have a copy on file here at [facility]? No August 30, 2020 10:00am Pt has a Power of [employer] Mainframe Developer? Rebecca reyna 2019 10:00am Do we have a copy on file here at [facility]? No August 30, 2020 10:00am Chief Complaint and Reason for Visit Chief Complaint [facility] X-RAY Reason for Visit Lumbar radiculopathy Encounters Encounter Location(s) Arrival/Admit Date Discharge /Depart Date Provider(s) Departed [facility] 30, 2020 10:00am August 30, 2020 11:22am Donaldo Pratt MD Registered Clinical [facility] August 30, 2020 10:04am Donaldo Pratt MD Recent Diagnosis Onset Date Lumbar radiculopathy Assessments Diagnosis Onset Date Resolution Status Lumbar radiculopathy acute Functional Status No Functional Status information available Goals Goals may be documented in an alternate section. Mental Status No Mental Status Information Available Medical Equipment No Medical Equipment Information available Insurance Providers Guarantor ORTEGA FRANKLIN Address [address] [place], [place] [id number] Contact Info. Home Phone: Payer Policy Id Coverage Id Subscriber's Name Subscriber Id Effective Date Expiration Date COMM UNLISTED INSURANCE [id number] CAR W NOEMI [id number] SELF PAY Self N/A Social History Assigned Sex Female Vital Signs Vital Reading Result Reference Range Collection Date/Time Height 62 [in_i] August 30, 020 10:09am Weight 88.90 kg August 30, 020 10:09am Heart Rate 75 /min 60-100 August 30, 020 10:09am Oxygen saturation by Pulse oximetry 97 % 95-100 August 30, 2020 1 0:09am BP Systolic 118 mm[Hg] 100-140 August 30, 2 020 10:09am BP Diastolic 68 mm[Hg] 50-85 August 30, 020 10:09am BMI (Body Mass Index) 35.8 kg/m2 [facility] 2019 10:09am
[2024-06-20 17:16] LABS: COMMENT (LAB VIEW ONLY) 152.38 mg/dL; Microalb ug/mg Crea 54.9 ug/mg Cr
== END 2024-06-20 15:48 | disposition home or self-care (01) ==
LOC: NCHCN 15:47
PROVIDERS: PCP Family Medicine; Visit Provider Family Medicine
DX: E11.65 Type 2 diabetes mellitus with hyperglycemia (principal)
CPT/HCPCS: 82043; 82570

== ENCOUNTER 2025-04-01 20:14 | Outpatient (REF) | payer OTHER, SELFPAY ==
[2025-04-01 21:08] LABS: ESR 7 mm/hr (0-30)
[2025-04-01 21:10] LABS: HCT 49.8 % (36.0-46.0); HGB 16.3 g/dL (11.2-15.7); MCH 29.5 pg (27.0-33.0); MCHC 32.7 % (32.0-36.0); MCV 90 fL (80-95); MPV 11.1 fL (8.0-11.0); Platelet Count 210 10^3/uL (130-400); RBC 5.52 10^6/uL (3.93-5.22); RDW 12.6 % (11.7-14.6); RDW-SD 41.5 fL; WBC 6.98 10^3/uL (4.4-10.8)
[2025-04-01 21:21] LABS: Uric Acid 4.9 mg/dL (2.6-6.0)
[2025-04-01 21:22] LABS: C-Reactive Protein < 0.50 mg/dL (<or=0.5)
[2025-04-02 17:47] LABS: Rheumatoid Factor <8.6 IU/mL (<12.0)
[2025-04-03 11:35] LABS: Lyme Ab w Rflx to Lyme Confirm Negative (Negative)
== END 2025-04-01 20:15 | disposition home or self-care (01) ==
LOC: NCHCN 20:14
PROVIDERS: PCP Family Medicine; Visit Provider Family Medicine
DX: M19.09 Primary osteoarthritis, other specified site (principal)
CPT/HCPCS: 85027; 85652; 84550; 86140; 86431; 86618